=== PATIENT | male | born 1945 | race Caucasian/White ===

== ENCOUNTER → 2021-01-28 | Outpatient (CLI) | payer MEDICARE, OTHER ==
[~2021-01-28] MED LIST: ASCO500; BRAIN MIGHT-DH1 EACH; CHOL10002 PO; CO Q; FISH1000; IBUP600 PO; NAPR500 PO; Norco 5-325 Ta1 EACH PO; PRED20 PO
== END | disposition home or self-care (01) ==
LOC: LAB SHORT 14:28
DX: L82.1 Other seborrheic keratosis (principal)
CPT/HCPCS: 88305

== ENCOUNTER 2022-08-06 00:16 | Day surgery (SDC) | payer MEDICARE, OTHER ==
[~2022-08-06 00:16] MED LIST changes: +ALEN70 PO
[2022-08-06 07:41] VITALS: BP 154/74
[2022-08-06 08:06] VITALS: BP 112/63
[2022-08-06 09:20] VITALS: BP 134/62
== END 2022-08-06 09:30 | disposition home or self-care (01) ==
LOC: ATC 00:16
DX: D46.9 Myelodysplastic syndrome, unspecified (principal); D69.6 Thrombocytopenia, unspecified; D63.0 Anemia in neoplastic disease; E80.4 Gilbert syndrome; D70.9 Neutropenia, unspecified
CPT/HCPCS: 86850; 86900; 86901; 86923; J1642; J7050; P9016

== ENCOUNTER 2022-08-13 03:26 | Day surgery (SDC) | payer MEDICARE, OTHER ==
[2022-08-12 08:19] VITALS: BP 125/74
[2022-08-12 09:08] LABS: Hematocrit 24.5 % (37.0-53.0); Mean Corpuscular HGB 33.1 pg (26.0-34.0); Mean Corpuscular HGB Conc 32.7 g/dL (31.5-36.5); Mean Corpuscular Volume 101 fL (80-100); Mean Platelet Volume 9.8 fL (9.1-12.4); RDW Coefficient Variation 18.5 % (11.7-14.2); Red Blood Cell Count 2.42 M/mm3 (4.30-5.90)
[2022-08-12 09:19] LABS: BASOPHILS PERCENT AUTO 0 % (0-2); EOSINOPHILS ABSOLUTE AUTO 0.01 K/mm3 (0.00-0.68); EOSINOPHILS PERCENT AUTO 2 % (0-6); IMMATURE GRAN ABSOLUTE AUTO 0.02 K/mm3 (0.00-0.10); IMMATURE GRAN PERCENT AUTO 5 % (0-1); LYMPHOCYTES ABSOLUTE AUTO 0.27 K/mm3 (0.84-5.20); LYMPHOCYTES PERCENT AUTO 63 % (21-46); MONOCYTES ABSOLUTE AUTO 0.04 K/mm3 (0.16-1.47); MONOCYTES PERCENT AUTO 9 % (4-13); NEUTROPHILS ABSOLUTE AUTO 0.09 K/mm3 (1.96-9.15); NEUTROPHILS PERCENT AUTO 21 % (41-73); Platelet Count 36 K/mm3 (150-400)
[2022-08-12 09:21] LABS: White Blood Cell Count 0.43 K/mm3 (4.00-11.30)
[2022-08-12 09:30] LABS: Albumin, Blood 3.1 g/dL (3.4-5.0); Albumin/Globulin Ratio 0.9 (0.8-1.8); Bilirubin, Total 1.9 mg/dL (0.1-1.0); Bun/Creatinine Ratio 21.3 (12.0-20.0); Calcium, Blood 7.7 mg/dL (8.5-10.1); Creatinine, Blood 0.7 mg/dL (0.60-1.20); Globulin, Blood 3.3 g/dL (2.2-4.0); Potassium, Blood 4.2 mmol/L (3.5-5.5); Total Protein, Blood 6.4 g/dL (6.4-8.2)
[2022-08-12 09:36] LABS: BASOPHILS PERCENT MAN 0 % (0-2); EOSINOPHILS PERCENT MAN 0 % (0-6); LYMPHOCYTES ABSOLUTE MAN 0.27 K/mm3 (0.84-5.20); LYMPHOCYTES PERCENT MAN 64 % (21-46); MONOCYTES ABSOLUTE MAN 0.03 K/mm3 (0.16-1.47); MONOCYTES PERCENT MAN 8 % (4-13); NEUTROPHILS ABSOLUTE MAN 0.12 K/mm3 (1.96-9.15); SEG NEUTROPHILS PERCENT MAN 28 % (41-73); TOTAL CELLS COUNTED 25
[2022-08-13 13:50] VITALS: BP 145/78
[2022-08-13 14:12] VITALS: BP 120/68
[2022-08-13 15:26] VITALS: BP 127/70
== END 2022-08-13 15:32 | disposition home or self-care (01) ==
LOC: ATC 03:26
PROVIDERS: Internal Medicine Hematology & Oncology
DX: D46.9 Myelodysplastic syndrome, unspecified (principal); D70.9 Neutropenia, unspecified; D63.0 Anemia in neoplastic disease; E80.4 Gilbert syndrome; D69.6 Thrombocytopenia, unspecified; Z87.891 Personal history of nicotine dependence
CPT/HCPCS: 36591; 80053; 85025; 86850; 86900; 86901; 86923; J1642; J7050; P9016

== ENCOUNTER 2022-08-21 03:35 | Day surgery (SDC) | payer MEDICARE, OTHER ==
[2022-08-19 09:22] VITALS: BP 132/70
[2022-08-19 09:49] LABS: Hematocrit 24.8 % (37.0-53.0); Hemoglobin 8.1 g/dL (13.5-17.5); Mean Corpuscular HGB 31.6 pg (26.0-34.0); Mean Corpuscular HGB Conc 32.7 g/dL (31.5-36.5); Mean Corpuscular Volume 97 fL (80-100); Mean Platelet Volume 10.6 fL (9.1-12.4); RDW Coefficient Variation 19.9 % (11.7-14.2); RDW Standard Deviation 70.4 fL (35.1-46.3); Red Blood Cell Count 2.56 M/mm3 (4.30-5.90)
[2022-08-19 10:04] LABS: Platelet Count 35 K/mm3 (150-400); White Blood Cell Count 0.47 K/mm3 (4.00-11.30)
[2022-08-19 10:16] LABS: Albumin, Blood 3.1 g/dL (3.4-5.0); Bilirubin, Total 1.9 mg/dL (0.1-1.0); Bun/Creatinine Ratio 19.3 (12.0-20.0); Calcium, Blood 7.9 mg/dL (8.5-10.1); Creatinine, Blood 0.73 mg/dL (0.60-1.20); Potassium, Blood 4.1 mmol/L (3.5-5.5); Total Protein, Blood 6.1 g/dL (6.4-8.2)
[2022-08-19 11:02] LABS: BASOPHILS PERCENT MAN 0 % (0-2); EOSINOPHILS ABSOLUTE MAN 0.01 K/mm3 (0.00-0.68); EOSINOPHILS PERCENT MAN 4 % (0-6); LYMPHOCYTES ABSOLUTE MAN 0.31 K/mm3 (0.84-5.20); LYMPHOCYTES PERCENT MAN 68 % (21-46); MONOCYTES ABSOLUTE MAN 0.03 K/mm3 (0.16-1.47); MONOCYTES PERCENT MAN 8 % (4-13); NEUTROPHILS ABSOLUTE MAN 0.09 K/mm3 (1.96-9.15); SEG NEUTROPHILS PERCENT MAN 20 % (41-73); TOTAL CELLS COUNTED 25
[2022-08-21 14:58] VITALS: BP 146/77
[2022-08-21 15:15] VITALS: BP 119/70
[2022-08-21 16:16] VITALS: BP 129/72
[2022-08-21 16:50] VITALS: BP 135/64
== END 2022-08-21 16:50 | disposition home or self-care (01) ==
LOC: LAB 03:35 → ATC 03:35
PROVIDERS: Internal Medicine Hematology & Oncology
DX: D46.9 Myelodysplastic syndrome, unspecified (principal)
CPT/HCPCS: 36430; 36591; 80053; 85025; 86850; 86900; 86901; 86923; J1642; J7050; P9016

== ENCOUNTER 2022-09-22 01:03 | Day surgery (SDC) | payer MEDICARE, OTHER ==
[~2022-09-22 01:03] MED LIST changes: +AMOX-CLAV 875-1 EAC5 PO; +AMPI500 PO; +CELEBREX PO; +VENCLEXTA100 MG PO
[2022-09-22 08:11] VITALS: BP 130/73
[2022-09-22 09:23] LABS: Mean Corpuscular HGB 31.4 pg (26.0-34.0); Mean Corpuscular HGB Conc 33.3 g/dL (31.5-36.5); Mean Corpuscular Volume 94 fL (80-100); NRBC ABSOLUTE 0.02 K/mm3 (0.00-0.02); NRBC Auto 4.1 /100 WBC (0.0-0.2); RDW Coefficient Variation 19.3 % (11.7-14.2); RDW Standard Deviation 66.1 fL (35.1-46.3); Red Blood Cell Count 2.87 M/mm3 (4.30-5.90)
[2022-09-22 09:25] LABS: Platelet Count 21 K/mm3 (150-400); White Blood Cell Count 0.49 K/mm3 (4.00-11.30)
[2022-09-22 10:07] LABS: BAND PERCENT MAN 4 % (0-8); BASOPHILS ABSOLUTE MAN 0.01 K/mm3 (0.00-0.23); BASOPHILS PERCENT MAN 4 % (0-2); EOSINOPHILS ABSOLUTE MAN 0.03 K/mm3 (0.00-0.68); EOSINOPHILS PERCENT MAN 8 % (0-6); LYMPHOCYTES ABSOLUTE MAN 0.25 K/mm3 (0.84-5.20); LYMPHOCYTES PERCENT MAN 52 % (21-46); MONOCYTES ABSOLUTE MAN 0.01 K/mm3 (0.16-1.47); MONOCYTES PERCENT MAN 4 % (4-13); NEUTROPHILS ABSOLUTE MAN 0.15 K/mm3 (1.96-9.15); SEG NEUTROPHILS PERCENT MAN 28 % (41-73); TOTAL CELLS COUNTED 25
[2022-09-22 11:01] LABS: Albumin, Blood 3.4 g/dL (3.4-5.0); Albumin/Globulin Ratio 1.1 (0.8-1.8); Bilirubin, Total 2.4 mg/dL (0.1-1.0); Bun/Creatinine Ratio 27.1 (12.0-20.0); Calcium, Blood 7.9 mg/dL (8.5-10.1); Creatinine, Blood 0.7 mg/dL (0.60-1.20); Potassium, Blood 3.9 mmol/L (3.5-5.5); Total Protein, Blood 6.4 g/dL (6.4-8.2)
== END 2022-09-22 08:11 | disposition home or self-care (01) ==
LOC: ATC 01:03
PROVIDERS: Internal Medicine Hematology & Oncology
DX: D46.9 Myelodysplastic syndrome, unspecified (principal); D69.6 Thrombocytopenia, unspecified
CPT/HCPCS: 36591; 80053; 85025; J1642

== ENCOUNTER → 2022-09-25 | Outpatient (CLI) | payer MEDICARE, OTHER ==
[2022-09-25 09:58] LABS: Hematocrit 26.2 % (37.0-53.0); Hemoglobin 8.5 g/dL (13.5-17.5); Mean Corpuscular HGB Conc 32.4 g/dL (31.5-36.5); Mean Corpuscular Volume 96 fL (80-100); RDW Coefficient Variation 18.9 % (11.7-14.2); RDW Standard Deviation 66.6 fL (35.1-46.3); Red Blood Cell Count 2.74 M/mm3 (4.30-5.90)
[2022-09-25 10:22] LABS: BASOPHILS PERCENT AUTO 0 % (0-2); EOSINOPHILS PERCENT AUTO 0 % (0-6); IMMATURE GRAN PERCENT AUTO 0 % (0-1); LYMPHOCYTES PERCENT AUTO 71 % (21-46); MONOCYTES ABSOLUTE AUTO 0.03 K/mm3 (0.16-1.47); MONOCYTES PERCENT AUTO 7 % (4-13); NEUTROPHILS ABSOLUTE AUTO 0.09 K/mm3 (1.96-9.15); NEUTROPHILS PERCENT AUTO 22 % (41-73)
[2022-09-25 10:23] LABS: Platelet Count 18 K/mm3 (150-400); White Blood Cell Count 0.42 K/mm3 (4.00-11.30)
== END ==
LOC: LAB 08:45 → LAB SHORT 08:45
PROVIDERS: Internal Medicine Hematology & Oncology
DX: D46.9 Myelodysplastic syndrome, unspecified (principal)
CPT/HCPCS: 85025

== ENCOUNTER 2022-10-02 03:04 | Day surgery (SDC) | payer MEDICARE, OTHER ==
[2022-10-02 08:18] VITALS: BP 132/75
[2022-10-02 08:39] LABS: Hematocrit 23.6 % (37.0-53.0); Hemoglobin 7.8 g/dL (13.5-17.5); Mean Corpuscular HGB 30.6 pg (26.0-34.0); Mean Corpuscular HGB Conc 33.1 g/dL (31.5-36.5); Mean Corpuscular Volume 93 fL (80-100); Mean Platelet Volume 9.5 fL (9.1-12.4); RDW Coefficient Variation 18.6 % (11.7-14.2); RDW Standard Deviation 62.6 fL (35.1-46.3); Red Blood Cell Count 2.55 M/mm3 (4.30-5.90)
[2022-10-02 08:46] LABS: Platelet Count 18 K/mm3 (150-400); White Blood Cell Count 0.33 K/mm3 (4.00-11.30)
[2022-10-02 09:07] LABS: BASOPHILS PERCENT MAN 0 % (0-2); EOSINOPHILS ABSOLUTE MAN 0.01 K/mm3 (0.00-0.68); EOSINOPHILS PERCENT MAN 4 % (0-6); LYMPHOCYTES ABSOLUTE MAN 0.26 K/mm3 (0.84-5.20); LYMPHOCYTES PERCENT MAN 80 % (21-46); MONOCYTES ABSOLUTE MAN 0.01 K/mm3 (0.16-1.47); MONOCYTES PERCENT MAN 4 % (4-13); NEUTROPHILS ABSOLUTE MAN 0.03 K/mm3 (1.96-9.15); SEG NEUTROPHILS PERCENT MAN 12 % (41-73); TOTAL CELLS COUNTED 25
== END 2022-10-02 09:11 | disposition home or self-care (01) ==
LOC: ATC 03:04
PROVIDERS: Internal Medicine Hematology & Oncology
DX: D46.9 Myelodysplastic syndrome, unspecified (principal); D69.59 Other secondary thrombocytopenia
CPT/HCPCS: 36591; 85025; J1642

== ENCOUNTER 2022-10-07 02:46 | Day surgery (SDC) | payer MEDICARE, OTHER ==
[2022-10-06 09:08] VITALS: BP 144/74
[2022-10-06 09:27] LABS: Hematocrit 21.5 % (37.0-53.0); Hemoglobin 7.2 g/dL (13.5-17.5); Mean Corpuscular HGB 30.9 pg (26.0-34.0); Mean Corpuscular HGB Conc 33.5 g/dL (31.5-36.5); Mean Corpuscular Volume 92 fL (80-100); Mean Platelet Volume 9.5 fL (9.1-12.4); RDW Coefficient Variation 17.2 % (11.7-14.2); RDW Standard Deviation 57.1 fL (35.1-46.3); Red Blood Cell Count 2.33 M/mm3 (4.30-5.90)
[2022-10-06 09:34] LABS: BASOPHILS PERCENT AUTO 0 % (0-2); EOSINOPHILS PERCENT AUTO 0 % (0-6); IMMATURE GRAN PERCENT AUTO 0 % (0-1); LYMPHOCYTES ABSOLUTE AUTO 0.18 K/mm3 (0.84-5.20); LYMPHOCYTES PERCENT AUTO 75 % (21-46); MONOCYTES ABSOLUTE AUTO 0.04 K/mm3 (0.16-1.47); MONOCYTES PERCENT AUTO 17 % (4-13); NEUTROPHILS ABSOLUTE AUTO 0.02 K/mm3 (1.96-9.15); NEUTROPHILS PERCENT AUTO 8 % (41-73); Platelet Count 6 K/mm3 (150-400); White Blood Cell Count 0.24 K/mm3 (4.00-11.30)
[2022-10-06 10:20] LABS: LYMPHOCYTES ABSOLUTE MAN 0.23 K/mm3 (0.84-5.20); LYMPHOCYTES PERCENT MAN 96 % (21-46); SEG NEUTROPHILS PERCENT MAN 4 % (41-73); TOTAL CELLS COUNTED 25
[2022-10-06 10:21] LABS: BASOPHILS PERCENT MAN 0 % (0-2); EOSINOPHILS PERCENT MAN 0 % (0-6); MONOCYTES PERCENT MAN 0 % (4-13)
[2022-10-07] VITALS (7 sets, daily range): BP systolic 134–164; BP diastolic 61–78
== END 2022-10-07 17:37 | disposition home or self-care (01) ==
LOC: ATC 02:46
PROVIDERS: Internal Medicine Hematology & Oncology
DX: D46.9 Myelodysplastic syndrome, unspecified (principal); D69.59 Other secondary thrombocytopenia; Z79.899 Other long term (current) drug therapy
CPT/HCPCS: 36430; 36591; 85025; 86850; 86900; 86901; 86923; J1642; J7050; P9040; P9053

== ENCOUNTER 2022-10-08 15:49 | Emergency (ER) | payer MEDICARE, OTHER ==
[~2022-10-08] VITALS: Ht 180.3 cm; Wt 78.0 kg
[2022-10-08 16:22] LABS: Hematocrit 26.8 % (37.0-53.0); Hemoglobin 9.2 g/dL (13.5-17.5); Mean Corpuscular HGB 30.9 pg (26.0-34.0); Mean Corpuscular HGB Conc 34.3 g/dL (31.5-36.5); Mean Corpuscular Volume 90 fL (80-100); Mean Platelet Volume 9.3 fL (9.1-12.4); RDW Coefficient Variation 17.4 % (11.7-14.2); RDW Standard Deviation 56.3 fL (35.1-46.3); Red Blood Cell Count 2.98 M/mm3 (4.30-5.90)
[2022-10-08 16:27] LABS: Platelet Count 18 K/mm3 (150-400); White Blood Cell Count 0.27 K/mm3 (4.00-11.30)
[2022-10-08 16:45] LABS: Albumin, Blood 3.2 g/dL (3.4-5.0); Bilirubin, Total 4.5 mg/dL (0.1-1.0); Bun/Creatinine Ratio 22.2 (12.0-20.0); Calcium, Blood 7.9 mg/dL (8.5-10.1); Creatinine, Blood 0.72 mg/dL (0.60-1.20); Globulin, Blood 3.1 g/dL (2.2-4.0); Total Protein, Blood 6.3 g/dL (6.4-8.2)
[2022-10-08 16:55] LABS: BASOPHILS PERCENT MAN 0 % (0-2); EOSINOPHILS PERCENT MAN 0 % (0-6); LYMPHOCYTES % ATYPICAL MANUAL 2 % (0-0); LYMPHOCYTES ABSOLUTE MAN 0.22 K/mm3 (0.84-5.20); LYMPHOCYTES PERCENT MAN 82 % (21-46); MONOCYTES ABSOLUTE MAN 0.02 K/mm3 (0.16-1.47); MONOCYTES PERCENT MAN 10 % (4-13); NEUTROPHILS ABSOLUTE MAN 0.01 K/mm3 (1.96-9.15); SEG NEUTROPHILS PERCENT MAN 6 % (41-73); TOTAL CELLS COUNTED 100
[2022-10-08 17:45] VITALS: BP 165/83
== END 2022-10-08 19:07 | disposition home or self-care (01) ==
LOC: ER 15:49
PROVIDERS: Physician Assistant
DX: T80.89XA Other complications following infusion, transfusion and therapeutic injection, initial encounter (principal); I10 Essential (primary) hypertension; D70.9 Neutropenia, unspecified
CPT/HCPCS: 71046; 80053; 83880; 84484; 85025; 93005; 93010; 99285-25

== ENCOUNTER 2022-10-17 01:06 | Day surgery (SDC) | payer MEDICARE, OTHER ==
[2022-10-16 08:30] VITALS: BP 169/68
[2022-10-16 08:45] LABS: Hematocrit 21.2 % (37.0-53.0); Hemoglobin 7.2 g/dL (13.5-17.5); Mean Corpuscular HGB 30.6 pg (26.0-34.0); Mean Corpuscular Volume 90 fL (80-100); Mean Platelet Volume 12.5 fL (9.1-12.4); Platelet Count 57 K/mm3 (150-400); RDW Standard Deviation 51.8 fL (35.1-46.3); Red Blood Cell Count 2.35 M/mm3 (4.30-5.90)
[2022-10-16 08:56] LABS: White Blood Cell Count 0.33 K/mm3 (4.00-11.30)
[2022-10-16 09:25] LABS: BASOPHILS ABSOLUTE MAN 0.01 K/mm3 (0.00-0.23); BASOPHILS PERCENT MAN 4 % (0-2); EOSINOPHILS PERCENT MAN 0 % (0-6); LYMPHOCYTES % ATYPICAL MANUAL 4 % (0-0); LYMPHOCYTES ABSOLUTE MAN 0.29 K/mm3 (0.84-5.20); LYMPHOCYTES PERCENT MAN 84 % (21-46); MONOCYTES ABSOLUTE MAN 0.01 K/mm3 (0.16-1.47); MONOCYTES PERCENT MAN 4 % (4-13); NEUTROPHILS ABSOLUTE MAN 0.01 K/mm3 (1.96-9.15); SEG NEUTROPHILS PERCENT MAN 4 % (41-73); TOTAL CELLS COUNTED 25
[2022-10-17 13:53] VITALS: BP 189/90
[2022-10-17 14:15] VITALS: BP 148/75
[2022-10-17 15:17] VITALS: BP 153/78
[2022-10-17 15:52] VITALS: BP 158/79
[2022-10-17 17:12] VITALS: BP 167/85
[2022-10-17 17:25] VITALS: BP 167/85
== END 2022-10-17 17:30 | disposition home or self-care (01) ==
LOC: ATC 01:06
PROVIDERS: Internal Medicine Hematology & Oncology
DX: D46.9 Myelodysplastic syndrome, unspecified (principal); Z87.891 Personal history of nicotine dependence; Z79.899 Other long term (current) drug therapy
CPT/HCPCS: 36430; 36591; 85025; 86850; 86900; 86901; 86923; A9270; J1642; J7050; P9040

== ENCOUNTER 2022-10-22 02:30 | Day surgery (SDC) | payer MEDICARE, OTHER | END 2022-10-22 15:22 | disposition home or self-care (01) | LOC: ATC 02:30 | DX: D46.9 Myelodysplastic syndrome, unspecified (principal); D69.59 Other secondary thrombocytopenia ==

== ENCOUNTER 2022-10-24 00:28 | Day surgery (SDC) | payer MEDICARE, OTHER ==
[2022-10-23 08:43] VITALS: BP 115/83
[2022-10-23 09:14] LABS: Hematocrit 24.8 % (37.0-53.0); Hemoglobin 8.5 g/dL (13.5-17.5); Mean Corpuscular HGB 30.1 pg (26.0-34.0); Mean Corpuscular HGB Conc 34.3 g/dL (31.5-36.5); Mean Corpuscular Volume 88 fL (80-100); Mean Platelet Volume 10.9 fL (9.1-12.4); Platelet Count 113 K/mm3 (150-400); RDW Coefficient Variation 15.8 % (11.7-14.2); RDW Standard Deviation 48.9 fL (35.1-46.3); Red Blood Cell Count 2.82 M/mm3 (4.30-5.90)
[2022-10-23 09:17] LABS: BASOPHILS PERCENT AUTO 0 % (0-2); EOSINOPHILS PERCENT AUTO 0 % (0-6); IMMATURE GRAN PERCENT AUTO 0 % (0-1); LYMPHOCYTES ABSOLUTE AUTO 0.25 K/mm3 (0.84-5.20); LYMPHOCYTES PERCENT AUTO 81 % (21-46); MONOCYTES ABSOLUTE AUTO 0.01 K/mm3 (0.16-1.47); MONOCYTES PERCENT AUTO 3 % (4-13); NEUTROPHILS ABSOLUTE AUTO 0.05 K/mm3 (1.96-9.15); NEUTROPHILS PERCENT AUTO 16 % (41-73); White Blood Cell Count 0.31 K/mm3 (4.00-11.30)
[2022-10-23 09:47] LABS: BASOPHILS PERCENT MAN 0 % (0-2); EOSINOPHILS PERCENT MAN 0 % (0-6); LYMPHOCYTES % ATYPICAL MANUAL 4 % (0-0); LYMPHOCYTES ABSOLUTE MAN 0.31 K/mm3 (0.84-5.20); LYMPHOCYTES PERCENT MAN 96 % (21-46); MONOCYTES PERCENT MAN 0 % (4-13); TOTAL CELLS COUNTED 25
[2022-10-24 08:53] VITALS: BP 100/45
[2022-10-24 10:16] VITALS: BP 110/55
== END 2022-10-24 10:25 | disposition home or self-care (01) ==
LOC: ATC 00:28
PROVIDERS: Internal Medicine Hematology & Oncology
DX: D46.9 Myelodysplastic syndrome, unspecified (principal); D69.59 Other secondary thrombocytopenia
CPT/HCPCS: 36430; 36591; 85025; 86850; 86900; 86901; 86923; J1642; J7050; P9040

== ENCOUNTER 2022-10-27 02:28 | Day surgery (SDC) | payer MEDICARE, OTHER ==
[2022-10-27 08:24] VITALS: BP 166/90
[2022-10-27 09:12] LABS: Hematocrit 27.1 % (37.0-53.0); Hemoglobin 9.2 g/dL (13.5-17.5); Mean Corpuscular HGB 30.4 pg (26.0-34.0); Mean Corpuscular HGB Conc 33.9 g/dL (31.5-36.5); Mean Corpuscular Volume 89 fL (80-100); Mean Platelet Volume 10.6 fL (9.1-12.4); NRBC ABSOLUTE 0.02 K/mm3 (0.00-0.02); NRBC Auto 3.1 /100 WBC (0.0-0.2); Platelet Count 132 K/mm3 (150-400); RDW Coefficient Variation 15.8 % (11.7-14.2); RDW Standard Deviation 48.8 fL (35.1-46.3); Red Blood Cell Count 3.03 M/mm3 (4.30-5.90)
[2022-10-27 09:18] LABS: White Blood Cell Count 0.65 K/mm3 (4.00-11.30)
[2022-10-27 09:32] LABS: BASOPHILS PERCENT MAN 0 % (0-2); EOSINOPHILS PERCENT MAN 0 % (0-6); LYMPHOCYTES ABSOLUTE MAN 0.39 K/mm3 (0.84-5.20); LYMPHOCYTES PERCENT MAN 60 % (21-46); MONOCYTES PERCENT MAN 0 % (4-13); NEUTROPHILS ABSOLUTE MAN 0.26 K/mm3 (1.96-9.15); SEG NEUTROPHILS PERCENT MAN 40 % (41-73); TOTAL CELLS COUNTED 25
== END 2022-10-27 08:33 | disposition home or self-care (01) ==
LOC: ATC 02:28
PROVIDERS: Internal Medicine Hematology & Oncology
DX: D46.9 Myelodysplastic syndrome, unspecified (principal); D69.59 Other secondary thrombocytopenia; D69.6 Thrombocytopenia, unspecified; D63.0 Anemia in neoplastic disease
CPT/HCPCS: 36591; 85025

== ENCOUNTER 2022-10-30 04:08 | Day surgery (SDC) | payer MEDICARE, OTHER ==
[2022-10-30 08:23] VITALS: BP 162/78
[2022-10-30 08:59] LABS: Hematocrit 26.4 % (37.0-53.0); Hemoglobin 8.9 g/dL (13.5-17.5); Mean Corpuscular HGB 30.9 pg (26.0-34.0); Mean Corpuscular HGB Conc 33.7 g/dL (31.5-36.5); Mean Corpuscular Volume 92 fL (80-100); Mean Platelet Volume 10.8 fL (9.1-12.4); NRBC ABSOLUTE 0.02 K/mm3 (0.00-0.02); NRBC Auto 1.7 /100 WBC (0.0-0.2); Platelet Count 153 K/mm3 (150-400); RDW Standard Deviation 50.1 fL (35.1-46.3); Red Blood Cell Count 2.88 M/mm3 (4.30-5.90); White Blood Cell Count 1.15 K/mm3 (4.00-11.30)
[2022-10-30 09:19] LABS: BAND PERCENT MAN 2 % (0-8); BASOPHILS PERCENT MAN 0 % (0-2); EOSINOPHILS PERCENT MAN 0 % (0-6); LYMPHOCYTES ABSOLUTE MAN 0.29 K/mm3 (0.84-5.20); LYMPHOCYTES PERCENT MAN 26 % (21-46); METAMYELOCYTE ABSOLUTE MAN 0.04 K/mm3 (0.00-0.00); METAMYELOCYTE PERCENT MAN 4 % (0-0); MONOCYTES ABSOLUTE MAN 0.02 K/mm3 (0.16-1.47); MONOCYTES PERCENT MAN 2 % (4-13); NEUTROPHILS ABSOLUTE MAN 0.78 K/mm3 (1.96-9.15); SEG NEUTROPHILS PERCENT MAN 66 % (41-73); TOTAL CELLS COUNTED 50
== END 2022-10-30 08:30 | disposition home or self-care (01) ==
LOC: ATC 04:08
PROVIDERS: Internal Medicine Hematology & Oncology
DX: D46.9 Myelodysplastic syndrome, unspecified (principal); D69.59 Other secondary thrombocytopenia; Z79.899 Other long term (current) drug therapy
CPT/HCPCS: 36591; 85025

== ENCOUNTER 2022-11-03 00:35 | Day surgery (SDC) | payer MEDICARE, OTHER ==
[2022-11-03 08:35] VITALS: BP 136/79
[2022-11-03 09:05] LABS: Hematocrit 25.3 % (37.0-53.0); Hemoglobin 8.5 g/dL (13.5-17.5); Mean Corpuscular HGB 30.8 pg (26.0-34.0); Mean Corpuscular HGB Conc 33.6 g/dL (31.5-36.5); Mean Corpuscular Volume 92 fL (80-100); Mean Platelet Volume 10.1 fL (9.1-12.4); Platelet Count 157 K/mm3 (150-400); RDW Coefficient Variation 16.7 % (11.7-14.2); RDW Standard Deviation 50.6 fL (35.1-46.3); Red Blood Cell Count 2.76 M/mm3 (4.30-5.90); White Blood Cell Count 1.18 K/mm3 (4.00-11.30)
[2022-11-03 09:49] LABS: BASOPHILS PERCENT MAN 0 % (0-2); EOSINOPHILS ABSOLUTE MAN 0.02 K/mm3 (0.00-0.68); EOSINOPHILS PERCENT MAN 2 % (0-6); LYMPHOCYTES % ATYPICAL MANUAL 2 % (0-0); LYMPHOCYTES ABSOLUTE MAN 0.23 K/mm3 (0.84-5.20); LYMPHOCYTES PERCENT MAN 18 % (21-46); METAMYELOCYTE ABSOLUTE MAN 0.02 K/mm3 (0.00-0.00); METAMYELOCYTE PERCENT MAN 2 % (0-0); MONOCYTES PERCENT MAN 0 % (4-13); NEUTROPHILS ABSOLUTE MAN 0.89 K/mm3 (1.96-9.15); SEG NEUTROPHILS PERCENT MAN 76 % (41-73); TOTAL CELLS COUNTED 50
== END 2022-11-03 08:35 | disposition home or self-care (01) ==
LOC: ATC 00:35
PROVIDERS: Internal Medicine Hematology & Oncology
DX: D46.9 Myelodysplastic syndrome, unspecified (principal); D69.59 Other secondary thrombocytopenia; E80.4 Gilbert syndrome; G43.909 Migraine, unspecified, not intractable, without status migrainosus; Z87.891 Personal history of nicotine dependence
CPT/HCPCS: 36591; 85025; J1642

== ENCOUNTER 2022-11-06 00:47 | Day surgery (SDC) | payer MEDICARE, OTHER ==
[2022-11-06 09:07] LABS: BASOPHILS ABSOLUTE AUTO 0.01 K/mm3 (0.00-0.23); BASOPHILS PERCENT AUTO 1 % (0-2); EOSINOPHILS PERCENT AUTO 0 % (0-6); Hemoglobin 8.5 g/dL (13.5-17.5); IMMATURE GRAN ABSOLUTE AUTO 0.02 K/mm3 (0.00-0.10); IMMATURE GRAN PERCENT AUTO 2 % (0-1); LYMPHOCYTES ABSOLUTE AUTO 0.24 K/mm3 (0.84-5.20); LYMPHOCYTES PERCENT AUTO 19 % (21-46); MONOCYTES ABSOLUTE AUTO 0.06 K/mm3 (0.16-1.47); MONOCYTES PERCENT AUTO 5 % (4-13); Mean Corpuscular HGB 31.6 pg (26.0-34.0); Mean Corpuscular Volume 93 fL (80-100); Mean Platelet Volume 9.8 fL (9.1-12.4); NEUTROPHILS ABSOLUTE AUTO 0.93 K/mm3 (1.96-9.15); NEUTROPHILS PERCENT AUTO 74 % (41-73); Platelet Count 150 K/mm3 (150-400); RDW Coefficient Variation 17.9 % (11.7-14.2); RDW Standard Deviation 52.3 fL (35.1-46.3); Red Blood Cell Count 2.69 M/mm3 (4.30-5.90); White Blood Cell Count 1.26 K/mm3 (4.00-11.30)
[2022-11-06 09:39] LABS: BAND PERCENT MAN 2 % (0-8); BASOPHILS PERCENT MAN 0 % (0-2); EOSINOPHILS PERCENT MAN 0 % (0-6); LYMPHOCYTES PERCENT MAN 32 % (21-46); MONOCYTES PERCENT MAN 0 % (4-13); NEUTROPHILS ABSOLUTE MAN 0.85 K/mm3 (1.96-9.15); SEG NEUTROPHILS PERCENT MAN 66 % (41-73); TOTAL CELLS COUNTED 50
== END 2022-11-06 08:54 | disposition home or self-care (01) ==
LOC: ATC 00:47
PROVIDERS: Internal Medicine Hematology & Oncology
DX: D46.9 Myelodysplastic syndrome, unspecified (principal); D69.59 Other secondary thrombocytopenia; G43.909 Migraine, unspecified, not intractable, without status migrainosus; M19.90 Unspecified osteoarthritis, unspecified site
CPT/HCPCS: 36591; 85025; J1642

== ENCOUNTER 2022-11-10 01:22 | Day surgery (SDC) | payer MEDICARE, OTHER ==
[2022-11-10 08:23] VITALS: BP 151/75
[2022-11-10 08:44] LABS: Hematocrit 25.5 % (37.0-53.0); Hemoglobin 8.6 g/dL (13.5-17.5); Mean Corpuscular HGB 31.6 pg (26.0-34.0); Mean Corpuscular HGB Conc 33.7 g/dL (31.5-36.5); Mean Corpuscular Volume 94 fL (80-100); Mean Platelet Volume 9.7 fL (9.1-12.4); Platelet Count 130 K/mm3 (150-400); RDW Coefficient Variation 19.6 % (11.7-14.2); RDW Standard Deviation 59.6 fL (35.1-46.3); Red Blood Cell Count 2.72 M/mm3 (4.30-5.90); White Blood Cell Count 1.11 K/mm3 (4.00-11.30)
[2022-11-10 09:41] LABS: BAND PERCENT MAN 2 % (0-8); BASOPHILS PERCENT MAN 0 % (0-2); EOSINOPHILS PERCENT MAN 0 % (0-6); LYMPHOCYTES ABSOLUTE MAN 0.22 K/mm3 (0.84-5.20); LYMPHOCYTES PERCENT MAN 20 % (21-46); MONOCYTES ABSOLUTE MAN 0.04 K/mm3 (0.16-1.47); MONOCYTES PERCENT MAN 4 % (4-13); NEUTROPHILS ABSOLUTE MAN 0.84 K/mm3 (1.96-9.15); SEG NEUTROPHILS PERCENT MAN 74 % (41-73); TOTAL CELLS COUNTED 50
[2022-11-10] MEDS ORDERED: VENCLEXTA100 MG PO (12:00)
== END 2022-11-10 08:32 | disposition home or self-care (01) ==
LOC: ATC 01:22
PROVIDERS: Internal Medicine Hematology & Oncology
DX: D46.9 Myelodysplastic syndrome, unspecified (principal); D69.59 Other secondary thrombocytopenia; G43.909 Migraine, unspecified, not intractable, without status migrainosus; M19.90 Unspecified osteoarthritis, unspecified site; E80.4 Gilbert syndrome
CPT/HCPCS: 36591; 85025; J1642

== ENCOUNTER 2022-11-13 04:00 | Day surgery (SDC) | payer MEDICARE, OTHER ==
[2022-11-13 08:35] VITALS: BP 141/70
[2022-11-13 09:30] LABS: BASOPHILS ABSOLUTE AUTO 0.01 K/mm3 (0.00-0.23); BASOPHILS PERCENT AUTO 1 % (0-2); EOSINOPHILS PERCENT AUTO 0 % (0-6); Hematocrit 27.7 % (37.0-53.0); Hemoglobin 9.3 g/dL (13.5-17.5); IMMATURE GRAN PERCENT AUTO 0 % (0-1); LYMPHOCYTES ABSOLUTE AUTO 0.22 K/mm3 (0.84-5.20); LYMPHOCYTES PERCENT AUTO 17 % (21-46); MONOCYTES ABSOLUTE AUTO 0.03 K/mm3 (0.16-1.47); MONOCYTES PERCENT AUTO 2 % (4-13); Mean Corpuscular HGB 32.1 pg (26.0-34.0); Mean Corpuscular HGB Conc 33.6 g/dL (31.5-36.5); Mean Corpuscular Volume 96 fL (80-100); Mean Platelet Volume 9.8 fL (9.1-12.4); NEUTROPHILS ABSOLUTE AUTO 1.01 K/mm3 (1.96-9.15); NEUTROPHILS PERCENT AUTO 80 % (41-73); NRBC ABSOLUTE 0.02 K/mm3 (0.00-0.02); NRBC Auto 1.6 /100 WBC (0.0-0.2); Platelet Count 149 K/mm3 (150-400); RDW Coefficient Variation 20.5 % (11.7-14.2); RDW Standard Deviation 70.5 fL (35.1-46.3); White Blood Cell Count 1.27 K/mm3 (4.00-11.30)
== END 2022-11-13 08:41 | disposition home or self-care (01) ==
LOC: ATC 04:00
PROVIDERS: Internal Medicine Hematology & Oncology
DX: D46.9 Myelodysplastic syndrome, unspecified (principal); D69.59 Other secondary thrombocytopenia; Z79.899 Other long term (current) drug therapy
CPT/HCPCS: 36591; 85025; J1642

== ENCOUNTER 2022-11-18 07:58 | Day surgery (SDC) | payer MEDICARE, OTHER ==
[2022-11-18 08:30] VITALS: BP 124/73
[2022-11-18 08:48] LABS: Hematocrit 30.3 % (37.0-53.0); Hemoglobin 10.1 g/dL (13.5-17.5); Mean Corpuscular HGB 32.2 pg (26.0-34.0); Mean Corpuscular HGB Conc 33.3 g/dL (31.5-36.5); Mean Corpuscular Volume 97 fL (80-100); Platelet Count 302 K/mm3 (150-400); RDW Coefficient Variation 21.1 % (11.7-14.2); RDW Standard Deviation 72.1 fL (35.1-46.3); Red Blood Cell Count 3.14 M/mm3 (4.30-5.90)
[2022-11-18 08:52] LABS: White Blood Cell Count 0.32 K/mm3 (4.00-11.30)
[2022-11-18 09:20] LABS: BASOPHILS PERCENT MAN 0 % (0-2); EOSINOPHILS PERCENT MAN 0 % (0-6); LYMPHOCYTES ABSOLUTE MAN 0.14 K/mm3 (0.84-5.20); LYMPHOCYTES PERCENT MAN 44 % (21-46); MONOCYTES PERCENT MAN 0 % (4-13); NEUTROPHILS ABSOLUTE MAN 0.17 K/mm3 (1.96-9.15); SEG NEUTROPHILS PERCENT MAN 56 % (41-73); TOTAL CELLS COUNTED 25
== END 2022-11-18 08:35 | disposition home or self-care (01) ==
LOC: ATC 07:58
PROVIDERS: Internal Medicine Hematology & Oncology
DX: D46.9 Myelodysplastic syndrome, unspecified (principal); D69.59 Other secondary thrombocytopenia; D63.0 Anemia in neoplastic disease; E80.4 Gilbert syndrome
CPT/HCPCS: 36591; 85025; J1642

== ENCOUNTER 2022-11-24 00:58 | Day surgery (SDC) | payer MEDICARE, OTHER ==
[2022-11-24 08:26] VITALS: BP 140/74
[2022-11-24 09:10] LABS: Hemoglobin 10.6 g/dL (13.5-17.5); Mean Corpuscular HGB 32.9 pg (26.0-34.0); Mean Corpuscular HGB Conc 34.2 g/dL (31.5-36.5); Mean Corpuscular Volume 96 fL (80-100); Mean Platelet Volume 9.5 fL (9.1-12.4); Platelet Count 333 K/mm3 (150-400); RDW Coefficient Variation 19.4 % (11.7-14.2); RDW Standard Deviation 67.6 fL (35.1-46.3); Red Blood Cell Count 3.22 M/mm3 (4.30-5.90)
[2022-11-24 09:14] LABS: White Blood Cell Count 0.32 K/mm3 (4.00-11.30)
[2022-11-24 09:36] LABS: BASOPHILS PERCENT MAN 0 % (0-2); EOSINOPHILS PERCENT MAN 0 % (0-6); LYMPHOCYTES ABSOLUTE MAN 0.16 K/mm3 (0.84-5.20); LYMPHOCYTES PERCENT MAN 52 % (21-46); MONOCYTES ABSOLUTE MAN 0.11 K/mm3 (0.16-1.47); MONOCYTES PERCENT MAN 36 % (4-13); NEUTROPHILS ABSOLUTE MAN 0.03 K/mm3 (1.96-9.15); SEG NEUTROPHILS PERCENT MAN 12 % (41-73); TOTAL CELLS COUNTED 25
== END 2022-11-24 08:35 | disposition home or self-care (01) ==
LOC: ATC 00:58
PROVIDERS: Internal Medicine Hematology & Oncology
DX: D46.9 Myelodysplastic syndrome, unspecified (principal); D69.59 Other secondary thrombocytopenia
CPT/HCPCS: 36591; 85025

== ENCOUNTER 2022-12-22 00:50 | Day surgery (SDC) | payer MEDICARE, OTHER ==
[2022-12-22 08:25] VITALS: BP 149/78
[2022-12-22 08:59] LABS: Hematocrit 33.7 % (37.0-53.0); Hemoglobin 11.8 g/dL (13.5-17.5); Mean Corpuscular HGB 34.5 pg (26.0-34.0); Mean Corpuscular Volume 99 fL (80-100); Mean Platelet Volume 9.9 fL (9.1-12.4); Platelet Count 183 K/mm3 (150-400); RDW Standard Deviation 62.3 fL (35.1-46.3); Red Blood Cell Count 3.42 M/mm3 (4.30-5.90); White Blood Cell Count 1.58 K/mm3 (4.00-11.30)
[2022-12-22 09:16] LABS: Albumin, Blood 3.7 g/dL (3.4-5.0); Albumin/Globulin Ratio 1.4 (0.8-1.8); Bilirubin, Total 2.6 mg/dL (0.1-1.0); Calcium, Blood 8.2 mg/dL (8.5-10.1); Creatinine, Blood 0.74 mg/dL (0.60-1.20); Globulin, Blood 2.7 g/dL (2.2-4.0); Potassium, Blood 3.9 mmol/L (3.5-5.5); Total Protein, Blood 6.4 g/dL (6.4-8.2)
[2022-12-22 09:17] LABS: BASOPHILS PERCENT MAN 0 % (0-2); EOSINOPHILS PERCENT MAN 0 % (0-6); LYMPHOCYTES ABSOLUTE MAN 0.34 K/mm3 (0.84-5.20); LYMPHOCYTES PERCENT MAN 22 % (21-46); MONOCYTES PERCENT MAN 0 % (4-13); NEUTROPHILS ABSOLUTE MAN 1.23 K/mm3 (1.96-9.15); SEG NEUTROPHILS PERCENT MAN 78 % (41-73); TOTAL CELLS COUNTED 50
== END 2022-12-22 08:34 | disposition home or self-care (01) ==
LOC: ATC 00:50
PROVIDERS: Internal Medicine Hematology & Oncology
DX: D46.9 Myelodysplastic syndrome, unspecified (principal); D69.6 Thrombocytopenia, unspecified
CPT/HCPCS: 36591; 80053; 85025; J1642

== ENCOUNTER 2023-01-06 00:23 | Day surgery (SDC) | payer MEDICARE, OTHER ==
[2023-01-06 08:38] VITALS: BP 172/87
[2023-01-06 08:48] VITALS: BP 144/86
[2023-01-06 10:14] LABS: BASOPHILS PERCENT AUTO 0 % (0-2); EOSINOPHILS PERCENT AUTO 0 % (0-6); Hemoglobin 11.6 g/dL (13.5-17.5); IMMATURE GRAN ABSOLUTE AUTO 0.01 K/mm3 (0.00-0.10); IMMATURE GRAN PERCENT AUTO 1 % (0-1); LYMPHOCYTES ABSOLUTE AUTO 0.42 K/mm3 (0.84-5.20); LYMPHOCYTES PERCENT AUTO 24 % (21-46); MONOCYTES ABSOLUTE AUTO 0.13 K/mm3 (0.16-1.47); MONOCYTES PERCENT AUTO 8 % (4-13); Mean Corpuscular HGB 34.4 pg (26.0-34.0); Mean Corpuscular HGB Conc 35.2 g/dL (31.5-36.5); Mean Corpuscular Volume 98 fL (80-100); Mean Platelet Volume 9.9 fL (9.1-12.4); NEUTROPHILS ABSOLUTE AUTO 1.18 K/mm3 (1.96-9.15); NEUTROPHILS PERCENT AUTO 68 % (41-73); Platelet Count 95 K/mm3 (150-400); RDW Coefficient Variation 14.6 % (11.7-14.2); RDW Standard Deviation 51.1 fL (35.1-46.3); Red Blood Cell Count 3.37 M/mm3 (4.30-5.90); White Blood Cell Count 1.74 K/mm3 (4.00-11.30)
[2023-01-06 10:39] LABS: Albumin, Blood 3.6 g/dL (3.4-5.0); Albumin/Globulin Ratio 1.4 (0.8-1.8); Bilirubin, Total 2.3 mg/dL (0.1-1.0); Bun/Creatinine Ratio 19.6 (12.0-20.0); Creatinine, Blood 0.76 mg/dL (0.60-1.20); Globulin, Blood 2.6 g/dL (2.2-4.0); Potassium, Blood 3.8 mmol/L (3.5-5.5); Total Protein, Blood 6.2 g/dL (6.4-8.2)
== END 2023-01-06 08:50 | disposition home or self-care (01) ==
LOC: ATC 00:23
PROVIDERS: Internal Medicine Hematology & Oncology
DX: D46.9 Myelodysplastic syndrome, unspecified (principal)
CPT/HCPCS: 80053; 85025; J1642

== ENCOUNTER 2023-06-25 02:12 | Day surgery (SDC) | payer MEDICARE, OTHER ==
[~2023-06-25 02:12] MED LIST changes: +ACYC800 PO; +ALEN10 PO; +Acetaminophen325 M1 PO; +CELE200 PO; +DAPS100 PO; +ELIQUIS5 M2 PO; +FAMO20; +MAGAMI; +TACR1; +TRIA15CR3 TOP; +VITAMIN D33000 UNIT PO
[2023-06-25 09:35] VITALS: BP 133/78
[2023-06-25 10:10] LABS: BASOPHILS ABSOLUTE AUTO 0.02 K/mm3 (0.00-0.23); BASOPHILS PERCENT AUTO 1 % (0-2); EOSINOPHILS ABSOLUTE AUTO 0.04 K/mm3 (0.00-0.68); EOSINOPHILS PERCENT AUTO 2 % (0-6); Hematocrit 35.4 % (37.0-53.0); Hemoglobin 12.3 g/dL (13.5-17.5); IMMATURE GRAN ABSOLUTE AUTO 0.01 K/mm3 (0.00-0.10); IMMATURE GRAN PERCENT AUTO 0 % (0-1); LYMPHOCYTES PERCENT AUTO 16 % (21-46); MONOCYTES ABSOLUTE AUTO 0.49 K/mm3 (0.16-1.47); MONOCYTES PERCENT AUTO 19 % (4-13); Mean Corpuscular HGB 34.5 pg (26.0-34.0); Mean Corpuscular HGB Conc 34.7 g/dL (31.5-36.5); Mean Corpuscular Volume 99 fL (80-100); NEUTROPHILS ABSOLUTE AUTO 1.62 K/mm3 (1.96-9.15); NEUTROPHILS PERCENT AUTO 63 % (41-73); Platelet Count 143 K/mm3 (150-400); RDW Coefficient Variation 13.1 % (11.7-14.2); RDW Standard Deviation 47.8 fL (35.1-46.3); Red Blood Cell Count 3.57 M/mm3 (4.30-5.90); White Blood Cell Count 2.58 K/mm3 (4.00-11.30)
[2023-06-25 10:30] LABS: BASOPHILS ABSOLUTE MAN 0.02 K/mm3 (0.00-0.23); BASOPHILS PERCENT MAN 1 % (0-2); EOSINOPHILS PERCENT MAN 4 % (0-6); LYMPHOCYTES PERCENT MAN 8 % (21-46); MONOCYTES ABSOLUTE MAN 0.38 K/mm3 (0.16-1.47); MONOCYTES PERCENT MAN 15 % (4-13); NEUTROPHILS ABSOLUTE MAN 1.85 K/mm3 (1.96-9.15); SEG NEUTROPHILS PERCENT MAN 72 % (41-73); TOTAL CELLS COUNTED 100
[2023-06-25 11:57] LABS: Albumin, Blood 3.6 g/dL (3.4-5.0); Albumin/Globulin Ratio 1.2 (0.8-1.8); Bun/Creatinine Ratio 19.8 (12.0-20.0); Calcium, Blood 8.2 mg/dL (8.5-10.1); Creatinine, Blood 0.86 mg/dL (0.60-1.20); Magnesium, Blood 1.7 mg/dL (1.6-2.4); Potassium, Blood 4.4 mmol/L (3.5-5.5); Total Protein, Blood 6.6 g/dL (6.4-8.2)
== END 2023-06-25 09:50 | disposition home or self-care (01) ==
LOC: ATC 02:12
PROVIDERS: Internal Medicine Hematology & Oncology
DX: D46.9 Myelodysplastic syndrome, unspecified (principal)
CPT/HCPCS: 36591; 80053; 83735; 85025; J1642

== ENCOUNTER 2023-07-09 04:28 | Day surgery (SDC) | payer MEDICARE, OTHER ==
[2023-07-09 09:40] VITALS: BP 149/85
[2023-07-09 10:35] LABS: BASOPHILS ABSOLUTE AUTO 0.03 K/mm3 (0.00-0.23); BASOPHILS PERCENT AUTO 1 % (0-2); EOSINOPHILS ABSOLUTE AUTO 0.03 K/mm3 (0.00-0.68); EOSINOPHILS PERCENT AUTO 1 % (0-6); Hematocrit 34.7 % (37.0-53.0); Hemoglobin 11.9 g/dL (13.5-17.5); IMMATURE GRAN ABSOLUTE AUTO 0.01 K/mm3 (0.00-0.10); IMMATURE GRAN PERCENT AUTO 0 % (0-1); LYMPHOCYTES ABSOLUTE AUTO 0.47 K/mm3 (0.84-5.20); LYMPHOCYTES PERCENT AUTO 18 % (21-46); MONOCYTES ABSOLUTE AUTO 0.43 K/mm3 (0.16-1.47); MONOCYTES PERCENT AUTO 16 % (4-13); Mean Corpuscular HGB 35.1 pg (26.0-34.0); Mean Corpuscular HGB Conc 34.3 g/dL (31.5-36.5); Mean Corpuscular Volume 102 fL (80-100); Mean Platelet Volume 10.1 fL (9.1-12.4); NEUTROPHILS ABSOLUTE AUTO 1.67 K/mm3 (1.96-9.15); NEUTROPHILS PERCENT AUTO 63 % (41-73); Platelet Count 138 K/mm3 (150-400); RDW Coefficient Variation 13.2 % (11.7-14.2); RDW Standard Deviation 49.6 fL (35.1-46.3); Red Blood Cell Count 3.39 M/mm3 (4.30-5.90); White Blood Cell Count 2.64 K/mm3 (4.00-11.30)
[2023-07-09 11:13] LABS: Alanine Aminotransfer (ALT/SGP 56 U/L (12-78); Albumin, Blood 3.9 g/dL (3.4-5.0); Albumin/Globulin Ratio 1.4 (0.8-1.8); Alk Phos 65 U/L (50-136); Anion Gap 10 mmol/L (3-11); Aspartate Aminotrans (AST/SGOT 36 U/L (12-37); Bilirubin, Total 3.3 mg/dL (0.1-1.0); Blood Urea Nitrogen 17 mg/dL (8-24); Bun/Creatinine Ratio 22.5 (12.0-20.0); CHOL/HDL RATIO 3.4; CO2, Blood 25 mmol/L (21-32); Calcium, Blood 8.3 mg/dL (8.5-10.1); Chloride, Blood 102 mmol/L (98-108); Cholesterol 156 mg/dL (50-200); Creatinine, Blood 0.76 mg/dL (0.60-1.20); Globulin, Blood 2.7 g/dL (2.2-4.0); Glomerular Filtration Rate 92 (60-); Glucose, Blood 89 mg/dL (70-99); HDL Cholesterol 46 mg/dL (>39); Low Density Lipoprotein Chol 94 mg/dL (0-110); Potassium, Blood 4.5 mmol/L (3.5-5.5); Sodium, Blood 132 mmol/L (136-145); Total Protein, Blood 6.6 g/dL (6.4-8.2); Triglycerides 80 mg/dL (30-160); Very Low Density Lipoprot Chol 16 mg/dL (6-32)
== END 2023-07-09 22:56 | disposition home or self-care (01) ==
LOC: ATC 04:28
PROVIDERS: Internal Medicine Hematology & Oncology
DX: D46.9 Myelodysplastic syndrome, unspecified (principal); E80.6 Other disorders of bilirubin metabolism; C92.01 Acute myeloblastic leukemia, in remission; Z94.84 Stem cells transplant status
CPT/HCPCS: 36591; 80053; 80061; 82306; 83735; 85025; J1642

== ENCOUNTER 2023-07-16 02:43 | Day surgery (SDC) | payer MEDICARE, OTHER ==
[2023-07-16 09:32] VITALS: BP 150/86
[2023-07-16 10:29] LABS: BASOPHILS ABSOLUTE AUTO 0.03 K/mm3 (0.00-0.23); BASOPHILS PERCENT AUTO 1 % (0-2); EOSINOPHILS ABSOLUTE AUTO 0.04 K/mm3 (0.00-0.68); EOSINOPHILS PERCENT AUTO 2 % (0-6); Hematocrit 33.6 % (37.0-53.0); Hemoglobin 11.3 g/dL (13.5-17.5); IMMATURE GRAN ABSOLUTE AUTO 0.01 K/mm3 (0.00-0.10); IMMATURE GRAN PERCENT AUTO 1 % (0-1); LYMPHOCYTES ABSOLUTE AUTO 0.35 K/mm3 (0.84-5.20); LYMPHOCYTES PERCENT AUTO 16 % (21-46); MONOCYTES ABSOLUTE AUTO 0.34 K/mm3 (0.16-1.47); MONOCYTES PERCENT AUTO 16 % (4-13); Mean Corpuscular HGB 35.5 pg (26.0-34.0); Mean Corpuscular HGB Conc 33.6 g/dL (31.5-36.5); Mean Corpuscular Volume 106 fL (80-100); Mean Platelet Volume 9.2 fL (9.1-12.4); NEUTROPHILS ABSOLUTE AUTO 1.37 K/mm3 (1.96-9.15); NEUTROPHILS PERCENT AUTO 64 % (41-73); Platelet Count 138 K/mm3 (150-400); RDW Coefficient Variation 12.8 % (11.7-14.2); RDW Standard Deviation 50.6 fL (35.1-46.3); RETICULOCYTE ABSOLUTE 0.1113 M/mm3 (0.0200-0.1100); Red Blood Cell Count 3.18 M/mm3 (4.30-5.90); White Blood Cell Count 2.14 K/mm3 (4.00-11.30)
[2023-07-16 10:44] LABS: Albumin, Blood 3.7 g/dL (3.4-5.0); Albumin/Globulin Ratio 1.4 (0.8-1.8); Bilirubin, Direct 0.4 mg/dL (0.0-0.3); Bilirubin, Total 2.4 mg/dL (0.1-1.0); Bun/Creatinine Ratio 20.8 (12.0-20.0); Calcium, Blood 8.3 mg/dL (8.5-10.1); Creatinine, Blood 0.82 mg/dL (0.60-1.20); Globulin, Blood 2.6 g/dL (2.2-4.0); Magnesium, Blood 2.2 mg/dL (1.6-2.4); Potassium, Blood 4.2 mmol/L (3.5-5.5); Total Protein, Blood 6.3 g/dL (6.4-8.2)
[2023-07-18 09:58] LABS: HAPTOGLOBIN <10 mg/dL (30-200)
== END 2023-07-16 09:55 | disposition home or self-care (01) ==
LOC: ATC 02:43
PROVIDERS: Internal Medicine Hematology & Oncology
DX: C92.01 Acute myeloblastic leukemia, in remission (principal); D46.9 Myelodysplastic syndrome, unspecified; Z94.84 Stem cells transplant status; E80.6 Other disorders of bilirubin metabolism; Z79.899 Other long term (current) drug therapy
CPT/HCPCS: 36591; 80053; 82248; 83010; 83615; 83735; 84403; 85025; 85045; 86850; 86880; J1642

== ENCOUNTER 2023-07-23 03:34 | Day surgery (SDC) | payer MEDICARE, OTHER ==
[2023-07-23 09:22] VITALS: BP 133/80
== END 2023-07-23 09:29 | disposition home or self-care (01) ==
LOC: ATC 03:34
DX: D46.9 Myelodysplastic syndrome, unspecified (principal); C92.01 Acute myeloblastic leukemia, in remission; E80.6 Other disorders of bilirubin metabolism; Z94.84 Stem cells transplant status
CPT/HCPCS: 36591; 82248; J1642

== ENCOUNTER 2023-08-27 02:55 | Day surgery (SDC) | payer MEDICARE, OTHER ==
[2023-08-27 09:39] VITALS: BP 123/74
[2023-08-27 10:18] LABS: BASOPHILS PERCENT AUTO 0 % (0-2); EOSINOPHILS ABSOLUTE AUTO 0.01 K/mm3 (0.00-0.68); EOSINOPHILS PERCENT AUTO 1 % (0-6); Hematocrit 26.5 % (37.0-53.0); Hemoglobin 9.2 g/dL (13.5-17.5); IMMATURE GRAN ABSOLUTE AUTO 0.05 K/mm3 (0.00-0.10); IMMATURE GRAN PERCENT AUTO 3 % (0-1); LYMPHOCYTES ABSOLUTE AUTO 0.38 K/mm3 (0.84-5.20); LYMPHOCYTES PERCENT AUTO 21 % (21-46); MONOCYTES ABSOLUTE AUTO 0.44 K/mm3 (0.16-1.47); MONOCYTES PERCENT AUTO 24 % (4-13); Mean Corpuscular HGB 36.2 pg (26.0-34.0); Mean Corpuscular HGB Conc 34.7 g/dL (31.5-36.5); Mean Corpuscular Volume 104 fL (80-100); Mean Platelet Volume 12.5 fL (9.1-12.4); NEUTROPHILS ABSOLUTE AUTO 0.97 K/mm3 (1.96-9.15); NEUTROPHILS PERCENT AUTO 53 % (41-73); RDW Coefficient Variation 13.7 % (11.7-14.2); RDW Standard Deviation 50.6 fL (35.1-46.3); Red Blood Cell Count 2.54 M/mm3 (4.30-5.90); White Blood Cell Count 1.85 K/mm3 (4.00-11.30)
[2023-08-27 10:36] LABS: Platelet Count 21 K/mm3 (150-400)
[2023-08-27 10:37] LABS: Bun/Creatinine Ratio 23.5 (12.0-20.0); Calcium, Blood 8.1 mg/dL (8.5-10.1); Creatinine, Blood 0.81 mg/dL (0.60-1.20); Magnesium, Blood 1.5 mg/dL (1.6-2.4); Potassium, Blood 4.4 mmol/L (3.5-5.5); Total Protein, Blood 6.6 g/dL (6.4-8.2)
[2023-08-27 10:38] LABS: Albumin, Blood 3.6 g/dL (3.4-5.0); Albumin/Globulin Ratio 1.2 (0.8-1.8); Bilirubin, Direct 0.4 mg/dL (0.0-0.3); Bilirubin, Total 2.3 mg/dL (0.1-1.0)
[2023-08-27] MEDS ORDERED: FILGRASTIM-AYOW 480 MCG/0.8 ML 0.8MLSYR SC SCH (11:20)
== END 2023-08-27 11:33 | disposition home or self-care (01) ==
LOC: ATC 02:55
PROVIDERS: Internal Medicine Hematology & Oncology
DX: C92.00 Acute myeloblastic leukemia, not having achieved remission (principal); Z94.84 Stem cells transplant status; Z79.899 Other long term (current) drug therapy
CPT/HCPCS: 36591; 80053; 82248; 83735; 85025; 96372; J1642; Q5125

== ENCOUNTER 2023-09-04 02:01 | Day surgery (SDC) | payer MEDICARE, OTHER ==
[2023-09-03 09:20] VITALS: BP 142/72
[2023-09-03 10:25] LABS: BASOPHILS PERCENT AUTO 0 % (0-2); EOSINOPHILS ABSOLUTE AUTO 0.01 K/mm3 (0.00-0.68); EOSINOPHILS PERCENT AUTO 1 % (0-6); Hematocrit 23.8 % (37.0-53.0); Hemoglobin 8.2 g/dL (13.5-17.5); IMMATURE GRAN ABSOLUTE AUTO 0.02 K/mm3 (0.00-0.10); IMMATURE GRAN PERCENT AUTO 1 % (0-1); LYMPHOCYTES ABSOLUTE AUTO 0.26 K/mm3 (0.84-5.20); LYMPHOCYTES PERCENT AUTO 14 % (21-46); MONOCYTES ABSOLUTE AUTO 0.22 K/mm3 (0.16-1.47); MONOCYTES PERCENT AUTO 12 % (4-13); Mean Corpuscular HGB 36.4 pg (26.0-34.0); Mean Corpuscular HGB Conc 34.5 g/dL (31.5-36.5); Mean Corpuscular Volume 106 fL (80-100); Mean Platelet Volume 10.2 fL (9.1-12.4); NEUTROPHILS ABSOLUTE AUTO 1.35 K/mm3 (1.96-9.15); NEUTROPHILS PERCENT AUTO 73 % (41-73); RDW Coefficient Variation 14.7 % (11.7-14.2); RDW Standard Deviation 55.4 fL (35.1-46.3); Red Blood Cell Count 2.25 M/mm3 (4.30-5.90); White Blood Cell Count 1.86 K/mm3 (4.00-11.30)
[2023-09-03 10:35] LABS: Platelet Count 23 K/mm3 (150-400)
[2023-09-03 10:54] LABS: Albumin, Blood 3.6 g/dL (3.4-5.0); Albumin/Globulin Ratio 1.2 (0.8-1.8); Bilirubin, Direct 0.3 mg/dL (0.0-0.3); Bun/Creatinine Ratio 25.9 (12.0-20.0); Calcium, Blood 7.7 mg/dL (8.5-10.1); Creatinine, Blood 0.73 mg/dL (0.60-1.20); Globulin, Blood 2.9 g/dL (2.2-4.0); Total Protein, Blood 6.5 g/dL (6.4-8.2)
[2023-09-04] MEDS ORDERED: NS 250 ML IV SCH (07:05)
[2023-09-04 08:50] VITALS: BP 130/73
[2023-09-04 09:12] VITALS: BP 103/56
[2023-09-04 10:10] VITALS: BP 115/61
[2023-09-04 10:42] VITALS: BP 132/61
== END 2023-09-04 10:45 | disposition home or self-care (01) ==
LOC: ATC 02:01 → LAB 02:01 → ATC 09:30
PROVIDERS: Internal Medicine Hematology & Oncology
DX: D46.9 Myelodysplastic syndrome, unspecified (principal); Z94.84 Stem cells transplant status; Z79.899 Other long term (current) drug therapy
CPT/HCPCS: 36430; 36591; 80053; 82248; 82728; 83735; 85025; 86850; 86900; 86901; 86923; J1642; J7050; P9016

== ENCOUNTER 2023-09-11 12:19 | Day surgery (SDC) | payer MEDICARE, OTHER ==
[2023-09-10 09:30] VITALS: BP 127/67
[2023-09-10 09:45] LABS: BASOPHILS ABSOLUTE AUTO 0.01 K/mm3 (0.00-0.23); BASOPHILS PERCENT AUTO 1 % (0-2); EOSINOPHILS ABSOLUTE AUTO 0.01 K/mm3 (0.00-0.68); EOSINOPHILS PERCENT AUTO 1 % (0-6); Hematocrit 21.5 % (37.0-53.0); Hemoglobin 7.6 g/dL (13.5-17.5); IMMATURE GRAN ABSOLUTE AUTO 0.01 K/mm3 (0.00-0.10); IMMATURE GRAN PERCENT AUTO 1 % (0-1); LYMPHOCYTES ABSOLUTE AUTO 0.29 K/mm3 (0.84-5.20); LYMPHOCYTES PERCENT AUTO 20 % (21-46); MONOCYTES ABSOLUTE AUTO 0.11 K/mm3 (0.16-1.47); MONOCYTES PERCENT AUTO 7 % (4-13); Mean Corpuscular HGB 36.5 pg (26.0-34.0); Mean Corpuscular HGB Conc 35.3 g/dL (31.5-36.5); Mean Corpuscular Volume 103 fL (80-100); NEUTROPHILS ABSOLUTE AUTO 1.05 K/mm3 (1.96-9.15); NEUTROPHILS PERCENT AUTO 71 % (41-73); RDW Coefficient Variation 16.2 % (11.7-14.2); RDW Standard Deviation 59.7 fL (35.1-46.3); Red Blood Cell Count 2.08 M/mm3 (4.30-5.90); White Blood Cell Count 1.48 K/mm3 (4.00-11.30)
[2023-09-10 09:54] LABS: Platelet Count 11 K/mm3 (150-400)
[2023-09-10 10:17] LABS: Albumin, Blood 3.6 g/dL (3.4-5.0); Albumin/Globulin Ratio 1.3 (0.8-1.8); Bilirubin, Direct 0.3 mg/dL (0.0-0.3); Bilirubin, Total 2.9 mg/dL (0.1-1.0); Creatinine, Blood 0.83 mg/dL (0.60-1.20); Globulin, Blood 2.7 g/dL (2.2-4.0); Magnesium, Blood 1.8 mg/dL (1.6-2.4); Potassium, Blood 4.1 mmol/L (3.5-5.5); Total Protein, Blood 6.3 g/dL (6.4-8.2)
[2023-09-10 16:22] VITALS: BP 133/73
[2023-09-10 16:41] VITALS: BP 107/56
[2023-09-10 17:42] VITALS: BP 116/61
[~2023-09-11 12:19] MED LIST changes: +NS 250 ML IV SCH
[2023-09-11 13:44] VITALS: BP 111/64
[2023-09-11 14:02] VITALS: BP 102/60
[2023-09-11 14:46] VITALS: BP 113/62
[2023-09-11 15:10] VITALS: BP 107/63
[2023-09-11 16:11] VITALS: BP 144/74
[2023-09-11 16:55] VITALS: BP 132/75
== END 2023-09-11 16:58 | disposition home or self-care (01) ==
LOC: ATC 12:19
PROVIDERS: Internal Medicine Hematology & Oncology
DX: D46.9 Myelodysplastic syndrome, unspecified (principal); Z94.84 Stem cells transplant status; Z79.899 Other long term (current) drug therapy
CPT/HCPCS: 36430; 80053; 82248; 83735; 85025; 86850; 86900; 86901; 86923; J1642; J7050; P9016; P9037

== ENCOUNTER 2023-09-19 02:41 | Day surgery (SDC) | payer MEDICARE, OTHER ==
[2023-09-16 09:35] VITALS: BP 140/78
[2023-09-16 10:02] LABS: BASOPHILS PERCENT AUTO 0 % (0-2); EOSINOPHILS ABSOLUTE AUTO 0.02 K/mm3 (0.00-0.68); EOSINOPHILS PERCENT AUTO 2 % (0-6); Hematocrit 24.1 % (37.0-53.0); Hemoglobin 8.4 g/dL (13.5-17.5); IMMATURE GRAN ABSOLUTE AUTO 0.03 K/mm3 (0.00-0.10); IMMATURE GRAN PERCENT AUTO 2 % (0-1); LYMPHOCYTES ABSOLUTE AUTO 0.27 K/mm3 (0.84-5.20); LYMPHOCYTES PERCENT AUTO 22 % (21-46); MONOCYTES ABSOLUTE AUTO 0.16 K/mm3 (0.16-1.47); MONOCYTES PERCENT AUTO 13 % (4-13); Mean Corpuscular HGB 35.9 pg (26.0-34.0); Mean Corpuscular HGB Conc 34.9 g/dL (31.5-36.5); Mean Corpuscular Volume 103 fL (80-100); Mean Platelet Volume 12.6 fL (9.1-12.4); NEUTROPHILS ABSOLUTE AUTO 0.76 K/mm3 (1.96-9.15); NEUTROPHILS PERCENT AUTO 61 % (41-73); NRBC ABSOLUTE 0.02 K/mm3 (0.00-0.02); NRBC Auto 1.6 /100 WBC (0.0-0.2); RDW Coefficient Variation 17.4 % (11.7-14.2); RDW Standard Deviation 63.7 fL (35.1-46.3); Red Blood Cell Count 2.34 M/mm3 (4.30-5.90); White Blood Cell Count 1.24 K/mm3 (4.00-11.30)
[2023-09-16 10:05] LABS: Platelet Count 13 K/mm3 (150-400)
[2023-09-16 10:19] LABS: Albumin, Blood 3.7 g/dL (3.4-5.0); Albumin/Globulin Ratio 1.5 (0.8-1.8); Bilirubin, Direct 0.3 mg/dL (0.0-0.3); Bilirubin, Total 3.1 mg/dL (0.1-1.0); Calcium, Blood 7.7 mg/dL (8.5-10.1); Creatinine, Blood 0.9 mg/dL (0.60-1.20); Globulin, Blood 2.5 g/dL (2.2-4.0); Potassium, Blood 4.2 mmol/L (3.5-5.5); Total Protein, Blood 6.2 g/dL (6.4-8.2)
[2023-09-18 07:39] VITALS: BP 112/60
[2023-09-18 07:57] VITALS: BP 99/56
[2023-09-18 08:59] VITALS: BP 103/51
[2023-09-18 09:19] VITALS: BP 107/54
[2023-09-18 10:19] VITALS: BP 122/67
[2023-09-18 10:47] VITALS: BP 130/69
[2023-09-19] MEDS ORDERED: NS 250 ML IV SCH (06:50)
[2023-09-19 08:13] VITALS: BP 119/76
[2023-09-19 08:30] VITALS: BP 123/70
[2023-09-19 09:31] VITALS: BP 139/73
[2023-09-19 10:00] VITALS: BP 130/76
== END 2023-09-19 10:06 | disposition home or self-care (01) ==
LOC: ATC 02:41
PROVIDERS: Internal Medicine Hematology & Oncology
DX: D46.9 Myelodysplastic syndrome, unspecified (principal); Z94.84 Stem cells transplant status; Z79.899 Other long term (current) drug therapy
CPT/HCPCS: 36430; 36591; 80053; 82248; 83735; 85025; 86850; 86900; 86901; 86923; J1642; J7050; P9016; P9035

== ENCOUNTER 2023-09-24 02:50 | Day surgery (SDC) | payer MEDICARE, OTHER ==
[~2023-09-24 02:50] MED LIST changes: -NS 250 ML IV SCH
[2023-09-24 09:39] VITALS: BP 133/73
[2023-09-24 10:33] LABS: Hematocrit 29.6 % (37.0-53.0); Mean Corpuscular HGB 34.4 pg (26.0-34.0); Mean Corpuscular HGB Conc 33.8 g/dL (31.5-36.5); Mean Corpuscular Volume 102 fL (80-100); Mean Platelet Volume 10.5 fL (9.1-12.4); Platelet Count 69 K/mm3 (150-400); RDW Coefficient Variation 19.8 % (11.7-14.2); RDW Standard Deviation 73.6 fL (35.1-46.3); Red Blood Cell Count 2.91 M/mm3 (4.30-5.90)
[2023-09-24 10:35] LABS: BASOPHILS ABSOLUTE AUTO 0.01 K/mm3 (0.00-0.23); BASOPHILS PERCENT AUTO 1 % (0-2); EOSINOPHILS ABSOLUTE AUTO 0.03 K/mm3 (0.00-0.68); EOSINOPHILS PERCENT AUTO 4 % (0-6); IMMATURE GRAN ABSOLUTE AUTO 0.01 K/mm3 (0.00-0.10); IMMATURE GRAN PERCENT AUTO 1 % (0-1); LYMPHOCYTES ABSOLUTE AUTO 0.24 K/mm3 (0.84-5.20); LYMPHOCYTES PERCENT AUTO 29 % (21-46); MONOCYTES ABSOLUTE AUTO 0.06 K/mm3 (0.16-1.47); MONOCYTES PERCENT AUTO 7 % (4-13); NEUTROPHILS ABSOLUTE AUTO 0.48 K/mm3 (1.96-9.15); NEUTROPHILS PERCENT AUTO 58 % (41-73)
[2023-09-24 10:37] LABS: White Blood Cell Count 0.83 K/mm3 (4.00-11.30)
[2023-09-24 10:58] LABS: Albumin, Blood 3.7 g/dL (3.4-5.0); Albumin/Globulin Ratio 1.3 (0.8-1.8); Bilirubin, Direct 0.3 mg/dL (0.0-0.3); Bilirubin, Total 4.7 mg/dL (0.1-1.0); Calcium, Blood 7.6 mg/dL (8.5-10.1); Creatinine, Blood 0.84 mg/dL (0.60-1.20); Globulin, Blood 2.8 g/dL (2.2-4.0); Magnesium, Blood 2.1 mg/dL (1.6-2.4); Total Protein, Blood 6.5 g/dL (6.4-8.2)
== END 2023-09-24 09:49 | disposition home or self-care (01) ==
LOC: ATC 02:50
PROVIDERS: Internal Medicine Hematology & Oncology
DX: D46.9 Myelodysplastic syndrome, unspecified (principal); Z94.84 Stem cells transplant status; Z79.899 Other long term (current) drug therapy
CPT/HCPCS: 36591; 80053; 82248; 83735; 85025; J1642

== ENCOUNTER 2023-10-01 01:55 | Day surgery (SDC) | payer MEDICARE, OTHER ==
[2023-10-01 09:26] VITALS: BP 142/74
[2023-10-01 09:55] LABS: Hematocrit 26.6 % (37.0-53.0); Hemoglobin 9.1 g/dL (13.5-17.5); Mean Corpuscular HGB 34.9 pg (26.0-34.0); Mean Corpuscular HGB Conc 34.2 g/dL (31.5-36.5); Mean Corpuscular Volume 102 fL (80-100); Mean Platelet Volume 9.7 fL (9.1-12.4); Platelet Count 62 K/mm3 (150-400); RDW Coefficient Variation 20.1 % (11.7-14.2); RDW Standard Deviation 73.2 fL (35.1-46.3); Red Blood Cell Count 2.61 M/mm3 (4.30-5.90)
[2023-10-01 09:56] LABS: BASOPHILS PERCENT AUTO 0 % (0-2); EOSINOPHILS ABSOLUTE AUTO 0.01 K/mm3 (0.00-0.68); EOSINOPHILS PERCENT AUTO 2 % (0-6); IMMATURE GRAN ABSOLUTE AUTO 0.01 K/mm3 (0.00-0.10); IMMATURE GRAN PERCENT AUTO 2 % (0-1); LYMPHOCYTES ABSOLUTE AUTO 0.23 K/mm3 (0.84-5.20); LYMPHOCYTES PERCENT AUTO 38 % (21-46); MONOCYTES ABSOLUTE AUTO 0.14 K/mm3 (0.16-1.47); MONOCYTES PERCENT AUTO 23 % (4-13); NEUTROPHILS ABSOLUTE AUTO 0.21 K/mm3 (1.96-9.15); NEUTROPHILS PERCENT AUTO 35 % (41-73)
[2023-10-01 10:20] LABS: Albumin, Blood 3.7 g/dL (3.4-5.0); Albumin/Globulin Ratio 1.4 (0.8-1.8); Bilirubin, Direct 0.3 mg/dL (0.0-0.3); Bilirubin, Total 3.6 mg/dL (0.1-1.0); Calcium, Blood 7.7 mg/dL (8.5-10.1); Creatinine, Blood 0.84 mg/dL (0.60-1.20); Globulin, Blood 2.7 g/dL (2.2-4.0); Magnesium, Blood 1.6 mg/dL (1.6-2.4); Total Protein, Blood 6.4 g/dL (6.4-8.2)
== END 2023-10-01 09:35 | disposition home or self-care (01) ==
LOC: ATC 01:55
PROVIDERS: Internal Medicine Hematology & Oncology
DX: D46.9 Myelodysplastic syndrome, unspecified (principal); Z94.84 Stem cells transplant status
CPT/HCPCS: 36591; 80053; 82248; 83735; 85025; J1642

== ENCOUNTER 2023-10-09 13:32 | Day surgery (SDC) | payer MEDICARE, OTHER ==
[~2023-10-09 13:32] MED LIST changes: -ALEN10 PO; -CHOL10002 PO; -FAMO20; +FAMO20 PO; -MAGAMI; +MAGAMI PO; +VITAMIN D31000 UNI1 PO
[2023-10-09 14:46] VITALS: BP 129/88
[2023-10-09 15:01] LABS: BASOPHILS PERCENT AUTO 0 % (0-2); EOSINOPHILS ABSOLUTE AUTO 0.01 K/mm3 (0.00-0.68); EOSINOPHILS PERCENT AUTO 1 % (0-6); Hematocrit 26.9 % (37.0-53.0); Hemoglobin 9.2 g/dL (13.5-17.5); IMMATURE GRAN ABSOLUTE AUTO 0.03 K/mm3 (0.00-0.10); IMMATURE GRAN PERCENT AUTO 2 % (0-1); LYMPHOCYTES ABSOLUTE AUTO 0.34 K/mm3 (0.84-5.20); LYMPHOCYTES PERCENT AUTO 19 % (21-46); MONOCYTES ABSOLUTE AUTO 0.29 K/mm3 (0.16-1.47); MONOCYTES PERCENT AUTO 17 % (4-13); Mean Corpuscular HGB 34.7 pg (26.0-34.0); Mean Corpuscular HGB Conc 34.2 g/dL (31.5-36.5); Mean Corpuscular Volume 102 fL (80-100); Mean Platelet Volume 11.5 fL (9.1-12.4); NEUTROPHILS ABSOLUTE AUTO 1.09 K/mm3 (1.96-9.15); NEUTROPHILS PERCENT AUTO 62 % (41-73); RDW Coefficient Variation 20.3 % (11.7-14.2); RDW Standard Deviation 74.5 fL (35.1-46.3); Red Blood Cell Count 2.65 M/mm3 (4.30-5.90); White Blood Cell Count 1.76 K/mm3 (4.00-11.30)
[2023-10-09 15:11] LABS: Platelet Count 43 K/mm3 (150-400)
[2023-10-09 15:36] LABS: Albumin, Blood 2.6 g/dL (3.4-5.0); Albumin/Globulin Ratio 0.8 (0.8-1.8); Bilirubin, Direct 0.4 mg/dL (0.0-0.3); Bilirubin, Total 1.6 mg/dL (0.1-1.0); Bun/Creatinine Ratio 31.3 (12.0-20.0); Calcium, Blood 7.9 mg/dL (8.5-10.1); Creatinine, Blood 1.5 mg/dL (0.60-1.20); Globulin, Blood 3.3 g/dL (2.2-4.0); Magnesium, Blood 2.3 mg/dL (1.6-2.4); Potassium, Blood 4.2 mmol/L (3.5-5.5); Total Protein, Blood 5.9 g/dL (6.4-8.2)
[2023-10-14] MEDS ORDERED: ACET325 PO (09:26)
[2023-10-14] MEDS ORDERED: AMLO5 PO (09:37)
== END 2023-10-09 22:57 | disposition home or self-care (01) ==
LOC: ATC 13:32
PROVIDERS: Internal Medicine Hematology & Oncology
DX: D46.9 Myelodysplastic syndrome, unspecified (principal); Z94.84 Stem cells transplant status; Z79.899 Other long term (current) drug therapy
CPT/HCPCS: 36591; 80053; 82248; 83735; 85025; J1642

== ENCOUNTER 2023-10-13 01:45 | Day surgery (SDC) | payer MEDICARE, OTHER ==
[2023-10-13 09:44] VITALS: BP 162/80
[2023-10-13 11:39] LABS: Albumin, Blood 2.5 g/dL (3.4-5.0); Albumin/Globulin Ratio 0.8 (0.8-1.8); Bilirubin, Direct 0.2 mg/dL (0.0-0.3); Bilirubin, Total 0.7 mg/dL (0.1-1.0); Creatinine, Blood 5.19 mg/dL (0.60-1.20); Magnesium, Blood 2.9 mg/dL (1.6-2.4); Potassium, Blood 4.6 mmol/L (3.5-5.5); Total Protein, Blood 5.5 g/dL (6.4-8.2)
[2023-10-13 11:41] LABS: Mean Platelet Volume 11.4 fL (9.1-12.4); Platelet Count 65 K/mm3 (150-400)
[2023-10-13 11:46] LABS: Mean Corpuscular HGB 34.9 pg (26.0-34.0); Mean Corpuscular HGB Conc 34.5 g/dL (31.5-36.5); Mean Corpuscular Volume 101 fL (80-100); Red Blood Cell Count 0.86 M/mm3 (4.30-5.90)
[2023-10-13 11:48] LABS: Hematocrit 8.7 % (37.0-53.0)
--- NOTE | 2023-10-13 11:57 | NUR ---
PT BROUGHT IN 7 TUBES FROM [facility] THAT PT NEEDED TO HAVE DRAWN TODAY AND PT IS TO FED EX OVERNIGHT BACK TO [facility] FOR PT'S UPCOMING STEM CELL PROCEDURE. ORDER SLIP FROM [facility] SCANNED INTO PT'S MEDICAL RECORD. LABS DRAWN FROM [facility] PER PROTOCOL FOLLOWED BY DRAWING ROUTINE LABS ORDERED BY DR ALVARES.
[2023-10-13 12:50] LABS: BASOPHILS PERCENT MAN 0 % (0-2); EOSINOPHILS PERCENT MAN 0 % (0-6); LYMPHOCYTES ABSOLUTE MAN 0.44 K/mm3 (0.84-5.20); LYMPHOCYTES PERCENT MAN 17 % (21-46); MONOCYTES ABSOLUTE MAN 0.31 K/mm3 (0.16-1.47); MONOCYTES PERCENT MAN 12 % (4-13); NEUTROPHILS ABSOLUTE MAN 1.84 K/mm3 (1.96-9.15); SEG NEUTROPHILS PERCENT MAN 71 % (41-73); TOTAL CELLS COUNTED 100
[2023-10-13] MEDS ORDERED: URSODIOL500 MG PO (17:36)
[2023-10-13] MEDS ORDERED: IMITREX50 M2 PO (17:39)
[2023-10-14] MEDS ORDERED: ACET325 PO (09:26)
[2023-10-14] MEDS ORDERED: AMLO5 PO (09:37)
== END 2023-10-13 10:18 | disposition home or self-care (01) ==
LOC: ATC 01:45
PROVIDERS: Internal Medicine Hematology & Oncology
DX: D46.9 Myelodysplastic syndrome, unspecified (principal); Z94.84 Stem cells transplant status
CPT/HCPCS: 36591; 80053; 82248; 83735; 85025; J1642

== ENCOUNTER 2023-11-02 03:41 | Day surgery (SDC) | payer MEDICARE, OTHER ==
[~2023-11-02 03:41] MED LIST changes: +ACET325 PO; +AMLO5 PO; +BENZ100A PO; +CALCIUM ACETAT667 MG PO; +IMITREX50 M2 PO; +MAGNESIUM OXIDE PO; +MIRALAX17 GM PO; +PANT20 PO; +URSODIOL500 MG PO
[2023-11-02 08:31] VITALS: BP 180/93
[2023-11-02 08:52] LABS: BASOPHILS ABSOLUTE AUTO 0.03 K/mm3 (0.00-0.23); BASOPHILS PERCENT AUTO 1 % (0-2); EOSINOPHILS ABSOLUTE AUTO 0.04 K/mm3 (0.00-0.68); EOSINOPHILS PERCENT AUTO 1 % (0-6); Hematocrit 26.1 % (37.0-53.0); Hemoglobin 8.8 g/dL (13.5-17.5); IMMATURE GRAN ABSOLUTE AUTO 0.06 K/mm3 (0.00-0.10); IMMATURE GRAN PERCENT AUTO 2 % (0-1); LYMPHOCYTES ABSOLUTE AUTO 0.49 K/mm3 (0.84-5.20); LYMPHOCYTES PERCENT AUTO 13 % (21-46); MONOCYTES ABSOLUTE AUTO 0.67 K/mm3 (0.16-1.47); MONOCYTES PERCENT AUTO 18 % (4-13); Mean Corpuscular HGB 32.4 pg (26.0-34.0); Mean Corpuscular HGB Conc 33.7 g/dL (31.5-36.5); Mean Corpuscular Volume 96 fL (80-100); NEUTROPHILS ABSOLUTE AUTO 2.53 K/mm3 (1.96-9.15); NEUTROPHILS PERCENT AUTO 66 % (41-73); RDW Coefficient Variation 16.6 % (11.7-14.2); RDW Standard Deviation 56.4 fL (35.1-46.3); Red Blood Cell Count 2.72 M/mm3 (4.30-5.90); White Blood Cell Count 3.82 K/mm3 (4.00-11.30)
[2023-11-02 09:04] LABS: Platelet Count 48 K/mm3 (150-400)
[2023-11-02 09:07] LABS: Albumin, Blood 2.9 g/dL (3.4-5.0); Bilirubin, Direct 0.4 mg/dL (0.0-0.3); Bilirubin, Total 1.9 mg/dL (0.1-1.0); Bun/Creatinine Ratio 11.8 (12.0-20.0); Calcium, Blood 7.9 mg/dL (8.5-10.1); Creatinine, Blood 6.52 mg/dL (0.60-1.20); Globulin, Blood 2.9 g/dL (2.2-4.0); Magnesium, Blood 2.3 mg/dL (1.6-2.4); Potassium, Blood 4.4 mmol/L (3.5-5.5); Total Protein, Blood 5.8 g/dL (6.4-8.2)
[2023-11-02 09:19] LABS: BASOPHILS PERCENT MAN 0 % (0-2); EOSINOPHILS ABSOLUTE MAN 0.03 K/mm3 (0.00-0.68); EOSINOPHILS PERCENT MAN 1 % (0-6); LYMPHOCYTES ABSOLUTE MAN 0.53 K/mm3 (0.84-5.20); LYMPHOCYTES PERCENT MAN 14 % (21-46); MONOCYTES ABSOLUTE MAN 0.45 K/mm3 (0.16-1.47); MONOCYTES PERCENT MAN 12 % (4-13); NEUTROPHILS ABSOLUTE MAN 2.78 K/mm3 (1.96-9.15); SEG NEUTROPHILS PERCENT MAN 73 % (41-73); TOTAL CELLS COUNTED 100
== END 2023-11-02 08:35 | disposition home or self-care (01) ==
LOC: ATC 03:41
PROVIDERS: Internal Medicine Hematology & Oncology
DX: D46.9 Myelodysplastic syndrome, unspecified (principal); Z94.84 Stem cells transplant status
CPT/HCPCS: 36591; 80053; 82248; 83735; 85025; J1642

== ENCOUNTER 2023-11-05 02:48 | Day surgery (SDC) | payer MEDICARE, OTHER ==
[2023-11-05 10:37] VITALS: BP 118/73
[2023-11-05 11:05] LABS: BASOPHILS ABSOLUTE AUTO 0.01 K/mm3 (0.00-0.23); BASOPHILS PERCENT AUTO 0 % (0-2); EOSINOPHILS ABSOLUTE AUTO 0.03 K/mm3 (0.00-0.68); EOSINOPHILS PERCENT AUTO 1 % (0-6); Hematocrit 23.6 % (37.0-53.0); Hemoglobin 8.3 g/dL (13.5-17.5); IMMATURE GRAN ABSOLUTE AUTO 0.04 K/mm3 (0.00-0.10); IMMATURE GRAN PERCENT AUTO 1 % (0-1); LYMPHOCYTES ABSOLUTE AUTO 0.45 K/mm3 (0.84-5.20); LYMPHOCYTES PERCENT AUTO 14 % (21-46); MONOCYTES ABSOLUTE AUTO 0.48 K/mm3 (0.16-1.47); MONOCYTES PERCENT AUTO 15 % (4-13); Mean Corpuscular HGB 33.3 pg (26.0-34.0); Mean Corpuscular HGB Conc 35.2 g/dL (31.5-36.5); Mean Corpuscular Volume 95 fL (80-100); Mean Platelet Volume 10.3 fL (9.1-12.4); NEUTROPHILS ABSOLUTE AUTO 2.17 K/mm3 (1.96-9.15); NEUTROPHILS PERCENT AUTO 68 % (41-73); Platelet Count 59 K/mm3 (150-400); RDW Coefficient Variation 16.8 % (11.7-14.2); RDW Standard Deviation 55.6 fL (35.1-46.3); Red Blood Cell Count 2.49 M/mm3 (4.30-5.90); White Blood Cell Count 3.18 K/mm3 (4.00-11.30)
[2023-11-05 11:28] LABS: Albumin, Blood 2.6 g/dL (3.4-5.0); Albumin/Globulin Ratio 0.8 (0.8-1.8); Bilirubin, Total 2.1 mg/dL (0.1-1.0); Bun/Creatinine Ratio 14.1 (12.0-20.0); Calcium, Blood 7.8 mg/dL (8.5-10.1); Creatinine, Blood 3.12 mg/dL (0.60-1.20); Globulin, Blood 3.3 g/dL (2.2-4.0); Total Protein, Blood 5.9 g/dL (6.4-8.2)
== END 2023-11-05 10:39 | disposition home or self-care (01) ==
LOC: ATC 02:48
PROVIDERS: Internal Medicine Hematology & Oncology
DX: D46.9 Myelodysplastic syndrome, unspecified (principal); Z94.84 Stem cells transplant status; Z79.899 Other long term (current) drug therapy; J90 Pleural effusion, not elsewhere classified; J18.9 Pneumonia, unspecified organism; R91.8 Other nonspecific abnormal finding of lung field
CPT/HCPCS: 36591; 71046; 80053; 85025; J1642

== ENCOUNTER 2023-11-11 07:05 | Day surgery (SDC) | payer MEDICARE, OTHER ==
[2023-11-09 09:54] VITALS: BP 175/91
[2023-11-09 10:16] LABS: BASOPHILS ABSOLUTE AUTO 0.02 K/mm3 (0.00-0.23); BASOPHILS PERCENT AUTO 1 % (0-2); EOSINOPHILS ABSOLUTE AUTO 0.06 K/mm3 (0.00-0.68); EOSINOPHILS PERCENT AUTO 2 % (0-6); Hematocrit 22.2 % (37.0-53.0); Hemoglobin 7.5 g/dL (13.5-17.5); IMMATURE GRAN ABSOLUTE AUTO 0.08 K/mm3 (0.00-0.10); IMMATURE GRAN PERCENT AUTO 3 % (0-1); LYMPHOCYTES ABSOLUTE AUTO 0.45 K/mm3 (0.84-5.20); LYMPHOCYTES PERCENT AUTO 14 % (21-46); MONOCYTES ABSOLUTE AUTO 0.54 K/mm3 (0.16-1.47); MONOCYTES PERCENT AUTO 17 % (4-13); Mean Corpuscular HGB 32.6 pg (26.0-34.0); Mean Corpuscular HGB Conc 33.8 g/dL (31.5-36.5); Mean Corpuscular Volume 97 fL (80-100); Mean Platelet Volume 9.7 fL (9.1-12.4); NEUTROPHILS ABSOLUTE AUTO 1.97 K/mm3 (1.96-9.15); NEUTROPHILS PERCENT AUTO 63 % (41-73); Platelet Count 76 K/mm3 (150-400); RDW Coefficient Variation 16.3 % (11.7-14.2); RDW Standard Deviation 56.7 fL (35.1-46.3); White Blood Cell Count 3.12 K/mm3 (4.00-11.30)
[2023-11-09 10:38] LABS: Albumin, Blood 2.4 g/dL (3.4-5.0); Albumin/Globulin Ratio 0.7 (0.8-1.8); Bilirubin, Total 1.7 mg/dL (0.1-1.0); Bun/Creatinine Ratio 14.1 (12.0-20.0); Creatinine, Blood 6.6 mg/dL (0.60-1.20); Globulin, Blood 3.3 g/dL (2.2-4.0); Potassium, Blood 4.7 mmol/L (3.5-5.5); Total Protein, Blood 5.7 g/dL (6.4-8.2)
[2023-11-10 14:27] VITALS: BP 131/77
[2023-11-10 14:47] VITALS: BP 129/65
[2023-11-10 15:48] VITALS: BP 143/84
[2023-11-10 16:20] VITALS: BP 141/81
[~2023-11-11 07:05] MED LIST changes: +NS 250 ML IV SCH
[2023-11-11 07:34] VITALS: BP 146/84
[2023-11-11 07:54] VITALS: BP 133/74
[2023-11-11 08:57] VITALS: BP 154/85
[2023-11-11 09:22] VITALS: BP 164/85
[2023-11-11 09:55] VITALS: BP 175/84
== END 2023-11-11 09:59 | disposition home or self-care (01) ==
LOC: ATC 07:05
PROVIDERS: Internal Medicine Hematology & Oncology
DX: D46.1 Refractory anemia with ring sideroblasts (principal); Z94.84 Stem cells transplant status; Z79.899 Other long term (current) drug therapy
CPT/HCPCS: 36430; 36591; 80053; 85025; 86850; 86900; 86901; 86923; J1642; J7050; P9016

== ENCOUNTER 2023-11-12 02:25 | Day surgery (SDC) | payer MEDICARE, OTHER ==
[~2023-11-12 02:25] MED LIST changes: -NS 250 ML IV SCH
[2023-11-12 10:34] VITALS: BP 137/88
[2023-11-12 11:08] LABS: BASOPHILS ABSOLUTE AUTO 0.04 K/mm3 (0.00-0.23); BASOPHILS PERCENT AUTO 1 % (0-2); EOSINOPHILS ABSOLUTE AUTO 0.05 K/mm3 (0.00-0.68); EOSINOPHILS PERCENT AUTO 2 % (0-6); Hematocrit 25.7 % (37.0-53.0); Hemoglobin 8.9 g/dL (13.5-17.5); IMMATURE GRAN PERCENT AUTO 3 % (0-1); LYMPHOCYTES ABSOLUTE AUTO 0.52 K/mm3 (0.84-5.20); LYMPHOCYTES PERCENT AUTO 17 % (21-46); MONOCYTES ABSOLUTE AUTO 0.57 K/mm3 (0.16-1.47); MONOCYTES PERCENT AUTO 18 % (4-13); Mean Corpuscular HGB 32.1 pg (26.0-34.0); Mean Corpuscular HGB Conc 34.6 g/dL (31.5-36.5); Mean Corpuscular Volume 93 fL (80-100); NEUTROPHILS ABSOLUTE AUTO 1.86 K/mm3 (1.96-9.15); NEUTROPHILS PERCENT AUTO 59 % (41-73); Platelet Count 85 K/mm3 (150-400); RDW Coefficient Variation 17.1 % (11.7-14.2); RDW Standard Deviation 55.7 fL (35.1-46.3); Red Blood Cell Count 2.77 M/mm3 (4.30-5.90); White Blood Cell Count 3.14 K/mm3 (4.00-11.30)
[2023-11-12 11:27] LABS: Albumin, Blood 2.3 g/dL (3.4-5.0); Albumin/Globulin Ratio 0.7 (0.8-1.8); Bilirubin, Total 1.8 mg/dL (0.1-1.0); Bun/Creatinine Ratio 11.5 (12.0-20.0); Calcium, Blood 7.8 mg/dL (8.5-10.1); Creatinine, Blood 3.13 mg/dL (0.60-1.20); Globulin, Blood 3.3 g/dL (2.2-4.0); Potassium, Blood 4.2 mmol/L (3.5-5.5); Total Protein, Blood 5.6 g/dL (6.4-8.2)
== END 2023-11-12 10:42 | disposition home or self-care (01) ==
LOC: ATC 02:25
PROVIDERS: Internal Medicine Hematology & Oncology
DX: D46.9 Myelodysplastic syndrome, unspecified (principal); G43.909 Migraine, unspecified, not intractable, without status migrainosus; Z79.899 Other long term (current) drug therapy; Z94.84 Stem cells transplant status
CPT/HCPCS: 36591; 80053; 85025; J1642

== ENCOUNTER 2023-11-16 00:31 | Day surgery (SDC) | payer MEDICARE, OTHER ==
[2023-11-16] VITALS (8 sets, daily range): BP systolic 132–185; BP diastolic 75–94
[2023-11-16 11:05] LABS: BASOPHILS ABSOLUTE AUTO 0.02 K/mm3 (0.00-0.23); BASOPHILS PERCENT AUTO 1 % (0-2); EOSINOPHILS ABSOLUTE AUTO 0.09 K/mm3 (0.00-0.68); EOSINOPHILS PERCENT AUTO 2 % (0-6); Hematocrit 19.2 % (37.0-53.0); Hemoglobin 6.5 g/dL (13.5-17.5); IMMATURE GRAN ABSOLUTE AUTO 0.13 K/mm3 (0.00-0.10); IMMATURE GRAN PERCENT AUTO 3 % (0-1); LYMPHOCYTES ABSOLUTE AUTO 0.55 K/mm3 (0.84-5.20); LYMPHOCYTES PERCENT AUTO 14 % (21-46); MONOCYTES ABSOLUTE AUTO 0.75 K/mm3 (0.16-1.47); MONOCYTES PERCENT AUTO 19 % (4-13); Mean Corpuscular HGB 32.2 pg (26.0-34.0); Mean Corpuscular HGB Conc 33.9 g/dL (31.5-36.5); Mean Corpuscular Volume 95 fL (80-100); Mean Platelet Volume 9.5 fL (9.1-12.4); NEUTROPHILS ABSOLUTE AUTO 2.46 K/mm3 (1.96-9.15); NEUTROPHILS PERCENT AUTO 61 % (41-73); Platelet Count 87 K/mm3 (150-400); RDW Coefficient Variation 16.2 % (11.7-14.2); RDW Standard Deviation 54.8 fL (35.1-46.3); Red Blood Cell Count 2.02 M/mm3 (4.30-5.90)
[2023-11-16 11:40] LABS: Albumin, Blood 2.4 g/dL (3.4-5.0); Albumin/Globulin Ratio 0.8 (0.8-1.8); Bilirubin, Direct 0.3 mg/dL (0.0-0.3); Bilirubin, Total 1.3 mg/dL (0.1-1.0); Bun/Creatinine Ratio 13.1 (12.0-20.0); Calcium, Blood 8.2 mg/dL (8.5-10.1); Creatinine, Blood 6.55 mg/dL (0.60-1.20); Globulin, Blood 3.1 g/dL (2.2-4.0); Magnesium, Blood 2.6 mg/dL (1.6-2.4); Potassium, Blood 4.8 mmol/L (3.5-5.5); Total Protein, Blood 5.5 g/dL (6.4-8.2)
[2023-11-16] MEDS ORDERED: NS 250 ML IV SCH (12:55)
== END 2023-11-16 17:38 | disposition home or self-care (01) ==
LOC: ATC 00:31
PROVIDERS: Internal Medicine Hematology & Oncology
DX: D46.9 Myelodysplastic syndrome, unspecified (principal); Z94.84 Stem cells transplant status; Z79.899 Other long term (current) drug therapy
CPT/HCPCS: 36430; 36591; 80053; 82248; 82728; 83735; 85025; 86850; 86900; 86901; 86923; J1642; J7050; P9016

== ENCOUNTER 2023-11-19 01:02 | Day surgery (SDC) | payer MEDICARE, OTHER ==
[2023-11-19 10:29] VITALS: BP 146/87
[2023-11-19 11:01] LABS: BASOPHILS ABSOLUTE AUTO 0.04 K/mm3 (0.00-0.23); BASOPHILS PERCENT AUTO 1 % (0-2); EOSINOPHILS ABSOLUTE AUTO 0.03 K/mm3 (0.00-0.68); EOSINOPHILS PERCENT AUTO 1 % (0-6); Hematocrit 26.9 % (37.0-53.0); Hemoglobin 9.4 g/dL (13.5-17.5); IMMATURE GRAN PERCENT AUTO 3 % (0-1); LYMPHOCYTES PERCENT AUTO 12 % (21-46); MONOCYTES ABSOLUTE AUTO 0.77 K/mm3 (0.16-1.47); MONOCYTES PERCENT AUTO 19 % (4-13); Mean Corpuscular HGB 32.3 pg (26.0-34.0); Mean Corpuscular HGB Conc 34.9 g/dL (31.5-36.5); Mean Corpuscular Volume 92 fL (80-100); Mean Platelet Volume 10.2 fL (9.1-12.4); NEUTROPHILS ABSOLUTE AUTO 2.64 K/mm3 (1.96-9.15); NEUTROPHILS PERCENT AUTO 65 % (41-73); Platelet Count 68 K/mm3 (150-400); RDW Coefficient Variation 15.9 % (11.7-14.2); RDW Standard Deviation 53.1 fL (35.1-46.3); Red Blood Cell Count 2.91 M/mm3 (4.30-5.90); White Blood Cell Count 4.08 K/mm3 (4.00-11.30)
[2023-11-19 11:14] LABS: Albumin, Blood 2.3 g/dL (3.4-5.0); Albumin/Globulin Ratio 0.7 (0.8-1.8); Bilirubin, Total 1.8 mg/dL (0.1-1.0); Bun/Creatinine Ratio 10.7 (12.0-20.0); Calcium, Blood 7.8 mg/dL (8.5-10.1); Creatinine, Blood 3.17 mg/dL (0.60-1.20); Globulin, Blood 3.2 g/dL (2.2-4.0); Potassium, Blood 4.2 mmol/L (3.5-5.5); Total Protein, Blood 5.5 g/dL (6.4-8.2)
[2023-11-19 12:05] LABS: BASOPHILS PERCENT MAN 0 % (0-2); EOSINOPHILS ABSOLUTE MAN 0.04 K/mm3 (0.00-0.68); EOSINOPHILS PERCENT MAN 1 % (0-6); LYMPHOCYTES ABSOLUTE MAN 0.57 K/mm3 (0.84-5.20); LYMPHOCYTES PERCENT MAN 14 % (21-46); MONOCYTES ABSOLUTE MAN 0.44 K/mm3 (0.16-1.47); MONOCYTES PERCENT MAN 11 % (4-13); NEUTROPHILS ABSOLUTE MAN 3.01 K/mm3 (1.96-9.15); SEG NEUTROPHILS PERCENT MAN 74 % (41-73); TOTAL CELLS COUNTED 100
== END 2023-11-19 10:35 | disposition home or self-care (01) ==
LOC: ATC 01:02
PROVIDERS: Internal Medicine Hematology & Oncology
DX: D46.9 Myelodysplastic syndrome, unspecified (principal); Z94.84 Stem cells transplant status; Z79.899 Other long term (current) drug therapy
CPT/HCPCS: 36591; 80053; 85025; J1642

== ENCOUNTER 2023-11-27 07:01 | Day surgery (SDC) | payer MEDICARE, OTHER ==
[2023-11-26] VITALS (8 sets, daily range): BP systolic 131–184; BP diastolic 68–107
[2023-11-26 11:00] LABS: BASOPHILS ABSOLUTE AUTO 0.01 K/mm3 (0.00-0.23); BASOPHILS PERCENT AUTO 0 % (0-2); EOSINOPHILS ABSOLUTE AUTO 0.07 K/mm3 (0.00-0.68); EOSINOPHILS PERCENT AUTO 1 % (0-6); IMMATURE GRAN ABSOLUTE AUTO 0.16 K/mm3 (0.00-0.10); IMMATURE GRAN PERCENT AUTO 2 % (0-1); LYMPHOCYTES ABSOLUTE AUTO 0.98 K/mm3 (0.84-5.20); LYMPHOCYTES PERCENT AUTO 12 % (21-46); MONOCYTES ABSOLUTE AUTO 1.04 K/mm3 (0.16-1.47); MONOCYTES PERCENT AUTO 13 % (4-13); Mean Corpuscular HGB 32.9 pg (26.0-34.0); Mean Corpuscular HGB Conc 34.1 g/dL (31.5-36.5); Mean Corpuscular Volume 96 fL (80-100); Mean Platelet Volume 9.8 fL (9.1-12.4); NEUTROPHILS ABSOLUTE AUTO 5.67 K/mm3 (1.96-9.15); NEUTROPHILS PERCENT AUTO 72 % (41-73); Platelet Count 96 K/mm3 (150-400); RDW Coefficient Variation 16.1 % (11.7-14.2); RDW Standard Deviation 55.4 fL (35.1-46.3); White Blood Cell Count 7.93 K/mm3 (4.00-11.30)
[2023-11-26 11:12] LABS: Albumin/Globulin Ratio 0.6 (0.8-1.8); Bilirubin, Total 1.2 mg/dL (0.1-1.0); Calcium, Blood 7.9 mg/dL (8.5-10.1); Creatinine, Blood 2.72 mg/dL (0.60-1.20); Globulin, Blood 3.1 g/dL (2.2-4.0); Potassium, Blood 3.7 mmol/L (3.5-5.5); Total Protein, Blood 5.1 g/dL (6.4-8.2)
[2023-11-26 11:19] LABS: Hemoglobin 4.6 g/dL (13.5-17.5)
[2023-11-26 11:20] LABS: Hematocrit 13.5 % (37.0-53.0)
[~2023-11-27 07:01] MED LIST changes: +NS 250 ML IV SCH
[2023-11-27] MEDS ORDERED: NS 250 ML IV SCH (07:05)
[2023-11-27 07:42] VITALS: BP 154/93
[2023-11-27 08:06] VITALS: BP 162/92
[2023-11-27 09:03] VITALS: BP 164/91
[2023-11-27 09:35] VITALS: BP 180/100
== END 2023-11-27 09:36 | disposition home or self-care (01) ==
LOC: ATC 07:01
PROVIDERS: Internal Medicine Hematology & Oncology
DX: D46.9 Myelodysplastic syndrome, unspecified (principal); Z79.899 Other long term (current) drug therapy
CPT/HCPCS: 36430; 36591; 80053; 85025; 86850; 86900; 86901; 86923; J1642; J7050; P9040

== ENCOUNTER 2023-11-30 03:11 | Day surgery (SDC) | payer MEDICARE, OTHER ==
[~2023-11-30 03:11] MED LIST changes: -NS 250 ML IV SCH
[2023-11-30 09:35] VITALS: BP 143/93
[2023-11-30 09:55] LABS: BASOPHILS ABSOLUTE AUTO 0.06 K/mm3 (0.00-0.23); BASOPHILS PERCENT AUTO 1 % (0-2); EOSINOPHILS ABSOLUTE AUTO 0.13 K/mm3 (0.00-0.68); EOSINOPHILS PERCENT AUTO 3 % (0-6); Hematocrit 29.7 % (37.0-53.0); Hemoglobin 10.4 g/dL (13.5-17.5); IMMATURE GRAN ABSOLUTE AUTO 0.16 K/mm3 (0.00-0.10); IMMATURE GRAN PERCENT AUTO 3 % (0-1); LYMPHOCYTES ABSOLUTE AUTO 0.62 K/mm3 (0.84-5.20); LYMPHOCYTES PERCENT AUTO 12 % (21-46); MONOCYTES ABSOLUTE AUTO 0.97 K/mm3 (0.16-1.47); MONOCYTES PERCENT AUTO 19 % (4-13); Mean Corpuscular HGB 31.4 pg (26.0-34.0); Mean Corpuscular Volume 90 fL (80-100); Mean Platelet Volume 9.3 fL (9.1-12.4); NEUTROPHILS ABSOLUTE AUTO 3.31 K/mm3 (1.96-9.15); NEUTROPHILS PERCENT AUTO 63 % (41-73); Platelet Count 77 K/mm3 (150-400); RDW Coefficient Variation 15.9 % (11.7-14.2); RDW Standard Deviation 50.9 fL (35.1-46.3); Red Blood Cell Count 3.31 M/mm3 (4.30-5.90); White Blood Cell Count 5.25 K/mm3 (4.00-11.30)
[2023-11-30 10:25] LABS: Albumin/Globulin Ratio 0.6 (0.8-1.8); Bilirubin, Total 1.1 mg/dL (0.1-1.0); Bun/Creatinine Ratio 14.5 (12.0-20.0); Calcium, Blood 8.1 mg/dL (8.5-10.1); Creatinine, Blood 5.03 mg/dL (0.60-1.20); Globulin, Blood 3.4 g/dL (2.2-4.0); Potassium, Blood 4.1 mmol/L (3.5-5.5); Total Protein, Blood 5.4 g/dL (6.4-8.2)
== END 2023-11-30 09:43 | disposition home or self-care (01) ==
LOC: ATC 03:11
PROVIDERS: Internal Medicine Hematology & Oncology
DX: D46.9 Myelodysplastic syndrome, unspecified (principal); Z94.84 Stem cells transplant status; Z79.899 Other long term (current) drug therapy
CPT/HCPCS: 36591; 80053; 85025; J1642

== ENCOUNTER 2023-12-03 01:52 | Day surgery (SDC) | payer MEDICARE, OTHER ==
[2023-12-03 10:38] VITALS: BP 125/81
[2023-12-03 11:10] LABS: BASOPHILS ABSOLUTE AUTO 0.07 K/mm3 (0.00-0.23); BASOPHILS PERCENT AUTO 1 % (0-2); EOSINOPHILS ABSOLUTE AUTO 0.09 K/mm3 (0.00-0.68); EOSINOPHILS PERCENT AUTO 2 % (0-6); Hematocrit 27.4 % (37.0-53.0); Hemoglobin 9.4 g/dL (13.5-17.5); IMMATURE GRAN ABSOLUTE AUTO 0.16 K/mm3 (0.00-0.10); IMMATURE GRAN PERCENT AUTO 3 % (0-1); LYMPHOCYTES ABSOLUTE AUTO 0.74 K/mm3 (0.84-5.20); LYMPHOCYTES PERCENT AUTO 15 % (21-46); MONOCYTES ABSOLUTE AUTO 0.86 K/mm3 (0.16-1.47); MONOCYTES PERCENT AUTO 17 % (4-13); Mean Corpuscular HGB 31.3 pg (26.0-34.0); Mean Corpuscular HGB Conc 34.3 g/dL (31.5-36.5); Mean Corpuscular Volume 91 fL (80-100); Mean Platelet Volume 10.2 fL (9.1-12.4); NEUTROPHILS ABSOLUTE AUTO 3.12 K/mm3 (1.96-9.15); NEUTROPHILS PERCENT AUTO 62 % (41-73); Platelet Count 82 K/mm3 (150-400); RDW Standard Deviation 52.7 fL (35.1-46.3); White Blood Cell Count 5.04 K/mm3 (4.00-11.30)
[2023-12-03 11:29] LABS: Albumin, Blood 1.8 g/dL (3.4-5.0); Albumin/Globulin Ratio 0.5 (0.8-1.8); Bun/Creatinine Ratio 12.8 (12.0-20.0); Calcium, Blood 7.6 mg/dL (8.5-10.1); Creatinine, Blood 2.96 mg/dL (0.60-1.20); Globulin, Blood 3.3 g/dL (2.2-4.0); Potassium, Blood 3.7 mmol/L (3.5-5.5); Total Protein, Blood 5.1 g/dL (6.4-8.2)
[2023-12-03] MEDS ORDERED: CORTISONE (12:22)
== END 2023-12-03 10:38 | disposition home or self-care (01) ==
LOC: ATC 01:52
PROVIDERS: Internal Medicine Hematology & Oncology
DX: D46.9 Myelodysplastic syndrome, unspecified (principal); D63.0 Anemia in neoplastic disease; Z94.84 Stem cells transplant status; Z79.899 Other long term (current) drug therapy
CPT/HCPCS: 36591; 80053; 85025; J1642

== ENCOUNTER 2023-12-07 04:13 | Day surgery (SDC) | payer MEDICARE, OTHER ==
[~2023-12-07 04:13] MED LIST changes: +CORTISONE
[2023-12-07 09:30] VITALS: BP 172/100
[2023-12-07 10:40] LABS: BASOPHILS ABSOLUTE AUTO 0.07 K/mm3 (0.00-0.23); BASOPHILS PERCENT AUTO 1 % (0-2); EOSINOPHILS ABSOLUTE AUTO 0.09 K/mm3 (0.00-0.68); EOSINOPHILS PERCENT AUTO 1 % (0-6); Hematocrit 27.5 % (37.0-53.0); Hemoglobin 9.4 g/dL (13.5-17.5); IMMATURE GRAN ABSOLUTE AUTO 0.27 K/mm3 (0.00-0.10); IMMATURE GRAN PERCENT AUTO 4 % (0-1); LYMPHOCYTES ABSOLUTE AUTO 1.17 K/mm3 (0.84-5.20); LYMPHOCYTES PERCENT AUTO 18 % (21-46); MONOCYTES ABSOLUTE AUTO 1.07 K/mm3 (0.16-1.47); MONOCYTES PERCENT AUTO 16 % (4-13); Mean Corpuscular HGB 31.9 pg (26.0-34.0); Mean Corpuscular HGB Conc 34.2 g/dL (31.5-36.5); Mean Corpuscular Volume 93 fL (80-100); Mean Platelet Volume 10.2 fL (9.1-12.4); NEUTROPHILS ABSOLUTE AUTO 3.88 K/mm3 (1.96-9.15); NEUTROPHILS PERCENT AUTO 59 % (41-73); NRBC ABSOLUTE 0.02 K/mm3 (0.00-0.02); NRBC Auto 0.3 /100 WBC (0.0-0.2); Platelet Count 107 K/mm3 (150-400); RDW Coefficient Variation 16.7 % (11.7-14.2); RDW Standard Deviation 55.2 fL (35.1-46.3); Red Blood Cell Count 2.95 M/mm3 (4.30-5.90); White Blood Cell Count 6.55 K/mm3 (4.00-11.30)
[2023-12-07 11:39] LABS: Albumin, Blood 1.9 g/dL (3.4-5.0); Albumin/Globulin Ratio 0.6 (0.8-1.8); Bilirubin, Total 0.9 mg/dL (0.1-1.0); Bun/Creatinine Ratio 11.5 (12.0-20.0); Calcium, Blood 8.3 mg/dL (8.5-10.1); Creatinine, Blood 6.17 mg/dL (0.60-1.20); Globulin, Blood 3.4 g/dL (2.2-4.0); Total Protein, Blood 5.3 g/dL (6.4-8.2)
== END 2023-12-07 09:38 | disposition home or self-care (01) ==
LOC: ATC 04:13
PROVIDERS: Internal Medicine Hematology & Oncology
DX: D46.1 Refractory anemia with ring sideroblasts (principal); G43.909 Migraine, unspecified, not intractable, without status migrainosus; M19.90 Unspecified osteoarthritis, unspecified site; Z79.83 Long term (current) use of bisphosphonates; Z79.1 Long term (current) use of non-steroidal anti-inflammatories (NSAID); Z79.899 Other long term (current) drug therapy
CPT/HCPCS: 36591; 80053; 85025; J1642

== ENCOUNTER 2023-12-10 02:44 | Day surgery (SDC) | payer MEDICARE, OTHER ==
[2023-12-10 10:31] VITALS: BP 125/82
[2023-12-10 11:02] LABS: BASOPHILS ABSOLUTE AUTO 0.02 K/mm3 (0.00-0.23); BASOPHILS PERCENT AUTO 0 % (0-2); EOSINOPHILS PERCENT AUTO 0 % (0-6); Hematocrit 27.1 % (37.0-53.0); Hemoglobin 9.2 g/dL (13.5-17.5); IMMATURE GRAN ABSOLUTE AUTO 0.46 K/mm3 (0.00-0.10); IMMATURE GRAN PERCENT AUTO 5 % (0-1); LYMPHOCYTES ABSOLUTE AUTO 1.24 K/mm3 (0.84-5.20); LYMPHOCYTES PERCENT AUTO 13 % (21-46); MONOCYTES ABSOLUTE AUTO 1.66 K/mm3 (0.16-1.47); MONOCYTES PERCENT AUTO 18 % (4-13); Mean Corpuscular HGB 32.1 pg (26.0-34.0); Mean Corpuscular HGB Conc 33.9 g/dL (31.5-36.5); Mean Corpuscular Volume 94 fL (80-100); Mean Platelet Volume 10.3 fL (9.1-12.4); NEUTROPHILS ABSOLUTE AUTO 5.95 K/mm3 (1.96-9.15); NEUTROPHILS PERCENT AUTO 64 % (41-73); NRBC ABSOLUTE 0.24 K/mm3 (0.00-0.02); NRBC Auto 2.6 /100 WBC (0.0-0.2); Platelet Count 140 K/mm3 (150-400); RDW Coefficient Variation 18.7 % (11.7-14.2); RDW Standard Deviation 58.6 fL (35.1-46.3); Red Blood Cell Count 2.87 M/mm3 (4.30-5.90); White Blood Cell Count 9.33 K/mm3 (4.00-11.30)
[2023-12-10 11:19] LABS: Albumin/Globulin Ratio 0.6 (0.8-1.8); Bilirubin, Total 1.3 mg/dL (0.1-1.0); Bun/Creatinine Ratio 11.3 (12.0-20.0); Calcium, Blood 7.9 mg/dL (8.5-10.1); Creatinine, Blood 3.1 mg/dL (0.60-1.20); Globulin, Blood 3.4 g/dL (2.2-4.0); Potassium, Blood 3.5 mmol/L (3.5-5.5); Total Protein, Blood 5.4 g/dL (6.4-8.2)
== END 2023-12-10 10:39 | disposition home or self-care (01) ==
LOC: ATC 02:44
PROVIDERS: Internal Medicine Hematology & Oncology
DX: D46.9 Myelodysplastic syndrome, unspecified (principal); Z94.84 Stem cells transplant status; I10 Essential (primary) hypertension; Z79.01 Long term (current) use of anticoagulants; Z79.899 Other long term (current) drug therapy
CPT/HCPCS: 36591; 80053; 82533; 85025; J1642

== ENCOUNTER 2023-12-14 04:06 | Day surgery (SDC) | payer MEDICARE, OTHER ==
[2023-12-14 09:35] VITALS: BP 155/103
--- NOTE | 2023-12-14 09:47 | NUR ---
ADDITIONAL LABS DRAWN FOR [facility], AND GIVEN BACK TO PATIENT TO SEND OFF. DRAWN JENNA FOREMAN SIGNED FORM
[2023-12-14 10:30] LABS: Hematocrit 29.2 % (37.0-53.0); Hemoglobin 9.8 g/dL (13.5-17.5); Mean Corpuscular HGB 33.3 pg (26.0-34.0); Mean Corpuscular HGB Conc 33.6 g/dL (31.5-36.5); Mean Corpuscular Volume 99 fL (80-100); Mean Platelet Volume 10.1 fL (9.1-12.4); NRBC ABSOLUTE 0.19 K/mm3 (0.00-0.02); NRBC Auto 1.5 /100 WBC (0.0-0.2); Platelet Count 168 K/mm3 (150-400); RDW Coefficient Variation 21.2 % (11.7-14.2); RDW Standard Deviation 70.4 fL (35.1-46.3); Red Blood Cell Count 2.94 M/mm3 (4.30-5.90); White Blood Cell Count 12.97 K/mm3 (4.00-11.30)
[2023-12-14 10:50] LABS: BAND PERCENT MAN 1 % (0-8); BASOPHILS PERCENT MAN 0 % (0-2); EOSINOPHILS PERCENT MAN 0 % (0-6); LYMPHOCYTES ABSOLUTE MAN 1.16 K/mm3 (0.84-5.20); LYMPHOCYTES PERCENT MAN 9 % (21-46); METAMYELOCYTE ABSOLUTE MAN 0.12 K/mm3 (0.00-0.00); METAMYELOCYTE PERCENT MAN 1 % (0-0); MONOCYTES ABSOLUTE MAN 1.29 K/mm3 (0.16-1.47); MONOCYTES PERCENT MAN 10 % (4-13); MYELOCYTE ABSOLUTE MAN 0.38 K/mm3 (0.00-0.00); MYELOCYTE PERCENT MAN 3 % (0-0); NEUTROPHILS ABSOLUTE MAN 9.98 K/mm3 (1.96-9.15); SEG NEUTROPHILS PERCENT MAN 76 % (41-73); TOTAL CELLS COUNTED 100
[2023-12-14 10:52] LABS: Albumin, Blood 2.2 g/dL (3.4-5.0); Albumin/Globulin Ratio 0.7 (0.8-1.8); Bilirubin, Total 1.4 mg/dL (0.1-1.0); Bun/Creatinine Ratio 13.6 (12.0-20.0); Calcium, Blood 8.3 mg/dL (8.5-10.1); Creatinine, Blood 5.73 mg/dL (0.60-1.20); Globulin, Blood 3.1 g/dL (2.2-4.0); Potassium, Blood 4.1 mmol/L (3.5-5.5); Total Protein, Blood 5.3 g/dL (6.4-8.2)
== END 2023-12-14 09:49 | disposition home or self-care (01) ==
LOC: ATC 04:06
PROVIDERS: Internal Medicine Hematology & Oncology
DX: D46.9 Myelodysplastic syndrome, unspecified (principal); I10 Essential (primary) hypertension; Z79.899 Other long term (current) drug therapy; Z94.84 Stem cells transplant status
CPT/HCPCS: 36591; 80053; 85025; J1642

== ENCOUNTER 2023-12-17 02:28 | Day surgery (SDC) | payer MEDICARE, OTHER ==
[2023-12-17 10:33] VITALS: BP 154/91
[2023-12-17 11:09] LABS: Hematocrit 27.9 % (37.0-53.0); Hemoglobin 9.3 g/dL (13.5-17.5); Mean Corpuscular HGB 33.7 pg (26.0-34.0); Mean Corpuscular HGB Conc 33.3 g/dL (31.5-36.5); Mean Corpuscular Volume 101 fL (80-100); Mean Platelet Volume 9.6 fL (9.1-12.4); NRBC ABSOLUTE 0.31 K/mm3 (0.00-0.02); NRBC Auto 2.7 /100 WBC (0.0-0.2); Platelet Count 130 K/mm3 (150-400); Red Blood Cell Count 2.76 M/mm3 (4.30-5.90); White Blood Cell Count 11.62 K/mm3 (4.00-11.30)
[2023-12-17 11:56] LABS: Albumin, Blood 2.2 g/dL (3.4-5.0); Albumin/Globulin Ratio 0.7 (0.8-1.8); Bilirubin, Total 1.8 mg/dL (0.1-1.0); Bun/Creatinine Ratio 13.2 (12.0-20.0); Calcium, Blood 8.1 mg/dL (8.5-10.1); Creatinine, Blood 2.95 mg/dL (0.60-1.20); Potassium, Blood 3.7 mmol/L (3.5-5.5); Total Protein, Blood 5.2 g/dL (6.4-8.2)
[2023-12-17 12:16] LABS: BAND PERCENT MAN 1 % (0-8); BASOPHILS PERCENT MAN 0 % (0-2); EOSINOPHILS PERCENT MAN 0 % (0-6); LYMPHOCYTES ABSOLUTE MAN 0.92 K/mm3 (0.84-5.20); LYMPHOCYTES PERCENT MAN 8 % (21-46); METAMYELOCYTE ABSOLUTE MAN 0.23 K/mm3 (0.00-0.00); METAMYELOCYTE PERCENT MAN 2 % (0-0); MONOCYTES ABSOLUTE MAN 2.09 K/mm3 (0.16-1.47); MONOCYTES PERCENT MAN 18 % (4-13); MYELOCYTE ABSOLUTE MAN 0.46 K/mm3 (0.00-0.00); MYELOCYTE PERCENT MAN 4 % (0-0); SEG NEUTROPHILS PERCENT MAN 67 % (41-73); TOTAL CELLS COUNTED 100
== END 2023-12-17 10:46 | disposition home or self-care (01) ==
LOC: ATC 02:28
PROVIDERS: Internal Medicine Hematology & Oncology
DX: D46.9 Myelodysplastic syndrome, unspecified (principal); I10 Essential (primary) hypertension; M06.811 Other specified rheumatoid arthritis, right shoulder; M81.0 Age-related osteoporosis without current pathological fracture; R42 Dizziness and giddiness; G43.109 Migraine with aura, not intractable, without status migrainosus; Z94.81 Bone marrow transplant status; Z79.01 Long term (current) use of anticoagulants; Z79.83 Long term (current) use of bisphosphonates; Z79.1 Long term (current) use of non-steroidal anti-inflammatories (NSAID); Z79.899 Other long term (current) drug therapy; Z86.718 Personal history of other venous thrombosis and embolism
CPT/HCPCS: 36591; 80053; 85025; J1642

== ENCOUNTER 2023-12-23 04:38 | Day surgery (SDC) | payer MEDICARE, OTHER ==
[2023-12-21 10:00] VITALS: BP 149/80
[2023-12-21 11:02] LABS: BASOPHILS ABSOLUTE AUTO 0.01 K/mm3 (0.00-0.23); BASOPHILS PERCENT AUTO 0 % (0-2); EOSINOPHILS ABSOLUTE AUTO 0.04 K/mm3 (0.00-0.68); EOSINOPHILS PERCENT AUTO 0 % (0-6); Hematocrit 22.8 % (37.0-53.0); Hemoglobin 7.5 g/dL (13.5-17.5); IMMATURE GRAN ABSOLUTE AUTO 0.98 K/mm3 (0.00-0.10); IMMATURE GRAN PERCENT AUTO 10 % (0-1); LYMPHOCYTES ABSOLUTE AUTO 1.34 K/mm3 (0.84-5.20); LYMPHOCYTES PERCENT AUTO 13 % (21-46); MONOCYTES ABSOLUTE AUTO 2.15 K/mm3 (0.16-1.47); MONOCYTES PERCENT AUTO 21 % (4-13); Mean Corpuscular HGB 35.4 pg (26.0-34.0); Mean Corpuscular HGB Conc 32.9 g/dL (31.5-36.5); Mean Corpuscular Volume 108 fL (80-100); Mean Platelet Volume 10.3 fL (9.1-12.4); NEUTROPHILS ABSOLUTE AUTO 5.75 K/mm3 (1.96-9.15); NEUTROPHILS PERCENT AUTO 56 % (41-73); NRBC ABSOLUTE 0.18 K/mm3 (0.00-0.02); NRBC Auto 1.8 /100 WBC (0.0-0.2); Platelet Count 111 K/mm3 (150-400); RDW Standard Deviation 89.6 fL (35.1-46.3); Red Blood Cell Count 2.12 M/mm3 (4.30-5.90); White Blood Cell Count 10.27 K/mm3 (4.00-11.30)
[2023-12-21 11:33] LABS: Albumin/Globulin Ratio 0.8 (0.8-1.8); Bilirubin, Total 1.2 mg/dL (0.1-1.0); Bun/Creatinine Ratio 13.1 (12.0-20.0); Calcium, Blood 7.7 mg/dL (8.5-10.1); Creatinine, Blood 6.47 mg/dL (0.60-1.20); Globulin, Blood 2.6 g/dL (2.2-4.0); Potassium, Blood 3.9 mmol/L (3.5-5.5); Total Protein, Blood 4.6 g/dL (6.4-8.2)
[2023-12-21 12:11] LABS: BASOPHILS PERCENT MAN 0 % (0-2); EOSINOPHILS PERCENT MAN 0 % (0-6); LYMPHOCYTES ABSOLUTE MAN 1.23 K/mm3 (0.84-5.20); LYMPHOCYTES PERCENT MAN 12 % (21-46); METAMYELOCYTE PERCENT MAN 3 % (0-0); MONOCYTES ABSOLUTE MAN 1.84 K/mm3 (0.16-1.47); MONOCYTES PERCENT MAN 18 % (4-13); MYELOCYTE ABSOLUTE MAN 0.41 K/mm3 (0.00-0.00); MYELOCYTE PERCENT MAN 4 % (0-0); NEUTROPHILS ABSOLUTE MAN 6.47 K/mm3 (1.96-9.15); SEG NEUTROPHILS PERCENT MAN 63 % (41-73); TOTAL CELLS COUNTED 100
[2023-12-23] VITALS (7 sets, daily range): BP systolic 127–154; BP diastolic 73–95
[2023-12-23] MEDS ORDERED: NS 250 ML IV SCH (07:20)
== END 2023-12-23 11:35 | disposition home or self-care (01) ==
LOC: ATC 04:38
PROVIDERS: Internal Medicine Hematology & Oncology
DX: D46.9 Myelodysplastic syndrome, unspecified (principal); Z94.84 Stem cells transplant status
CPT/HCPCS: 36430; 36591; 80053; 85025; 86850; 86900; 86901; 86923; J1642; J7050; P9016

== ENCOUNTER 2023-12-24 02:48 | Day surgery (SDC) | payer MEDICARE, OTHER ==
[2023-12-24 10:34] VITALS: BP 136/92
[2023-12-24 11:02] LABS: Hemoglobin 10.8 g/dL (13.5-17.5); Mean Corpuscular HGB 33.3 pg (26.0-34.0); Mean Corpuscular HGB Conc 33.8 g/dL (31.5-36.5); Mean Corpuscular Volume 99 fL (80-100); Mean Platelet Volume 10.4 fL (9.1-12.4); NRBC ABSOLUTE 0.16 K/mm3 (0.00-0.02); NRBC Auto 1.5 /100 WBC (0.0-0.2); Platelet Count 90 K/mm3 (150-400); RDW Coefficient Variation 23.7 % (11.7-14.2); RDW Standard Deviation 78.7 fL (35.1-46.3); Red Blood Cell Count 3.24 M/mm3 (4.30-5.90); White Blood Cell Count 10.46 K/mm3 (4.00-11.30)
[2023-12-24 11:41] LABS: Albumin, Blood 2.2 g/dL (3.4-5.0); Albumin/Globulin Ratio 0.8 (0.8-1.8); Bilirubin, Total 1.5 mg/dL (0.1-1.0); Bun/Creatinine Ratio 10.7 (12.0-20.0); Calcium, Blood 7.7 mg/dL (8.5-10.1); Creatinine, Blood 3.36 mg/dL (0.60-1.20); Globulin, Blood 2.9 g/dL (2.2-4.0); Potassium, Blood 3.7 mmol/L (3.5-5.5); Total Protein, Blood 5.1 g/dL (6.4-8.2)
[2023-12-24 12:20] LABS: BAND PERCENT MAN 2 % (0-8); BASOPHILS PERCENT MAN 0 % (0-2); EOSINOPHILS PERCENT MAN 2 % (0-6); LYMPHOCYTES ABSOLUTE MAN 1.04 K/mm3 (0.84-5.20); LYMPHOCYTES PERCENT MAN 10 % (21-46); METAMYELOCYTE PERCENT MAN 2 % (0-0); MONOCYTES ABSOLUTE MAN 1.46 K/mm3 (0.16-1.47); MONOCYTES PERCENT MAN 14 % (4-13); MYELOCYTE ABSOLUTE MAN 0.41 K/mm3 (0.00-0.00); MYELOCYTE PERCENT MAN 4 % (0-0); NEUTROPHILS ABSOLUTE MAN 7.11 K/mm3 (1.96-9.15); SEG NEUTROPHILS PERCENT MAN 66 % (41-73); TOTAL CELLS COUNTED 100
== END 2023-12-24 10:41 | disposition home or self-care (01) ==
LOC: ATC 02:48
PROVIDERS: Internal Medicine Hematology & Oncology
DX: D46.9 Myelodysplastic syndrome, unspecified (principal); I10 Essential (primary) hypertension; Z79.899 Other long term (current) drug therapy
CPT/HCPCS: 36591; 80053; 85025; J1642

== ENCOUNTER 2023-12-28 02:08 | Day surgery (SDC) | payer MEDICARE, OTHER ==
[2023-12-28 09:46] VITALS: BP 145/90
[2023-12-28 09:50] LABS: Hematocrit 29.8 % (37.0-53.0); Hemoglobin 10.1 g/dL (13.5-17.5); Mean Corpuscular HGB 35.3 pg (26.0-34.0); Mean Corpuscular HGB Conc 33.9 g/dL (31.5-36.5); Mean Corpuscular Volume 104 fL (80-100); Mean Platelet Volume 10.4 fL (9.1-12.4); NRBC ABSOLUTE 0.05 K/mm3 (0.00-0.02); NRBC Auto 0.5 /100 WBC (0.0-0.2); Platelet Count 90 K/mm3 (150-400); RDW Coefficient Variation 22.6 % (11.7-14.2); RDW Standard Deviation 82.6 fL (35.1-46.3); Red Blood Cell Count 2.86 M/mm3 (4.30-5.90); White Blood Cell Count 10.28 K/mm3 (4.00-11.30)
[2023-12-28 10:25] LABS: Albumin, Blood 2.1 g/dL (3.4-5.0); Albumin/Globulin Ratio 0.8 (0.8-1.8); Bun/Creatinine Ratio 14.4 (12.0-20.0); Calcium, Blood 7.7 mg/dL (8.5-10.1); Creatinine, Blood 5.91 mg/dL (0.60-1.20); Globulin, Blood 2.8 g/dL (2.2-4.0); Potassium, Blood 4.4 mmol/L (3.5-5.5); Total Protein, Blood 4.9 g/dL (6.4-8.2)
[2023-12-28 10:40] LABS: BAND PERCENT MAN 1 % (0-8); BASOPHILS PERCENT MAN 0 % (0-2); EOSINOPHILS PERCENT MAN 0 % (0-6); LYMPHOCYTES ABSOLUTE MAN 0.82 K/mm3 (0.84-5.20); LYMPHOCYTES PERCENT MAN 8 % (21-46); MONOCYTES ABSOLUTE MAN 1.23 K/mm3 (0.16-1.47); MONOCYTES PERCENT MAN 12 % (4-13); MYELOCYTE ABSOLUTE MAN 0.41 K/mm3 (0.00-0.00); MYELOCYTE PERCENT MAN 4 % (0-0); NEUTROPHILS ABSOLUTE MAN 7.81 K/mm3 (1.96-9.15); SEG NEUTROPHILS PERCENT MAN 75 % (41-73); TOTAL CELLS COUNTED 100
== END 2023-12-28 09:38 | disposition home or self-care (01) ==
LOC: ATC 02:08
PROVIDERS: Internal Medicine Hematology & Oncology
DX: D46.9 Myelodysplastic syndrome, unspecified (principal); Z94.84 Stem cells transplant status; Z79.899 Other long term (current) drug therapy
CPT/HCPCS: 36591; 80053; 85025; J1642

== ENCOUNTER 2023-12-31 02:30 | Day surgery (SDC) | payer MEDICARE, OTHER ==
[2023-12-31 10:42] VITALS: BP 116/69
[2023-12-31 10:56] LABS: BASOPHILS ABSOLUTE AUTO 0.03 K/mm3 (0.00-0.23); BASOPHILS PERCENT AUTO 0 % (0-2); EOSINOPHILS ABSOLUTE AUTO 0.03 K/mm3 (0.00-0.68); EOSINOPHILS PERCENT AUTO 0 % (0-6); Hematocrit 26.4 % (37.0-53.0); IMMATURE GRAN ABSOLUTE AUTO 0.57 K/mm3 (0.00-0.10); IMMATURE GRAN PERCENT AUTO 5 % (0-1); LYMPHOCYTES ABSOLUTE AUTO 1.01 K/mm3 (0.84-5.20); LYMPHOCYTES PERCENT AUTO 8 % (21-46); MONOCYTES ABSOLUTE AUTO 1.81 K/mm3 (0.16-1.47); MONOCYTES PERCENT AUTO 14 % (4-13); Mean Corpuscular HGB 35.6 pg (26.0-34.0); Mean Corpuscular HGB Conc 34.1 g/dL (31.5-36.5); Mean Corpuscular Volume 104 fL (80-100); Mean Platelet Volume 10.9 fL (9.1-12.4); NEUTROPHILS ABSOLUTE AUTO 9.21 K/mm3 (1.96-9.15); NEUTROPHILS PERCENT AUTO 73 % (41-73); NRBC ABSOLUTE 0.05 K/mm3 (0.00-0.02); NRBC Auto 0.4 /100 WBC (0.0-0.2); Platelet Count 73 K/mm3 (150-400); Red Blood Cell Count 2.53 M/mm3 (4.30-5.90); White Blood Cell Count 12.66 K/mm3 (4.00-11.30)
[2023-12-31 11:26] LABS: Albumin/Globulin Ratio 0.8 (0.8-1.8); Bilirubin, Total 1.4 mg/dL (0.1-1.0); Bun/Creatinine Ratio 12.4 (12.0-20.0); Calcium, Blood 7.6 mg/dL (8.5-10.1); Creatinine, Blood 2.75 mg/dL (0.60-1.20); Globulin, Blood 2.4 g/dL (2.2-4.0); Potassium, Blood 3.8 mmol/L (3.5-5.5); Total Protein, Blood 4.4 g/dL (6.4-8.2)
== END 2023-12-31 10:46 | disposition home or self-care (01) ==
LOC: ATC 02:30
PROVIDERS: Internal Medicine Hematology & Oncology
DX: D46.9 Myelodysplastic syndrome, unspecified (principal); I10 Essential (primary) hypertension; M06.811 Other specified rheumatoid arthritis, right shoulder; Z94.84 Stem cells transplant status
CPT/HCPCS: 36591; 80053; 85025; J1642

== ENCOUNTER 2024-01-04 02:20 | Day surgery (SDC) | payer MEDICARE, OTHER ==
[2024-01-04 09:39] VITALS: BP 118/50
[2024-01-04 10:08] LABS: BASOPHILS ABSOLUTE AUTO 0.02 K/mm3 (0.00-0.23); BASOPHILS PERCENT AUTO 0 % (0-2); EOSINOPHILS ABSOLUTE AUTO 0.03 K/mm3 (0.00-0.68); EOSINOPHILS PERCENT AUTO 0 % (0-6); Hematocrit 26.1 % (37.0-53.0); Hemoglobin 8.8 g/dL (13.5-17.5); IMMATURE GRAN ABSOLUTE AUTO 0.72 K/mm3 (0.00-0.10); IMMATURE GRAN PERCENT AUTO 8 % (0-1); LYMPHOCYTES ABSOLUTE AUTO 1.31 K/mm3 (0.84-5.20); LYMPHOCYTES PERCENT AUTO 14 % (21-46); MONOCYTES ABSOLUTE AUTO 1.22 K/mm3 (0.16-1.47); MONOCYTES PERCENT AUTO 13 % (4-13); Mean Corpuscular HGB 36.1 pg (26.0-34.0); Mean Corpuscular HGB Conc 33.7 g/dL (31.5-36.5); Mean Corpuscular Volume 107 fL (80-100); Mean Platelet Volume 11.1 fL (9.1-12.4); NEUTROPHILS ABSOLUTE AUTO 5.82 K/mm3 (1.96-9.15); NEUTROPHILS PERCENT AUTO 64 % (41-73); NRBC ABSOLUTE 0.11 K/mm3 (0.00-0.02); NRBC Auto 1.2 /100 WBC (0.0-0.2); Platelet Count 104 K/mm3 (150-400); RDW Coefficient Variation 22.6 % (11.7-14.2); RDW Standard Deviation 84.6 fL (35.1-46.3); Red Blood Cell Count 2.44 M/mm3 (4.30-5.90); White Blood Cell Count 9.12 K/mm3 (4.00-11.30)
[2024-01-04 10:39] LABS: Albumin, Blood 2.2 g/dL (3.4-5.0); Albumin/Globulin Ratio 0.8 (0.8-1.8); Bun/Creatinine Ratio 14.5 (12.0-20.0); Calcium, Blood 8.4 mg/dL (8.5-10.1); Creatinine, Blood 6.41 mg/dL (0.60-1.20); Globulin, Blood 2.7 g/dL (2.2-4.0); Potassium, Blood 4.7 mmol/L (3.5-5.5); Total Protein, Blood 4.9 g/dL (6.4-8.2)
== END 2024-01-04 09:48 | disposition home or self-care (01) ==
LOC: ATC 02:20
PROVIDERS: Internal Medicine Hematology & Oncology
DX: D46.9 Myelodysplastic syndrome, unspecified (principal); Z94.84 Stem cells transplant status; Z79.899 Other long term (current) drug therapy
CPT/HCPCS: 36591; 80053; 85025; J1642

== ENCOUNTER 2024-01-09 00:13 | Day surgery (SDC) | payer MEDICARE, OTHER ==
[2024-01-07 10:25] VITALS: BP 143/83
[2024-01-07 11:03] LABS: Hematocrit 20.9 % (37.0-53.0); Mean Corpuscular HGB 36.3 pg (26.0-34.0); Mean Corpuscular HGB Conc 33.5 g/dL (31.5-36.5); Mean Corpuscular Volume 108 fL (80-100); Mean Platelet Volume 10.8 fL (9.1-12.4); NRBC ABSOLUTE 0.05 K/mm3 (0.00-0.02); NRBC Auto 0.6 /100 WBC (0.0-0.2); Platelet Count 99 K/mm3 (150-400); RDW Coefficient Variation 23.5 % (11.7-14.2); Red Blood Cell Count 1.93 M/mm3 (4.30-5.90); White Blood Cell Count 8.06 K/mm3 (4.00-11.30)
[2024-01-07 11:17] LABS: Albumin, Blood 1.7 g/dL (3.4-5.0); Albumin/Globulin Ratio 0.6 (0.8-1.8); Bun/Creatinine Ratio 12.7 (12.0-20.0); Calcium, Blood 7.7 mg/dL (8.5-10.1); Creatinine, Blood 3.06 mg/dL (0.60-1.20); Globulin, Blood 2.8 g/dL (2.2-4.0); Total Protein, Blood 4.5 g/dL (6.4-8.2)
[2024-01-07 11:56] LABS: BASOPHILS PERCENT MAN 0 % (0-2); EOSINOPHILS ABSOLUTE MAN 0.08 K/mm3 (0.00-0.68); EOSINOPHILS PERCENT MAN 1 % (0-6); LYMPHOCYTES ABSOLUTE MAN 1.04 K/mm3 (0.84-5.20); LYMPHOCYTES PERCENT MAN 13 % (21-46); MONOCYTES PERCENT MAN 10 % (4-13); MYELOCYTE ABSOLUTE MAN 0.08 K/mm3 (0.00-0.00); MYELOCYTE PERCENT MAN 1 % (0-0); NEUTROPHILS ABSOLUTE MAN 5.96 K/mm3 (1.96-9.15); PROMYELOCYTE ABSOLUTE MAN 0.08 K/mm3 (0.00-0.00); PROMYELOCYTE PERCENT MAN 1 % (0-0); SEG NEUTROPHILS PERCENT MAN 74 % (41-73); TOTAL CELLS COUNTED 100
[2024-01-09] MEDS ORDERED: NS 250 ML IV SCH (07:00)
[2024-01-09 15:07] VITALS: BP 110/71
[2024-01-09 15:26] VITALS: BP 98/56
[2024-01-09 16:32] VITALS: BP 125/78
[2024-01-09 17:00] VITALS: BP 139/76
[2024-01-10] MEDS ORDERED: NS 250 ML IV SCH (06:55)
[2024-01-10 12:47] VITALS: BP 122/76
[2024-01-10 13:05] VITALS: BP 126/68
[2024-01-10 14:06] VITALS: BP 122/71
[2024-01-10 14:33] VITALS: BP 131/83
== END 2024-01-10 14:57 | disposition home or self-care (01) ==
LOC: ATC 00:13
PROVIDERS: Internal Medicine Hematology & Oncology
DX: D46.9 Myelodysplastic syndrome, unspecified (principal); I10 Essential (primary) hypertension; M06.9 Rheumatoid arthritis, unspecified; G43.109 Migraine with aura, not intractable, without status migrainosus; M81.0 Age-related osteoporosis without current pathological fracture; Z79.01 Long term (current) use of anticoagulants; Z79.83 Long term (current) use of bisphosphonates; Z79.899 Other long term (current) drug therapy; Z94.84 Stem cells transplant status
CPT/HCPCS: 36430; 36591; 80053; 85025; 86850; 86900; 86901; 86923; J1642; J7050; P9016

== ENCOUNTER 2024-01-11 01:45 | Day surgery (SDC) | payer MEDICARE, OTHER ==
[2024-01-11 09:38] VITALS: BP 145/97
[2024-01-11 10:20] LABS: BASOPHILS ABSOLUTE AUTO 0.02 K/mm3 (0.00-0.23); BASOPHILS PERCENT AUTO 0 % (0-2); EOSINOPHILS ABSOLUTE AUTO 0.05 K/mm3 (0.00-0.68); EOSINOPHILS PERCENT AUTO 1 % (0-6); Hematocrit 27.6 % (37.0-53.0); Hemoglobin 9.3 g/dL (13.5-17.5); IMMATURE GRAN PERCENT AUTO 10 % (0-1); LYMPHOCYTES ABSOLUTE AUTO 0.98 K/mm3 (0.84-5.20); LYMPHOCYTES PERCENT AUTO 16 % (21-46); MONOCYTES ABSOLUTE AUTO 0.74 K/mm3 (0.16-1.47); MONOCYTES PERCENT AUTO 12 % (4-13); Mean Corpuscular HGB 34.4 pg (26.0-34.0); Mean Corpuscular HGB Conc 33.7 g/dL (31.5-36.5); Mean Corpuscular Volume 102 fL (80-100); NEUTROPHILS ABSOLUTE AUTO 3.72 K/mm3 (1.96-9.15); NEUTROPHILS PERCENT AUTO 61 % (41-73); NRBC ABSOLUTE 0.03 K/mm3 (0.00-0.02); NRBC Auto 0.5 /100 WBC (0.0-0.2); Platelet Count 108 K/mm3 (150-400); White Blood Cell Count 6.11 K/mm3 (4.00-11.30)
[2024-01-11 10:41] LABS: Albumin, Blood 1.9 g/dL (3.4-5.0); Albumin/Globulin Ratio 0.7 (0.8-1.8); Bilirubin, Total 0.8 mg/dL (0.1-1.0); Bun/Creatinine Ratio 14.9 (12.0-20.0); Calcium, Blood 7.9 mg/dL (8.5-10.1); Creatinine, Blood 5.58 mg/dL (0.60-1.20); Globulin, Blood 2.8 g/dL (2.2-4.0); Potassium, Blood 4.7 mmol/L (3.5-5.5); Total Protein, Blood 4.7 g/dL (6.4-8.2)
== END 2024-01-11 09:45 | disposition home or self-care (01) ==
LOC: ATC 01:45
PROVIDERS: Internal Medicine Hematology & Oncology
DX: D46.9 Myelodysplastic syndrome, unspecified (principal); I10 Essential (primary) hypertension; M06.9 Rheumatoid arthritis, unspecified; R42 Dizziness and giddiness; M81.0 Age-related osteoporosis without current pathological fracture; Z79.83 Long term (current) use of bisphosphonates; Z79.01 Long term (current) use of anticoagulants; Z79.899 Other long term (current) drug therapy; Z94.84 Stem cells transplant status; Z86.718 Personal history of other venous thrombosis and embolism
CPT/HCPCS: 36591; 80053; 85025; J1642

== ENCOUNTER 2024-01-14 01:49 | Day surgery (SDC) | payer MEDICARE, OTHER ==
[2024-01-14 10:35] VITALS: BP 147/111
[2024-01-14 11:23] LABS: BASOPHILS ABSOLUTE AUTO 0.03 K/mm3 (0.00-0.23); BASOPHILS PERCENT AUTO 0 % (0-2); EOSINOPHILS ABSOLUTE AUTO 0.04 K/mm3 (0.00-0.68); EOSINOPHILS PERCENT AUTO 1 % (0-6); Hematocrit 28.4 % (37.0-53.0); Hemoglobin 9.6 g/dL (13.5-17.5); IMMATURE GRAN ABSOLUTE AUTO 0.46 K/mm3 (0.00-0.10); IMMATURE GRAN PERCENT AUTO 7 % (0-1); LYMPHOCYTES PERCENT AUTO 13 % (21-46); MONOCYTES ABSOLUTE AUTO 0.91 K/mm3 (0.16-1.47); MONOCYTES PERCENT AUTO 14 % (4-13); Mean Corpuscular HGB 35.2 pg (26.0-34.0); Mean Corpuscular HGB Conc 33.8 g/dL (31.5-36.5); Mean Corpuscular Volume 104 fL (80-100); Mean Platelet Volume 9.4 fL (9.1-12.4); NEUTROPHILS PERCENT AUTO 65 % (41-73); NRBC ABSOLUTE 0.04 K/mm3 (0.00-0.02); NRBC Auto 0.6 /100 WBC (0.0-0.2); Platelet Count 105 K/mm3 (150-400); RDW Coefficient Variation 23.1 % (11.7-14.2); RDW Standard Deviation 84.3 fL (35.1-46.3); Red Blood Cell Count 2.73 M/mm3 (4.30-5.90); White Blood Cell Count 6.74 K/mm3 (4.00-11.30)
[2024-01-14 11:39] LABS: Albumin, Blood 2.1 g/dL (3.4-5.0); Albumin/Globulin Ratio 0.8 (0.8-1.8); Bilirubin, Total 1.3 mg/dL (0.1-1.0); Bun/Creatinine Ratio 12.7 (12.0-20.0); Calcium, Blood 7.8 mg/dL (8.5-10.1); Creatinine, Blood 2.91 mg/dL (0.60-1.20); Globulin, Blood 2.7 g/dL (2.2-4.0); Potassium, Blood 3.9 mmol/L (3.5-5.5); Total Protein, Blood 4.8 g/dL (6.4-8.2)
[2024-01-14 12:43] LABS: BASOPHILS PERCENT MAN 0 % (0-2); EOSINOPHILS ABSOLUTE MAN 0.06 K/mm3 (0.00-0.68); EOSINOPHILS PERCENT MAN 1 % (0-6); LYMPHOCYTES PERCENT MAN 12 % (21-46); METAMYELOCYTE ABSOLUTE MAN 0.06 K/mm3 (0.00-0.00); METAMYELOCYTE PERCENT MAN 1 % (0-0); MONOCYTES ABSOLUTE MAN 0.53 K/mm3 (0.16-1.47); MONOCYTES PERCENT MAN 8 % (4-13); NEUTROPHILS ABSOLUTE MAN 5.25 K/mm3 (1.96-9.15); SEG NEUTROPHILS PERCENT MAN 78 % (41-73); TOTAL CELLS COUNTED 100
== END 2024-01-14 10:44 | disposition home or self-care (01) ==
LOC: ATC 01:49
PROVIDERS: Internal Medicine Hematology & Oncology
DX: D46.9 Myelodysplastic syndrome, unspecified (principal); Z94.84 Stem cells transplant status
CPT/HCPCS: 36591; 80053; 85025; 96523; J1642

== ENCOUNTER 2024-01-18 00:44 | Day surgery (SDC) | payer MEDICARE, OTHER ==
[2024-01-18 09:49] VITALS: BP 125/89
[2024-01-18 10:17] LABS: Hematocrit 26.9 % (37.0-53.0); Mean Corpuscular HGB 35.9 pg (26.0-34.0); Mean Corpuscular HGB Conc 33.5 g/dL (31.5-36.5); Mean Corpuscular Volume 107 fL (80-100); Mean Platelet Volume 10.3 fL (9.1-12.4); NRBC ABSOLUTE 0.05 K/mm3 (0.00-0.02); NRBC Auto 0.7 /100 WBC (0.0-0.2); Platelet Count 102 K/mm3 (150-400); RDW Coefficient Variation 22.6 % (11.7-14.2); RDW Standard Deviation 85.7 fL (35.1-46.3); Red Blood Cell Count 2.51 M/mm3 (4.30-5.90); White Blood Cell Count 7.49 K/mm3 (4.00-11.30)
[2024-01-18 10:31] LABS: Albumin, Blood 2.2 g/dL (3.4-5.0); Albumin/Globulin Ratio 0.8 (0.8-1.8); Bilirubin, Total 0.7 mg/dL (0.1-1.0); Bun/Creatinine Ratio 12.2 (12.0-20.0); Calcium, Blood 7.9 mg/dL (8.5-10.1); Creatinine, Blood 5.97 mg/dL (0.60-1.20); Globulin, Blood 2.6 g/dL (2.2-4.0); Potassium, Blood 4.7 mmol/L (3.5-5.5); Total Protein, Blood 4.8 g/dL (6.4-8.2)
[2024-01-18 10:43] LABS: BASOPHILS PERCENT MAN 0 % (0-2); EOSINOPHILS PERCENT MAN 0 % (0-6); LYMPHOCYTES ABSOLUTE MAN 0.89 K/mm3 (0.84-5.20); LYMPHOCYTES PERCENT MAN 12 % (21-46); METAMYELOCYTE ABSOLUTE MAN 0.07 K/mm3 (0.00-0.00); METAMYELOCYTE PERCENT MAN 1 % (0-0); MONOCYTES ABSOLUTE MAN 0.67 K/mm3 (0.16-1.47); MONOCYTES PERCENT MAN 9 % (4-13); MYELOCYTE ABSOLUTE MAN 0.22 K/mm3 (0.00-0.00); MYELOCYTE PERCENT MAN 3 % (0-0); NEUTROPHILS ABSOLUTE MAN 5.61 K/mm3 (1.96-9.15); SEG NEUTROPHILS PERCENT MAN 75 % (41-73); TOTAL CELLS COUNTED 100
== END 2024-01-18 09:59 | disposition home or self-care (01) ==
LOC: ATC 00:44
PROVIDERS: Internal Medicine Hematology & Oncology
DX: D46.9 Myelodysplastic syndrome, unspecified (principal); Z94.84 Stem cells transplant status; I10 Essential (primary) hypertension; M06.9 Rheumatoid arthritis, unspecified; Z79.899 Other long term (current) drug therapy
CPT/HCPCS: 36591; 80053; 85025; J1642

== ENCOUNTER 2024-01-21 05:20 | Day surgery (SDC) | payer MEDICARE, OTHER ==
[2024-01-21 11:32] LABS: BASOPHILS ABSOLUTE AUTO 0.02 K/mm3 (0.00-0.23); BASOPHILS PERCENT AUTO 0 % (0-2); EOSINOPHILS ABSOLUTE AUTO 0.02 K/mm3 (0.00-0.68); EOSINOPHILS PERCENT AUTO 0 % (0-6); Hematocrit 26.5 % (37.0-53.0); Hemoglobin 8.9 g/dL (13.5-17.5); IMMATURE GRAN ABSOLUTE AUTO 0.66 K/mm3 (0.00-0.10); IMMATURE GRAN PERCENT AUTO 8 % (0-1); LYMPHOCYTES ABSOLUTE AUTO 0.85 K/mm3 (0.84-5.20); LYMPHOCYTES PERCENT AUTO 11 % (21-46); MONOCYTES ABSOLUTE AUTO 1.04 K/mm3 (0.16-1.47); MONOCYTES PERCENT AUTO 13 % (4-13); Mean Corpuscular HGB 36.9 pg (26.0-34.0); Mean Corpuscular HGB Conc 33.6 g/dL (31.5-36.5); Mean Corpuscular Volume 110 fL (80-100); Mean Platelet Volume 10.9 fL (9.1-12.4); NEUTROPHILS ABSOLUTE AUTO 5.27 K/mm3 (1.96-9.15); NEUTROPHILS PERCENT AUTO 67 % (41-73); NRBC Auto 2.5 /100 WBC (0.0-0.2); Platelet Count 97 K/mm3 (150-400); RDW Coefficient Variation 23.7 % (11.7-14.2); RDW Standard Deviation 92.3 fL (35.1-46.3); Red Blood Cell Count 2.41 M/mm3 (4.30-5.90); White Blood Cell Count 7.86 K/mm3 (4.00-11.30)
[2024-01-21 12:11] LABS: Albumin, Blood 2.2 g/dL (3.4-5.0); Albumin/Globulin Ratio 0.8 (0.8-1.8); Bilirubin, Total 1.1 mg/dL (0.1-1.0); Bun/Creatinine Ratio 11.1 (12.0-20.0); Calcium, Blood 7.7 mg/dL (8.5-10.1); Creatinine, Blood 2.98 mg/dL (0.60-1.20); Globulin, Blood 2.9 g/dL (2.2-4.0); Potassium, Blood 3.9 mmol/L (3.5-5.5); Total Protein, Blood 5.1 g/dL (6.4-8.2)
[2024-01-21 12:41] VITALS: BP 99/69
== END 2024-01-21 10:58 | disposition home or self-care (01) ==
LOC: ATC 05:20
PROVIDERS: Internal Medicine Hematology & Oncology
DX: D46.9 Myelodysplastic syndrome, unspecified (principal); I10 Essential (primary) hypertension; M06.9 Rheumatoid arthritis, unspecified; R42 Dizziness and giddiness; G43.909 Migraine, unspecified, not intractable, without status migrainosus; M81.0 Age-related osteoporosis without current pathological fracture; Z79.899 Other long term (current) drug therapy; Z79.83 Long term (current) use of bisphosphonates; Z94.84 Stem cells transplant status; Z86.718 Personal history of other venous thrombosis and embolism
CPT/HCPCS: 36591; 80053; 85025; J1642

== ENCOUNTER 2024-01-25 03:21 | Day surgery (SDC) | payer MEDICARE, OTHER ==
[2024-01-25 09:40] VITALS: BP 136/94
[2024-01-25 10:09] LABS: Hematocrit 26.2 % (37.0-53.0); Hemoglobin 8.8 g/dL (13.5-17.5); Mean Corpuscular HGB 37.3 pg (26.0-34.0); Mean Corpuscular HGB Conc 33.6 g/dL (31.5-36.5); Mean Corpuscular Volume 111 fL (80-100); Mean Platelet Volume 10.9 fL (9.1-12.4); NRBC Auto 1.7 /100 WBC (0.0-0.2); Platelet Count 88 K/mm3 (150-400); RDW Coefficient Variation 23.9 % (11.7-14.2); RDW Standard Deviation 94.3 fL (35.1-46.3); Red Blood Cell Count 2.36 M/mm3 (4.30-5.90); White Blood Cell Count 5.86 K/mm3 (4.00-11.30)
[2024-01-25 10:38] LABS: BASOPHILS PERCENT MAN 0 % (0-2); EOSINOPHILS ABSOLUTE MAN 0.05 K/mm3 (0.00-0.68); EOSINOPHILS PERCENT MAN 1 % (0-6); LYMPHOCYTES ABSOLUTE MAN 0.82 K/mm3 (0.84-5.20); LYMPHOCYTES PERCENT MAN 14 % (21-46); METAMYELOCYTE ABSOLUTE MAN 0.05 K/mm3 (0.00-0.00); METAMYELOCYTE PERCENT MAN 1 % (0-0); MONOCYTES ABSOLUTE MAN 0.35 K/mm3 (0.16-1.47); MONOCYTES PERCENT MAN 6 % (4-13); MYELOCYTE ABSOLUTE MAN 0.23 K/mm3 (0.00-0.00); MYELOCYTE PERCENT MAN 4 % (0-0); NEUTROPHILS ABSOLUTE MAN 4.33 K/mm3 (1.96-9.15); SEG NEUTROPHILS PERCENT MAN 74 % (41-73); TOTAL CELLS COUNTED 100
[2024-01-25 10:39] LABS: Albumin, Blood 2.2 g/dL (3.4-5.0); Albumin/Globulin Ratio 0.9 (0.8-1.8); Bilirubin, Total 0.8 mg/dL (0.1-1.0); Calcium, Blood 7.8 mg/dL (8.5-10.1); Creatinine, Blood 5.01 mg/dL (0.60-1.20); Globulin, Blood 2.4 g/dL (2.2-4.0); Potassium, Blood 4.5 mmol/L (3.5-5.5); Total Protein, Blood 4.6 g/dL (6.4-8.2)
== END 2024-01-25 09:54 | disposition home or self-care (01) ==
LOC: ATC 03:21
PROVIDERS: Internal Medicine Hematology & Oncology
DX: D46.9 Myelodysplastic syndrome, unspecified (principal); I10 Essential (primary) hypertension; M81.0 Age-related osteoporosis without current pathological fracture; Z94.84 Stem cells transplant status; Z79.899 Other long term (current) drug therapy
CPT/HCPCS: 80053; 85025; J1642

== ENCOUNTER 2024-01-29 01:21 | Day surgery (SDC) | payer MEDICARE, OTHER ==
[2024-01-28 10:31] VITALS: BP 122/73
[2024-01-28 11:00] LABS: Hematocrit 24.4 % (37.0-53.0); Hemoglobin 8.1 g/dL (13.5-17.5); Mean Corpuscular HGB 37.3 pg (26.0-34.0); Mean Corpuscular HGB Conc 33.2 g/dL (31.5-36.5); Mean Corpuscular Volume 112 fL (80-100); Mean Platelet Volume 11.5 fL (9.1-12.4); NRBC Auto 1.3 /100 WBC (0.0-0.2); Platelet Count 89 K/mm3 (150-400); RDW Coefficient Variation 23.9 % (11.7-14.2); RDW Standard Deviation 97.8 fL (35.1-46.3); Red Blood Cell Count 2.17 M/mm3 (4.30-5.90); White Blood Cell Count 7.76 K/mm3 (4.00-11.30)
[2024-01-28 11:18] LABS: Albumin, Blood 2.3 g/dL (3.4-5.0); Bilirubin, Total 1.1 mg/dL (0.1-1.0); Bun/Creatinine Ratio 12.5 (12.0-20.0); Calcium, Blood 7.4 mg/dL (8.5-10.1); Creatinine, Blood 2.64 mg/dL (0.60-1.20); Globulin, Blood 2.4 g/dL (2.2-4.0); Potassium, Blood 3.8 mmol/L (3.5-5.5); Total Protein, Blood 4.7 g/dL (6.4-8.2)
[2024-01-28 12:47] LABS: BASOPHILS PERCENT MAN 0 % (0-2); EOSINOPHILS ABSOLUTE MAN 0.07 K/mm3 (0.00-0.68); EOSINOPHILS PERCENT MAN 1 % (0-6); LYMPHOCYTES ABSOLUTE MAN 0.85 K/mm3 (0.84-5.20); LYMPHOCYTES PERCENT MAN 11 % (21-46); MONOCYTES ABSOLUTE MAN 0.62 K/mm3 (0.16-1.47); MONOCYTES PERCENT MAN 8 % (4-13); MYELOCYTE ABSOLUTE MAN 0.46 K/mm3 (0.00-0.00); MYELOCYTE PERCENT MAN 6 % (0-0); NEUTROPHILS ABSOLUTE MAN 5.74 K/mm3 (1.96-9.15); SEG NEUTROPHILS PERCENT MAN 74 % (41-73); TOTAL CELLS COUNTED 100
[2024-01-29] MEDS ORDERED: NS 250 ML IV SCH (06:40)
[2024-01-29 07:42] VITALS: BP 159/102
[2024-01-29 07:58] VITALS: BP 150/76
[2024-01-29 08:59] VITALS: BP 127/70
[2024-01-29 09:37] VITALS: BP 150/76
== END 2024-01-29 09:55 | disposition home or self-care (01) ==
LOC: ATC 01:21
PROVIDERS: Internal Medicine Hematology & Oncology
DX: D46.9 Myelodysplastic syndrome, unspecified (principal); D63.0 Anemia in neoplastic disease; Z79.01 Long term (current) use of anticoagulants; Z79.899 Other long term (current) drug therapy
CPT/HCPCS: 36591; 80053; 85025; 86850; 86900; 86901; 86923; J1642; J7050; P9016

== ENCOUNTER 2024-02-08 02:13 | Day surgery (SDC) | payer MEDICARE, OTHER ==
[2024-02-08 10:35] VITALS: BP 101/68
[2024-02-08 11:16] LABS: Hematocrit 27.3 % (37.0-53.0); Hemoglobin 9.2 g/dL (13.5-17.5); Mean Corpuscular HGB 38.2 pg (26.0-34.0); Mean Corpuscular HGB Conc 33.7 g/dL (31.5-36.5); Mean Corpuscular Volume 113 fL (80-100); Mean Platelet Volume 10.5 fL (9.1-12.4); NRBC ABSOLUTE 0.06 K/mm3 (0.00-0.02); Platelet Count 107 K/mm3 (150-400); RDW Coefficient Variation 22.8 % (11.7-14.2); RDW Standard Deviation 94.2 fL (35.1-46.3); Red Blood Cell Count 2.41 M/mm3 (4.30-5.90); White Blood Cell Count 6.22 K/mm3 (4.00-11.30)
[2024-02-08 12:10] LABS: Albumin, Blood 2.5 g/dL (3.4-5.0); Bilirubin, Total 1.1 mg/dL (0.1-1.0); Bun/Creatinine Ratio 11.3 (12.0-20.0); Calcium, Blood 8.1 mg/dL (8.5-10.1); Creatinine, Blood 3.02 mg/dL (0.60-1.20); Globulin, Blood 2.5 g/dL (2.2-4.0); Potassium, Blood 3.9 mmol/L (3.5-5.5)
[2024-02-08 12:11] LABS: BASOPHILS PERCENT MAN 0 % (0-2); EOSINOPHILS PERCENT MAN 0 % (0-6); LYMPHOCYTES ABSOLUTE MAN 0.62 K/mm3 (0.84-5.20); LYMPHOCYTES PERCENT MAN 10 % (21-46); METAMYELOCYTE ABSOLUTE MAN 0.12 K/mm3 (0.00-0.00); METAMYELOCYTE PERCENT MAN 2 % (0-0); MONOCYTES ABSOLUTE MAN 0.68 K/mm3 (0.16-1.47); MONOCYTES PERCENT MAN 11 % (4-13); MYELOCYTE ABSOLUTE MAN 0.18 K/mm3 (0.00-0.00); MYELOCYTE PERCENT MAN 3 % (0-0); SEG NEUTROPHILS PERCENT MAN 74 % (41-73); TOTAL CELLS COUNTED 100
== END 2024-02-08 10:54 | disposition home or self-care (01) ==
LOC: ATC 02:13
PROVIDERS: Internal Medicine Hematology & Oncology
DX: D46.9 Myelodysplastic syndrome, unspecified (principal); I10 Essential (primary) hypertension; M06.9 Rheumatoid arthritis, unspecified; M81.0 Age-related osteoporosis without current pathological fracture; Z79.01 Long term (current) use of anticoagulants; Z79.83 Long term (current) use of bisphosphonates; Z79.899 Other long term (current) drug therapy; Z94.84 Stem cells transplant status; Z86.718 Personal history of other venous thrombosis and embolism
CPT/HCPCS: 36591; 80053; 85025; J1642

== ENCOUNTER 2024-02-10 00:41 | Day surgery (SDC) | payer MEDICARE, OTHER ==
[2024-02-10 10:40] VITALS: BP 160/105
[2024-02-10 11:04] LABS: Hematocrit 25.7 % (37.0-53.0); Hemoglobin 8.5 g/dL (13.5-17.5); Mean Corpuscular HGB 37.9 pg (26.0-34.0); Mean Corpuscular HGB Conc 33.1 g/dL (31.5-36.5); Mean Corpuscular Volume 115 fL (80-100); Mean Platelet Volume 10.7 fL (9.1-12.4); NRBC ABSOLUTE 0.07 K/mm3 (0.00-0.02); NRBC Auto 1.1 /100 WBC (0.0-0.2); Platelet Count 104 K/mm3 (150-400); RDW Coefficient Variation 22.4 % (11.7-14.2); Red Blood Cell Count 2.24 M/mm3 (4.30-5.90); White Blood Cell Count 6.24 K/mm3 (4.00-11.30)
[2024-02-10 11:22] LABS: Albumin, Blood 2.5 g/dL (3.4-5.0); Bilirubin, Total 1.1 mg/dL (0.1-1.0); Bun/Creatinine Ratio 11.9 (12.0-20.0); Calcium, Blood 7.8 mg/dL (8.5-10.1); Creatinine, Blood 3.18 mg/dL (0.60-1.20); Globulin, Blood 2.4 g/dL (2.2-4.0); Total Protein, Blood 4.9 g/dL (6.4-8.2)
[2024-02-10 11:40] LABS: BASOPHILS PERCENT MAN 0 % (0-2); EOSINOPHILS PERCENT MAN 0 % (0-6); LYMPHOCYTES ABSOLUTE MAN 0.99 K/mm3 (0.84-5.20); LYMPHOCYTES PERCENT MAN 16 % (21-46); METAMYELOCYTE ABSOLUTE MAN 0.18 K/mm3 (0.00-0.00); METAMYELOCYTE PERCENT MAN 3 % (0-0); MONOCYTES ABSOLUTE MAN 0.93 K/mm3 (0.16-1.47); MONOCYTES PERCENT MAN 15 % (4-13); MYELOCYTE ABSOLUTE MAN 0.12 K/mm3 (0.00-0.00); MYELOCYTE PERCENT MAN 2 % (0-0); NEUTROPHILS ABSOLUTE MAN 3.99 K/mm3 (1.96-9.15); SEG NEUTROPHILS PERCENT MAN 64 % (41-73); TOTAL CELLS COUNTED 100
== END 2024-02-10 10:44 | disposition home or self-care (01) ==
LOC: ATC 00:41
PROVIDERS: Internal Medicine Hematology & Oncology
DX: D46.9 Myelodysplastic syndrome, unspecified (principal); Z94.84 Stem cells transplant status; I10 Essential (primary) hypertension; Z79.899 Other long term (current) drug therapy; Z79.01 Long term (current) use of anticoagulants
CPT/HCPCS: 36591; 80053; 85025

== ENCOUNTER 2024-02-16 05:56 | Day surgery (SDC) | payer MEDICARE, OTHER ==
[2024-02-15 09:48] VITALS: BP 171/100
[2024-02-15 10:55] LABS: BASOPHILS PERCENT AUTO 0 % (0-2); EOSINOPHILS ABSOLUTE AUTO 0.03 K/mm3 (0.00-0.68); EOSINOPHILS PERCENT AUTO 1 % (0-6); Hematocrit 23.1 % (37.0-53.0); Hemoglobin 7.7 g/dL (13.5-17.5); IMMATURE GRAN ABSOLUTE AUTO 0.28 K/mm3 (0.00-0.10); IMMATURE GRAN PERCENT AUTO 5 % (0-1); LYMPHOCYTES ABSOLUTE AUTO 0.52 K/mm3 (0.84-5.20); LYMPHOCYTES PERCENT AUTO 8 % (21-46); MONOCYTES ABSOLUTE AUTO 1.14 K/mm3 (0.16-1.47); MONOCYTES PERCENT AUTO 19 % (4-13); Mean Corpuscular HGB 38.7 pg (26.0-34.0); Mean Corpuscular HGB Conc 33.3 g/dL (31.5-36.5); Mean Corpuscular Volume 116 fL (80-100); Mean Platelet Volume 10.8 fL (9.1-12.4); NEUTROPHILS ABSOLUTE AUTO 4.19 K/mm3 (1.96-9.15); NEUTROPHILS PERCENT AUTO 68 % (41-73); Platelet Count 98 K/mm3 (150-400); RDW Coefficient Variation 21.3 % (11.7-14.2); RDW Standard Deviation 90.6 fL (35.1-46.3); Red Blood Cell Count 1.99 M/mm3 (4.30-5.90); White Blood Cell Count 6.16 K/mm3 (4.00-11.30)
[2024-02-15 11:14] LABS: Albumin, Blood 2.5 g/dL (3.4-5.0); Albumin/Globulin Ratio 1.2 (0.8-1.8); Bun/Creatinine Ratio 14.1 (12.0-20.0); Calcium, Blood 7.6 mg/dL (8.5-10.1); Creatinine, Blood 6.38 mg/dL (0.60-1.20); Globulin, Blood 2.1 g/dL (2.2-4.0); Total Protein, Blood 4.6 g/dL (6.4-8.2)
[2024-02-16] MEDS ORDERED: NS 250 ML IV SCH (06:50)
[2024-02-16 13:51] VITALS: BP 135/76
[2024-02-16 14:02] VITALS: BP 114/71
[2024-02-16 15:04] VITALS: BP 108/68
[2024-02-16 15:40] VITALS: BP 126/73
[2024-02-16 16:12] VITALS: BP 135/71
[2024-02-16 17:09] VITALS: BP 143/84
== END 2024-02-16 18:02 | disposition home or self-care (01) ==
LOC: ATC 05:56
PROVIDERS: Internal Medicine Hematology & Oncology
DX: D46.9 Myelodysplastic syndrome, unspecified (principal); Z94.84 Stem cells transplant status; I10 Essential (primary) hypertension; M06.9 Rheumatoid arthritis, unspecified; M81.0 Age-related osteoporosis without current pathological fracture; Z79.01 Long term (current) use of anticoagulants; Z79.899 Other long term (current) drug therapy; Z86.718 Personal history of other venous thrombosis and embolism
CPT/HCPCS: 36430; 36591; 80053; 85025; 86850; 86900; 86901; 86923; J1642; J7050; P9016; P9040

== ENCOUNTER 2024-02-18 02:34 | Day surgery (SDC) | payer MEDICARE, OTHER ==
[2024-02-18 10:30] VITALS: BP 136/100
[2024-02-18 11:07] LABS: Hematocrit 30.4 % (37.0-53.0); Hemoglobin 10.4 g/dL (13.5-17.5); Mean Corpuscular HGB 36.1 pg (26.0-34.0); Mean Corpuscular HGB Conc 34.2 g/dL (31.5-36.5); Mean Corpuscular Volume 106 fL (80-100); NRBC ABSOLUTE 0.02 K/mm3 (0.00-0.02); NRBC Auto 0.4 /100 WBC (0.0-0.2); Platelet Count 74 K/mm3 (150-400); RDW Coefficient Variation 23.2 % (11.7-14.2); RDW Standard Deviation 88.6 fL (35.1-46.3); Red Blood Cell Count 2.88 M/mm3 (4.30-5.90); White Blood Cell Count 4.77 K/mm3 (4.00-11.30)
[2024-02-18 11:30] LABS: Albumin, Blood 2.5 g/dL (3.4-5.0); Bilirubin, Total 1.3 mg/dL (0.1-1.0); Bun/Creatinine Ratio 11.8 (12.0-20.0); Calcium, Blood 7.8 mg/dL (8.5-10.1); Creatinine, Blood 3.3 mg/dL (0.60-1.20); Globulin, Blood 2.6 g/dL (2.2-4.0); Potassium, Blood 3.9 mmol/L (3.5-5.5); Total Protein, Blood 5.1 g/dL (6.4-8.2)
[2024-02-18 11:51] LABS: BAND PERCENT MAN 1 % (0-8); BASOPHILS PERCENT MAN 0 % (0-2); EOSINOPHILS PERCENT MAN 0 % (0-6); LYMPHOCYTES ABSOLUTE MAN 0.28 K/mm3 (0.84-5.20); LYMPHOCYTES PERCENT MAN 6 % (21-46); MONOCYTES ABSOLUTE MAN 1.14 K/mm3 (0.16-1.47); MONOCYTES PERCENT MAN 24 % (4-13); NEUTROPHILS ABSOLUTE MAN 3.33 K/mm3 (1.96-9.15); SEG NEUTROPHILS PERCENT MAN 69 % (41-73); TOTAL CELLS COUNTED 100
== END 2024-02-18 10:40 | disposition home or self-care (01) ==
LOC: ATC 02:34
PROVIDERS: Internal Medicine Hematology & Oncology
DX: D46.9 Myelodysplastic syndrome, unspecified (principal); I10 Essential (primary) hypertension; Z94.84 Stem cells transplant status; Z79.899 Other long term (current) drug therapy
CPT/HCPCS: 36591; 80053; 85025; J1642

== ENCOUNTER 2024-02-22 04:01 | Day surgery (SDC) | payer MEDICARE, OTHER ==
[2024-02-22 09:29] VITALS: BP 169/111
[2024-02-22 09:51] LABS: Hematocrit 30.5 % (37.0-53.0); Hemoglobin 10.2 g/dL (13.5-17.5); Mean Corpuscular HGB 36.2 pg (26.0-34.0); Mean Corpuscular HGB Conc 33.4 g/dL (31.5-36.5); Mean Corpuscular Volume 108 fL (80-100); Mean Platelet Volume 10.8 fL (9.1-12.4); NRBC ABSOLUTE 0.05 K/mm3 (0.00-0.02); NRBC Auto 0.9 /100 WBC (0.0-0.2); Platelet Count 78 K/mm3 (150-400); RDW Coefficient Variation 21.1 % (11.7-14.2); RDW Standard Deviation 82.9 fL (35.1-46.3); Red Blood Cell Count 2.82 M/mm3 (4.30-5.90); White Blood Cell Count 5.29 K/mm3 (4.00-11.30)
[2024-02-22 10:13] LABS: Albumin, Blood 2.5 g/dL (3.4-5.0); Bilirubin, Total 0.8 mg/dL (0.1-1.0); Calcium, Blood 8.2 mg/dL (8.5-10.1); Creatinine, Blood 6.38 mg/dL (0.60-1.20); Globulin, Blood 2.5 g/dL (2.2-4.0); Potassium, Blood 4.9 mmol/L (3.5-5.5)
[2024-02-22 11:35] LABS: BAND PERCENT MAN 3 % (0-8); BASOPHILS PERCENT MAN 0 % (0-2); EOSINOPHILS PERCENT MAN 0 % (0-6); LYMPHOCYTES ABSOLUTE MAN 0.21 K/mm3 (0.84-5.20); LYMPHOCYTES PERCENT MAN 4 % (21-46); MONOCYTES ABSOLUTE MAN 1.16 K/mm3 (0.16-1.47); MONOCYTES PERCENT MAN 22 % (4-13); NEUTROPHILS ABSOLUTE MAN 3.91 K/mm3 (1.96-9.15); SEG NEUTROPHILS PERCENT MAN 71 % (41-73); TOTAL CELLS COUNTED 100
== END 2024-02-22 09:36 | disposition home or self-care (01) ==
LOC: ATC 04:01
PROVIDERS: Internal Medicine Hematology & Oncology
DX: D46.9 Myelodysplastic syndrome, unspecified (principal); I10 Essential (primary) hypertension; M06.9 Rheumatoid arthritis, unspecified; M81.0 Age-related osteoporosis without current pathological fracture; Z79.83 Long term (current) use of bisphosphonates; Z79.01 Long term (current) use of anticoagulants; Z79.899 Other long term (current) drug therapy; Z94.84 Stem cells transplant status; Z86.718 Personal history of other venous thrombosis and embolism
CPT/HCPCS: 36591; 80053; 85025; J1642

== ENCOUNTER 2024-02-25 02:29 | Day surgery (SDC) | payer MEDICARE, OTHER ==
[2024-02-25 10:59] VITALS: BP 100/74
[2024-02-25 12:16] LABS: IMMATURE RETIC FRACTION 30.8 % (2.3-16.0); RETIC HGB EQUIVALENT 39.2 pg (28.20-36.60); RETICULOCYTE ABSOLUTE 0.1438 M/mm3 (0.0200-0.1100); RETICULOCYTE COUNT PERCENT 5.08 % (0.50-2.50)
[2024-02-25 12:27] LABS: Hematocrit 30.5 % (37.0-53.0); Hemoglobin 10.6 g/dL (13.5-17.5); Mean Corpuscular HGB 37.5 pg (26.0-34.0); Mean Corpuscular HGB Conc 34.8 g/dL (31.5-36.5); Mean Corpuscular Volume 108 fL (80-100); Mean Platelet Volume 11.3 fL (9.1-12.4); NRBC ABSOLUTE 0.12 K/mm3 (0.00-0.02); Platelet Count 71 K/mm3 (150-400); RDW Coefficient Variation 21.5 % (11.7-14.2); RDW Standard Deviation 83.7 fL (35.1-46.3); Red Blood Cell Count 2.83 M/mm3 (4.30-5.90); White Blood Cell Count 4.02 K/mm3 (4.00-11.30)
[2024-02-25 12:46] LABS: Albumin, Blood 2.5 g/dL (3.4-5.0); Bilirubin, Total 1.1 mg/dL (0.1-1.0); Bun/Creatinine Ratio 9.8 (12.0-20.0); Calcium, Blood 7.9 mg/dL (8.5-10.1); Creatinine, Blood 4.18 mg/dL (0.60-1.20); Globulin, Blood 2.6 g/dL (2.2-4.0); Potassium, Blood 3.8 mmol/L (3.5-5.5); Total Protein, Blood 5.1 g/dL (6.4-8.2)
[2024-02-25 12:50] LABS: BAND PERCENT MAN 2 % (0-8); BASOPHILS PERCENT MAN 0 % (0-2); EOSINOPHILS ABSOLUTE MAN 0.08 K/mm3 (0.00-0.68); EOSINOPHILS PERCENT MAN 2 % (0-6); LYMPHOCYTES ABSOLUTE MAN 0.36 K/mm3 (0.84-5.20); LYMPHOCYTES PERCENT MAN 9 % (21-46); MONOCYTES PERCENT MAN 30 % (4-13); NEUTROPHILS ABSOLUTE MAN 2.37 K/mm3 (1.96-9.15); SEG NEUTROPHILS PERCENT MAN 57 % (41-73); TOTAL CELLS COUNTED 100
[2024-02-27 00:31] LABS: HAPTOGLOBIN <10 mg/dL (30-200)
== END 2024-02-25 11:29 | disposition home or self-care (01) ==
LOC: ATC 02:29
PROVIDERS: Internal Medicine Hematology & Oncology
DX: D46.9 Myelodysplastic syndrome, unspecified (principal); N05.0 Unspecified nephritic syndrome with minor glomerular abnormality; D84.822 Immunodeficiency due to external causes; Z94.84 Stem cells transplant status
CPT/HCPCS: 36591; 80053; 83010; 83615; 85025; 85045; J1642

== ENCOUNTER 2024-02-29 04:07 | Day surgery (SDC) | payer MEDICARE, OTHER ==
[2024-02-29 09:42] VITALS: BP 177/94
[2024-02-29 09:55] LABS: Hematocrit 28.7 % (37.0-53.0); Hemoglobin 9.5 g/dL (13.5-17.5); Mean Corpuscular HGB 36.8 pg (26.0-34.0); Mean Corpuscular HGB Conc 33.1 g/dL (31.5-36.5); Mean Corpuscular Volume 111 fL (80-100); Mean Platelet Volume 10.8 fL (9.1-12.4); NRBC ABSOLUTE 0.04 K/mm3 (0.00-0.02); NRBC Auto 1.1 /100 WBC (0.0-0.2); Platelet Count 68 K/mm3 (150-400); RDW Coefficient Variation 22.1 % (11.7-14.2); RDW Standard Deviation 89.8 fL (35.1-46.3); Red Blood Cell Count 2.58 M/mm3 (4.30-5.90); White Blood Cell Count 3.75 K/mm3 (4.00-11.30)
[2024-02-29 10:13] LABS: Albumin, Blood 2.5 g/dL (3.4-5.0); Bilirubin, Total 0.9 mg/dL (0.1-1.0); Bun/Creatinine Ratio 12.2 (12.0-20.0); Calcium, Blood 7.9 mg/dL (8.5-10.1); Creatinine, Blood 7.29 mg/dL (0.60-1.20); Globulin, Blood 2.5 g/dL (2.2-4.0); Potassium, Blood 4.9 mmol/L (3.5-5.5)
[2024-02-29 10:27] LABS: BAND PERCENT MAN 1 % (0-8); BASOPHILS PERCENT MAN 0 % (0-2); EOSINOPHILS ABSOLUTE MAN 0.07 K/mm3 (0.00-0.68); EOSINOPHILS PERCENT MAN 2 % (0-6); LYMPHOCYTES ABSOLUTE MAN 0.41 K/mm3 (0.84-5.20); LYMPHOCYTES PERCENT MAN 11 % (21-46); METAMYELOCYTE ABSOLUTE MAN 0.03 K/mm3 (0.00-0.00); METAMYELOCYTE PERCENT MAN 1 % (0-0); MONOCYTES ABSOLUTE MAN 0.82 K/mm3 (0.16-1.47); MONOCYTES PERCENT MAN 22 % (4-13); SEG NEUTROPHILS PERCENT MAN 63 % (41-73); TOTAL CELLS COUNTED 100
== END 2024-02-29 09:43 | disposition home or self-care (01) ==
LOC: ATC 04:07
PROVIDERS: Internal Medicine Hematology & Oncology
DX: D46.9 Myelodysplastic syndrome, unspecified (principal); I10 Essential (primary) hypertension; M06.9 Rheumatoid arthritis, unspecified; M81.0 Age-related osteoporosis without current pathological fracture; Z79.01 Long term (current) use of anticoagulants; Z79.1 Long term (current) use of non-steroidal anti-inflammatories (NSAID); Z79.899 Other long term (current) drug therapy; Z86.718 Personal history of other venous thrombosis and embolism; Z94.84 Stem cells transplant status
CPT/HCPCS: 36591; 80053; 85025; C1751; J1642

== ENCOUNTER 2024-03-03 06:00 | Day surgery (SDC) | payer MEDICARE, OTHER ==
[2024-03-03 11:04] VITALS: BP 128/72
[2024-03-03 12:01] LABS: Hematocrit 28.8 % (37.0-53.0); Hemoglobin 9.6 g/dL (13.5-17.5); Mean Corpuscular HGB 37.4 pg (26.0-34.0); Mean Corpuscular HGB Conc 33.3 g/dL (31.5-36.5); Mean Corpuscular Volume 112 fL (80-100); Mean Platelet Volume 10.9 fL (9.1-12.4); NRBC ABSOLUTE 0.06 K/mm3 (0.00-0.02); NRBC Auto 1.5 /100 WBC (0.0-0.2); Platelet Count 63 K/mm3 (150-400); RDW Coefficient Variation 22.2 % (11.7-14.2); RDW Standard Deviation 92.5 fL (35.1-46.3); Red Blood Cell Count 2.57 M/mm3 (4.30-5.90); White Blood Cell Count 3.99 K/mm3 (4.00-11.30)
[2024-03-03 12:16] LABS: Albumin, Blood 2.4 g/dL (3.4-5.0); Albumin/Globulin Ratio 0.8 (0.8-1.8); Bilirubin, Total 1.4 mg/dL (0.1-1.0); Bun/Creatinine Ratio 9.7 (12.0-20.0); Calcium, Blood 7.9 mg/dL (8.5-10.1); Creatinine, Blood 3.61 mg/dL (0.60-1.20); Globulin, Blood 2.9 g/dL (2.2-4.0); Potassium, Blood 3.4 mmol/L (3.5-5.5); Total Protein, Blood 5.3 g/dL (6.4-8.2)
[2024-03-03 13:04] LABS: BASOPHILS PERCENT MAN 0 % (0-2); EOSINOPHILS ABSOLUTE MAN 0.11 K/mm3 (0.00-0.68); EOSINOPHILS PERCENT MAN 3 % (0-6); LYMPHOCYTES ABSOLUTE MAN 0.63 K/mm3 (0.84-5.20); LYMPHOCYTES PERCENT MAN 16 % (21-46); MONOCYTES ABSOLUTE MAN 0.63 K/mm3 (0.16-1.47); MONOCYTES PERCENT MAN 16 % (4-13); NEUTROPHILS ABSOLUTE MAN 2.59 K/mm3 (1.96-9.15); SEG NEUTROPHILS PERCENT MAN 65 % (41-73); TOTAL CELLS COUNTED 100
== END 2024-03-03 11:00 | disposition home or self-care (01) ==
LOC: ATC 06:00
PROVIDERS: Internal Medicine Hematology & Oncology
DX: D46.9 Myelodysplastic syndrome, unspecified (principal); I10 Essential (primary) hypertension; M06.9 Rheumatoid arthritis, unspecified; M81.0 Age-related osteoporosis without current pathological fracture; Z79.83 Long term (current) use of bisphosphonates; Z79.01 Long term (current) use of anticoagulants; Z79.1 Long term (current) use of non-steroidal anti-inflammatories (NSAID); Z79.899 Other long term (current) drug therapy; Z94.84 Stem cells transplant status; Z86.718 Personal history of other venous thrombosis and embolism
CPT/HCPCS: 36591; 80053; 85025; J1642

== ENCOUNTER 2024-03-07 03:00 | Day surgery (SDC) | payer MEDICARE, OTHER ==
[~2024-03-07 03:00] MED LIST changes: -ASCO500; +ASCO500 PO
[2024-03-07 11:10] VITALS: BP 126/77
[2024-03-07 11:29] LABS: Hematocrit 26.5 % (37.0-53.0); Hemoglobin 8.6 g/dL (13.5-17.5); Mean Corpuscular HGB 36.8 pg (26.0-34.0); Mean Corpuscular HGB Conc 32.5 g/dL (31.5-36.5); Mean Corpuscular Volume 113 fL (80-100); Mean Platelet Volume 11.4 fL (9.1-12.4); NRBC ABSOLUTE 0.03 K/mm3 (0.00-0.02); NRBC Auto 0.9 /100 WBC (0.0-0.2); Platelet Count 68 K/mm3 (150-400); RDW Coefficient Variation 21.5 % (11.7-14.2); RDW Standard Deviation 88.5 fL (35.1-46.3); Red Blood Cell Count 2.34 M/mm3 (4.30-5.90); White Blood Cell Count 3.21 K/mm3 (4.00-11.30)
[2024-03-07 11:53] LABS: Albumin, Blood 2.2 g/dL (3.4-5.0); Albumin/Globulin Ratio 0.8 (0.8-1.8); Bilirubin, Total 1.3 mg/dL (0.1-1.0); Bun/Creatinine Ratio 9.1 (12.0-20.0); Calcium, Blood 7.9 mg/dL (8.5-10.1); Creatinine, Blood 3.19 mg/dL (0.60-1.20); Globulin, Blood 2.8 g/dL (2.2-4.0); Potassium, Blood 3.6 mmol/L (3.5-5.5)
[2024-03-07 12:06] LABS: BAND PERCENT MAN 4 % (0-8); BASOPHILS ABSOLUTE MAN 0.03 K/mm3 (0.00-0.23); BASOPHILS PERCENT MAN 1 % (0-2); EOSINOPHILS ABSOLUTE MAN 0.03 K/mm3 (0.00-0.68); EOSINOPHILS PERCENT MAN 1 % (0-6); LYMPHOCYTES ABSOLUTE MAN 0.51 K/mm3 (0.84-5.20); LYMPHOCYTES PERCENT MAN 16 % (21-46); METAMYELOCYTE ABSOLUTE MAN 0.06 K/mm3 (0.00-0.00); METAMYELOCYTE PERCENT MAN 2 % (0-0); MONOCYTES ABSOLUTE MAN 0.28 K/mm3 (0.16-1.47); MONOCYTES PERCENT MAN 9 % (4-13); NEUTROPHILS ABSOLUTE MAN 2.27 K/mm3 (1.96-9.15); SEG NEUTROPHILS PERCENT MAN 67 % (41-73); TOTAL CELLS COUNTED 100
[2024-03-08] MEDS ORDERED: MIDODRINE HCL10 M6 PO (12:16)
[2024-03-08] MEDS ORDERED: BUME1 PO (12:16)
[2024-03-08] MEDS ORDERED: CRESEMBA186 MG PO (12:16)
[2024-03-08] MEDS ORDERED: ONDA8 PO (12:17)
[2024-03-08] MEDS ORDERED: Prednisone10 MG PO (16:25)
== END 2024-03-07 11:14 | disposition home or self-care (01) ==
LOC: ATC 03:00
PROVIDERS: Internal Medicine Hematology & Oncology
DX: D46.9 Myelodysplastic syndrome, unspecified (principal); Z94.84 Stem cells transplant status; Z79.899 Other long term (current) drug therapy
CPT/HCPCS: 36591; 80053; 85025; J1642

== ENCOUNTER 2024-03-08 08:57 | Inpatient (IN) | payer MEDICARE, OTHER ==
[~2024-03-08] VITALS: Ht 180.3 cm; Wt 73.7 kg
[2024-03-08 10:10] LABS: CORONAVIRUS COVID-19 AG Negative (NEGATIVE); INFLUENZA A AG Negative (NEGATIVE); INFLUENZA B AG Negative (NEGATIVE)
[2024-03-08] MEDS ORDERED: CefTRIAXone Sodium 1,000 MG in NS 50 ML IV ONE (10:35)
[2024-03-08] MEDS ORDERED: Acetaminophen 325 MG TABLET PO ONE (11:15)
[2024-03-08] MEDS ORDERED: Ondansetron HCl 2 MG / ML 2ML Vial IV ONE (11:15)
[2024-03-08 11:52] LABS: Hematocrit 28.5 % (37.0-53.0); Hemoglobin 9.1 g/dL (13.5-17.5); Mean Corpuscular HGB Conc 31.9 g/dL (31.5-36.5); Mean Corpuscular Volume 116 fL (80-100); NRBC ABSOLUTE 0.05 K/mm3 (0.00-0.02); NRBC Auto 1.8 /100 WBC (0.0-0.2); Platelet Count 69 K/mm3 (150-400); RDW Coefficient Variation 21.7 % (11.7-14.2); RDW Standard Deviation 91.8 fL (35.1-46.3); Red Blood Cell Count 2.46 M/mm3 (4.30-5.90); White Blood Cell Count 2.78 K/mm3 (4.00-11.30)
[2024-03-08 12:02] LABS: Albumin, Blood 2.3 g/dL (3.4-5.0); Albumin/Globulin Ratio 0.7 (0.8-1.8); Bun/Creatinine Ratio 11.5 (12.0-20.0); Calcium, Blood 7.9 mg/dL (8.5-10.1); Creatinine, Blood 5.83 mg/dL (0.60-1.20); Globulin, Blood 3.3 g/dL (2.2-4.0); Total Protein, Blood 5.6 g/dL (6.4-8.2)
[2024-03-08] MEDS ORDERED: BUME1 PO (12:16)
[2024-03-08] MEDS ORDERED: MIDODRINE HCL10 M6 PO (12:16)
[2024-03-08] MEDS ORDERED: CRESEMBA186 MG PO (12:16)
[2024-03-08] MEDS ORDERED: ONDA8 PO (12:17)
[2024-03-08 12:27] LABS: BASOPHILS PERCENT MAN 0 % (0-2); EOSINOPHILS PERCENT MAN 0 % (0-6); LYMPHOCYTES ABSOLUTE MAN 0.55 K/mm3 (0.84-5.20); LYMPHOCYTES PERCENT MAN 20 % (21-46); MONOCYTES ABSOLUTE MAN 0.61 K/mm3 (0.16-1.47); MONOCYTES PERCENT MAN 22 % (4-13); NEUTROPHILS ABSOLUTE MAN 1.61 K/mm3 (1.96-9.15); SEG NEUTROPHILS PERCENT MAN 58 % (41-73); TOTAL CELLS COUNTED 100
[2024-03-08] MEDS ORDERED: Acetaminophen 500 MG Tab PO PRN (14:25)
[2024-03-08] MEDS ORDERED: Ondansetron HCl 2 MG / ML 2ML Vial IV PRN (14:25)
[2024-03-08] MEDS ORDERED: Guaifenesin/Dextromethorphan Syrup 5 ML UDC PO PRN (14:25)
[2024-03-08] MEDS ORDERED: FLU VACC TS2024-25(6MOS UP)/PF 45 MCG/0.5 ML SYRINGE IM SCH (14:25)
[2024-03-08] MEDS ORDERED: Azithromycin 500 MG in NS 250 ML IV SCH (15:00)
[2024-03-08] MEDS ORDERED: Cefepime HCl 1,000 MG in NS 100 ML IV SCH ×2 (16:00→18:00)
[2024-03-08] MEDS ORDERED: Vancomycin HCL 1,750 MG in NS 500 ML IV SCH (16:00)
[2024-03-08 16:21] VITALS: BP 112/84
[2024-03-08] MEDS ORDERED: Prednisone10 MG PO (16:25)
[2024-03-08] MEDS ORDERED: NS 250 ML IV PRN (16:55)
--- NOTE | 2024-03-08 18:39 | NUR ---
RECEIVED REPORT FORM CHARLI WE[facility]. PT ALERT AND ORIENTED ABLE TO MAKE NEEDS KNOWN. CURRENTLY AT BEDSIDE. VITALS HRR SR WITH PAC'S PER TELE 80'S, SBP 110'S, SATS ABOVE 90% ON 5L OF O2, TEMP 99.2. PT DENIES ANY PAIN AT THIS TIME, COMFORTABLE IN BED REFUSED DINNER, NEPRO OFFERED AND AT THE BEDSIDE. PT C/O SPUTUM STUCK IN THE THROAT SUCTION SET UP A TTHE BEDSIDE, FLUTTER OFFERED AND INSTRUCTED OF USE PT ABLE TO DEMONSTRATE. VANCO IV CURRENTLY INFUSING. NO OTHER ISSUES AT THIS TIME, WILL REPORT TO ONCOMING SHIFT
[2024-03-08 19:26] LABS: Adenovirus Not Detected (NOT DETECT); Bordetella pertussis Not Detected (NOT DETECT); Chlamydophila pneumoniae Not Detected (NOT DETECT); Coronavirus 229E Not Detected (NOT DETECT); Coronavirus HKU1 Not Detected (NOT DETECT); Coronavirus NL63 Not Detected (NOT DETECT); Coronavirus OC43 Not Detected (NOT DETECT); Human Metapneumovirus Not Detected (NOT DETECT); Human Rhinovirus/Enterovirus Not Detected (NOT DETECT); Influenza A/2009-H1 Not Detected (NOT DETECT); Influenza A/H1 Not Detected (NOT DETECT); Influenza A/H3 Not Detected (NOT DETECT); Influenza B Not Detected (NOT DETECT); Mycoplasma pneumoniae Not Detected (NOT DETECT); Parainfluenza Virus 1 Not Detected (NOT DETECT); Parainfluenza Virus 2 Not Detected (NOT DETECT); Parainfluenza Virus 3 Not Detected (NOT DETECT); Parainfluenza Virus 4 Not Detected (NOT DETECT); Respiratory Syncytial Virus Not Detected (NOT DETECT); SARS-Cov-2 (COVID-19), BioFire Not Detected (NOT DETECT)
[2024-03-08 19:55] VITALS: BP 130/76
[2024-03-08] MEDS ORDERED: Acyclovir 200 MG Cap PO SCH (21:00)
[2024-03-08] MEDS ORDERED: GuaiFENesin 600 MG TabCR PO SCH (21:00)
[2024-03-08] MEDS ORDERED: Lactobacil 2-S.Thermo-Bifido 1 1 Cap PO SCH (21:00)
[2024-03-08] MEDS ORDERED: Acyclovir 400 MG Tab PO SCH (21:00)
[2024-03-08] MEDS ORDERED: Lidocaine 2% Viscous Soln 20 ML,Nystatin 100,000 Unit/ml Susp 20 ML,Mag Hydrox/Al Hydro... MT PRN (23:05)
[2024-03-08 23:45] VITALS: BP 149/84
[2024-03-09] MEDS ORDERED: Benzonatate 100 MG Cap PO PRN (00:45)
[2024-03-09 04:50] VITALS: BP 142/85
[2024-03-09 05:14] LABS: Hematocrit 24.8 % (37.0-53.0); Hemoglobin 7.9 g/dL (13.5-17.5); Mean Corpuscular HGB 36.6 pg (26.0-34.0); Mean Corpuscular HGB Conc 31.9 g/dL (31.5-36.5); Mean Corpuscular Volume 115 fL (80-100); Mean Platelet Volume 12.8 fL (9.1-12.4); NRBC ABSOLUTE 0.03 K/mm3 (0.00-0.02); NRBC Auto 1.2 /100 WBC (0.0-0.2); RDW Coefficient Variation 21.3 % (11.7-14.2); RDW Standard Deviation 88.6 fL (35.1-46.3); Red Blood Cell Count 2.16 M/mm3 (4.30-5.90)
[2024-03-09 05:25] LABS: Platelet Count 50 K/mm3 (150-400)
--- NOTE | 2024-03-09 05:53 | NUR ---
SHIFT SUMMARY PT A&OX4. VSS ON HIGH FLOW OXYGEN. ONCE PT WENT TO SLEEP THIS RN PLACED OXY MASK ON PT TO MAINTAIN O2 >90%. CURRENTLY PT IS ON 6L OXYGEN MASK >92%. PT EDUCATED TO DEEP BREATHE AND COUGH TO CLEAR UP ANY MUCUS. PT C/O MOUTH AND THROAT PAIN, MD NOTIFIED AND MAGIC MOUTH WASH GIVEN WITH MODERATE EFFECT. PT ON TELE, ST WITH OCCASIONAL RUNS OF SVT. MD AWARE. SEE NOTES FOR STRIPS. RATE 80s-110s. EXTREMELY UNSTEADY ON FEET. UNABLE TO AMBULATE PT WITHOUT 3MAX ASSIST. PT WAS NOT ABLE TO URINATE THROUGHOUT ENTIRE SHIFT. UA STILL NEEDED. PT AFEBRILE THROUGHOUT NIGHT. NO FURTHER QUESTIONS OR CONCERNS AT THIS TIME. CALL BIRCH WITHIN REACH.
[2024-03-09 06:04] LABS: BAND PERCENT MAN 16 % (0-8); BASOPHILS PERCENT MAN 0 % (0-2); EOSINOPHILS PERCENT MAN 0 % (0-6); LYMPHOCYTES PERCENT MAN 16 % (21-46); METAMYELOCYTE PERCENT MAN 4 % (0-0); MONOCYTES ABSOLUTE MAN 0.42 K/mm3 (0.16-1.47); MONOCYTES PERCENT MAN 17 % (4-13); MYELOCYTE ABSOLUTE MAN 0.05 K/mm3 (0.00-0.00); MYELOCYTE PERCENT MAN 2 % (0-0); NEUTROPHILS ABSOLUTE MAN 1.52 K/mm3 (1.96-9.15); SEG NEUTROPHILS PERCENT MAN 45 % (41-73); TOTAL CELLS COUNTED 100
[2024-03-09 07:48] LABS: Magnesium, Blood 2.4 mg/dL (1.6-2.4)
[2024-03-09 07:49] LABS: Alanine Aminotransfer (ALT/SGP 17 U/L (12-78); Albumin, Blood 1.8 g/dL (3.4-5.0); Albumin/Globulin Ratio 0.6 (0.8-1.8); Alk Phos 67 U/L (50-136); Anion Gap 13 mmol/L (3-11); Aspartate Aminotrans (AST/SGOT 23 U/L (12-37); Bilirubin, Total 0.9 mg/dL (0.1-1.0); Blood Urea Nitrogen 77 mg/dL (8-24); Bun/Creatinine Ratio 10.8 (12.0-20.0); CO2, Blood 31 mmol/L (21-32); Calcium, Blood 7.3 mg/dL (8.5-10.1); Chloride, Blood 96 mmol/L (98-108); Creatinine, Blood 7.16 mg/dL (0.60-1.20); Glomerular Filtration Rate 7 (60-); Glucose, Blood 108 mg/dL (70-99); Potassium, Blood 4.8 mmol/L (3.5-5.5); Sodium, Blood 135 mmol/L (136-145); Total Protein, Blood 4.8 g/dL (6.4-8.2); Vancomycin, Random 26.2 ug/mL
[2024-03-09 08:56] VITALS: BP 126/85
[2024-03-09] MEDS ORDERED: Heparin Sodium,Porcine 5,000 UNIT/0.5 ML SDV SC SCH (09:00)
[2024-03-09] MEDS ORDERED: Heparin Sodium 5000 Units/ML 1ML MDV SC SCH (09:00)
[2024-03-09] MEDS ORDERED: URSODIOL 500MG TABLET PO SCH (09:00)
[2024-03-09] MEDS ORDERED: ISAVUCONAZONIUM SULFATE 186 MG PO SCH (09:00)
[2024-03-09] MEDS ORDERED: Midodrine 5 MG Tab PO SCH (09:00)
[2024-03-09] MEDS ORDERED: PredniSONE 20 MG Tab PO SCH (09:00)
[2024-03-09] MEDS ORDERED: Cholecalciferol 1000 Unit Tablet (=25MCG) PO SCH (09:00)
[2024-03-09] MEDS ORDERED: Calcium Acetate 667 MG Gel Cap PO SCH (09:00)
[2024-03-09] MEDS ORDERED: DAPSONE 100 MG PO SCH ×2 (09:00→21:00)
[2024-03-09 12:45] VITALS: BP 115/75
[2024-03-09] MEDS ORDERED: Benzocaine Oral Spray 0.5ML UD MT PRN (12:55)
[2024-03-09] MEDS ORDERED: Loperamide HCl 2 MG Cap PO PRN (14:05)
[2024-03-09 16:00] VITALS: BP 114/76
--- NOTE | 2024-03-09 18:42 | NUR ---
Shift Summary Pt alert, oriented x4; calm and cooperative with care. Pt resting in bed, repositioned frequently. Pt denies pain, chest pain/pressure, dizziness and numb/tingling. Pt reporting sob, spo2 >90% on 6l o2 via nc, pt desaturated this am to 80's when o2 came off his face, recovered quickly. Tele this am sinus tach 100's trending down t/o shift 80's this evening, bp wnl; per patient and spouse, he only takes his midodrine during dialysis, held per request. Abd soft, nontender, +bt t/o, pt having multiple episodes of liquid bm, notified new order for gi panel. Plans for dialysis tomorrow. No other acute changes noted. Will continue to monitor.
[2024-03-09] MEDS ORDERED: Midodrine 5 MG Tab PO PRN (18:50)
[2024-03-09 20:24] VITALS: BP 134/89
[2024-03-09 23:15] LABS: Adenovirus F 40/41 Not Detected (NOT DETECT); Astrovirus Not Detected (NOT DETECT); Campylobacter Sp Not Detected (NOT DETECT); Cryptosporidium Not Detected (NOT DETECT); Cyclospora Cayetanensis Not Detected (NOT DETECT); E. Coli O157 Not Detected (NOT DETECT); Entamoeba Histolytica Not Detected (NOT DETECT); Enteroaggregative E. coli-EAEC Not Detected (NOT DETECT); Enteropathogenic E. coli-EPEC Not Detected (NOT DETECT); Enterotoxigenic E. coli-ETEC Not Detected (NOT DETECT); Giardia Lamblia Not Detected (NOT DETECT); Norovirus GI/GII Not Detected (NOT DETECT); Plesiomonas Shigelloides Not Detected (NOT DETECT); Rotavirus A Not Detected (NOT DETECT); Salmonella Sp Not Detected (NOT DETECT); Sapovirus Not Detected (NOT DETECT); Shiga Toxin-prod E. coli-STEC Not Detected (NOT DETECT); Shigella/Enteroin E. coli-EIEC Not Detected (NOT DETECT); Vibrio Cholerae Not Detected (NOT DETECT); Vibrio Sp Not Detected (NOT DETECT); Yersinia Enterocolitica Not Detected (NOT DETECT)
[2024-03-10] VITALS (40 sets, daily range): BP systolic 94–165; BP diastolic 31–95
--- NOTE | 2024-03-10 00:05 | NUR ---
0000 UPDATE PT REMAINS A&OX4. VSS ON 3L NC >97%. WILL CONTINUE TO ASSESS O2 NEEDS. PT VISIBLY SWEATING, AFEBRILE AT THIS TIME. PT CONTINUES TO HAVE LOOSE INCONTINENT STOOLS. SAMPLE TAKEN, SEE CHART FOR RESULTS. FREQUENT WEIGHT SHIFTING ENCOURAGED. NO FURTHER QUESTIONS OR CONCERNS AT THIS TIME. WILL CONTINUE TO MONITOR.
[2024-03-10 05:22] LABS: Hemoglobin 6.9 g/dL (13.5-17.5); Mean Corpuscular HGB 37.3 pg (26.0-34.0); Mean Corpuscular HGB Conc 32.9 g/dL (31.5-36.5); Mean Corpuscular Volume 114 fL (80-100); Mean Platelet Volume 11.2 fL (9.1-12.4); NRBC ABSOLUTE 0.03 K/mm3 (0.00-0.02); NRBC Auto 0.5 /100 WBC (0.0-0.2); RDW Coefficient Variation 20.6 % (11.7-14.2); RDW Standard Deviation 83.6 fL (35.1-46.3); Red Blood Cell Count 1.85 M/mm3 (4.30-5.90); White Blood Cell Count 5.64 K/mm3 (4.00-11.30)
[2024-03-10 05:29] LABS: Platelet Count 42 K/mm3 (150-400)
[2024-03-10 05:56] LABS: Bun/Creatinine Ratio 11.1 (12.0-20.0); Calcium, Blood 7.2 mg/dL (8.5-10.1); Creatinine, Blood 8.54 mg/dL (0.60-1.20)
[2024-03-10 05:59] LABS: Vancomycin, Random 18.3 ug/mL
--- NOTE | 2024-03-10 07:24 | NUR ---
SHIFT SUMMARY PT REMAINS A&OX4. VSS ON 3L NC >90%. PT GIVEN IMMODIUM FOR LOOSE STOOLS. STOOL SAMPLE RESULTED. SEE CHART FOR RESULTS. PTs LABS RESULTED THIS AM WITH HGB OF 6.[address] GALLARDO NOTIFIED. BLOOD ORDERED ACCORDINGLY. NO FURTHER QUESTIONS OR CONCERNS AT THIS TIME. REPORT GIVEN TO ONCOMING NURSE.
[2024-03-10] MEDS ORDERED: Anticoagulant Sod Citrate Soln 3 ML SYR INJ PRN (07:35)
[2024-03-10] MEDS ORDERED: Vancomycin HCL 750 MG in NS 250 ML IV ONE (08:00)
[2024-03-10 11:13] LABS: Acinetobacter baumannii DNA Not Detected copy/mL (NOT DETECT); Enterobacter cloacae DNA Not Detected copy/mL (NOT DETECT); Escherichia coli DNA Not Detected copy/mL (NOT DETECT); Haemophilus influenzae DNA Not Detected copy/mL (NOT DETECT); Klebsiella aerogenes DNA Not Detected copy/mL (NOT DETECT); Klebsiella oxytoca DNA Not Detected copy/mL (NOT DETECT); Klebsiella pneumoniae DNA Not Detected copy/mL (NOT DETECT); Moraxella catarrhalis DNA Not Detected copy/mL (NOT DETECT); Proteus sp DNA Not Detected copy/mL (NOT DETECT)
[2024-03-10 11:14] LABS: Adenovirus DNA Not Detected (NOT DETECT); Chlamydia pneumonia Not Detected (NOT DETECT); Legionella pneumophila Not Detected (NOT DETECT); Mycoplasma pneumoniae Not Detected (NOT DETECT); Pseudomonas aeruginosa DNA Not Detected copy/mL (NOT DETECT); Serratia marcescens DNA Not Detected copy/mL (NOT DETECT); Staphylococcus aureus DNA Detected Bin 10^5 copy/mL (NOT DETECT); Streptococcus agalactiae DNA Not Detected copy/mL (NOT DETECT); Streptococcus pneumoniae DNA Not Detected copy/mL (NOT DETECT); Streptococcus pyogenes DNA Not Detected copy/mL (NOT DETECT); mecA/C and MREJ Resist Gene Not Detected
[2024-03-10 11:15] LABS: Human Coronavirus RNA Not Detected (NOT DETECT); Human Metapneumovirus RNA Not Detected (NOT DETECT); Influenza virus A RNA Not Detected (NOT DETECT); Influenza virus B RNA Not Detected (NOT DETECT); Parainfluenza virus RNA Not Detected (NOT DETECT); Respiratory syncytial Vir RNA Not Detected (NOT DETECT); Rhinovirus+Enterovirus RNA Not Detected (NOT DETECT)
[2024-03-10] MEDS ORDERED: Metoprolol Tartrate 1 MG/ML 5 ML VIAL IV STA (12:45)
[2024-03-10] MEDS ORDERED: Metoprolol Tartrate 1 MG/ML 5 ML VIAL IV PRN (12:50)
[2024-03-10] MEDS ORDERED: Metoprolol Tartrate 25 MG Tab PO SCH (13:00)
--- NOTE | 2024-03-10 18:16 | NUR ---
SHIFT SUMMARY Pt alert, oriented x4; cooperative with care. Pt assists with repositioning in bed. Pt denies pain, chest pain/pressure, nausea, and dizziness. Pt to dialysis this am, received 2 units packed red blood cells, converted to afib. Tele this am sinus 80's, afib during dialysis 120-150, medicated x2 with lopressor iv and 1x po with minimal effect, bp soft, but trending up after dialysis. Spo2 >90% on 3l o2 via nc this am, titrated to ra this afternoon. Abd soft, nontender +bt t/o. Edema noted to bilateral elbows and ble. Pt reporting painful lesion in mouth, consulted dental hygenist. Other vss. No other acute chagnes noted. Will continue to monitor.
[2024-03-10] MEDS ORDERED: Metoprolol Tartrate 50 MG Tab PO SCH (21:00)
[2024-03-10] MEDS ORDERED: Metoprolol Tartrate 25 MG Tab PO ONE (22:25)
--- NOTE | 2024-03-10 22:26 | NUR ---
PT HEART RATE HAS BEEN SOMEWHAT TACHYCARDIC SINCE SHIFT CHANGE. ADMINISTERED PO METOPROLOL AT 2049. INSUFFICIENT IN RATE MANAGEMENT. SPOKE WITH DR. GALLARDO WHO ORDERED ONE TIME 25 MG METOPROLOL TARTRATE FOR RATE MANAGEMENENT. AWAITING VERIFICATION THEN WILL ADMINISTER
[2024-03-11 00:06] VITALS: BP 115/81
[2024-03-11 03:53] LABS: Hemoglobin 9.1 g/dL (13.5-17.5); NRBC ABSOLUTE 0.02 K/mm3 (0.00-0.02); NRBC Auto 0.3 /100 WBC (0.0-0.2); White Blood Cell Count 6.99 K/mm3 (4.00-11.30)
[2024-03-11 03:57] VITALS: BP 123/95
[2024-03-11 04:00] LABS: Hematocrit 27.4 % (37.0-53.0); Mean Corpuscular HGB 34.3 pg (26.0-34.0); Mean Corpuscular HGB Conc 33.2 g/dL (31.5-36.5); Mean Corpuscular Volume 103 fL (80-100); Red Blood Cell Count 2.65 M/mm3 (4.30-5.90)
[2024-03-11 04:02] LABS: Platelet Count 49 K/mm3 (150-400)
[2024-03-11 04:33] LABS: Anion Gap 13 mmol/L (3-11); Blood Urea Nitrogen 71 mg/dL (8-24); Bun/Creatinine Ratio 11.6 (12.0-20.0); CO2, Blood 27 mmol/L (21-32); Calcium, Blood 7.7 mg/dL (8.5-10.1); Chloride, Blood 100 mmol/L (98-108); Creatinine, Blood 6.14 mg/dL (0.60-1.20); Glomerular Filtration Rate 9 (60-); Glucose, Blood 125 mg/dL (70-99); Potassium, Blood 4.1 mmol/L (3.5-5.5); Sodium, Blood 136 mmol/L (136-145); Vancomycin, Random 24.5 ug/mL
--- NOTE | 2024-03-11 05:11 | NUR ---
shift summary. shift has been unremarkable. pt aox4, cooperative, able to make needs known. maintains adequate saturation on room air while awake, required 2 l o2 via nc while sleeping. has denied pain throughout shift. vitals have remained stable outside of heart rate. hr was elevated throughout much of early half of shift, administered po metoprolol and iv lopressor for management which has helped thus far. blood pressure has remained stable. no urine output this shift, pt dialysis patient. able to reposition self independently. bed locked in lowest position. call light left within reach. continuing to monitor.
[2024-03-11 08:02] VITALS: BP 143/92
[2024-03-11] MEDS ORDERED: Metoprolol Tartrate 50 MG Tab PO SCH (09:00)
[2024-03-11 12:18] VITALS: BP 137/94
--- NOTE | 2024-03-11 16:11 | NUR ---
TRANSFER TO [facility] FLOOR REPORT GIVEN TO MED FLOOR NURSE AT 1600, PT DEPARTED TO ROOM 302 ON 3L NC, SATTING ABOVE 90%, AFIB, HR 100'S. PT LEFT WITH HIS ACCOMPANYING HIM WITH ALL BELONGINGS.
--- NOTE | 2024-03-11 17:26 | NUR ---
SHIFT SUMMARY 1625 RECEIVED PT TO RM 302 VIA W/C FROM [facility]. PT IS A&O, WITH FLAT AFFECT. ABLE TO TX SELF TO BED. ADMITTED FOR CAP, IN NEURTOPENIC PRECAUTIONS. HX MYELODYSPLASTIC SYNDROME, PLATELETS AT 49. PT FOLLOWS ONCOLOGY. PT STARTED ON METOPROLOL TODAY; BID, SEE EMAR. PER REPORT, WITH GOOD RESULTS. DIALYSIS PT WITH CHAIR TIME THU, THR, SATURDAYS. DR Hernandez IN TO SEE PT AT THIS TIME. HOME MEDS ORDERED AND IN PT'S DRAWER. DENIES FURTHER NEEDS. IN RM AT BS. CALL LT IN REACH.
[2024-03-11] MEDS ORDERED: PredniSONE 20 MG Tab PO SCH (18:00)
[2024-03-11 19:27] VITALS: BP 126/85
[2024-03-12] VITALS (19 sets, daily range): BP systolic 106–148; BP diastolic 43–111
--- NOTE | 2024-03-12 05:12 | NUR ---
SHIFT SUMMARY PT IS ALERT AND ORIENTED TIMES 4 . PT IS ON 2L O2. PT ADMITTED FOR MYLEODISPASTIC SYNDROME AND END STAGE RENAL DISEASE. SEPTIC SHOCK SECONDARY TO PNEUMONIA. PT TOOK HS MEDICATION, ABLE TO MAKE NEEDS KNOWN TO STAFF. BED IN LOW POSITION, CALL LIGHT WITHIN REACH, RAILS TIMES 2.
--- NOTE | 2024-03-12 05:49 | NUR ---
SHIFT SUMMARY PT ALERT AND ORIENTED TIMES 4. TELE SINUS RHYTHM 88. HEART HEALTHY DIET, INDEPENDENT. ABLE TO AMBULATE TO TOILET. PT IS COOPERATIVE WITH CARE. BED IN LOW POSITION, CALL LIGHT WITHIN REACH, RAILS TIMES 2
[2024-03-12 06:49] LABS: Hematocrit 27.8 % (37.0-53.0); Hemoglobin 9.3 g/dL (13.5-17.5); Mean Corpuscular HGB 34.3 pg (26.0-34.0); Mean Corpuscular HGB Conc 33.5 g/dL (31.5-36.5); Mean Corpuscular Volume 103 fL (80-100); NRBC ABSOLUTE 0.02 K/mm3 (0.00-0.02); NRBC Auto 0.2 /100 WBC (0.0-0.2); Platelet Count 66 K/mm3 (150-400); RDW Coefficient Variation 24.5 % (11.7-14.2); RDW Standard Deviation 88.1 fL (35.1-46.3); Red Blood Cell Count 2.71 M/mm3 (4.30-5.90); White Blood Cell Count 8.41 K/mm3 (4.00-11.30)
[2024-03-12] MEDS ORDERED: Anticoagulant Sod Citrate Soln 3 ML SYR INJ PRN (07:10)
[2024-03-12] MEDS ORDERED: Albumin (Human) 25gm/100ml 100 ML IV ONE (07:10)
[2024-03-12 07:11] LABS: Albumin, Blood 1.8 g/dL (3.4-5.0); Anion Gap 19 mmol/L (3-11); Blood Urea Nitrogen 96 mg/dL (8-24); Bun/Creatinine Ratio 12.6 (12.0-20.0); CO2, Blood 22 mmol/L (21-32); Calcium, Blood 7.8 mg/dL (8.5-10.1); Chloride, Blood 97 mmol/L (98-108); Glomerular Filtration Rate 7 (60-); Glucose, Blood 135 mg/dL (70-99); Phosphorus, Blood 7.5 mg/dL (2.5-4.9); Potassium, Blood 4.6 mmol/L (3.5-5.5); Sodium, Blood 133 mmol/L (136-145); Vancomycin, Random 20.8 ug/mL
[2024-03-12] MEDS ORDERED: Metoprolol Tartrate 50 MG Tab PO SCH (09:00)
[2024-03-12] MEDS ORDERED: Apixaban 5 MG Tab PO SCH (09:00)
[2024-03-12] MEDS ORDERED: Magnesium Hydroxide Conc 10 ML UDC PO PRN (13:10)
[2024-03-12] MEDS ORDERED: Polyethylene Glycol 3350 17 gm PO PRN (13:15)
[2024-03-12] MEDS ORDERED: Vancomycin HCL 500 MG in NS 250 ML IV ONE (14:00)
--- NOTE | 2024-03-12 15:13 | NUR ---
SHIFT SUMMARY PT AWAKE AT START OF SHIFT, WATCHING TV. PT INFORMED OF DIALYSIS ORDERS. MEDS AND BREAKFAST GIVEN PRIOR TO GOING DOWN TO DIALYSIS. PT DRINKING ALOT OF FLUIDS BEFORE AND AFTER DIALYSIS. DR MENDEZ HERE TO SEE PT WHILE IN DIALYSIS; NEW ORDERS PLACED. DR MENDEZ LATER RETURNED TO SEE PT AND DISCUSS PLAN OF CARE. ELIQUIS STARTED. PT WEANED OFF O2. P/T HERE TO WORK WITH PT THIS AFTERNOON, BUT PT DECLINED. OK TO USE HEPARIN FLUSH PROTOCOL IN MEDIPORT NOW. PT WANTING TO TAKE A SHOWER WHEN IV ABX COMPLETE. ELECTRIC TRANSFER OPERATOR TO ASSIST WITH COVERING LINES. IN RM AT BS NOW. CALL LT IN REACH.
--- NOTE | 2024-03-12 17:30 | NUR ---
PT WEANED OFF O2 WITH BIOX REMAINING MID 90'S ON RA. PT UP TO SHOWER THIS EVENING, INDEPENDENT USING FWW. UP TO BTHRM FOR BM. REMAINED IN RM FOR ASSIST NEEDED. MEDIPORT AND DIALYSIS CATH WRAPPED BY SHAKER TENDER PRIOR TO SHOWER. LINENS CHANGED WHILE IN SHOWER. PT HAS BEEN VERY GRUMPY AND IRRITABLE TODAY. PER REPORT FROM [facility] YESTERDAY, PT WAS THE SAME DOWN THERE. FLAT AFFECT. CAN BE VERY RUDE.
[2024-03-13 03:22] VITALS: BP 113/69
--- NOTE | 2024-03-13 05:41 | NUR ---
SHIFT SUMMARY PT IS ALERT AND ORIENTED TIMES 4 . AT APPROXIMATELY 2200 PT WAS COMPLAINING HE WASN'T ABLE TO GET ENOUGH O2. BREAK NURSE PUT PT ON 3L O2 FOR THE NIGHT. PT TOLERATED WELL. PT TOOK HS MEDICATION AND TOLERATED WELL. PT IS HIGH FALL RISK. AND NEEDS 1-2 ASSIST. BED IN LOW POSITION, RAILS TIMES 2, CALL LIGHT WITHIN REACH.
[2024-03-13 05:46] LABS: Hematocrit 24.5 % (37.0-53.0); Mean Corpuscular HGB 34.3 pg (26.0-34.0); Mean Corpuscular HGB Conc 32.7 g/dL (31.5-36.5); Mean Corpuscular Volume 105 fL (80-100); NRBC ABSOLUTE 0.03 K/mm3 (0.00-0.02); NRBC Auto 0.5 /100 WBC (0.0-0.2); Platelet Count 63 K/mm3 (150-400); RDW Coefficient Variation 23.9 % (11.7-14.2); RDW Standard Deviation 88.1 fL (35.1-46.3); Red Blood Cell Count 2.33 M/mm3 (4.30-5.90); White Blood Cell Count 6.03 K/mm3 (4.00-11.30)
[2024-03-13 06:27] LABS: Albumin, Blood 2.1 g/dL (3.4-5.0); Anion Gap 14 mmol/L (3-11); Blood Urea Nitrogen 67 mg/dL (8-24); Bun/Creatinine Ratio 12.1 (12.0-20.0); CO2, Blood 25 mmol/L (21-32); Chloride, Blood 101 mmol/L (98-108); Creatinine, Blood 5.54 mg/dL (0.60-1.20); Glomerular Filtration Rate 10 (60-); Glucose, Blood 94 mg/dL (70-99); Phosphorus, Blood 5.5 mg/dL (2.5-4.9); Potassium, Blood 4.3 mmol/L (3.5-5.5); Sodium, Blood 136 mmol/L (136-145)
[2024-03-13 06:30] LABS: Mean Platelet Volume 13.6 fL (9.1-12.4)
[2024-03-13 07:13] VITALS: BP 114/91
[2024-03-13] MEDS ORDERED: ELIQUIS2.5 MG PO (12:15)
[2024-03-13] MEDS ORDERED: METO100 PO (12:17)
[2024-03-13] MEDS ORDERED: GUAI600T33 PO (12:17)
[2024-03-13] MEDS ORDERED: [UNRECOGNIZED DRUG - OTHER] PO (12:17)
[2024-03-13] MEDS ORDERED: MIRALAX17 GM PO (12:18)
[2024-03-13] MEDS ORDERED: VISBIOME 112.51 EACH PO (12:18)
[2024-03-13] MEDS ORDERED: AMOX CLAV PO (12:19)
--- NOTE | 2024-03-13 17:13 | NUR ---
SHIFT SUMMARY AND DISCHARGE PATIENT ALERT AND INTERACTIVE BUT EASILY IRRITABLE. PATIENT INDEPENDENT IN THE ROOM. PATIENT DISCHARGED TO HOME. DISCHARGE INSTRUCTIONS REVIEWED WITH AND PATIENT. MEDIPORT LEFT ACCESSED BUT FLUSHED WITH HEPARIN PRIOR TO DISCHARGE. PATIENT TO HAVE LABS DRAWN AT [facility] TOMORROW AND WILL BE DEACCESSED AT THAT TIME. [facility] CALLED AND CONFIRMED APPT AND PLAN.
== END 2024-03-13 16:23 | disposition home health service (06) | DRG 871 ==
LOC: ER 08:57 → PCU 08:58 → MEDS 03-11 16:10 → ENPENDDIS 03-13 15:54 → MEDS 03-13 16:23
PROVIDERS: Internal Medicine; Nurse Practitioner Acute Care; Physician Assistant; ADMIT Internal Medicine
PROC: 30233N1 Transfusion of Nonautologous Red Blood Cells into Peripheral Vein, Percutaneous Approach (ICD-10-PCS; principal; 2024-03-10)
PROC: 3E03329 Introduction of Other Anti-infective into Peripheral Vein, Percutaneous Approach (ICD-10-PCS; 2024-03-12)
PROC: 30233J1 Transfusion of Nonautologous Serum Albumin into Peripheral Vein, Percutaneous Approach (ICD-10-PCS; 2024-03-12)
DX: A41.9 Sepsis, unspecified organism (principal); J18.9 Pneumonia, unspecified organism; N18.6 End stage renal disease; J96.01 Acute respiratory failure with hypoxia; R65.21 Severe sepsis with septic shock; I12.0 Hypertensive chronic kidney disease with stage 5 chronic kidney disease or end stage renal disease; D46.9 Myelodysplastic syndrome, unspecified; I48.91 Unspecified atrial fibrillation; Z99.2 Dependence on renal dialysis; Z79.899 Other long term (current) drug therapy; Z79.01 Long term (current) use of anticoagulants; Z98.1 Arthrodesis status; Z86.718 Personal history of other venous thrombosis and embolism; E83.39 Other disorders of phosphorus metabolism
CPT/HCPCS: 0202U; 36415; 36416; 36430; 71045; 80048; 80053; 80069; 80202; 83605; 83735; 83880; 84132; 84145; 85025; 85027; 86850; 86900; 86901; 86923; 87040; 87070; 87077; 87186; 87205; 87428-QW; 87449; 87507; 87633; 93005; 93010; 94760; 94761; 94762; 96365; 96375; 97161; 97530; 99285-25; A9270; J0456; J0692; J0696; J1642; J2405; J3370; J7040; J7050; J7512; P9016; P9047

== ENCOUNTER 2024-03-14 03:57 | Day surgery (SDC) | payer MEDICARE, OTHER ==
[~2024-03-14 03:57] MED LIST changes: +AMOX CLAV PO; +BUME1 PO; +CRESEMBA186 MG PO; +ELIQUIS2.5 MG PO; +GUAI600T33 PO; +METO100 PO; +MIDODRINE HCL10 M6 PO; +ONDA8 PO; +Prednisone10 MG PO; +VISBIOME 112.51 EACH PO; +[UNRECOGNIZED DRUG - OTHER] PO
[2024-03-14 09:27] VITALS: BP 115/88
[2024-03-14] MEDS ORDERED: Alteplase Recombinant 2 MG / Vial IV PRN (09:55)
[2024-03-14 10:55] LABS: BASOPHILS PERCENT AUTO 0 % (0-2); Hematocrit 25.6 % (37.0-53.0); Hemoglobin 8.4 g/dL (13.5-17.5); LYMPHOCYTES ABSOLUTE AUTO 0.15 K/mm3 (0.84-5.20); LYMPHOCYTES PERCENT AUTO 3 % (21-46); MONOCYTES ABSOLUTE AUTO 0.43 K/mm3 (0.16-1.47); MONOCYTES PERCENT AUTO 10 % (4-13); Mean Corpuscular HGB 34.4 pg (26.0-34.0); Mean Corpuscular HGB Conc 32.8 g/dL (31.5-36.5); Mean Corpuscular Volume 105 fL (80-100); Mean Platelet Volume 11.1 fL (9.1-12.4); NRBC ABSOLUTE 0.03 K/mm3 (0.00-0.02); NRBC Auto 0.7 /100 WBC (0.0-0.2); Platelet Count 83 K/mm3 (150-400); RDW Coefficient Variation 22.6 % (11.7-14.2); RDW Standard Deviation 84.7 fL (35.1-46.3); Red Blood Cell Count 2.44 M/mm3 (4.30-5.90)
[2024-03-14 11:02] LABS: EOSINOPHILS ABSOLUTE AUTO 0.04 K/mm3 (0.00-0.68); EOSINOPHILS PERCENT AUTO 1 % (0-6); IMMATURE GRAN ABSOLUTE AUTO 0.42 K/mm3 (0.00-0.10); IMMATURE GRAN PERCENT AUTO 10 % (0-1); NEUTROPHILS ABSOLUTE AUTO 3.36 K/mm3 (1.96-9.15); NEUTROPHILS PERCENT AUTO 76 % (41-73)
[2024-03-14 11:27] LABS: Albumin, Blood 2.3 g/dL (3.4-5.0); Albumin/Globulin Ratio 0.8 (0.8-1.8); Bun/Creatinine Ratio 12.1 (12.0-20.0); Calcium, Blood 7.9 mg/dL (8.5-10.1); Creatinine, Blood 7.84 mg/dL (0.60-1.20); Globulin, Blood 2.8 g/dL (2.2-4.0); Potassium, Blood 4.7 mmol/L (3.5-5.5); Total Protein, Blood 5.1 g/dL (6.4-8.2)
== END 2024-03-14 10:45 | disposition home or self-care (01) ==
LOC: ATC 03:57
PROVIDERS: Internal Medicine Hematology & Oncology
DX: D46.9 Myelodysplastic syndrome, unspecified (principal); Z94.84 Stem cells transplant status; Z79.01 Long term (current) use of anticoagulants; Z79.899 Other long term (current) drug therapy
CPT/HCPCS: 36591; 36593; 80053; 85025; J1642; J2997

== ENCOUNTER 2024-03-18 09:52 | Day surgery (SDC) | payer MEDICARE, OTHER ==
[2024-03-17 11:35] VITALS: BP 118/74
[2024-03-17 12:11] LABS: Hematocrit 24.7 % (37.0-53.0); Mean Corpuscular HGB Conc 32.4 g/dL (31.5-36.5); Mean Corpuscular Volume 105 fL (80-100); Mean Platelet Volume 11.9 fL (9.1-12.4); NRBC ABSOLUTE 0.04 K/mm3 (0.00-0.02); NRBC Auto 2.1 /100 WBC (0.0-0.2); Platelet Count 78 K/mm3 (150-400); RDW Coefficient Variation 22.3 % (11.7-14.2); RDW Standard Deviation 82.3 fL (35.1-46.3); Red Blood Cell Count 2.35 M/mm3 (4.30-5.90)
[2024-03-17 12:25] LABS: Albumin, Blood 2.4 g/dL (3.4-5.0); Albumin/Globulin Ratio 0.8 (0.8-1.8); Bilirubin, Total 1.2 mg/dL (0.1-1.0); Calcium, Blood 8.2 mg/dL (8.5-10.1); Creatinine, Blood 3.54 mg/dL (0.60-1.20); Potassium, Blood 3.1 mmol/L (3.5-5.5); Total Protein, Blood 5.4 g/dL (6.4-8.2)
[2024-03-17 12:50] LABS: BAND PERCENT MAN 3 % (0-8); BASOPHILS ABSOLUTE MAN 0.01 K/mm3 (0.00-0.23); BASOPHILS PERCENT MAN 1 % (0-2); EOSINOPHILS ABSOLUTE MAN 0.07 K/mm3 (0.00-0.68); EOSINOPHILS PERCENT MAN 4 % (0-6); LYMPHOCYTES % ATYPICAL MANUAL 1 % (0-0); LYMPHOCYTES ABSOLUTE MAN 0.34 K/mm3 (0.84-5.20); LYMPHOCYTES PERCENT MAN 17 % (21-46); METAMYELOCYTE ABSOLUTE MAN 0.03 K/mm3 (0.00-0.00); METAMYELOCYTE PERCENT MAN 2 % (0-0); MONOCYTES ABSOLUTE MAN 0.05 K/mm3 (0.16-1.47); MONOCYTES PERCENT MAN 3 % (4-13); NEUTROPHILS ABSOLUTE MAN 1.36 K/mm3 (1.96-9.15); SEG NEUTROPHILS PERCENT MAN 69 % (41-73); TOTAL CELLS COUNTED 100
[2024-03-18] MEDS ORDERED: NS 250 ML IV SCH (10:05)
[2024-03-18 14:14] VITALS: BP 108/71
[2024-03-18 14:29] VITALS: BP 129/98
[2024-03-18 15:32] VITALS: BP 129/99
[2024-03-18 16:00] VITALS: BP 129/99
== END 2024-03-18 16:08 | disposition home or self-care (01) ==
LOC: ATC 09:52
PROVIDERS: Internal Medicine Hematology & Oncology
DX: D46.9 Myelodysplastic syndrome, unspecified (principal); I10 Essential (primary) hypertension; M81.0 Age-related osteoporosis without current pathological fracture; Z79.899 Other long term (current) drug therapy
CPT/HCPCS: 36430; 36591; 80053; 85025; 86850; 86900; 86901; 86923; J1642; J7050; P9016

== ENCOUNTER 2024-03-21 03:59 | Day surgery (SDC) | payer MEDICARE, OTHER ==
[2024-03-21 09:27] VITALS: BP 156/96
[2024-03-21 09:47] LABS: Hematocrit 28.4 % (37.0-53.0); Hemoglobin 9.2 g/dL (13.5-17.5); Mean Corpuscular HGB 33.7 pg (26.0-34.0); Mean Corpuscular HGB Conc 32.4 g/dL (31.5-36.5); Mean Corpuscular Volume 104 fL (80-100); Mean Platelet Volume 11.4 fL (9.1-12.4); NRBC ABSOLUTE 0.06 K/mm3 (0.00-0.02); NRBC Auto 1.9 /100 WBC (0.0-0.2); Platelet Count 89 K/mm3 (150-400); RDW Coefficient Variation 24.2 % (11.7-14.2); Red Blood Cell Count 2.73 M/mm3 (4.30-5.90); White Blood Cell Count 3.15 K/mm3 (4.00-11.30)
[2024-03-21 10:21] LABS: Albumin, Blood 2.6 g/dL (3.4-5.0); Bilirubin, Total 1.4 mg/dL (0.1-1.0); Bun/Creatinine Ratio 9.8 (12.0-20.0); Calcium, Blood 7.4 mg/dL (8.5-10.1); Creatinine, Blood 7.11 mg/dL (0.60-1.20); Globulin, Blood 2.6 g/dL (2.2-4.0); Total Protein, Blood 5.2 g/dL (6.4-8.2)
[2024-03-21 10:31] LABS: BAND PERCENT MAN 2 % (0-8); BASOPHILS ABSOLUTE MAN 0.03 K/mm3 (0.00-0.23); BASOPHILS PERCENT MAN 1 % (0-2); EOSINOPHILS PERCENT MAN 0 % (0-6); LYMPHOCYTES ABSOLUTE MAN 0.47 K/mm3 (0.84-5.20); LYMPHOCYTES PERCENT MAN 15 % (21-46); METAMYELOCYTE ABSOLUTE MAN 0.03 K/mm3 (0.00-0.00); METAMYELOCYTE PERCENT MAN 1 % (0-0); MONOCYTES ABSOLUTE MAN 0.44 K/mm3 (0.16-1.47); MONOCYTES PERCENT MAN 14 % (4-13); MYELOCYTE ABSOLUTE MAN 0.06 K/mm3 (0.00-0.00); MYELOCYTE PERCENT MAN 2 % (0-0); NEUTROPHILS ABSOLUTE MAN 2.11 K/mm3 (1.96-9.15); SEG NEUTROPHILS PERCENT MAN 65 % (41-73); TOTAL CELLS COUNTED 100
== END 2024-03-21 09:35 | disposition home or self-care (01) ==
LOC: ATC 03:59
PROVIDERS: Internal Medicine Hematology & Oncology
DX: D46.9 Myelodysplastic syndrome, unspecified (principal); I10 Essential (primary) hypertension; M06.9 Rheumatoid arthritis, unspecified; M81.0 Age-related osteoporosis without current pathological fracture; Z79.1 Long term (current) use of non-steroidal anti-inflammatories (NSAID); Z79.83 Long term (current) use of bisphosphonates; Z79.899 Other long term (current) drug therapy
CPT/HCPCS: 36591; 80053; 85025; J1642

== ENCOUNTER 2024-03-24 01:31 | Day surgery (SDC) | payer MEDICARE, OTHER ==
[2024-03-24 10:43] VITALS: BP 110/80
[2024-03-24 11:20] LABS: Hematocrit 29.1 % (37.0-53.0); Hemoglobin 9.6 g/dL (13.5-17.5); Mean Corpuscular HGB 34.2 pg (26.0-34.0); Mean Corpuscular Volume 104 fL (80-100); Mean Platelet Volume 11.2 fL (9.1-12.4); NRBC ABSOLUTE 0.07 K/mm3 (0.00-0.02); NRBC Auto 2.9 /100 WBC (0.0-0.2); Platelet Count 81 K/mm3 (150-400); RDW Coefficient Variation 23.6 % (11.7-14.2); RDW Standard Deviation 86.3 fL (35.1-46.3); Red Blood Cell Count 2.81 M/mm3 (4.30-5.90); White Blood Cell Count 2.42 K/mm3 (4.00-11.30)
[2024-03-24 11:38] LABS: Albumin, Blood 2.6 g/dL (3.4-5.0); Bilirubin, Total 1.4 mg/dL (0.1-1.0); Bun/Creatinine Ratio 8.7 (12.0-20.0); Calcium, Blood 7.8 mg/dL (8.5-10.1); Creatinine, Blood 3.12 mg/dL (0.60-1.20); Globulin, Blood 2.5 g/dL (2.2-4.0); Potassium, Blood 3.1 mmol/L (3.5-5.5); Total Protein, Blood 5.1 g/dL (6.4-8.2)
[2024-03-24 12:33] LABS: BAND PERCENT MAN 2 % (0-8); BASOPHILS PERCENT MAN 0 % (0-2); EOSINOPHILS ABSOLUTE MAN 0.04 K/mm3 (0.00-0.68); EOSINOPHILS PERCENT MAN 2 % (0-6); LYMPHOCYTES ABSOLUTE MAN 0.62 K/mm3 (0.84-5.20); LYMPHOCYTES PERCENT MAN 26 % (21-46); METAMYELOCYTE ABSOLUTE MAN 0.04 K/mm3 (0.00-0.00); METAMYELOCYTE PERCENT MAN 2 % (0-0); MONOCYTES ABSOLUTE MAN 0.53 K/mm3 (0.16-1.47); MONOCYTES PERCENT MAN 22 % (4-13); MYELOCYTE ABSOLUTE MAN 0.29 K/mm3 (0.00-0.00); MYELOCYTE PERCENT MAN 12 % (0-0); NEUTROPHILS ABSOLUTE MAN 0.87 K/mm3 (1.96-9.15); SEG NEUTROPHILS PERCENT MAN 34 % (41-73); TOTAL CELLS COUNTED 50
== END 2024-03-24 10:49 | disposition home or self-care (01) ==
LOC: ATC 01:31
PROVIDERS: Internal Medicine Hematology & Oncology
DX: D46.9 Myelodysplastic syndrome, unspecified (principal); Z79.899 Other long term (current) drug therapy
CPT/HCPCS: 36591; 80053; 85025; J1642

== ENCOUNTER 2024-03-28 03:53 | Day surgery (SDC) | payer MEDICARE, OTHER ==
[2024-03-28 09:30] VITALS: BP 145/92
[2024-03-28 09:57] LABS: Hematocrit 28.9 % (37.0-53.0); Hemoglobin 9.3 g/dL (13.5-17.5); Mean Corpuscular HGB 35.1 pg (26.0-34.0); Mean Corpuscular HGB Conc 32.2 g/dL (31.5-36.5); Mean Corpuscular Volume 109 fL (80-100); Mean Platelet Volume 12.3 fL (9.1-12.4); NRBC ABSOLUTE 0.08 K/mm3 (0.00-0.02); NRBC Auto 1.8 /100 WBC (0.0-0.2); Platelet Count 72 K/mm3 (150-400); RDW Coefficient Variation 24.5 % (11.7-14.2); RDW Standard Deviation 94.7 fL (35.1-46.3); Red Blood Cell Count 2.65 M/mm3 (4.30-5.90); White Blood Cell Count 4.43 K/mm3 (4.00-11.30)
[2024-03-28 10:10] LABS: Albumin, Blood 2.7 g/dL (3.4-5.0); Albumin/Globulin Ratio 1.1 (0.8-1.8); Bilirubin, Total 1.3 mg/dL (0.1-1.0); Bun/Creatinine Ratio 7.9 (12.0-20.0); Calcium, Blood 7.9 mg/dL (8.5-10.1); Creatinine, Blood 7.18 mg/dL (0.60-1.20); Globulin, Blood 2.5 g/dL (2.2-4.0); Total Protein, Blood 5.2 g/dL (6.4-8.2)
[2024-03-28 10:46] LABS: BAND PERCENT MAN 1 % (0-8); BASOPHILS ABSOLUTE MAN 0.08 K/mm3 (0.00-0.23); BASOPHILS PERCENT MAN 2 % (0-2); EOSINOPHILS ABSOLUTE MAN 0.04 K/mm3 (0.00-0.68); EOSINOPHILS PERCENT MAN 1 % (0-6); LYMPHOCYTES ABSOLUTE MAN 0.53 K/mm3 (0.84-5.20); LYMPHOCYTES PERCENT MAN 12 % (21-46); MONOCYTES ABSOLUTE MAN 1.01 K/mm3 (0.16-1.47); MONOCYTES PERCENT MAN 23 % (4-13); MYELOCYTE ABSOLUTE MAN 0.13 K/mm3 (0.00-0.00); MYELOCYTE PERCENT MAN 3 % (0-0); NEUTROPHILS ABSOLUTE MAN 2.61 K/mm3 (1.96-9.15); SEG NEUTROPHILS PERCENT MAN 58 % (41-73); TOTAL CELLS COUNTED 100
== END 2024-03-28 09:39 | disposition home or self-care (01) ==
LOC: ATC 03:53
PROVIDERS: Internal Medicine Hematology & Oncology
DX: D46.9 Myelodysplastic syndrome, unspecified (principal); I10 Essential (primary) hypertension; M06.811 Other specified rheumatoid arthritis, right shoulder
CPT/HCPCS: 36591; 80053; 85025; J1642

== ENCOUNTER 2024-03-31 02:20 | Day surgery (SDC) | payer MEDICARE, OTHER ==
[2024-03-31 10:40] VITALS: BP 109/73
[2024-03-31 11:01] LABS: Hemoglobin 9.2 g/dL (13.5-17.5); Mean Corpuscular HGB 35.4 pg (26.0-34.0); Mean Corpuscular HGB Conc 32.9 g/dL (31.5-36.5); Mean Corpuscular Volume 108 fL (80-100); Mean Platelet Volume 12.2 fL (9.1-12.4); NRBC ABSOLUTE 0.09 K/mm3 (0.00-0.02); Platelet Count 65 K/mm3 (150-400); RDW Coefficient Variation 24.7 % (11.7-14.2); RDW Standard Deviation 96.3 fL (35.1-46.3); White Blood Cell Count 4.49 K/mm3 (4.00-11.30)
[2024-03-31 11:32] LABS: Albumin, Blood 2.7 g/dL (3.4-5.0); Albumin/Globulin Ratio 1.1 (0.8-1.8); Bilirubin, Total 1.7 mg/dL (0.1-1.0); Bun/Creatinine Ratio 7.1 (12.0-20.0); Calcium, Blood 7.9 mg/dL (8.5-10.1); Creatinine, Blood 3.54 mg/dL (0.60-1.20); Globulin, Blood 2.5 g/dL (2.2-4.0); Potassium, Blood 3.3 mmol/L (3.5-5.5); Total Protein, Blood 5.2 g/dL (6.4-8.2)
[2024-03-31 12:33] LABS: BAND PERCENT MAN 1 % (0-8); BASOPHILS ABSOLUTE MAN 0.04 K/mm3 (0.00-0.23); BASOPHILS PERCENT MAN 1 % (0-2); EOSINOPHILS ABSOLUTE MAN 0.17 K/mm3 (0.00-0.68); EOSINOPHILS PERCENT MAN 4 % (0-6); LYMPHOCYTES ABSOLUTE MAN 0.49 K/mm3 (0.84-5.20); LYMPHOCYTES PERCENT MAN 11 % (21-46); METAMYELOCYTE ABSOLUTE MAN 0.08 K/mm3 (0.00-0.00); METAMYELOCYTE PERCENT MAN 2 % (0-0); MONOCYTES ABSOLUTE MAN 0.44 K/mm3 (0.16-1.47); MONOCYTES PERCENT MAN 10 % (4-13); MYELOCYTE ABSOLUTE MAN 0.08 K/mm3 (0.00-0.00); MYELOCYTE PERCENT MAN 2 % (0-0); NEUTROPHILS ABSOLUTE MAN 3.14 K/mm3 (1.96-9.15); SEG NEUTROPHILS PERCENT MAN 69 % (41-73); TOTAL CELLS COUNTED 100
== END 2024-03-31 10:50 | disposition home or self-care (01) ==
LOC: ATC 02:20
PROVIDERS: Internal Medicine Hematology & Oncology
DX: D46.9 Myelodysplastic syndrome, unspecified (principal); I10 Essential (primary) hypertension
CPT/HCPCS: 36591; 80053; 85025; J1642

== ENCOUNTER 2024-04-04 03:49 | Day surgery (SDC) | payer MEDICARE, OTHER ==
[2024-04-04 09:34] VITALS: BP 114/87
[2024-04-04 11:09] LABS: BASOPHILS ABSOLUTE AUTO 0.04 K/mm3 (0.00-0.23); BASOPHILS PERCENT AUTO 1 % (0-2); EOSINOPHILS ABSOLUTE AUTO 0.07 K/mm3 (0.00-0.68); EOSINOPHILS PERCENT AUTO 2 % (0-6); Hematocrit 28.7 % (37.0-53.0); Hemoglobin 9.3 g/dL (13.5-17.5); IMMATURE GRAN ABSOLUTE AUTO 0.22 K/mm3 (0.00-0.10); IMMATURE GRAN PERCENT AUTO 5 % (0-1); LYMPHOCYTES ABSOLUTE AUTO 0.42 K/mm3 (0.84-5.20); LYMPHOCYTES PERCENT AUTO 9 % (21-46); MONOCYTES ABSOLUTE AUTO 1.31 K/mm3 (0.16-1.47); MONOCYTES PERCENT AUTO 28 % (4-13); Mean Corpuscular HGB 36.5 pg (26.0-34.0); Mean Corpuscular HGB Conc 32.4 g/dL (31.5-36.5); Mean Corpuscular Volume 113 fL (80-100); Mean Platelet Volume 12.2 fL (9.1-12.4); NEUTROPHILS ABSOLUTE AUTO 2.58 K/mm3 (1.96-9.15); NEUTROPHILS PERCENT AUTO 56 % (41-73); NRBC ABSOLUTE 0.06 K/mm3 (0.00-0.02); NRBC Auto 1.3 /100 WBC (0.0-0.2); Platelet Count 75 K/mm3 (150-400); RDW Coefficient Variation 24.7 % (11.7-14.2); RDW Standard Deviation 101.7 fL (35.1-46.3); Red Blood Cell Count 2.55 M/mm3 (4.30-5.90); White Blood Cell Count 4.64 K/mm3 (4.00-11.30)
[2024-04-04 11:11] LABS: Albumin, Blood 2.9 g/dL (3.4-5.0); Albumin/Globulin Ratio 1.1 (0.8-1.8); Bilirubin, Total 1.3 mg/dL (0.1-1.0); Bun/Creatinine Ratio 8.1 (12.0-20.0); Calcium, Blood 7.8 mg/dL (8.5-10.1); Creatinine, Blood 7.44 mg/dL (0.60-1.20); Globulin, Blood 2.6 g/dL (2.2-4.0); Total Protein, Blood 5.5 g/dL (6.4-8.2)
== END 2024-04-04 09:45 | disposition home or self-care (01) ==
LOC: ATC 03:49
PROVIDERS: Internal Medicine Hematology & Oncology
DX: D46.9 Myelodysplastic syndrome, unspecified (principal); I10 Essential (primary) hypertension; Q23.81 Bicuspid aortic valve; I35.2 Nonrheumatic aortic (valve) stenosis with insufficiency; Z79.01 Long term (current) use of anticoagulants; Z79.899 Other long term (current) drug therapy
CPT/HCPCS: 36591; 80053; 85025; J1642

== ENCOUNTER 2024-04-07 04:59 | Day surgery (SDC) | payer MEDICARE, OTHER ==
[2024-04-07 11:05] VITALS: BP 124/87
[2024-04-07 12:07] LABS: BASOPHILS ABSOLUTE AUTO 0.04 K/mm3 (0.00-0.23); BASOPHILS PERCENT AUTO 1 % (0-2); EOSINOPHILS ABSOLUTE AUTO 0.07 K/mm3 (0.00-0.68); EOSINOPHILS PERCENT AUTO 2 % (0-6); Hematocrit 27.3 % (37.0-53.0); Hemoglobin 8.8 g/dL (13.5-17.5); IMMATURE GRAN ABSOLUTE AUTO 0.09 K/mm3 (0.00-0.10); IMMATURE GRAN PERCENT AUTO 3 % (0-1); LYMPHOCYTES ABSOLUTE AUTO 0.44 K/mm3 (0.84-5.20); LYMPHOCYTES PERCENT AUTO 14 % (21-46); MONOCYTES ABSOLUTE AUTO 0.95 K/mm3 (0.16-1.47); MONOCYTES PERCENT AUTO 29 % (4-13); Mean Corpuscular HGB 37.1 pg (26.0-34.0); Mean Corpuscular HGB Conc 32.2 g/dL (31.5-36.5); Mean Corpuscular Volume 115 fL (80-100); NEUTROPHILS ABSOLUTE AUTO 1.66 K/mm3 (1.96-9.15); NEUTROPHILS PERCENT AUTO 51 % (41-73); NRBC ABSOLUTE 0.03 K/mm3 (0.00-0.02); NRBC Auto 0.9 /100 WBC (0.0-0.2); Platelet Count 68 K/mm3 (150-400); RDW Coefficient Variation 24.1 % (11.7-14.2); RDW Standard Deviation 100.8 fL (35.1-46.3); Red Blood Cell Count 2.37 M/mm3 (4.30-5.90); White Blood Cell Count 3.25 K/mm3 (4.00-11.30)
[2024-04-07 12:22] LABS: Albumin, Blood 2.9 g/dL (3.4-5.0); Albumin/Globulin Ratio 1.2 (0.8-1.8); Bilirubin, Total 1.5 mg/dL (0.1-1.0); Bun/Creatinine Ratio 6.9 (12.0-20.0); Calcium, Blood 7.9 mg/dL (8.5-10.1); Creatinine, Blood 3.64 mg/dL (0.60-1.20); Globulin, Blood 2.5 g/dL (2.2-4.0); Potassium, Blood 3.3 mmol/L (3.5-5.5); Total Protein, Blood 5.4 g/dL (6.4-8.2)
[2024-04-08 18:06] LABS: HEPATITIS B SURFACE ANTIBODY <3.10 IU/L
[2024-04-08 19:00] LABS: HEPATITIS A ANTIBODY, IGM Negative (Negative); HEPATITIS B CORE ANTIBODY, IGM Negative (Negative); HEPATITIS B SURFACE ANTIGEN Negative (Negative); HEPATITIS C AB CIA INTERP Negative (Negative); HEPATITIS C ANTIBODY CIA INDEX 0.12 IV
[2024-04-10 15:29] LABS: QUANTIFERON MITOGEN MINUS NIL 9.99 IU/mL; QUANTIFERON NIL 0.01 IU/mL
== END 2024-04-07 11:18 | disposition home or self-care (01) ==
LOC: ATC 04:59
PROVIDERS: Internal Medicine Hematology & Oncology
DX: I12.0 Hypertensive chronic kidney disease with stage 5 chronic kidney disease or end stage renal disease (principal); N18.6 End stage renal disease; D46.9 Myelodysplastic syndrome, unspecified; M81.0 Age-related osteoporosis without current pathological fracture; Z99.2 Dependence on renal dialysis
CPT/HCPCS: 36591; 80053; 80074; 85025; 86480; J1642

== ENCOUNTER 2024-04-11 02:44 | Day surgery (SDC) | payer MEDICARE, OTHER ==
[2024-04-11 09:46] VITALS: BP 140/104
[2024-04-11 10:10] LABS: BASOPHILS ABSOLUTE AUTO 0.03 K/mm3 (0.00-0.23); BASOPHILS PERCENT AUTO 1 % (0-2); EOSINOPHILS ABSOLUTE AUTO 0.08 K/mm3 (0.00-0.68); EOSINOPHILS PERCENT AUTO 2 % (0-6); Hematocrit 28.4 % (37.0-53.0); Hemoglobin 9.1 g/dL (13.5-17.5); IMMATURE GRAN ABSOLUTE AUTO 0.15 K/mm3 (0.00-0.10); IMMATURE GRAN PERCENT AUTO 4 % (0-1); LYMPHOCYTES ABSOLUTE AUTO 0.72 K/mm3 (0.84-5.20); LYMPHOCYTES PERCENT AUTO 20 % (21-46); MONOCYTES ABSOLUTE AUTO 0.81 K/mm3 (0.16-1.47); MONOCYTES PERCENT AUTO 23 % (4-13); Mean Corpuscular HGB 37.8 pg (26.0-34.0); Mean Corpuscular Volume 118 fL (80-100); Mean Platelet Volume 11.5 fL (9.1-12.4); NEUTROPHILS ABSOLUTE AUTO 1.79 K/mm3 (1.96-9.15); NEUTROPHILS PERCENT AUTO 50 % (41-73); NRBC ABSOLUTE 0.06 K/mm3 (0.00-0.02); NRBC Auto 1.7 /100 WBC (0.0-0.2); Platelet Count 81 K/mm3 (150-400); RDW Coefficient Variation 23.3 % (11.7-14.2); RDW Standard Deviation 100.1 fL (35.1-46.3); Red Blood Cell Count 2.41 M/mm3 (4.30-5.90); White Blood Cell Count 3.58 K/mm3 (4.00-11.30)
[2024-04-11 10:30] LABS: Albumin/Globulin Ratio 1.2 (0.8-1.8); Bilirubin, Total 1.2 mg/dL (0.1-1.0); Calcium, Blood 8.2 mg/dL (8.5-10.1); Creatinine, Blood 7.09 mg/dL (0.60-1.20); Globulin, Blood 2.6 g/dL (2.2-4.0); Potassium, Blood 4.2 mmol/L (3.5-5.5); Total Protein, Blood 5.6 g/dL (6.4-8.2)
== END 2024-04-11 09:50 | disposition home or self-care (01) ==
LOC: ATC 02:44
PROVIDERS: Internal Medicine Hematology & Oncology
DX: D46.9 Myelodysplastic syndrome, unspecified (principal); I10 Essential (primary) hypertension
CPT/HCPCS: 36591; 80053; 85025; J1642

== ENCOUNTER 2024-04-14 01:59 | Day surgery (SDC) | payer MEDICARE, OTHER ==
[2024-04-14 10:55] VITALS: BP 118/77
[2024-04-14 11:16] LABS: BASOPHILS ABSOLUTE AUTO 0.04 K/mm3 (0.00-0.23); BASOPHILS PERCENT AUTO 1 % (0-2); EOSINOPHILS ABSOLUTE AUTO 0.05 K/mm3 (0.00-0.68); EOSINOPHILS PERCENT AUTO 2 % (0-6); Hematocrit 27.1 % (37.0-53.0); Hemoglobin 9.2 g/dL (13.5-17.5); IMMATURE GRAN ABSOLUTE AUTO 0.14 K/mm3 (0.00-0.10); IMMATURE GRAN PERCENT AUTO 5 % (0-1); LYMPHOCYTES ABSOLUTE AUTO 0.44 K/mm3 (0.84-5.20); LYMPHOCYTES PERCENT AUTO 15 % (21-46); MONOCYTES ABSOLUTE AUTO 0.97 K/mm3 (0.16-1.47); MONOCYTES PERCENT AUTO 32 % (4-13); Mean Corpuscular HGB 39.8 pg (26.0-34.0); Mean Corpuscular HGB Conc 33.9 g/dL (31.5-36.5); Mean Corpuscular Volume 117 fL (80-100); Mean Platelet Volume 11.4 fL (9.1-12.4); NEUTROPHILS ABSOLUTE AUTO 1.35 K/mm3 (1.96-9.15); NEUTROPHILS PERCENT AUTO 45 % (41-73); NRBC ABSOLUTE 0.08 K/mm3 (0.00-0.02); NRBC Auto 2.7 /100 WBC (0.0-0.2); Platelet Count 78 K/mm3 (150-400); RDW Coefficient Variation 22.6 % (11.7-14.2); RDW Standard Deviation 97.8 fL (35.1-46.3); Red Blood Cell Count 2.31 M/mm3 (4.30-5.90); White Blood Cell Count 2.99 K/mm3 (4.00-11.30)
[2024-04-14 11:37] LABS: Albumin, Blood 3.1 g/dL (3.4-5.0); Albumin/Globulin Ratio 1.2 (0.8-1.8); Bilirubin, Total 1.7 mg/dL (0.1-1.0); Bun/Creatinine Ratio 8.4 (12.0-20.0); Creatinine, Blood 3.23 mg/dL (0.60-1.20); Globulin, Blood 2.6 g/dL (2.2-4.0); Potassium, Blood 3.2 mmol/L (3.5-5.5); Total Protein, Blood 5.7 g/dL (6.4-8.2)
== END 2024-04-14 11:03 | disposition home or self-care (01) ==
LOC: ATC 01:59
PROVIDERS: Internal Medicine Hematology & Oncology
DX: D46.9 Myelodysplastic syndrome, unspecified (principal)
CPT/HCPCS: 36591; 80053; 85025; J1642

== ENCOUNTER 2024-04-18 07:48 | Day surgery (SDC) | payer MEDICARE, OTHER ==
[2024-04-18 10:05] VITALS: BP 141/94
[2024-04-18 11:04] LABS: BASOPHILS ABSOLUTE AUTO 0.06 K/mm3 (0.00-0.23); BASOPHILS PERCENT AUTO 2 % (0-2); EOSINOPHILS ABSOLUTE AUTO 0.08 K/mm3 (0.00-0.68); EOSINOPHILS PERCENT AUTO 3 % (0-6); Hematocrit 27.2 % (37.0-53.0); Hemoglobin 8.9 g/dL (13.5-17.5); IMMATURE GRAN ABSOLUTE AUTO 0.08 K/mm3 (0.00-0.10); IMMATURE GRAN PERCENT AUTO 3 % (0-1); LYMPHOCYTES ABSOLUTE AUTO 0.71 K/mm3 (0.84-5.20); LYMPHOCYTES PERCENT AUTO 25 % (21-46); MONOCYTES ABSOLUTE AUTO 0.72 K/mm3 (0.16-1.47); MONOCYTES PERCENT AUTO 25 % (4-13); Mean Corpuscular HGB 38.9 pg (26.0-34.0); Mean Corpuscular HGB Conc 32.7 g/dL (31.5-36.5); Mean Corpuscular Volume 119 fL (80-100); Mean Platelet Volume 12.2 fL (9.1-12.4); NEUTROPHILS ABSOLUTE AUTO 1.24 K/mm3 (1.96-9.15); NEUTROPHILS PERCENT AUTO 43 % (41-73); NRBC ABSOLUTE 0.02 K/mm3 (0.00-0.02); NRBC Auto 0.7 /100 WBC (0.0-0.2); Platelet Count 80 K/mm3 (150-400); RDW Coefficient Variation 21.3 % (11.7-14.2); RDW Standard Deviation 94.2 fL (35.1-46.3); Red Blood Cell Count 2.29 M/mm3 (4.30-5.90); White Blood Cell Count 2.89 K/mm3 (4.00-11.30)
[2024-04-18 11:35] LABS: Albumin/Globulin Ratio 1.3 (0.8-1.8); Bilirubin, Total 1.3 mg/dL (0.1-1.0); Bun/Creatinine Ratio 9.4 (12.0-20.0); Calcium, Blood 8.1 mg/dL (8.5-10.1); Creatinine, Blood 7.12 mg/dL (0.60-1.20); Globulin, Blood 2.3 g/dL (2.2-4.0); Potassium, Blood 4.7 mmol/L (3.5-5.5); Total Protein, Blood 5.3 g/dL (6.4-8.2)
== END 2024-04-18 10:09 | disposition home or self-care (01) ==
LOC: ATC 07:48
PROVIDERS: Internal Medicine Hematology & Oncology
DX: D46.9 Myelodysplastic syndrome, unspecified (principal); I10 Essential (primary) hypertension; M06.9 Rheumatoid arthritis, unspecified; M81.0 Age-related osteoporosis without current pathological fracture; Z79.01 Long term (current) use of anticoagulants; Z79.1 Long term (current) use of non-steroidal anti-inflammatories (NSAID); Z79.83 Long term (current) use of bisphosphonates; Z79.899 Other long term (current) drug therapy; Z86.718 Personal history of other venous thrombosis and embolism
CPT/HCPCS: 36591; 80053; 85025; 96523; J1642

== ENCOUNTER 2024-04-21 01:03 | Day surgery (SDC) | payer MEDICARE, OTHER ==
[2024-04-21 10:40] VITALS: BP 130/93
[2024-04-21 11:23] LABS: BASOPHILS ABSOLUTE AUTO 0.04 K/mm3 (0.00-0.23); BASOPHILS PERCENT AUTO 2 % (0-2); EOSINOPHILS ABSOLUTE AUTO 0.04 K/mm3 (0.00-0.68); EOSINOPHILS PERCENT AUTO 2 % (0-6); Hematocrit 27.3 % (37.0-53.0); Hemoglobin 9.1 g/dL (13.5-17.5); IMMATURE GRAN ABSOLUTE AUTO 0.05 K/mm3 (0.00-0.10); IMMATURE GRAN PERCENT AUTO 2 % (0-1); LYMPHOCYTES ABSOLUTE AUTO 0.67 K/mm3 (0.84-5.20); LYMPHOCYTES PERCENT AUTO 26 % (21-46); MONOCYTES ABSOLUTE AUTO 1.04 K/mm3 (0.16-1.47); MONOCYTES PERCENT AUTO 40 % (4-13); Mean Corpuscular HGB 39.2 pg (26.0-34.0); Mean Corpuscular HGB Conc 33.3 g/dL (31.5-36.5); Mean Corpuscular Volume 118 fL (80-100); Mean Platelet Volume 11.6 fL (9.1-12.4); NEUTROPHILS ABSOLUTE AUTO 0.79 K/mm3 (1.96-9.15); NEUTROPHILS PERCENT AUTO 30 % (41-73); NRBC ABSOLUTE 0.02 K/mm3 (0.00-0.02); NRBC Auto 0.8 /100 WBC (0.0-0.2); Platelet Count 69 K/mm3 (150-400); RDW Coefficient Variation 19.3 % (11.7-14.2); RDW Standard Deviation 84.1 fL (35.1-46.3); Red Blood Cell Count 2.32 M/mm3 (4.30-5.90); White Blood Cell Count 2.63 K/mm3 (4.00-11.30)
[2024-04-21 11:53] LABS: Albumin, Blood 3.1 g/dL (3.4-5.0); Albumin/Globulin Ratio 1.2 (0.8-1.8); Bilirubin, Total 1.5 mg/dL (0.1-1.0); Bun/Creatinine Ratio 8.7 (12.0-20.0); Calcium, Blood 8.1 mg/dL (8.5-10.1); Globulin, Blood 2.6 g/dL (2.2-4.0); Potassium, Blood 3.2 mmol/L (3.5-5.5); Total Protein, Blood 5.7 g/dL (6.4-8.2)
== END 2024-04-21 10:51 | disposition home or self-care (01) ==
LOC: ATC 01:03
PROVIDERS: Internal Medicine Hematology & Oncology
DX: D46.9 Myelodysplastic syndrome, unspecified (principal); I10 Essential (primary) hypertension; I35.2 Nonrheumatic aortic (valve) stenosis with insufficiency; Z79.899 Other long term (current) drug therapy
CPT/HCPCS: 36591; 80053; 85025; J1642

== ENCOUNTER 2024-04-25 01:08 | Day surgery (SDC) | payer MEDICARE, OTHER ==
[2024-04-25 09:38] VITALS: BP 150/92
[2024-04-25 10:51] LABS: BASOPHILS ABSOLUTE AUTO 0.06 K/mm3 (0.00-0.23); BASOPHILS PERCENT AUTO 2 % (0-2); EOSINOPHILS ABSOLUTE AUTO 0.07 K/mm3 (0.00-0.68); EOSINOPHILS PERCENT AUTO 3 % (0-6); Hematocrit 28.1 % (37.0-53.0); Hemoglobin 9.4 g/dL (13.5-17.5); IMMATURE GRAN ABSOLUTE AUTO 0.04 K/mm3 (0.00-0.10); IMMATURE GRAN PERCENT AUTO 2 % (0-1); LYMPHOCYTES ABSOLUTE AUTO 0.66 K/mm3 (0.84-5.20); LYMPHOCYTES PERCENT AUTO 26 % (21-46); MONOCYTES ABSOLUTE AUTO 1.01 K/mm3 (0.16-1.47); MONOCYTES PERCENT AUTO 40 % (4-13); Mean Corpuscular HGB Conc 33.5 g/dL (31.5-36.5); Mean Corpuscular Volume 120 fL (80-100); Mean Platelet Volume 11.8 fL (9.1-12.4); NEUTROPHILS PERCENT AUTO 27 % (41-73); NRBC ABSOLUTE 0.03 K/mm3 (0.00-0.02); NRBC Auto 1.2 /100 WBC (0.0-0.2); Platelet Count 92 K/mm3 (150-400); RDW Coefficient Variation 18.2 % (11.7-14.2); RDW Standard Deviation 79.1 fL (35.1-46.3); Red Blood Cell Count 2.35 M/mm3 (4.30-5.90); White Blood Cell Count 2.54 K/mm3 (4.00-11.30)
[2024-04-25 11:15] LABS: Albumin, Blood 3.1 g/dL (3.4-5.0); Albumin/Globulin Ratio 1.3 (0.8-1.8); Bilirubin, Total 1.4 mg/dL (0.1-1.0); Bun/Creatinine Ratio 9.6 (12.0-20.0); Calcium, Blood 7.9 mg/dL (8.5-10.1); Creatinine, Blood 7.11 mg/dL (0.60-1.20); Globulin, Blood 2.4 g/dL (2.2-4.0); Potassium, Blood 3.8 mmol/L (3.5-5.5); Total Protein, Blood 5.5 g/dL (6.4-8.2)
== END 2024-04-25 09:50 | disposition home or self-care (01) ==
LOC: ATC 01:08
PROVIDERS: Internal Medicine Hematology & Oncology
DX: D46.9 Myelodysplastic syndrome, unspecified (principal); I10 Essential (primary) hypertension; M81.0 Age-related osteoporosis without current pathological fracture; Z79.899 Other long term (current) drug therapy
CPT/HCPCS: 36591; 80053; 85025; J1642

== ENCOUNTER 2024-04-28 00:21 | Day surgery (SDC) | payer MEDICARE, OTHER ==
[2024-04-28 10:58] VITALS: BP 126/84
[2024-04-28 11:22] LABS: BASOPHILS ABSOLUTE AUTO 0.05 K/mm3 (0.00-0.23); BASOPHILS PERCENT AUTO 2 % (0-2); EOSINOPHILS ABSOLUTE AUTO 0.07 K/mm3 (0.00-0.68); EOSINOPHILS PERCENT AUTO 3 % (0-6); Hematocrit 30.3 % (37.0-53.0); Hemoglobin 10.1 g/dL (13.5-17.5); IMMATURE GRAN ABSOLUTE AUTO 0.04 K/mm3 (0.00-0.10); IMMATURE GRAN PERCENT AUTO 2 % (0-1); LYMPHOCYTES ABSOLUTE AUTO 0.76 K/mm3 (0.84-5.20); LYMPHOCYTES PERCENT AUTO 34 % (21-46); MONOCYTES ABSOLUTE AUTO 0.88 K/mm3 (0.16-1.47); MONOCYTES PERCENT AUTO 40 % (4-13); Mean Corpuscular HGB 39.5 pg (26.0-34.0); Mean Corpuscular HGB Conc 33.3 g/dL (31.5-36.5); Mean Corpuscular Volume 118 fL (80-100); Mean Platelet Volume 11.2 fL (9.1-12.4); NEUTROPHILS ABSOLUTE AUTO 0.43 K/mm3 (1.96-9.15); NEUTROPHILS PERCENT AUTO 19 % (41-73); NRBC ABSOLUTE 0.02 K/mm3 (0.00-0.02); NRBC Auto 0.9 /100 WBC (0.0-0.2); Platelet Count 90 K/mm3 (150-400); RDW Coefficient Variation 17.7 % (11.7-14.2); RDW Standard Deviation 77.1 fL (35.1-46.3); Red Blood Cell Count 2.56 M/mm3 (4.30-5.90); White Blood Cell Count 2.23 K/mm3 (4.00-11.30)
[2024-04-28 11:51] LABS: Albumin, Blood 3.2 g/dL (3.4-5.0); Albumin/Globulin Ratio 1.1 (0.8-1.8); Bilirubin, Total 1.7 mg/dL (0.1-1.0); Bun/Creatinine Ratio 8.5 (12.0-20.0); Calcium, Blood 8.3 mg/dL (8.5-10.1); Creatinine, Blood 4.13 mg/dL (0.60-1.20); Globulin, Blood 2.8 g/dL (2.2-4.0); Potassium, Blood 3.3 mmol/L (3.5-5.5)
== END 2024-04-28 11:05 | disposition home or self-care (01) ==
LOC: ATC 00:21
PROVIDERS: Internal Medicine Hematology & Oncology
DX: D46.9 Myelodysplastic syndrome, unspecified (principal); I10 Essential (primary) hypertension; Z79.899 Other long term (current) drug therapy
CPT/HCPCS: 36591; 80053; 85025; J1642

== ENCOUNTER 2024-05-02 01:22 | Day surgery (SDC) | payer MEDICARE, OTHER ==
[2024-05-02 09:29] VITALS: BP 130/101
[2024-05-02 10:13] LABS: BASOPHILS ABSOLUTE AUTO 0.08 K/mm3 (0.00-0.23); BASOPHILS PERCENT AUTO 4 % (0-2); EOSINOPHILS ABSOLUTE AUTO 0.09 K/mm3 (0.00-0.68); EOSINOPHILS PERCENT AUTO 4 % (0-6); Hematocrit 29.4 % (37.0-53.0); Hemoglobin 9.8 g/dL (13.5-17.5); IMMATURE GRAN ABSOLUTE AUTO 0.06 K/mm3 (0.00-0.10); IMMATURE GRAN PERCENT AUTO 3 % (0-1); LYMPHOCYTES ABSOLUTE AUTO 0.56 K/mm3 (0.84-5.20); LYMPHOCYTES PERCENT AUTO 26 % (21-46); MONOCYTES ABSOLUTE AUTO 0.99 K/mm3 (0.16-1.47); MONOCYTES PERCENT AUTO 45 % (4-13); Mean Corpuscular HGB 39.7 pg (26.0-34.0); Mean Corpuscular HGB Conc 33.3 g/dL (31.5-36.5); Mean Corpuscular Volume 119 fL (80-100); Mean Platelet Volume 11.8 fL (9.1-12.4); NEUTROPHILS PERCENT AUTO 18 % (41-73); NRBC ABSOLUTE 0.02 K/mm3 (0.00-0.02); NRBC Auto 0.9 /100 WBC (0.0-0.2); Platelet Count 93 K/mm3 (150-400); RDW Coefficient Variation 17.2 % (11.7-14.2); RDW Standard Deviation 74.3 fL (35.1-46.3); Red Blood Cell Count 2.47 M/mm3 (4.30-5.90); White Blood Cell Count 2.18 K/mm3 (4.00-11.30)
[2024-05-02 10:32] LABS: Albumin/Globulin Ratio 1.1 (0.8-1.8); Bilirubin, Total 1.4 mg/dL (0.1-1.0); Bun/Creatinine Ratio 8.5 (12.0-20.0); Calcium, Blood 8.2 mg/dL (8.5-10.1); Creatinine, Blood 7.67 mg/dL (0.60-1.20); Globulin, Blood 2.7 g/dL (2.2-4.0); Potassium, Blood 4.3 mmol/L (3.5-5.5); Total Protein, Blood 5.7 g/dL (6.4-8.2)
== END 2024-05-02 09:36 | disposition home or self-care (01) ==
LOC: ATC 01:22
PROVIDERS: Internal Medicine Hematology & Oncology
DX: D46.9 Myelodysplastic syndrome, unspecified (principal); I10 Essential (primary) hypertension; Z79.899 Other long term (current) drug therapy
CPT/HCPCS: 36591; 80053; 85025; J1642

== ENCOUNTER 2024-05-05 02:44 | Day surgery (SDC) | payer MEDICARE, OTHER ==
[2024-05-05 10:50] VITALS: BP 128/90
[2024-05-05 12:19] LABS: BASOPHILS ABSOLUTE AUTO 0.06 K/mm3 (0.00-0.23); BASOPHILS PERCENT AUTO 3 % (0-2); EOSINOPHILS ABSOLUTE AUTO 0.04 K/mm3 (0.00-0.68); EOSINOPHILS PERCENT AUTO 2 % (0-6); Hematocrit 28.8 % (37.0-53.0); Hemoglobin 9.5 g/dL (13.5-17.5); IMMATURE GRAN ABSOLUTE AUTO 0.05 K/mm3 (0.00-0.10); IMMATURE GRAN PERCENT AUTO 2 % (0-1); LYMPHOCYTES ABSOLUTE AUTO 0.56 K/mm3 (0.84-5.20); LYMPHOCYTES PERCENT AUTO 24 % (21-46); MONOCYTES ABSOLUTE AUTO 1.22 K/mm3 (0.16-1.47); MONOCYTES PERCENT AUTO 52 % (4-13); Mean Corpuscular HGB 38.6 pg (26.0-34.0); Mean Corpuscular Volume 117 fL (80-100); Mean Platelet Volume 11.6 fL (9.1-12.4); NEUTROPHILS ABSOLUTE AUTO 0.44 K/mm3 (1.96-9.15); NEUTROPHILS PERCENT AUTO 19 % (41-73); NRBC ABSOLUTE 0.03 K/mm3 (0.00-0.02); NRBC Auto 1.3 /100 WBC (0.0-0.2); Platelet Count 78 K/mm3 (150-400); RDW Coefficient Variation 16.7 % (11.7-14.2); RDW Standard Deviation 72.1 fL (35.1-46.3); Red Blood Cell Count 2.46 M/mm3 (4.30-5.90); White Blood Cell Count 2.37 K/mm3 (4.00-11.30)
[2024-05-05 12:32] LABS: Albumin, Blood 2.8 g/dL (3.4-5.0); Bilirubin, Total 1.5 mg/dL (0.1-1.0); Bun/Creatinine Ratio 7.1 (12.0-20.0); Calcium, Blood 8.1 mg/dL (8.5-10.1); Creatinine, Blood 3.95 mg/dL (0.60-1.20); Globulin, Blood 2.9 g/dL (2.2-4.0); Potassium, Blood 3.1 mmol/L (3.5-5.5); Total Protein, Blood 5.7 g/dL (6.4-8.2)
== END 2024-05-05 11:03 | disposition home or self-care (01) ==
LOC: ATC 02:44
PROVIDERS: Internal Medicine Hematology & Oncology
DX: D46.9 Myelodysplastic syndrome, unspecified (principal); I10 Essential (primary) hypertension; M81.0 Age-related osteoporosis without current pathological fracture
CPT/HCPCS: 36591; 80053; 85025; J1642

== ENCOUNTER 2024-05-09 02:16 | Day surgery (SDC) | payer MEDICARE, OTHER ==
[2024-05-09 09:49] VITALS: BP 151/118
[2024-05-09 09:58] LABS: BASOPHILS ABSOLUTE AUTO 0.08 K/mm3 (0.00-0.23); BASOPHILS PERCENT AUTO 3 % (0-2); EOSINOPHILS ABSOLUTE AUTO 0.09 K/mm3 (0.00-0.68); EOSINOPHILS PERCENT AUTO 3 % (0-6); Hematocrit 28.2 % (37.0-53.0); Hemoglobin 9.5 g/dL (13.5-17.5); IMMATURE GRAN ABSOLUTE AUTO 0.14 K/mm3 (0.00-0.10); IMMATURE GRAN PERCENT AUTO 5 % (0-1); LYMPHOCYTES ABSOLUTE AUTO 1.18 K/mm3 (0.84-5.20); LYMPHOCYTES PERCENT AUTO 38 % (21-46); MONOCYTES ABSOLUTE AUTO 1.21 K/mm3 (0.16-1.47); MONOCYTES PERCENT AUTO 39 % (4-13); Mean Corpuscular HGB 38.8 pg (26.0-34.0); Mean Corpuscular HGB Conc 33.7 g/dL (31.5-36.5); Mean Corpuscular Volume 115 fL (80-100); NEUTROPHILS ABSOLUTE AUTO 0.41 K/mm3 (1.96-9.15); NEUTROPHILS PERCENT AUTO 13 % (41-73); Platelet Count 92 K/mm3 (150-400); RDW Coefficient Variation 15.9 % (11.7-14.2); RDW Standard Deviation 66.5 fL (35.1-46.3); Red Blood Cell Count 2.45 M/mm3 (4.30-5.90); White Blood Cell Count 3.11 K/mm3 (4.00-11.30)
[2024-05-09 11:03] LABS: Albumin/Globulin Ratio 1.2 (0.8-1.8); Bilirubin, Total 1.4 mg/dL (0.1-1.0); Bun/Creatinine Ratio 7.4 (12.0-20.0); Calcium, Blood 8.2 mg/dL (8.5-10.1); Creatinine, Blood 8.42 mg/dL (0.60-1.20); Globulin, Blood 2.6 g/dL (2.2-4.0); Potassium, Blood 4.6 mmol/L (3.5-5.5); Total Protein, Blood 5.6 g/dL (6.4-8.2)
== END 2024-05-09 09:51 | disposition home or self-care (01) ==
LOC: ATC 02:16
PROVIDERS: Internal Medicine Hematology & Oncology
DX: D46.9 Myelodysplastic syndrome, unspecified (principal); I10 Essential (primary) hypertension; M06.811 Other specified rheumatoid arthritis, right shoulder; M81.0 Age-related osteoporosis without current pathological fracture; Z79.899 Other long term (current) drug therapy
CPT/HCPCS: 36591; 80053; 85025; J1642

== ENCOUNTER 2024-05-12 01:27 | Day surgery (SDC) | payer MEDICARE, OTHER ==
[2024-05-12 10:35] VITALS: BP 104/74
[2024-05-12 11:28] LABS: BASOPHILS ABSOLUTE AUTO 0.08 K/mm3 (0.00-0.23); BASOPHILS PERCENT AUTO 3 % (0-2); EOSINOPHILS ABSOLUTE AUTO 0.05 K/mm3 (0.00-0.68); EOSINOPHILS PERCENT AUTO 2 % (0-6); Hematocrit 28.3 % (37.0-53.0); Hemoglobin 9.7 g/dL (13.5-17.5); IMMATURE GRAN ABSOLUTE AUTO 0.02 K/mm3 (0.00-0.10); IMMATURE GRAN PERCENT AUTO 1 % (0-1); LYMPHOCYTES ABSOLUTE AUTO 1.09 K/mm3 (0.84-5.20); LYMPHOCYTES PERCENT AUTO 41 % (21-46); MONOCYTES ABSOLUTE AUTO 1.07 K/mm3 (0.16-1.47); MONOCYTES PERCENT AUTO 41 % (4-13); Mean Corpuscular HGB 38.6 pg (26.0-34.0); Mean Corpuscular HGB Conc 34.3 g/dL (31.5-36.5); Mean Corpuscular Volume 113 fL (80-100); Mean Platelet Volume 11.4 fL (9.1-12.4); NEUTROPHILS ABSOLUTE AUTO 0.32 K/mm3 (1.96-9.15); NEUTROPHILS PERCENT AUTO 12 % (41-73); Platelet Count 94 K/mm3 (150-400); RDW Standard Deviation 66.7 fL (35.1-46.3); Red Blood Cell Count 2.51 M/mm3 (4.30-5.90); White Blood Cell Count 2.63 K/mm3 (4.00-11.30)
[2024-05-12 11:44] LABS: Albumin, Blood 2.9 g/dL (3.4-5.0); Bilirubin, Total 1.6 mg/dL (0.1-1.0); Creatinine, Blood 3.83 mg/dL (0.60-1.20); Globulin, Blood 2.9 g/dL (2.2-4.0); Potassium, Blood 3.4 mmol/L (3.5-5.5); Total Protein, Blood 5.8 g/dL (6.4-8.2)
[2024-05-14 13:01] LABS: % CD4 16 % (35-68); ABSOLUTE CD4 180 cells/uL (490-1600)
== END 2024-05-12 10:58 | disposition home or self-care (01) ==
LOC: ATC 01:27
PROVIDERS: Internal Medicine Hematology & Oncology
DX: D46.9 Myelodysplastic syndrome, unspecified (principal); I10 Essential (primary) hypertension; M81.0 Age-related osteoporosis without current pathological fracture; Z79.899 Other long term (current) drug therapy
CPT/HCPCS: 36591; 80053; 85025; 86361; J1642

== ENCOUNTER 2024-05-16 01:43 | Day surgery (SDC) | payer MEDICARE, OTHER ==
[2024-05-16 09:33] VITALS: BP 120/83
[2024-05-16 10:36] LABS: BASOPHILS ABSOLUTE AUTO 0.07 K/mm3 (0.00-0.23); BASOPHILS PERCENT AUTO 3 % (0-2); EOSINOPHILS ABSOLUTE AUTO 0.06 K/mm3 (0.00-0.68); EOSINOPHILS PERCENT AUTO 2 % (0-6); Hematocrit 29.1 % (37.0-53.0); Hemoglobin 9.6 g/dL (13.5-17.5); IMMATURE GRAN ABSOLUTE AUTO 0.05 K/mm3 (0.00-0.10); IMMATURE GRAN PERCENT AUTO 2 % (0-1); LYMPHOCYTES PERCENT AUTO 45 % (21-46); MONOCYTES PERCENT AUTO 34 % (4-13); Mean Corpuscular HGB 37.6 pg (26.0-34.0); Mean Corpuscular Volume 114 fL (80-100); Mean Platelet Volume 11.4 fL (9.1-12.4); NEUTROPHILS ABSOLUTE AUTO 0.39 K/mm3 (1.96-9.15); NEUTROPHILS PERCENT AUTO 15 % (41-73); NRBC ABSOLUTE 0.02 K/mm3 (0.00-0.02); NRBC Auto 0.7 /100 WBC (0.0-0.2); Platelet Count 110 K/mm3 (150-400); RDW Coefficient Variation 16.5 % (11.7-14.2); RDW Standard Deviation 68.5 fL (35.1-46.3); Red Blood Cell Count 2.55 M/mm3 (4.30-5.90); White Blood Cell Count 2.67 K/mm3 (4.00-11.30)
[2024-05-16 11:09] LABS: Albumin, Blood 3.1 g/dL (3.4-5.0); Albumin/Globulin Ratio 1.2 (0.8-1.8); Bilirubin, Total 1.5 mg/dL (0.1-1.0); Calcium, Blood 8.2 mg/dL (8.5-10.1); Creatinine, Blood 7.59 mg/dL (0.60-1.20); Globulin, Blood 2.6 g/dL (2.2-4.0); Potassium, Blood 4.1 mmol/L (3.5-5.5); Total Protein, Blood 5.7 g/dL (6.4-8.2)
== END 2024-05-16 09:41 | disposition home or self-care (01) ==
LOC: ATC 01:43
PROVIDERS: Internal Medicine Hematology & Oncology
DX: D46.9 Myelodysplastic syndrome, unspecified (principal); I10 Essential (primary) hypertension; Z79.899 Other long term (current) drug therapy
CPT/HCPCS: 36591; 80053; 85025; J1642

== ENCOUNTER 2024-05-19 02:06 | Day surgery (SDC) | payer MEDICARE, OTHER ==
[2024-05-19 10:58] VITALS: BP 120/78
[2024-05-19 11:23] LABS: BASOPHILS ABSOLUTE AUTO 0.08 K/mm3 (0.00-0.23); BASOPHILS PERCENT AUTO 3 % (0-2); EOSINOPHILS ABSOLUTE AUTO 0.06 K/mm3 (0.00-0.68); EOSINOPHILS PERCENT AUTO 2 % (0-6); Hemoglobin 9.7 g/dL (13.5-17.5); IMMATURE GRAN ABSOLUTE AUTO 0.06 K/mm3 (0.00-0.10); IMMATURE GRAN PERCENT AUTO 2 % (0-1); LYMPHOCYTES ABSOLUTE AUTO 0.98 K/mm3 (0.84-5.20); LYMPHOCYTES PERCENT AUTO 36 % (21-46); MONOCYTES ABSOLUTE AUTO 1.03 K/mm3 (0.16-1.47); MONOCYTES PERCENT AUTO 38 % (4-13); Mean Corpuscular HGB 38.2 pg (26.0-34.0); Mean Corpuscular HGB Conc 33.4 g/dL (31.5-36.5); Mean Corpuscular Volume 114 fL (80-100); Mean Platelet Volume 11.3 fL (9.1-12.4); NEUTROPHILS ABSOLUTE AUTO 0.49 K/mm3 (1.96-9.15); NEUTROPHILS PERCENT AUTO 18 % (41-73); NRBC ABSOLUTE 0.03 K/mm3 (0.00-0.02); NRBC Auto 1.1 /100 WBC (0.0-0.2); Platelet Count 97 K/mm3 (150-400); RDW Coefficient Variation 16.8 % (11.7-14.2); RDW Standard Deviation 70.1 fL (35.1-46.3); Red Blood Cell Count 2.54 M/mm3 (4.30-5.90)
[2024-05-19 11:39] LABS: Albumin, Blood 2.9 g/dL (3.4-5.0); Albumin/Globulin Ratio 1.1 (0.8-1.8); Bilirubin, Total 1.8 mg/dL (0.1-1.0); Bun/Creatinine Ratio 6.4 (12.0-20.0); Calcium, Blood 8.1 mg/dL (8.5-10.1); Creatinine, Blood 3.62 mg/dL (0.60-1.20); Globulin, Blood 2.7 g/dL (2.2-4.0); Potassium, Blood 3.3 mmol/L (3.5-5.5); Total Protein, Blood 5.6 g/dL (6.4-8.2)
== END 2024-05-19 11:02 | disposition home or self-care (01) ==
LOC: ATC 02:06
PROVIDERS: Internal Medicine Hematology & Oncology
DX: D46.9 Myelodysplastic syndrome, unspecified (principal); I10 Essential (primary) hypertension; Z79.899 Other long term (current) drug therapy
CPT/HCPCS: 36591; 80053; 85025; J1642

== ENCOUNTER 2024-05-23 02:18 | Day surgery (SDC) | payer MEDICARE, OTHER ==
[2024-05-23 09:35] VITALS: BP 138/99
[2024-05-23 10:09] LABS: BASOPHILS ABSOLUTE AUTO 0.08 K/mm3 (0.00-0.23); BASOPHILS PERCENT AUTO 3 % (0-2); EOSINOPHILS ABSOLUTE AUTO 0.05 K/mm3 (0.00-0.68); EOSINOPHILS PERCENT AUTO 2 % (0-6); Hematocrit 29.2 % (37.0-53.0); Hemoglobin 9.7 g/dL (13.5-17.5); IMMATURE GRAN ABSOLUTE AUTO 0.02 K/mm3 (0.00-0.10); IMMATURE GRAN PERCENT AUTO 1 % (0-1); LYMPHOCYTES PERCENT AUTO 35 % (21-46); MONOCYTES ABSOLUTE AUTO 1.09 K/mm3 (0.16-1.47); MONOCYTES PERCENT AUTO 38 % (4-13); Mean Corpuscular HGB 37.7 pg (26.0-34.0); Mean Corpuscular HGB Conc 33.2 g/dL (31.5-36.5); Mean Corpuscular Volume 114 fL (80-100); Mean Platelet Volume 11.4 fL (9.1-12.4); NEUTROPHILS ABSOLUTE AUTO 0.64 K/mm3 (1.96-9.15); NEUTROPHILS PERCENT AUTO 22 % (41-73); NRBC ABSOLUTE 0.03 K/mm3 (0.00-0.02); Platelet Count 101 K/mm3 (150-400); RDW Coefficient Variation 17.4 % (11.7-14.2); RDW Standard Deviation 71.5 fL (35.1-46.3); Red Blood Cell Count 2.57 M/mm3 (4.30-5.90); White Blood Cell Count 2.88 K/mm3 (4.00-11.30)
[2024-05-23 10:21] LABS: Albumin, Blood 2.9 g/dL (3.4-5.0); Albumin/Globulin Ratio 1.1 (0.8-1.8); Bilirubin, Total 1.3 mg/dL (0.1-1.0); Bun/Creatinine Ratio 7.6 (12.0-20.0); Calcium, Blood 8.3 mg/dL (8.5-10.1); Creatinine, Blood 7.63 mg/dL (0.60-1.20); Globulin, Blood 2.6 g/dL (2.2-4.0); Total Protein, Blood 5.5 g/dL (6.4-8.2)
== END 2024-05-23 09:44 | disposition home or self-care (01) ==
LOC: ATC 02:18
PROVIDERS: Internal Medicine Hematology & Oncology
DX: D46.9 Myelodysplastic syndrome, unspecified (principal); D70.9 Neutropenia, unspecified; D63.0 Anemia in neoplastic disease; L27.0 Generalized skin eruption due to drugs and medicaments taken internally; E80.4 Gilbert syndrome; D69.6 Thrombocytopenia, unspecified; I10 Essential (primary) hypertension; Z79.899 Other long term (current) drug therapy
CPT/HCPCS: 36591; 80053; 85025; J1642

== ENCOUNTER 2024-05-26 03:47 | Day surgery (SDC) | payer MEDICARE, OTHER ==
[2024-05-26 11:02] VITALS: BP 114/92
[2024-05-26 13:08] LABS: BASOPHILS ABSOLUTE AUTO 0.06 K/mm3 (0.00-0.23); BASOPHILS PERCENT AUTO 2 % (0-2); EOSINOPHILS ABSOLUTE AUTO 0.05 K/mm3 (0.00-0.68); EOSINOPHILS PERCENT AUTO 1 % (0-6); Hematocrit 30.3 % (37.0-53.0); Hemoglobin 10.1 g/dL (13.5-17.5); IMMATURE GRAN ABSOLUTE AUTO 0.03 K/mm3 (0.00-0.10); IMMATURE GRAN PERCENT AUTO 1 % (0-1); LYMPHOCYTES ABSOLUTE AUTO 1.05 K/mm3 (0.84-5.20); LYMPHOCYTES PERCENT AUTO 30 % (21-46); MONOCYTES ABSOLUTE AUTO 1.63 K/mm3 (0.16-1.47); MONOCYTES PERCENT AUTO 46 % (4-13); Mean Corpuscular HGB 38.1 pg (26.0-34.0); Mean Corpuscular HGB Conc 33.3 g/dL (31.5-36.5); Mean Corpuscular Volume 114 fL (80-100); Mean Platelet Volume 11.8 fL (9.1-12.4); NEUTROPHILS ABSOLUTE AUTO 0.73 K/mm3 (1.96-9.15); NEUTROPHILS PERCENT AUTO 21 % (41-73); NRBC ABSOLUTE 0.05 K/mm3 (0.00-0.02); NRBC Auto 1.4 /100 WBC (0.0-0.2); Platelet Count 96 K/mm3 (150-400); RDW Coefficient Variation 18.4 % (11.7-14.2); RDW Standard Deviation 75.7 fL (35.1-46.3); Red Blood Cell Count 2.65 M/mm3 (4.30-5.90); White Blood Cell Count 3.55 K/mm3 (4.00-11.30)
[2024-05-26 13:40] LABS: Albumin, Blood 3.2 g/dL (3.4-5.0); Albumin/Globulin Ratio 1.2 (0.8-1.8); Bilirubin, Total 1.6 mg/dL (0.1-1.0); Bun/Creatinine Ratio 7.1 (12.0-20.0); Calcium, Blood 8.3 mg/dL (8.5-10.1); Creatinine, Blood 3.82 mg/dL (0.60-1.20); Globulin, Blood 2.6 g/dL (2.2-4.0); Potassium, Blood 2.9 mmol/L (3.5-5.5); Total Protein, Blood 5.8 g/dL (6.4-8.2)
== END 2024-05-26 11:20 | disposition home or self-care (01) ==
LOC: ATC 03:47
PROVIDERS: Internal Medicine Hematology & Oncology
DX: D46.9 Myelodysplastic syndrome, unspecified (principal); I10 Essential (primary) hypertension; M06.9 Rheumatoid arthritis, unspecified; M81.0 Age-related osteoporosis without current pathological fracture; G43.909 Migraine, unspecified, not intractable, without status migrainosus; Z79.899 Other long term (current) drug therapy
CPT/HCPCS: 36591; 80053; 85025; J1642

== ENCOUNTER 2024-05-30 02:08 | Day surgery (SDC) | payer MEDICARE, OTHER ==
[2024-05-30 09:58] VITALS: BP 118/85
[2024-05-30 10:25] LABS: BASOPHILS ABSOLUTE AUTO 0.08 K/mm3 (0.00-0.23); BASOPHILS PERCENT AUTO 3 % (0-2); EOSINOPHILS ABSOLUTE AUTO 0.06 K/mm3 (0.00-0.68); EOSINOPHILS PERCENT AUTO 2 % (0-6); Hemoglobin 10.1 g/dL (13.5-17.5); IMMATURE GRAN ABSOLUTE AUTO 0.01 K/mm3 (0.00-0.10); IMMATURE GRAN PERCENT AUTO 0 % (0-1); LYMPHOCYTES ABSOLUTE AUTO 0.92 K/mm3 (0.84-5.20); LYMPHOCYTES PERCENT AUTO 28 % (21-46); MONOCYTES ABSOLUTE AUTO 1.22 K/mm3 (0.16-1.47); MONOCYTES PERCENT AUTO 37 % (4-13); Mean Corpuscular HGB 38.4 pg (26.0-34.0); Mean Corpuscular HGB Conc 33.7 g/dL (31.5-36.5); Mean Corpuscular Volume 114 fL (80-100); Mean Platelet Volume 10.6 fL (9.1-12.4); NEUTROPHILS ABSOLUTE AUTO 0.97 K/mm3 (1.96-9.15); NEUTROPHILS PERCENT AUTO 30 % (41-73); NRBC ABSOLUTE 0.02 K/mm3 (0.00-0.02); NRBC Auto 0.6 /100 WBC (0.0-0.2); Platelet Count 106 K/mm3 (150-400); RDW Coefficient Variation 18.5 % (11.7-14.2); RDW Standard Deviation 77.6 fL (35.1-46.3); Red Blood Cell Count 2.63 M/mm3 (4.30-5.90); White Blood Cell Count 3.26 K/mm3 (4.00-11.30)
[2024-05-30 11:04] LABS: Albumin, Blood 3.1 g/dL (3.4-5.0); Albumin/Globulin Ratio 1.2 (0.8-1.8); Bilirubin, Total 1.3 mg/dL (0.1-1.0); Bun/Creatinine Ratio 9.1 (12.0-20.0); Calcium, Blood 8.2 mg/dL (8.5-10.1); Creatinine, Blood 7.13 mg/dL (0.60-1.20); Globulin, Blood 2.6 g/dL (2.2-4.0); Potassium, Blood 3.9 mmol/L (3.5-5.5); Total Protein, Blood 5.7 g/dL (6.4-8.2)
== END 2024-05-30 10:02 | disposition home or self-care (01) ==
LOC: ATC 02:08
PROVIDERS: Internal Medicine Hematology & Oncology
DX: D46.9 Myelodysplastic syndrome, unspecified (principal)
CPT/HCPCS: 36591; 80053; 85025; J1642

== ENCOUNTER 2024-06-02 01:07 | Day surgery (SDC) | payer MEDICARE, OTHER ==
[2024-06-02 10:45] VITALS: BP 119/73
[2024-06-02 11:48] LABS: BASOPHILS ABSOLUTE AUTO 0.07 K/mm3 (0.00-0.23); BASOPHILS PERCENT AUTO 2 % (0-2); EOSINOPHILS ABSOLUTE AUTO 0.02 K/mm3 (0.00-0.68); EOSINOPHILS PERCENT AUTO 1 % (0-6); Hematocrit 29.6 % (37.0-53.0); Hemoglobin 9.8 g/dL (13.5-17.5); IMMATURE GRAN ABSOLUTE AUTO 0.04 K/mm3 (0.00-0.10); IMMATURE GRAN PERCENT AUTO 1 % (0-1); LYMPHOCYTES ABSOLUTE AUTO 1.62 K/mm3 (0.84-5.20); LYMPHOCYTES PERCENT AUTO 39 % (21-46); MONOCYTES ABSOLUTE AUTO 1.59 K/mm3 (0.16-1.47); MONOCYTES PERCENT AUTO 38 % (4-13); Mean Corpuscular HGB 37.8 pg (26.0-34.0); Mean Corpuscular HGB Conc 33.1 g/dL (31.5-36.5); Mean Corpuscular Volume 114 fL (80-100); NEUTROPHILS ABSOLUTE AUTO 0.83 K/mm3 (1.96-9.15); NEUTROPHILS PERCENT AUTO 20 % (41-73); NRBC ABSOLUTE 0.02 K/mm3 (0.00-0.02); NRBC Auto 0.5 /100 WBC (0.0-0.2); Platelet Count 98 K/mm3 (150-400); RDW Coefficient Variation 18.9 % (11.7-14.2); RDW Standard Deviation 79.7 fL (35.1-46.3); Red Blood Cell Count 2.59 M/mm3 (4.30-5.90); White Blood Cell Count 4.17 K/mm3 (4.00-11.30)
[2024-06-02 12:18] LABS: Albumin, Blood 3.1 g/dL (3.4-5.0); Albumin/Globulin Ratio 1.1 (0.8-1.8); Bilirubin, Total 1.5 mg/dL (0.1-1.0); Bun/Creatinine Ratio 12.1 (12.0-20.0); Calcium, Blood 8.2 mg/dL (8.5-10.1); Creatinine, Blood 3.4 mg/dL (0.60-1.20); Globulin, Blood 2.7 g/dL (2.2-4.0); Potassium, Blood 2.9 mmol/L (3.5-5.5); Total Protein, Blood 5.8 g/dL (6.4-8.2)
== END 2024-06-02 11:00 | disposition home or self-care (01) ==
LOC: ATC 01:07
PROVIDERS: Internal Medicine Hematology & Oncology
DX: D46.9 Myelodysplastic syndrome, unspecified (principal); I12.0 Hypertensive chronic kidney disease with stage 5 chronic kidney disease or end stage renal disease; N18.6 End stage renal disease; Z99.2 Dependence on renal dialysis; Z79.899 Other long term (current) drug therapy
CPT/HCPCS: 36591; 74018; 80053; 85025; J1642

== ENCOUNTER 2024-06-06 02:49 | Day surgery (SDC) | payer MEDICARE, OTHER ==
[2024-06-06 09:36] VITALS: BP 113/80
[2024-06-06 09:51] LABS: BASOPHILS ABSOLUTE AUTO 0.08 K/mm3 (0.00-0.23); BASOPHILS PERCENT AUTO 2 % (0-2); EOSINOPHILS ABSOLUTE AUTO 0.05 K/mm3 (0.00-0.68); EOSINOPHILS PERCENT AUTO 1 % (0-6); Hematocrit 30.2 % (37.0-53.0); Hemoglobin 10.3 g/dL (13.5-17.5); IMMATURE GRAN ABSOLUTE AUTO 0.02 K/mm3 (0.00-0.10); IMMATURE GRAN PERCENT AUTO 1 % (0-1); LYMPHOCYTES ABSOLUTE AUTO 1.12 K/mm3 (0.84-5.20); LYMPHOCYTES PERCENT AUTO 31 % (21-46); MONOCYTES ABSOLUTE AUTO 1.39 K/mm3 (0.16-1.47); MONOCYTES PERCENT AUTO 38 % (4-13); Mean Corpuscular HGB 38.4 pg (26.0-34.0); Mean Corpuscular HGB Conc 34.1 g/dL (31.5-36.5); Mean Corpuscular Volume 113 fL (80-100); Mean Platelet Volume 11.3 fL (9.1-12.4); NEUTROPHILS ABSOLUTE AUTO 0.97 K/mm3 (1.96-9.15); NEUTROPHILS PERCENT AUTO 27 % (41-73); NRBC ABSOLUTE 0.02 K/mm3 (0.00-0.02); NRBC Auto 0.6 /100 WBC (0.0-0.2); Platelet Count 118 K/mm3 (150-400); RDW Coefficient Variation 18.5 % (11.7-14.2); RDW Standard Deviation 75.3 fL (35.1-46.3); Red Blood Cell Count 2.68 M/mm3 (4.30-5.90); White Blood Cell Count 3.63 K/mm3 (4.00-11.30)
[2024-06-06 10:14] LABS: Albumin, Blood 3.1 g/dL (3.4-5.0); Albumin/Globulin Ratio 1.2 (0.8-1.8); Bilirubin, Total 1.4 mg/dL (0.1-1.0); Bun/Creatinine Ratio 8.7 (12.0-20.0); Calcium, Blood 8.2 mg/dL (8.5-10.1); Creatinine, Blood 7.05 mg/dL (0.60-1.20); Globulin, Blood 2.6 g/dL (2.2-4.0); Potassium, Blood 4.2 mmol/L (3.5-5.5); Total Protein, Blood 5.7 g/dL (6.4-8.2)
== END 2024-06-06 09:38 | disposition home or self-care (01) ==
LOC: ATC 02:49
PROVIDERS: Internal Medicine Hematology & Oncology
DX: D46.9 Myelodysplastic syndrome, unspecified (principal); I10 Essential (primary) hypertension; J18.9 Pneumonia, unspecified organism; J90 Pleural effusion, not elsewhere classified; J98.11 Atelectasis; Z79.899 Other long term (current) drug therapy
CPT/HCPCS: 71046; 80053; 85025; 96523; J1642

== ENCOUNTER 2024-06-09 02:40 | Day surgery (SDC) | payer MEDICARE, OTHER ==
[2024-06-09 11:10] VITALS: BP 120/75
[2024-06-09 11:42] LABS: BASOPHILS PERCENT AUTO 2 % (0-2); EOSINOPHILS PERCENT AUTO 1 % (0-6); Hematocrit 30.7 % (37.0-53.0); Hemoglobin 10.3 g/dL (13.5-17.5); IMMATURE GRAN PERCENT AUTO 1 % (0-1); MONOCYTES PERCENT AUTO 38 % (4-13); Mean Corpuscular HGB 37.7 pg (26.0-34.0); Mean Corpuscular HGB Conc 33.6 g/dL (31.5-36.5); Mean Corpuscular Volume 113 fL (80-100); NEUTROPHILS PERCENT AUTO 28 % (41-73); RDW Coefficient Variation 18.7 % (11.7-14.2); RDW Standard Deviation 76.4 fL (35.1-46.3); Red Blood Cell Count 2.73 M/mm3 (4.30-5.90); White Blood Cell Count 3.96 K/mm3 (4.00-11.30)
[2024-06-09 11:44] LABS: BASOPHILS ABSOLUTE AUTO 0.08 K/mm3 (0.00-0.23); EOSINOPHILS ABSOLUTE AUTO 0.04 K/mm3 (0.00-0.68); IMMATURE GRAN ABSOLUTE AUTO 0.05 K/mm3 (0.00-0.10); LYMPHOCYTES ABSOLUTE AUTO 1.19 K/mm3 (0.84-5.20); LYMPHOCYTES PERCENT AUTO 30 % (21-46); MONOCYTES ABSOLUTE AUTO 1.48 K/mm3 (0.16-1.47); Mean Platelet Volume 11.4 fL (9.1-12.4); NEUTROPHILS ABSOLUTE AUTO 1.08 K/mm3 (1.96-9.15); NRBC ABSOLUTE 0.02 K/mm3 (0.00-0.02); NRBC Auto 0.5 /100 WBC (0.0-0.2); Platelet Count 106 K/mm3 (150-400)
[2024-06-09 12:36] LABS: Albumin, Blood 3.1 g/dL (3.4-5.0); Albumin/Globulin Ratio 1.2 (0.8-1.8); Bilirubin, Total 1.5 mg/dL (0.1-1.0); Bun/Creatinine Ratio 8.7 (12.0-20.0); Creatinine, Blood 3.68 mg/dL (0.60-1.20); Globulin, Blood 2.6 g/dL (2.2-4.0); Potassium, Blood 3.1 mmol/L (3.5-5.5); Total Protein, Blood 5.7 g/dL (6.4-8.2)
== END 2024-06-09 11:08 | disposition home or self-care (01) ==
LOC: ATC 02:40
PROVIDERS: Internal Medicine Hematology & Oncology
DX: D46.9 Myelodysplastic syndrome, unspecified (principal); D63.0 Anemia in neoplastic disease; I10 Essential (primary) hypertension; M06.9 Rheumatoid arthritis, unspecified; M81.0 Age-related osteoporosis without current pathological fracture; Z79.1 Long term (current) use of non-steroidal anti-inflammatories (NSAID); Z79.899 Other long term (current) drug therapy
CPT/HCPCS: 80053; 85025; 96523; J1642

== ENCOUNTER 2024-06-13 00:18 | Day surgery (SDC) | payer MEDICARE, OTHER ==
[2024-06-13 09:31] VITALS: BP 149/98
[2024-06-13 09:58] LABS: BASOPHILS PERCENT AUTO 2 % (0-2); EOSINOPHILS ABSOLUTE AUTO 0.08 K/mm3 (0.00-0.68); EOSINOPHILS PERCENT AUTO 2 % (0-6); Hematocrit 32.4 % (37.0-53.0); Hemoglobin 10.8 g/dL (13.5-17.5); IMMATURE GRAN ABSOLUTE AUTO 0.04 K/mm3 (0.00-0.10); IMMATURE GRAN PERCENT AUTO 1 % (0-1); LYMPHOCYTES ABSOLUTE AUTO 1.25 K/mm3 (0.84-5.20); LYMPHOCYTES PERCENT AUTO 26 % (21-46); MONOCYTES ABSOLUTE AUTO 1.51 K/mm3 (0.16-1.47); MONOCYTES PERCENT AUTO 32 % (4-13); Mean Corpuscular HGB 37.4 pg (26.0-34.0); Mean Corpuscular HGB Conc 33.3 g/dL (31.5-36.5); Mean Corpuscular Volume 112 fL (80-100); Mean Platelet Volume 11.3 fL (9.1-12.4); NEUTROPHILS ABSOLUTE AUTO 1.77 K/mm3 (1.96-9.15); NEUTROPHILS PERCENT AUTO 37 % (41-73); Platelet Count 104 K/mm3 (150-400); RDW Coefficient Variation 18.4 % (11.7-14.2); RDW Standard Deviation 75.3 fL (35.1-46.3); Red Blood Cell Count 2.89 M/mm3 (4.30-5.90); White Blood Cell Count 4.75 K/mm3 (4.00-11.30)
[2024-06-13 10:29] LABS: Albumin, Blood 3.1 g/dL (3.4-5.0); Albumin/Globulin Ratio 1.2 (0.8-1.8); Bilirubin, Total 1.5 mg/dL (0.1-1.0); Bun/Creatinine Ratio 8.8 (12.0-20.0); Calcium, Blood 8.6 mg/dL (8.5-10.1); Creatinine, Blood 7.35 mg/dL (0.60-1.20); Globulin, Blood 2.6 g/dL (2.2-4.0); Potassium, Blood 4.2 mmol/L (3.5-5.5); Total Protein, Blood 5.7 g/dL (6.4-8.2)
== END 2024-06-13 09:25 | disposition home or self-care (01) ==
LOC: ATC 00:18
PROVIDERS: Internal Medicine Hematology & Oncology
DX: D46.9 Myelodysplastic syndrome, unspecified (principal); I10 Essential (primary) hypertension; M06.9 Rheumatoid arthritis, unspecified; M81.0 Age-related osteoporosis without current pathological fracture; Z79.83 Long term (current) use of bisphosphonates; Z79.1 Long term (current) use of non-steroidal anti-inflammatories (NSAID); Z79.899 Other long term (current) drug therapy
CPT/HCPCS: 36591; 80053; 85025; J1642

== ENCOUNTER 2024-06-16 00:32 | Day surgery (SDC) | payer MEDICARE, OTHER ==
[2024-06-16 11:31] VITALS: BP 131/88
[2024-06-16 12:35] LABS: BASOPHILS ABSOLUTE AUTO 0.06 K/mm3 (0.00-0.23); BASOPHILS PERCENT AUTO 1 % (0-2); EOSINOPHILS ABSOLUTE AUTO 0.04 K/mm3 (0.00-0.68); EOSINOPHILS PERCENT AUTO 1 % (0-6); Hematocrit 32.5 % (37.0-53.0); Hemoglobin 10.8 g/dL (13.5-17.5); IMMATURE GRAN ABSOLUTE AUTO 0.05 K/mm3 (0.00-0.10); IMMATURE GRAN PERCENT AUTO 1 % (0-1); LYMPHOCYTES ABSOLUTE AUTO 1.06 K/mm3 (0.84-5.20); LYMPHOCYTES PERCENT AUTO 22 % (21-46); MONOCYTES ABSOLUTE AUTO 1.18 K/mm3 (0.16-1.47); MONOCYTES PERCENT AUTO 25 % (4-13); Mean Corpuscular HGB 37.5 pg (26.0-34.0); Mean Corpuscular HGB Conc 33.2 g/dL (31.5-36.5); Mean Corpuscular Volume 113 fL (80-100); Mean Platelet Volume 12.3 fL (9.1-12.4); NEUTROPHILS ABSOLUTE AUTO 2.34 K/mm3 (1.96-9.15); NEUTROPHILS PERCENT AUTO 50 % (41-73); Platelet Count 99 K/mm3 (150-400); RDW Coefficient Variation 18.3 % (11.7-14.2); Red Blood Cell Count 2.88 M/mm3 (4.30-5.90); White Blood Cell Count 4.73 K/mm3 (4.00-11.30)
[2024-06-16 12:40] LABS: International Normalized Ratio 1.06; Prothrombin Time Results 11.3 Sec (9.7-11.5)
[2024-06-16 12:55] LABS: Albumin, Blood 3.2 g/dL (3.4-5.0); Albumin/Globulin Ratio 1.2 (0.8-1.8); Bilirubin, Total 1.5 mg/dL (0.1-1.0); Bun/Creatinine Ratio 7.9 (12.0-20.0); Calcium, Blood 8.3 mg/dL (8.5-10.1); Creatinine, Blood 3.66 mg/dL (0.60-1.20); Globulin, Blood 2.6 g/dL (2.2-4.0); Potassium, Blood 3.5 mmol/L (3.5-5.5); Total Protein, Blood 5.8 g/dL (6.4-8.2)
== END 2024-06-16 10:51 | disposition home or self-care (01) ==
LOC: ATC 00:32
PROVIDERS: Hospitalist; Internal Medicine Hematology & Oncology
DX: D46.9 Myelodysplastic syndrome, unspecified (principal); I12.0 Hypertensive chronic kidney disease with stage 5 chronic kidney disease or end stage renal disease; N18.6 End stage renal disease; Z79.899 Other long term (current) drug therapy
CPT/HCPCS: 36591; 80053; 85025; 85610; 85730; J1642

== ENCOUNTER 2024-06-20 01:40 | Day surgery (SDC) | payer MEDICARE, OTHER ==
[2024-06-20 10:25] VITALS: BP 141/82
[2024-06-20 11:18] LABS: BASOPHILS ABSOLUTE AUTO 0.08 K/mm3 (0.00-0.23); BASOPHILS PERCENT AUTO 2 % (0-2); EOSINOPHILS ABSOLUTE AUTO 0.04 K/mm3 (0.00-0.68); EOSINOPHILS PERCENT AUTO 1 % (0-6); Hematocrit 30.3 % (37.0-53.0); IMMATURE GRAN ABSOLUTE AUTO 0.05 K/mm3 (0.00-0.10); IMMATURE GRAN PERCENT AUTO 1 % (0-1); LYMPHOCYTES ABSOLUTE AUTO 0.93 K/mm3 (0.84-5.20); LYMPHOCYTES PERCENT AUTO 18 % (21-46); MONOCYTES ABSOLUTE AUTO 1.49 K/mm3 (0.16-1.47); MONOCYTES PERCENT AUTO 29 % (4-13); Mean Corpuscular HGB 37.3 pg (26.0-34.0); Mean Corpuscular Volume 113 fL (80-100); Mean Platelet Volume 11.8 fL (9.1-12.4); NEUTROPHILS ABSOLUTE AUTO 2.62 K/mm3 (1.96-9.15); NEUTROPHILS PERCENT AUTO 50 % (41-73); NRBC ABSOLUTE 0.02 K/mm3 (0.00-0.02); NRBC Auto 0.4 /100 WBC (0.0-0.2); Platelet Count 101 K/mm3 (150-400); RDW Coefficient Variation 18.3 % (11.7-14.2); RDW Standard Deviation 75.9 fL (35.1-46.3); Red Blood Cell Count 2.68 M/mm3 (4.30-5.90); White Blood Cell Count 5.21 K/mm3 (4.00-11.30)
[2024-06-20 12:10] LABS: Albumin/Globulin Ratio 1.2 (0.8-1.8); Bilirubin, Total 1.5 mg/dL (0.1-1.0); Calcium, Blood 8.4 mg/dL (8.5-10.1); Creatinine, Blood 7.3 mg/dL (0.60-1.20); Globulin, Blood 2.5 g/dL (2.2-4.0); Potassium, Blood 4.4 mmol/L (3.5-5.5); Total Protein, Blood 5.5 g/dL (6.4-8.2)
[2024-06-21 13:12] LABS: International Normalized Ratio 0.97; Prothrombin Time Results 10.4 Sec (9.7-11.5)
== END 2024-06-20 10:32 | disposition home or self-care (01) ==
LOC: ATC 01:40
PROVIDERS: Hospitalist; Internal Medicine Hematology & Oncology
DX: D46.9 Myelodysplastic syndrome, unspecified (principal); I10 Essential (primary) hypertension; I35.2 Nonrheumatic aortic (valve) stenosis with insufficiency; J90 Pleural effusion, not elsewhere classified; Z79.01 Long term (current) use of anticoagulants; Z79.899 Other long term (current) drug therapy
CPT/HCPCS: 32555; 36591; 71045; 80053; 82042; 83615; 85025; 85610; 85730; 87070; 87075; 87205; 88108; 88305; 89051; J1642

== ENCOUNTER 2024-06-23 04:10 | Day surgery (SDC) | payer MEDICARE, OTHER ==
[2024-06-23 10:45] VITALS: BP 126/75
[2024-06-23 11:49] LABS: BASOPHILS ABSOLUTE AUTO 0.07 K/mm3 (0.00-0.23); BASOPHILS PERCENT AUTO 1 % (0-2); EOSINOPHILS ABSOLUTE AUTO 0.04 K/mm3 (0.00-0.68); EOSINOPHILS PERCENT AUTO 1 % (0-6); Hematocrit 29.2 % (37.0-53.0); Hemoglobin 9.7 g/dL (13.5-17.5); IMMATURE GRAN ABSOLUTE AUTO 0.07 K/mm3 (0.00-0.10); IMMATURE GRAN PERCENT AUTO 1 % (0-1); LYMPHOCYTES ABSOLUTE AUTO 1.03 K/mm3 (0.84-5.20); LYMPHOCYTES PERCENT AUTO 16 % (21-46); MONOCYTES ABSOLUTE AUTO 1.84 K/mm3 (0.16-1.47); MONOCYTES PERCENT AUTO 29 % (4-13); Mean Corpuscular HGB 37.7 pg (26.0-34.0); Mean Corpuscular HGB Conc 33.2 g/dL (31.5-36.5); Mean Corpuscular Volume 114 fL (80-100); Mean Platelet Volume 12.5 fL (9.1-12.4); NEUTROPHILS ABSOLUTE AUTO 3.39 K/mm3 (1.96-9.15); NEUTROPHILS PERCENT AUTO 53 % (41-73); NRBC ABSOLUTE 0.02 K/mm3 (0.00-0.02); NRBC Auto 0.3 /100 WBC (0.0-0.2); Platelet Count 102 K/mm3 (150-400); RDW Coefficient Variation 18.6 % (11.7-14.2); RDW Standard Deviation 77.5 fL (35.1-46.3); Red Blood Cell Count 2.57 M/mm3 (4.30-5.90); White Blood Cell Count 6.44 K/mm3 (4.00-11.30)
[2024-06-23 12:29] LABS: Albumin, Blood 2.9 g/dL (3.4-5.0); Albumin/Globulin Ratio 1.1 (0.8-1.8); Bilirubin, Total 1.4 mg/dL (0.1-1.0); Bun/Creatinine Ratio 10.3 (12.0-20.0); Calcium, Blood 8.1 mg/dL (8.5-10.1); Creatinine, Blood 3.99 mg/dL (0.60-1.20); Globulin, Blood 2.7 g/dL (2.2-4.0); Potassium, Blood 3.3 mmol/L (3.5-5.5); Total Protein, Blood 5.6 g/dL (6.4-8.2)
== END 2024-06-23 11:00 | disposition home or self-care (01) ==
LOC: ATC 04:10
PROVIDERS: Internal Medicine Hematology & Oncology
DX: D46.9 Myelodysplastic syndrome, unspecified (principal); I10 Essential (primary) hypertension; Z79.899 Other long term (current) drug therapy
CPT/HCPCS: 36591; 80053; 85025; J1642

== ENCOUNTER 2024-06-27 02:08 | Day surgery (SDC) | payer MEDICARE, OTHER ==
[2024-06-27 09:35] VITALS: BP 148/110
[2024-06-27 10:14] LABS: BASOPHILS ABSOLUTE AUTO 0.08 K/mm3 (0.00-0.23); BASOPHILS PERCENT AUTO 2 % (0-2); EOSINOPHILS ABSOLUTE AUTO 0.08 K/mm3 (0.00-0.68); EOSINOPHILS PERCENT AUTO 2 % (0-6); Hematocrit 31.3 % (37.0-53.0); Hemoglobin 10.2 g/dL (13.5-17.5); IMMATURE GRAN ABSOLUTE AUTO 0.04 K/mm3 (0.00-0.10); IMMATURE GRAN PERCENT AUTO 1 % (0-1); LYMPHOCYTES ABSOLUTE AUTO 0.95 K/mm3 (0.84-5.20); LYMPHOCYTES PERCENT AUTO 19 % (21-46); MONOCYTES PERCENT AUTO 26 % (4-13); Mean Corpuscular HGB 37.2 pg (26.0-34.0); Mean Corpuscular HGB Conc 32.6 g/dL (31.5-36.5); Mean Corpuscular Volume 114 fL (80-100); Mean Platelet Volume 11.8 fL (9.1-12.4); NEUTROPHILS ABSOLUTE AUTO 2.61 K/mm3 (1.96-9.15); NEUTROPHILS PERCENT AUTO 52 % (41-73); Platelet Count 117 K/mm3 (150-400); Red Blood Cell Count 2.74 M/mm3 (4.30-5.90); White Blood Cell Count 5.06 K/mm3 (4.00-11.30)
[2024-06-27 10:36] LABS: Albumin, Blood 3.1 g/dL (3.4-5.0); Albumin/Globulin Ratio 1.1 (0.8-1.8); Bilirubin, Total 1.3 mg/dL (0.1-1.0); Bun/Creatinine Ratio 8.1 (12.0-20.0); Calcium, Blood 8.5 mg/dL (8.5-10.1); Creatinine, Blood 7.38 mg/dL (0.60-1.20); Globulin, Blood 2.7 g/dL (2.2-4.0); Potassium, Blood 4.4 mmol/L (3.5-5.5); Total Protein, Blood 5.8 g/dL (6.4-8.2)
== END 2024-06-27 09:41 | disposition home or self-care (01) ==
LOC: ATC 02:08
PROVIDERS: Internal Medicine Hematology & Oncology
DX: D46.9 Myelodysplastic syndrome, unspecified (principal); I10 Essential (primary) hypertension; I35.2 Nonrheumatic aortic (valve) stenosis with insufficiency; Z79.01 Long term (current) use of anticoagulants; Z79.899 Other long term (current) drug therapy
CPT/HCPCS: 36591; 80053; 85025; J1642

== ENCOUNTER 2024-06-30 03:55 | Emergency (ER) | payer MEDICARE, OTHER ==
[~2024-06-30] VITALS: Ht 180.3 cm; Wt 74.8 kg
[2024-06-30 05:01] LABS: BASOPHILS ABSOLUTE AUTO 0.05 K/mm3 (0.00-0.23); BASOPHILS PERCENT AUTO 1 % (0-2); EOSINOPHILS ABSOLUTE AUTO 0.04 K/mm3 (0.00-0.68); EOSINOPHILS PERCENT AUTO 1 % (0-6); Hematocrit 29.3 % (37.0-53.0); Hemoglobin 9.6 g/dL (13.5-17.5); IMMATURE GRAN ABSOLUTE AUTO 0.04 K/mm3 (0.00-0.10); IMMATURE GRAN PERCENT AUTO 1 % (0-1); LYMPHOCYTES PERCENT AUTO 16 % (21-46); MONOCYTES ABSOLUTE AUTO 1.83 K/mm3 (0.16-1.47); MONOCYTES PERCENT AUTO 24 % (4-13); Mean Corpuscular HGB 37.4 pg (26.0-34.0); Mean Corpuscular HGB Conc 32.8 g/dL (31.5-36.5); Mean Corpuscular Volume 114 fL (80-100); Mean Platelet Volume 11.4 fL (9.1-12.4); NEUTROPHILS ABSOLUTE AUTO 4.59 K/mm3 (1.96-9.15); NEUTROPHILS PERCENT AUTO 59 % (41-73); NRBC ABSOLUTE 0.02 K/mm3 (0.00-0.02); NRBC Auto 0.3 /100 WBC (0.0-0.2); Platelet Count 107 K/mm3 (150-400); RDW Coefficient Variation 17.7 % (11.7-14.2); RDW Standard Deviation 73.9 fL (35.1-46.3); Red Blood Cell Count 2.57 M/mm3 (4.30-5.90); White Blood Cell Count 7.75 K/mm3 (4.00-11.30)
[2024-06-30 05:32] LABS: Albumin, Blood 2.9 g/dL (3.4-5.0); Albumin/Globulin Ratio 1.1 (0.8-1.8); Bilirubin, Total 1.4 mg/dL (0.1-1.0); Bun/Creatinine Ratio 8.3 (12.0-20.0); Calcium, Blood 8.3 mg/dL (8.5-10.1); Creatinine, Blood 7.48 mg/dL (0.60-1.20); Globulin, Blood 2.6 g/dL (2.2-4.0); Potassium, Blood 4.4 mmol/L (3.5-5.5); Total Protein, Blood 5.5 g/dL (6.4-8.2)
[2024-06-30 05:57] VITALS: BP 135/79
[2024-06-30] MEDS ORDERED: LOW DOSE ASPIRI81 M1 PO (10:22)
[2024-06-30] MEDS ORDERED: CLOP75 PO (10:23)
[2024-06-30] MEDS ORDERED: METO25ER PO (10:24)
[2024-06-30] MEDS ORDERED: HYDR10 PO (10:25)
[2024-06-30] MEDS ORDERED: ATOR20 PO (10:25)
[2024-06-30] MEDS ORDERED: Estrace Vagin42.5 GM VAG (10:26)
[2024-06-30] MEDS ORDERED: HYDCHL25 PO (10:27)
[2024-06-30] MEDS ORDERED: AZO D-MANNOSE500 M1 PO (10:27)
[2024-06-30] MEDS ORDERED: CLOBETASOL EMOL15 G1 VAG (10:27)
[2024-06-30] MEDS ORDERED: PENVK500 PO (10:28)
[2024-06-30] MEDS ORDERED: LACT PO (10:33)
[2024-06-30] MEDS ORDERED: Millipred5 MG PO (10:34)
[2024-06-30] MEDS ORDERED: Calcium Acetat667 MG PO (10:35)
[2024-06-30] MEDS ORDERED: ZOFRAN8 MG PO (10:35)
[2024-06-30] MEDS ORDERED: MIDODRINE HCL10 M1 PO (10:35)
[2024-06-30] MEDS ORDERED: URSO300 PO (10:35)
[2024-06-30] MEDS ORDERED: ACYC200 PO (10:36)
[2024-06-30] MEDS ORDERED: THERA-D2000 UNIT PO (10:37)
== END 2024-06-30 06:07 | disposition home or self-care (01) ==
LOC: ER 03:55
PROVIDERS: Emergency Medicine
DX: J90 Pleural effusion, not elsewhere classified (principal); I48.91 Unspecified atrial fibrillation; Z79.52 Long term (current) use of systemic steroids; Z79.899 Other long term (current) drug therapy
CPT/HCPCS: 71046; 80053; 84484; 85025; 93005; 93010; 99285-25

== ENCOUNTER 2024-07-04 09:27 | Day surgery (SDC) | payer MEDICARE, OTHER ==
[~2024-07-04 09:27] MED LIST changes: +ACYC200 PO; +ATOR20 PO; +AZO D-MANNOSE500 M1 PO; +CLOBETASOL EMOL15 G1 VAG; +CLOP75 PO; +Calcium Acetat667 MG PO; +Estrace Vagin42.5 GM VAG; +HYDCHL25 PO; +HYDR10 PO; +LACT PO; +LOW DOSE ASPIRI81 M1 PO; +METO25ER PO; +MIDODRINE HCL10 M1 PO; +Millipred5 MG PO; +PENVK500 PO; +THERA-D2000 UNIT PO; +URSO300 PO; +ZOFRAN8 MG PO
[2024-07-04 09:35] VITALS: BP 147/103
[2024-07-04 10:33] LABS: BASOPHILS ABSOLUTE AUTO 0.09 K/mm3 (0.00-0.23); BASOPHILS PERCENT AUTO 1 % (0-2); EOSINOPHILS ABSOLUTE AUTO 0.09 K/mm3 (0.00-0.68); EOSINOPHILS PERCENT AUTO 1 % (0-6); Hematocrit 31.3 % (37.0-53.0); Hemoglobin 10.4 g/dL (13.5-17.5); IMMATURE GRAN ABSOLUTE AUTO 0.06 K/mm3 (0.00-0.10); IMMATURE GRAN PERCENT AUTO 1 % (0-1); LYMPHOCYTES ABSOLUTE AUTO 0.92 K/mm3 (0.84-5.20); LYMPHOCYTES PERCENT AUTO 14 % (21-46); MONOCYTES ABSOLUTE AUTO 1.37 K/mm3 (0.16-1.47); MONOCYTES PERCENT AUTO 22 % (4-13); Mean Corpuscular HGB 36.9 pg (26.0-34.0); Mean Corpuscular HGB Conc 33.2 g/dL (31.5-36.5); Mean Corpuscular Volume 111 fL (80-100); Mean Platelet Volume 11.5 fL (9.1-12.4); NEUTROPHILS ABSOLUTE AUTO 3.84 K/mm3 (1.96-9.15); NEUTROPHILS PERCENT AUTO 60 % (41-73); Platelet Count 136 K/mm3 (150-400); RDW Coefficient Variation 16.5 % (11.7-14.2); RDW Standard Deviation 67.6 fL (35.1-46.3); Red Blood Cell Count 2.82 M/mm3 (4.30-5.90); White Blood Cell Count 6.37 K/mm3 (4.00-11.30)
[2024-07-04 10:50] LABS: Albumin, Blood 3.1 g/dL (3.4-5.0); Albumin/Globulin Ratio 1.1 (0.8-1.8); Bilirubin, Total 1.3 mg/dL (0.1-1.0); Bun/Creatinine Ratio 10.5 (12.0-20.0); Calcium, Blood 8.4 mg/dL (8.5-10.1); Creatinine, Blood 7.78 mg/dL (0.60-1.20); Globulin, Blood 2.8 g/dL (2.2-4.0); Total Protein, Blood 5.9 g/dL (6.4-8.2)
== END 2024-07-04 09:37 | disposition home or self-care (01) ==
LOC: ATC 09:27
PROVIDERS: Internal Medicine Hematology & Oncology
DX: D46.9 Myelodysplastic syndrome, unspecified (principal); D63.0 Anemia in neoplastic disease; D69.6 Thrombocytopenia, unspecified; E80.4 Gilbert syndrome; M81.0 Age-related osteoporosis without current pathological fracture; M06.9 Rheumatoid arthritis, unspecified; I35.2 Nonrheumatic aortic (valve) stenosis with insufficiency; I10 Essential (primary) hypertension; Z79.01 Long term (current) use of anticoagulants; Z79.2 Long term (current) use of antibiotics; Z79.83 Long term (current) use of bisphosphonates; Z79.899 Other long term (current) drug therapy
CPT/HCPCS: 36591; 80053; 85025; J1642

== ENCOUNTER 2024-07-07 02:59 | Day surgery (SDC) | payer MEDICARE, OTHER ==
[2024-07-07 11:00] VITALS: BP 129/88
[2024-07-07 11:33] LABS: BASOPHILS ABSOLUTE AUTO 0.06 K/mm3 (0.00-0.23); BASOPHILS PERCENT AUTO 1 % (0-2); EOSINOPHILS ABSOLUTE AUTO 0.06 K/mm3 (0.00-0.68); EOSINOPHILS PERCENT AUTO 1 % (0-6); Hematocrit 28.4 % (37.0-53.0); Hemoglobin 9.5 g/dL (13.5-17.5); IMMATURE GRAN ABSOLUTE AUTO 0.02 K/mm3 (0.00-0.10); IMMATURE GRAN PERCENT AUTO 0 % (0-1); LYMPHOCYTES ABSOLUTE AUTO 0.93 K/mm3 (0.84-5.20); LYMPHOCYTES PERCENT AUTO 15 % (21-46); MONOCYTES ABSOLUTE AUTO 1.84 K/mm3 (0.16-1.47); MONOCYTES PERCENT AUTO 30 % (4-13); Mean Corpuscular HGB 37.1 pg (26.0-34.0); Mean Corpuscular HGB Conc 33.5 g/dL (31.5-36.5); Mean Corpuscular Volume 111 fL (80-100); Mean Platelet Volume 11.8 fL (9.1-12.4); NEUTROPHILS ABSOLUTE AUTO 3.19 K/mm3 (1.96-9.15); NEUTROPHILS PERCENT AUTO 52 % (41-73); Platelet Count 110 K/mm3 (150-400); RDW Coefficient Variation 16.2 % (11.7-14.2); RDW Standard Deviation 66.6 fL (35.1-46.3); Red Blood Cell Count 2.56 M/mm3 (4.30-5.90)
[2024-07-07 12:19] LABS: Albumin/Globulin Ratio 1.2 (0.8-1.8); Bilirubin, Total 1.5 mg/dL (0.1-1.0); Bun/Creatinine Ratio 10.8 (12.0-20.0); Calcium, Blood 8.2 mg/dL (8.5-10.1); Creatinine, Blood 4.34 mg/dL (0.60-1.20); Globulin, Blood 2.6 g/dL (2.2-4.0); Potassium, Blood 3.6 mmol/L (3.5-5.5); Total Protein, Blood 5.6 g/dL (6.4-8.2)
== END 2024-07-07 11:07 | disposition home or self-care (01) ==
LOC: ATC 02:59
PROVIDERS: Internal Medicine Hematology & Oncology
DX: D64.9 Anemia, unspecified (principal); E11.40 Type 2 diabetes mellitus with diabetic neuropathy, unspecified; I10 Essential (primary) hypertension; E78.5 Hyperlipidemia, unspecified; I48.0 Paroxysmal atrial fibrillation; Z79.4 Long term (current) use of insulin; Z79.01 Long term (current) use of anticoagulants; Z79.899 Other long term (current) drug therapy; Z88.8 Allergy status to other drugs, medicaments and biological substances; Z91.040 Latex allergy status; Z87.891 Personal history of nicotine dependence
CPT/HCPCS: 36591; 80053; 85025; J1642

== ENCOUNTER 2024-07-11 01:38 | Inpatient (IN) | payer MEDICARE, OTHER ==
[2024-07-11] VITALS (16 sets, daily range): BP systolic 79–148; BP diastolic 58–96
[~2024-07-11] VITALS: Ht 180.3 cm; Wt 76.8 kg
[2024-07-11] MEDS ORDERED: Morphine Sulfate 4 MG/1 ML Injection IV ONE ×2 (03:10→05:35)
[2024-07-11] MEDS ORDERED: Ondansetron HCl 2 MG / ML 2ML Vial IV ONE (03:10)
[2024-07-11 03:43] LABS: BASOPHILS ABSOLUTE AUTO 0.03 K/mm3 (0.00-0.23); BASOPHILS PERCENT AUTO 0 % (0-2); EOSINOPHILS PERCENT AUTO 0 % (0-6); Hematocrit 25.8 % (37.0-53.0); Hemoglobin 8.5 g/dL (13.5-17.5); IMMATURE GRAN ABSOLUTE AUTO 0.06 K/mm3 (0.00-0.10); IMMATURE GRAN PERCENT AUTO 1 % (0-1); LYMPHOCYTES ABSOLUTE AUTO 0.48 K/mm3 (0.84-5.20); LYMPHOCYTES PERCENT AUTO 5 % (21-46); MONOCYTES ABSOLUTE AUTO 2.05 K/mm3 (0.16-1.47); MONOCYTES PERCENT AUTO 20 % (4-13); Mean Corpuscular HGB 36.6 pg (26.0-34.0); Mean Corpuscular HGB Conc 32.9 g/dL (31.5-36.5); Mean Corpuscular Volume 111 fL (80-100); Mean Platelet Volume 11.8 fL (9.1-12.4); NEUTROPHILS ABSOLUTE AUTO 7.68 K/mm3 (1.96-9.15); NEUTROPHILS PERCENT AUTO 75 % (41-73); Platelet Count 136 K/mm3 (150-400); RDW Coefficient Variation 16.2 % (11.7-14.2); RDW Standard Deviation 65.3 fL (35.1-46.3); Red Blood Cell Count 2.32 M/mm3 (4.30-5.90)
[2024-07-11 04:03] LABS: Albumin/Globulin Ratio 1.2 (0.8-1.8); Bilirubin, Total 0.9 mg/dL (0.1-1.0); Bun/Creatinine Ratio 10.2 (12.0-20.0); Calcium, Blood 8.3 mg/dL (8.5-10.1); Creatinine, Blood 7.88 mg/dL (0.60-1.20); Globulin, Blood 2.4 g/dL (2.2-4.0); Potassium, Blood 5.3 mmol/L (3.5-5.5); Total Protein, Blood 5.4 g/dL (6.4-8.2)
[2024-07-11] MEDS ORDERED: Acetaminophen 325 MG TABLET PO PRN (06:10)
[2024-07-11] MEDS ORDERED: Ondansetron HCl 2 MG / ML 2ML Vial IV PRN (06:10)
[2024-07-11] MEDS ORDERED: HYDROcodone 5-APAP 325 TAB PO PRN (06:10)
[2024-07-11] MEDS ORDERED: Polyethylene Glycol 3350 17 gm PO PRN (06:15)
[2024-07-11] MEDS ORDERED: Morphine Sulfate 4 MG/1 ML Injection IV PRN (06:45)
[2024-07-11] MEDS ORDERED: Naloxone HCl 0.4MG / ML 1ML Vial IV PRN (06:45)
[2024-07-11] MEDS ORDERED: Calcium Acetate 667 MG Gel Cap PO SCH (09:00)
[2024-07-11] MEDS ORDERED: Midodrine 5 MG Tab PO SCH (09:00)
[2024-07-11] MEDS ORDERED: Vitamin B Cmplx/Vit C/Folic Ac 1 Tab PO SCH (09:00)
[2024-07-11] MEDS ORDERED: Metoprolol Tartrate 50 MG Tab PO SCH ×2 (09:00→21:00)
[2024-07-11] MEDS ORDERED: ELIQUIS5 M2 PO (09:13)
[2024-07-11] MEDS ORDERED: PENVK500 PO (09:14)
[2024-07-11] MEDS ORDERED: Penicillin V Potassium 250 MG Tab PO SCH (10:00)
[2024-07-11] MEDS ORDERED: Acyclovir 200 MG Cap PO SCH (10:00)
[2024-07-11] MEDS ORDERED: Prochlorperazine Edisylate 10 mg Vial IV ONE (11:55)
[2024-07-11] MEDS ORDERED: Albumin (Human) 25gm/100ml 100 ML IV ONE (13:05)
--- NOTE | 2024-07-11 14:05 | NUR ---
SHIFT SUMMARY: PT A&OX4 ANXIOUS BUT COOPERATIVE. ST 100S. ELEVATED BP WITH SBP >160. MEDICATED PER EMAR. 4L NC MAINTAINING 90%-94% SPO2. 1 PERSON ASSIST TO BSC. PT REPORTED FEELING ANXIOUS AND MEDICATED PER EMAR. PT UP IN CHAIR FOR MOST OF SHIFT. REPORT GIVEN TO MEDICAL FLOOR NURSE AND PT TRANSFERRED TO ROOM 327.
[2024-07-11] MEDS ORDERED: PROBIOTIC1 EA14 PO (17:01)
[2024-07-11] MEDS ORDERED: MAGNESIUM OXID500 MG PO (17:01)
[2024-07-11] MEDS ORDERED: DOCU100 (17:02)
--- NOTE | 2024-07-11 18:45 | NUR ---
SHIFT SUMMARY: PT A&OX4 AND AGITATED. PAIN IN LEFT RIBS UPON ADMISSION TO UNIT. MEDICATED PER EMAR. AFIB 90S. PT REPORTS NO CHEST PAIN. SATTING 94% ON 3L NC. BLE EDEMA. RIGHT ARM FISTULA. PT REPORTS LAST DOSE OF ELIQUIS WAS TAKEN THE NIGHT OF 07/10. DIALYSIS TOMORROW. TYPE AND SCREEN ORDERED. 1 PERSON ASSIST. IS SUPPORTIVE AT BEDSIDE. PT REPORTS TO SPEAK TO REGARDING HIS CARE. BED IS LOW AND LOCKED AND CALL LIGHT WITHIN REACH.
[2024-07-11] MEDS ORDERED: DAPSONE 100 MG PO SCH (21:00)
[2024-07-12] VITALS (21 sets, daily range): BP systolic 83–136; BP diastolic 65–98
[2024-07-12 05:50] LABS: BASOPHILS ABSOLUTE AUTO 0.03 K/mm3 (0.00-0.23); BASOPHILS PERCENT AUTO 1 % (0-2); EOSINOPHILS ABSOLUTE AUTO 0.01 K/mm3 (0.00-0.68); EOSINOPHILS PERCENT AUTO 0 % (0-6); Hematocrit 20.9 % (37.0-53.0); Hemoglobin 6.9 g/dL (13.5-17.5); IMMATURE GRAN ABSOLUTE AUTO 0.02 K/mm3 (0.00-0.10); IMMATURE GRAN PERCENT AUTO 0 % (0-1); LYMPHOCYTES PERCENT AUTO 14 % (21-46); MONOCYTES ABSOLUTE AUTO 2.79 K/mm3 (0.16-1.47); MONOCYTES PERCENT AUTO 44 % (4-13); Mean Corpuscular HGB 37.7 pg (26.0-34.0); Mean Corpuscular Volume 114 fL (80-100); Mean Platelet Volume 11.3 fL (9.1-12.4); NEUTROPHILS ABSOLUTE AUTO 2.63 K/mm3 (1.96-9.15); NEUTROPHILS PERCENT AUTO 41 % (41-73); NRBC ABSOLUTE 0.02 K/mm3 (0.00-0.02); NRBC Auto 0.3 /100 WBC (0.0-0.2); Platelet Count 114 K/mm3 (150-400); RDW Coefficient Variation 16.6 % (11.7-14.2); RDW Standard Deviation 67.9 fL (35.1-46.3); Red Blood Cell Count 1.83 M/mm3 (4.30-5.90); White Blood Cell Count 6.38 K/mm3 (4.00-11.30)
[2024-07-12 06:07] LABS: Anion Gap 12 mmol/L (3-11); Blood Urea Nitrogen 51 mg/dL (8-24); Bun/Creatinine Ratio 8.5 (12.0-20.0); CO2, Blood 31 mmol/L (21-32); Calcium, Blood 8.5 mg/dL (8.5-10.1); Chloride, Blood 99 mmol/L (98-108); Creatinine, Blood 6.03 mg/dL (0.60-1.20); Glomerular Filtration Rate 9 (60-); Glucose, Blood 101 mg/dL (70-99); Phosphorus, Blood 5.7 mg/dL (2.5-4.9); Potassium, Blood 4.6 mmol/L (3.5-5.5); Sodium, Blood 137 mmol/L (136-145)
--- NOTE | 2024-07-12 06:26 | NUR ---
SHIFT SUMMARY PATIENT A&O X4. PATIENT TITRATED FROM 3L O2 TO 2 L O2 VIA NC. HE STATED FEELING PAIN, MEDICATED PER EMAR. MORNING LABS SHOWED A HEMOGLOBIN OF 6.9, PROVIDER NOTIFIED, ORDER OBTAINED TO TRANSFUSE ONE UNIT OF IRRADIATED PRBC'S, BLOOD CONSENT SIGNED AND ON CHART.
[2024-07-12] MEDS ORDERED: Misc. Tablet PO SCH (09:00)
[2024-07-12] MEDS ORDERED: Metoprolol Tartrate 50 MG Tab PO SCH (09:00)
[2024-07-12] MEDS ORDERED: Ursodiol 300 MG Cap PO SCH (09:00)
--- NOTE | 2024-07-12 12:18 | NUR ---
PT BACK TO ROOM FROM DIALYSIS. PT DENIES ANY COMPLAINTS AT THIS TIME. VSS. NO REPORTS OF CP, PRESSURE, TIGHTNESS OR SOB. PT LYING IN BED EATING LUNCH. DENIES ANY FURTHER NEEDS. CALL LIGHT IN REACH.
--- NOTE | 2024-07-12 17:29 | NUR ---
SHIFT SUMMARY; ASSUMED CARE AT 0700 WITH ORIENTEE RN BJ. A/A/OX4 DURING SHIFT, REPOSITIONS SELF ON BED AND TRANSFERS SELF TO CHAIR. DIALYSIS COMPLETED TODAY, 2L REMOVED. VSS, 3L 02 VIA [place]. LEFT FLANK BRUISING AND TENDERNESS FROM FALL WORSENING T/O DAY. TELEPHONE CALL TO DR. DACOSTA TO DISCUSS, CT ORDERED. BRUISING OUTLINED. COOPERATIVE WITH CARE, SPOUSE AT BEDSIDE IN EVENING, WILL CONTINUE TO MONITOR AND TX UNTIL REPORT GIVEN TO NOC SHIFT RN.
[2024-07-12] MEDS ORDERED: Magnesium Oxide 400 MG Tab PO SCH (21:00)
[2024-07-13] VITALS (9 sets, daily range): BP systolic 115–154; BP diastolic 77–95
[2024-07-13 05:30] LABS: BASOPHILS ABSOLUTE AUTO 0.05 K/mm3 (0.00-0.23); BASOPHILS PERCENT AUTO 1 % (0-2); EOSINOPHILS ABSOLUTE AUTO 0.06 K/mm3 (0.00-0.68); EOSINOPHILS PERCENT AUTO 1 % (0-6); Hematocrit 25.3 % (37.0-53.0); Hemoglobin 8.2 g/dL (13.5-17.5); IMMATURE GRAN ABSOLUTE AUTO 0.01 K/mm3 (0.00-0.10); IMMATURE GRAN PERCENT AUTO 0 % (0-1); LYMPHOCYTES ABSOLUTE AUTO 0.86 K/mm3 (0.84-5.20); LYMPHOCYTES PERCENT AUTO 13 % (21-46); MONOCYTES ABSOLUTE AUTO 2.77 K/mm3 (0.16-1.47); MONOCYTES PERCENT AUTO 43 % (4-13); Mean Corpuscular HGB Conc 32.4 g/dL (31.5-36.5); Mean Corpuscular Volume 111 fL (80-100); Mean Platelet Volume 11.2 fL (9.1-12.4); NEUTROPHILS ABSOLUTE AUTO 2.72 K/mm3 (1.96-9.15); NEUTROPHILS PERCENT AUTO 42 % (41-73); Platelet Count 110 K/mm3 (150-400); RDW Coefficient Variation 20.9 % (11.7-14.2); RDW Standard Deviation 84.3 fL (35.1-46.3); Red Blood Cell Count 2.28 M/mm3 (4.30-5.90); White Blood Cell Count 6.47 K/mm3 (4.00-11.30)
[2024-07-13 05:45] LABS: International Normalized Ratio 1.01; Prothrombin Time Results 10.8 Sec (9.7-11.5)
[2024-07-13 05:46] LABS: Bun/Creatinine Ratio 7.6 (12.0-20.0); Calcium, Blood 8.5 mg/dL (8.5-10.1); Creatinine, Blood 4.98 mg/dL (0.60-1.20); Potassium, Blood 4.6 mmol/L (3.5-5.5)
--- NOTE | 2024-07-13 06:32 | NUR ---
SHIFT SUMMARY PATIENT A&O X4. VITAL SIGNS STABLE. PATIENT ON 2L O2 VIA NC. MEDICATED FOR PAIN PER EMAR. NO OTHER ACUTE CONDITIONS NOTED OVERNIGHT.
[2024-07-13] MEDS ORDERED: Cholecalciferol 1000 Unit Tablet (=25MCG) PO SCH (09:00)
[2024-07-13 10:53] LABS: Automated BF RBC Count 0.975 M/mm3 (0-0); Automated BF WBC Count 1.442 K/mm3 (0-999)
[2024-07-13 10:54] LABS: Body Fluid WBC Count 1442 /mm3 (0-999); RBC Count, Body Fluid 975000 /mm3 (0-0)
[2024-07-13 11:01] LABS: Appearance, Body Fluid Bloody (Clear); Color, Body Fluid Red (None-Yellow)
[2024-07-13 11:46] LABS: Total Cell Count, Body Fluid 100
[2024-07-13] MEDS ORDERED: NS 250 ML IV PRN (13:40)
[2024-07-13] MEDS ORDERED: EPOETIN ALFA EPBX 40000 UNIT/ML SC ONE (17:35)
--- NOTE | 2024-07-13 17:44 | NUR ---
THIS RN OVERSAW STUDENT RN'S ASSESSMENTS AND REVIEWED CHARTING. THIS RN AGREES WITH STUDENT RN'S CHARTING AND ASSESSMENTS.
--- NOTE | 2024-07-13 18:00 | NUR ---
SHIFT SUMMARY PT A&O X4, ENGAGED WITH CARE, VERBALIZES NEEDS. WEARING OXYGEN AT 3L NC, SATTING IN 90s. PT TRIALED RM AIR BUT RETURNED TO NC AFTER 02 SAT DROPPED TO 86% RESTING. LUNG SOUNDS IMPROVED SINCE THORACENTESIS DONE EARLY THIS SHIFT REMOVED 1,000 ML OF BLOOD, ALL LOBES NOW CLEAR ON AUSCULTATION. PT STILL REPORTS PAIN ON LEFT FLANK THAT WORSENS WITH DEEP BREATHING BUT SAYS IT HAS GREATLY IMPROVED SINCE THORACENTESIS- TREATING PER EMAR. NO REPORTS OF CHEST PAIN/PRESSURE. ASIDE FROM SINGULAR REDUCTION IN O2 WITH RM AIR TRIAL, VITAL SIGNS REMAIN STABLE. PT RECIEVED 1 UNIT OF BLOOD FOR LOW HGB, WHICH HE TOLERATED WELL. NO DIALYSIS TODAY.
[2024-07-14] VITALS (22 sets, daily range): BP systolic 91–154; BP diastolic 59–97
[2024-07-14 04:47] LABS: BASOPHILS ABSOLUTE AUTO 0.06 K/mm3 (0.00-0.23); BASOPHILS PERCENT AUTO 1 % (0-2); EOSINOPHILS PERCENT AUTO 2 % (0-6); Hematocrit 30.3 % (37.0-53.0); Hemoglobin 9.8 g/dL (13.5-17.5); IMMATURE GRAN ABSOLUTE AUTO 0.01 K/mm3 (0.00-0.10); IMMATURE GRAN PERCENT AUTO 0 % (0-1); LYMPHOCYTES ABSOLUTE AUTO 0.75 K/mm3 (0.84-5.20); LYMPHOCYTES PERCENT AUTO 12 % (21-46); MONOCYTES PERCENT AUTO 36 % (4-13); Mean Corpuscular HGB 35.3 pg (26.0-34.0); Mean Corpuscular HGB Conc 32.3 g/dL (31.5-36.5); Mean Corpuscular Volume 109 fL (80-100); Mean Platelet Volume 11.8 fL (9.1-12.4); NEUTROPHILS ABSOLUTE AUTO 3.22 K/mm3 (1.96-9.15); NEUTROPHILS PERCENT AUTO 50 % (41-73); NRBC ABSOLUTE 0.02 K/mm3 (0.00-0.02); NRBC Auto 0.3 /100 WBC (0.0-0.2); Platelet Count 120 K/mm3 (150-400); RDW Coefficient Variation 21.3 % (11.7-14.2); RDW Standard Deviation 85.2 fL (35.1-46.3); Red Blood Cell Count 2.78 M/mm3 (4.30-5.90); White Blood Cell Count 6.44 K/mm3 (4.00-11.30)
[2024-07-14 05:18] LABS: Albumin, Blood 3.1 g/dL (3.4-5.0); Anion Gap 13 mmol/L (3-11); Blood Urea Nitrogen 58 mg/dL (8-24); Bun/Creatinine Ratio 8.5 (12.0-20.0); CO2, Blood 30 mmol/L (21-32); Calcium, Blood 8.6 mg/dL (8.5-10.1); Chloride, Blood 96 mmol/L (98-108); Creatinine, Blood 6.79 mg/dL (0.60-1.20); Glomerular Filtration Rate 8 (60-); Glucose, Blood 116 mg/dL (70-99); Phosphorus, Blood 5.2 mg/dL (2.5-4.9); Potassium, Blood 4.9 mmol/L (3.5-5.5); Sodium, Blood 134 mmol/L (136-145)
--- NOTE | 2024-07-14 06:18 | NUR ---
SHIFT SUMMARY PATIENT A&O X4. PATIENT ON 1L O2 VIA NC. VITAL SIGNS STABLE. MEDICATED FOR PAIN PER EMAR. NO ACUTE CONDITIONS NOTED OVERNIGHT.
--- NOTE | 2024-07-14 09:11 | NUR ---
PT DOWN TO DIALYSIS AT 0840 VIA HOSPITAL BED. DOCUMENT CONTROL ASSOCIATE NOTIFIED.
[2024-07-14] MEDS ORDERED: Albumin (Human) 25gm/100ml 100 ML IV ONE (09:30)
[2024-07-14] MEDS ORDERED: Magnesium Oxide 400 MG Tab PO ONE (12:05)
[2024-07-14] MEDS ORDERED: Vitamin B Cmplx/Vit C/Folic Ac 1 Tab PO ONE (12:05)
[2024-07-14] MEDS ORDERED: Acyclovir 200 MG Cap PO ONE (12:10)
[2024-07-14] MEDS ORDERED: Calcium Acetate 667 MG Gel Cap PO ONE (12:10)
[2024-07-14] MEDS ORDERED: Cholecalciferol 1000 Unit Tablet (=25MCG) PO ONE (12:10)
[2024-07-14] MEDS ORDERED: Penicillin V Potassium 250 MG Tab PO ONE (12:10)
--- NOTE | 2024-07-14 18:07 | NUR ---
SHIFT SUMMARY PT A&O X 4, COOPERATIVE WITH CARE AND EXPRESSING NEEDS APPROPRIATELY. VITAL SIGNS STABLE. ON AND OFF USE OF 1L 02 NC NEEDED. PT HAD 1.5L REMOVED AT DIALYSIS, WHICH HE TOLERATED WELL. INDEPENDENT IN BED AND WITH MINIMAL ASSISTANCE FROM TO CHAIR. REPORTS OF PRESSURE TO L MD CLARITA NOTIFIED. PT DESCRIBED CURRENT PRESSURE BEING SIMILAR TO PRESSURE EXPERIENCED PRIOR TO THORACENTESIS. CONTINUES REPORTS OF L FLANK PAIN DUE TO HIS BROKEN RIBS, WORSENING WITH COUGHING AND AMBULATION. HAS BEEN INVOLVED AT BEDSIDE T/O SHIFT AND BEING UPDATED ON CARE.
--- NOTE | 2024-07-14 18:25 | NUR ---
REVIEW OF STUDENT RN ASSESSMNTS/CHARTING THIS RN OVERSAW AND REVIEWED STUDENT RN'S ASSESSMENTS AND CHARTING. THIS RN AGREES WITH STUDENT RN 'S CHARTING.
--- NOTE | 2024-07-15 00:04 | NUR ---
PT ALERT AND ORIENTED X4, VSS, RRR AND UNLABORED, AFIB ON MONITOR DENIES C/P AND SOB, PRN PAIN MEDS GIVEN FOR L RIB PAIN. COMPLIANT WITH CARE, NO CONCERNS AT THIS TIME. TO BE MOVED TO MEDICAL FLOOR ROOM 363 GIVING NAYANA REPORT AT 0005 CURRENTLY.
[2024-07-15 00:59] VITALS: BP 141/108
--- NOTE | 2024-07-15 01:06 | NUR ---
PT ARRIVED TO THE MEDICAL FLOOR @0046. PT WAS TRANSFERRED FROM [facility]. PT BROUGHT ALL HIS BELONINGS WITH HIM. EDUCATED FIRE PRODUCTION OPERATOR LIGHT AND FALL PRECAUTIONS. PT IS A/O X4, WITHDRAWN WITH A FLAT AFFECT. PT REPORTS DISCOURAGED OF DECLINING HEALTH ISSUES. BED AT THE LOWEST POSITION, CALL LIGHT WITHIN REACH.
[2024-07-15 05:35] VITALS: BP 128/100
[2024-07-15 06:17] LABS: BASOPHILS ABSOLUTE AUTO 0.05 K/mm3 (0.00-0.23); BASOPHILS PERCENT AUTO 1 % (0-2); EOSINOPHILS PERCENT AUTO 2 % (0-6); Hematocrit 27.1 % (37.0-53.0); Hemoglobin 8.9 g/dL (13.5-17.5); IMMATURE GRAN ABSOLUTE AUTO 0.01 K/mm3 (0.00-0.10); IMMATURE GRAN PERCENT AUTO 0 % (0-1); LYMPHOCYTES ABSOLUTE AUTO 0.69 K/mm3 (0.84-5.20); LYMPHOCYTES PERCENT AUTO 15 % (21-46); MONOCYTES ABSOLUTE AUTO 2.23 K/mm3 (0.16-1.47); MONOCYTES PERCENT AUTO 49 % (4-13); Mean Corpuscular HGB 35.2 pg (26.0-34.0); Mean Corpuscular HGB Conc 32.8 g/dL (31.5-36.5); Mean Corpuscular Volume 107 fL (80-100); Mean Platelet Volume 11.6 fL (9.1-12.4); NEUTROPHILS PERCENT AUTO 33 % (41-73); Platelet Count 96 K/mm3 (150-400); RDW Standard Deviation 78.5 fL (35.1-46.3); Red Blood Cell Count 2.53 M/mm3 (4.30-5.90); White Blood Cell Count 4.58 K/mm3 (4.00-11.30)
[2024-07-15 06:38] LABS: Albumin, Blood 2.9 g/dL (3.4-5.0); Anion Gap 11 mmol/L (3-11); Blood Urea Nitrogen 44 mg/dL (8-24); Bun/Creatinine Ratio 8.7 (12.0-20.0); CO2, Blood 33 mmol/L (21-32); Calcium, Blood 8.2 mg/dL (8.5-10.1); Chloride, Blood 95 mmol/L (98-108); Creatinine, Blood 5.05 mg/dL (0.60-1.20); Glomerular Filtration Rate 11 (60-); Glucose, Blood 87 mg/dL (70-99); Phosphorus, Blood 4.2 mg/dL (2.5-4.9); Potassium, Blood 4.6 mmol/L (3.5-5.5); Sodium, Blood 134 mmol/L (136-145)
[2024-07-15 07:19] VITALS: BP 147/86
[2024-07-15 10:32] VITALS: BP 131/88
[2024-07-15 15:20] VITALS: BP 115/73
--- NOTE | 2024-07-15 18:42 | NUR ---
ASSUMED CARE OF PT. PT A/O X 4 SOFT SPOKEN BUT MAKES NEEDS KNOWN. PT IS ON 1 L NC AND SATING 98%. MINIMAL DISTRESS FROM FALL LEFT SIDE BRUISED ABSENT LUNG SOUNDS TO LEFT SIDE, PT MEDICARTED FOR PAIN. PERMACATH C/D/I, PD IS INTACH AND ALSO CLEAN C/D/I, FISTULA HAS POS B/T. PT HAS BEEN IND IN ROOM IS ABLE TO TRANSFER SELF TO CHAIR AND HAS CALL APPROPRIATLY. CXRAY DONE AND EXCESS FLUID NOTED, 1400 ULTRASOUND WITH THORACENTISIS ALSO ORDER 1530 PT BACK FROM THORACENTISIS DID VERY WELL 1500 OUT, LUNGS SOUNDS MORE ACTIVE, MAINTAIN O2 AT 1L 98. AT BEDSIDE .
[2024-07-15 21:08] VITALS: BP 122/92
[2024-07-16] VITALS (20 sets, daily range): BP systolic 94–160; BP diastolic 62–99
--- NOTE | 2024-07-16 04:00 | NUR ---
SHIFT SUMM: PT IS A 78 YO FULL CODE WHO WAS ADMITTED FOR ARF. PT WAS ABLE TO GET A STRETCH OF RESTFUL SLEEP THIS SHIFT AND WAS MEDICATED FOR RIB PAIN PER EMAR. PT'S IV REMAINS PATENT AND TELE HAS BEEN AFIB 70'S-90'S W/PVC'S. PT IS ON 1L OF O2 FOR COMFORT NC AND CONT PULSE OX MAINTAING SATS ABOVE 95%. PT HAS FISTULA TO THE R ARM AND NO BP'S ON THAT ARM AND A BINA WALL PERMACATH IN PLACE. PT IS IND IN ROOM AND CALLS TO MAKE NEEDS KNOWN. BED LOW AND LOCKED FOR SAFETY.
[2024-07-16] MEDS ORDERED: Albumin (Human) 25gm/100ml 100 ML IV ONE (08:00)
[2024-07-16] MEDS ORDERED: Calcium Acetate 667 MG Gel Cap PO SCH (08:00)
[2024-07-16 09:37] LABS: BASOPHILS ABSOLUTE AUTO 0.05 K/mm3 (0.00-0.23); BASOPHILS PERCENT AUTO 1 % (0-2); EOSINOPHILS ABSOLUTE AUTO 0.11 K/mm3 (0.00-0.68); EOSINOPHILS PERCENT AUTO 3 % (0-6); Hematocrit 27.3 % (37.0-53.0); Hemoglobin 8.9 g/dL (13.5-17.5); IMMATURE GRAN ABSOLUTE AUTO 0.01 K/mm3 (0.00-0.10); IMMATURE GRAN PERCENT AUTO 0 % (0-1); LYMPHOCYTES ABSOLUTE AUTO 0.79 K/mm3 (0.84-5.20); LYMPHOCYTES PERCENT AUTO 19 % (21-46); MONOCYTES ABSOLUTE AUTO 1.94 K/mm3 (0.16-1.47); MONOCYTES PERCENT AUTO 47 % (4-13); Mean Corpuscular HGB 34.6 pg (26.0-34.0); Mean Corpuscular HGB Conc 32.6 g/dL (31.5-36.5); Mean Corpuscular Volume 106 fL (80-100); Mean Platelet Volume 11.7 fL (9.1-12.4); NEUTROPHILS ABSOLUTE AUTO 1.21 K/mm3 (1.96-9.15); NEUTROPHILS PERCENT AUTO 30 % (41-73); Platelet Count 95 K/mm3 (150-400); RDW Coefficient Variation 18.6 % (11.7-14.2); RDW Standard Deviation 73.3 fL (35.1-46.3); Red Blood Cell Count 2.57 M/mm3 (4.30-5.90); White Blood Cell Count 4.11 K/mm3 (4.00-11.30)
[2024-07-16 10:01] LABS: Albumin, Blood 2.9 g/dL (3.4-5.0); Anion Gap 15 mmol/L (3-11); Blood Urea Nitrogen 70 mg/dL (8-24); CO2, Blood 30 mmol/L (21-32); Chloride, Blood 92 mmol/L (98-108); Creatinine, Blood 7.01 mg/dL (0.60-1.20); Glomerular Filtration Rate 7 (60-); Glucose, Blood 85 mg/dL (70-99); Phosphorus, Blood 4.8 mg/dL (2.5-4.9); Potassium, Blood 4.9 mmol/L (3.5-5.5); Sodium, Blood 132 mmol/L (136-145)
--- NOTE | 2024-07-16 15:59 | NUR ---
SHIFT SUMMARY: PROVIDER AT BEDSIDE, PD DIALYSIS IS NOT RECOMMENDED IN FACILITY. EDUCATION REGARDING FLUIDS IN LUNGS HAS TO DO WITH KIDNEY FUNCTION. A NEW SCAN WILL BE ORDERED TOMORROW TO DECIDE IF LUNGS NEED DRAINED. PATIENT IS ON CONTINUOUS PULSE OXIMETRY AND TELE WITH AFIB, NO EVENTS PATIENT DOES NOT REQUIRE OXYGEN BUT PREFERS IT FOR COMFORT. PATIENT REQUIRED ZOFRAN DURING DIALYSIS. NORCO FOR PAIN.
--- NOTE | 2024-07-16 18:47 | NUR ---
SHIFT SUMMARY PATIENT A/OX4, IRRITABLE AT TIMES BUT COOPERATIVE WITH CARE. PATIENT HAD DIALYSIS THIS MORNING, BLOOD PRESSURE MEDICATIONS HELD FOR DIALYSIS AND ADMINISTERED ONCE PATIENT RETURNED TO ROOM 363. PATIENT COMPLAINING OF PAIN TO RIBS, NORCO ADMINISTERED PER MAR FOR RIB PX. DURING DIALYSIS PATIENT COMPLAINING OF NAUSEA, ZOFRAN BTOUGHT TO DIALYSIS NURSE TO ADMINISTER. PATIENT WITH CONTINUOUS PULSE OX IN PLACE, SPO2 WNL ON ROOM AIR HOWEVER PATIENT COMPLAINING OF SOB AND PREFERS 1 LPM VIA NASAL CANNULA. PERMACATH TO LEFT CHEST DRESSING WNL. PEROTINEAL DIALYSIS PORT TO ABDOMEN AND DRESSIGN WNL. NO OTHER CONCERNS AT THIS TIME.
[2024-07-17] VITALS (8 sets, daily range): BP systolic 101–150; BP diastolic 71–100
--- NOTE | 2024-07-17 06:03 | NUR ---
SUMMARY: PT A/OX4, ENDORSES NEEDS AND CALLS APPROPRIATELY FOR ASSISTANCE. HE'S AWARE OF LIMITATIONS AND IS INDEPENDENT/SBA PRN. PT IS OLIGURIC ON DIALYSIS W/PD SITE NOT CURRENTLY IN USE AND HD CATH PRESENT TO [facility], DX REMAINS C/D/I. PT WEARS 1L O2 VIA NC FOR COMFORT FOR C/O SOB BUT SPO2 IS WNL ON CONT BIOX AND PT IS ASYMPTOMATIC OF RESP DISTRESS. RESPS ARE SHALLOW THOUGH R/T PAINFUL FRACTURED RIBS. NORCO PROVIDED PER EMAR FOR TOLERABLE EFFECT. HE ALSO HAS A LARGE EDEMATOUS HEMATOMA TO HIS L.FLANK S/P FALL WHILE TAKING ELOQUIS, PERIMETER MARKED. REPEAT IMAGING PLANNED TODAY TO EVALUATE POTENTIAL NEED FOR ADDITIONAL THORACENTESIS OR DRAIN PLACEMENT. NO ACUTE CHANGES, VSS/AFEBRILE. WILL REPORT TO DAY RN.
[2024-07-17 10:19] LABS: Hematocrit 27.6 % (37.0-53.0); Mean Corpuscular HGB 34.5 pg (26.0-34.0); Mean Corpuscular HGB Conc 32.6 g/dL (31.5-36.5); Mean Corpuscular Volume 106 fL (80-100); Mean Platelet Volume 11.2 fL (9.1-12.4); Platelet Count 100 K/mm3 (150-400); RDW Coefficient Variation 18.4 % (11.7-14.2); RDW Standard Deviation 71.7 fL (35.1-46.3); Red Blood Cell Count 2.61 M/mm3 (4.30-5.90); White Blood Cell Count 3.47 K/mm3 (4.00-11.30)
[2024-07-17 10:32] LABS: Albumin, Blood 2.8 g/dL (3.4-5.0); Anion Gap 11 mmol/L (3-11); Blood Urea Nitrogen 51 mg/dL (8-24); CO2, Blood 36 mmol/L (21-32); Calcium, Blood 8.4 mg/dL (8.5-10.1); Chloride, Blood 90 mmol/L (98-108); Creatinine, Blood 5.64 mg/dL (0.60-1.20); Glomerular Filtration Rate 10 (60-); Glucose, Blood 121 mg/dL (70-99); Phosphorus, Blood 4.6 mg/dL (2.5-4.9); Potassium, Blood 4.7 mmol/L (3.5-5.5); Sodium, Blood 132 mmol/L (136-145)
[2024-07-17 15:26] LABS: Automated BF RBC Count 0.238 M/mm3 (0-0); Automated BF WBC Count 1.145 K/mm3 (0-999)
[2024-07-17 15:27] LABS: Body Fluid WBC Count 1145 /mm3 (0-999); RBC Count, Body Fluid 238000 /mm3 (0-0)
[2024-07-17 15:28] LABS: Appearance, Body Fluid Bloody (Clear); Color, Body Fluid Red (None-Yellow)
[2024-07-17 15:47] LABS: Albumin, Body Fluid 1.8 g/dL
[2024-07-17 15:50] LABS: Glucose, Body Fluid 97 mg/dL; Lactate Dehydrogenase, Body Fl 368 U/L; Protein, Body Fluid 2.8 g/dL; Triglycerides, Body Fluid 20 mg/dL
[2024-07-17 16:05] LABS: Total Cell Count, Body Fluid 100
--- NOTE | 2024-07-17 17:36 | NUR ---
SHIFT SUMMARY PT CONT LEVEL OF CARE PT NOTED TO BE A&OX4 AND IND IN ROOM. PT NOTED TO BE ON 1L/NC THIS AM BUT HAS BEEN TITRATED DOWN TO ROOM AIR ITS PT BASELINE WITH O2 MAINTAINGING IN MID TO UPPER 90'S. PT HAD A THORASENTISIS DONE AT BEDSIDE BY LIFE CARE PLANNER THIS SHIFT AND LITTLE OVER A 1.5L WAS REMOVED NOTED TO BE BLOODY FLUID REMOVED. PT TOLERATED WELL. FLUID WAS SENT TO LAB FOR TEST. PT HAS BEEN INSTRUCTED ON USING IS AND HAS NOTED TO USE THROUGHOUT THIS SHIFT. PT NOTED TO TAKE SHALLOW BREATHS.
[2024-07-18] VITALS (19 sets, daily range): BP systolic 110–154; BP diastolic 53–97
--- NOTE | 2024-07-18 06:11 | NUR ---
SHIFT SUMMARY PT SLEPT SHORT PERIODS ONLY THROUGH THE NIGHT. PT STATES HE DOESN'T WANT TO LAY FLAT IN FEAR "MY LUNG WILL COLLAPSE AGAIN". PT STATES HE FEELS INCREASED CONGESTION THIS AM, BUT ABLE TO "BREAK UP THE SECRETIONS WHEN I MAKE THIS COUGH"- PT COUGHING WITH VIBRATING NOISE, SOUNDING LIKE MOANING/GROANING. PT SITTING IN BED OR IN CHAIR DURING THE NIGHT. CONTINUOUS PULSE OX WITH SATS WNL. LARGE HEMATOMA/ BRUISE TO LEFT FLANK, PT STATES NO CHANGES TO THIS. PERMACATH SITE, PD SITE, AND AV FISTULA (LEFT ARM) WNL. PT INDEPENDENT TO BATHROOM WITH STEADY GAIT. BED IN LOWEST POSITION, CALL LIGHT WITHIN REACH, SIDERAILS UP X2.
[2024-07-18] MEDS ORDERED: Albumin (Human) 25gm/100ml 100 ML IV ONE (07:35)
[2024-07-18 08:06] LABS: Anion Gap 15 mmol/L (3-11); Blood Urea Nitrogen 76 mg/dL (8-24); Bun/Creatinine Ratio 10.3 (12.0-20.0); CO2, Blood 31 mmol/L (21-32); Calcium, Blood 8.6 mg/dL (8.5-10.1); Chloride, Blood 89 mmol/L (98-108); Creatinine, Blood 7.39 mg/dL (0.60-1.20); Glomerular Filtration Rate 7 (60-); Glucose, Blood 89 mg/dL (70-99); Phosphorus, Blood 5.3 mg/dL (2.5-4.9); Potassium, Blood 5.5 mmol/L (3.5-5.5); Sodium, Blood 129 mmol/L (136-145)
--- NOTE | 2024-07-18 18:55 | NUR ---
SHIFT SUMMARY PT CONT LEVEL OF CARE WITH NO ACUTE CHANGES NOTED. PT NOTED TO RECEIVE DIALYSIS TODAY. PT HAD REPEAT IMAGINGING. PT TO HAVE IMAGINGING [facility] TOMORROW WELL AND PLAN WILL DEPEND ON WHAT IMAGES SHOW. PT HAS VOICED C/O OF PAIN TO L FLANK AND HAS RECIEVED A NORCO THIS SHIFT. PT NOTED TO TAKE SHALLOW BREATHS AND VOICE C/O SOB. PT O2 NOTED TO BE IN MID TO UPPER 90S ON ROOM AIR. PT HAS A IS IN ROOM AND HAS BEEN ENCOURAGE TO UTILIZE EVERY 2HRS.
[2024-07-19] VITALS (19 sets, daily range): BP systolic 79–168; BP diastolic 56–103
[2024-07-19 05:33] LABS: BASOPHILS ABSOLUTE AUTO 0.04 K/mm3 (0.00-0.23); BASOPHILS PERCENT AUTO 2 % (0-2); EOSINOPHILS PERCENT AUTO 4 % (0-6); Hematocrit 26.6 % (37.0-53.0); Hemoglobin 8.9 g/dL (13.5-17.5); IMMATURE GRAN PERCENT AUTO 0 % (0-1); LYMPHOCYTES ABSOLUTE AUTO 0.53 K/mm3 (0.84-5.20); LYMPHOCYTES PERCENT AUTO 19 % (21-46); MONOCYTES ABSOLUTE AUTO 1.65 K/mm3 (0.16-1.47); MONOCYTES PERCENT AUTO 60 % (4-13); Mean Corpuscular HGB 35.6 pg (26.0-34.0); Mean Corpuscular HGB Conc 33.5 g/dL (31.5-36.5); Mean Corpuscular Volume 106 fL (80-100); Mean Platelet Volume 11.4 fL (9.1-12.4); NEUTROPHILS ABSOLUTE AUTO 0.42 K/mm3 (1.96-9.15); NEUTROPHILS PERCENT AUTO 15 % (41-73); Platelet Count 88 K/mm3 (150-400); RDW Standard Deviation 71.1 fL (35.1-46.3); White Blood Cell Count 2.74 K/mm3 (4.00-11.30)
[2024-07-19 05:52] LABS: Albumin, Blood 2.8 g/dL (3.4-5.0); Anion Gap 11 mmol/L (3-11); Blood Urea Nitrogen 54 mg/dL (8-24); Bun/Creatinine Ratio 9.6 (12.0-20.0); CO2, Blood 34 mmol/L (21-32); Calcium, Blood 8.3 mg/dL (8.5-10.1); Chloride, Blood 92 mmol/L (98-108); Glomerular Filtration Rate 10 (60-); Glucose, Blood 97 mg/dL (70-99); Phosphorus, Blood 4.4 mg/dL (2.5-4.9); Potassium, Blood 4.8 mmol/L (3.5-5.5); Sodium, Blood 132 mmol/L (136-145)
--- NOTE | 2024-07-19 06:04 | NUR ---
Shift Summary No acute changes. Pt on tele running AFIB in the 80s with PVCs. No c/o of dizzyness of chest pain. Awaiting imaging today to determine course of action. AOx4, 1 SBA when up, slept well t/o most of the night.
[2024-07-19] MEDS ORDERED: Albumin (Human) 25gm/100ml 100 ML IV ONE (07:40)
--- NOTE | 2024-07-19 17:35 | NUR ---
SHIFT SUMMARY PT HAD HD TODAY. REPEAT CHEST XR COMPLETED. DR. GONZALEZ WITH PATIENT TO GO OVER THESE RESULTS. PLAN TO DC TOMORROW AFTER ANOTHER DAY OF DIALYSIS. PT MEDICATED FOR PAIN TWICE THIS SHIFT SO FAR. AMBULATING HALLWAYS WITH HIS THIS AFTERNOON. PT DENIES NEED FOR PAIN MEDS AT THIS TIME. PT SATING IN THE 90S ON RA. NO OTHER ACUTE CHANGES IN ASSESSMENT AT THIS TIME. VS REVIEWED. CALL LIGHT IN REACH.
[2024-07-20] VITALS (18 sets, daily range): BP systolic 86–162; BP diastolic 65–106
--- NOTE | 2024-07-20 05:59 | NUR ---
Shift Summary Pt is c/o tightness + pain and difficulty breathing d/t pressure on his L side this AM. He says he can feel his L side is filled with fluid again and is currently sitting upright in the chair. Vital signs stable, respirations even and unlabored but a little shallow. Pt not requesting pain medicine this morning as he prefers to wait until just before dialysis which is scheduled for today. He slept t/o most of the night. AOx4, cooperative with care.
[2024-07-20 06:13] LABS: Albumin, Blood 3.1 g/dL (3.4-5.0); Anion Gap 9 mmol/L (3-11); Blood Urea Nitrogen 47 mg/dL (8-24); Bun/Creatinine Ratio 8.8 (12.0-20.0); CO2, Blood 34 mmol/L (21-32); Calcium, Blood 8.5 mg/dL (8.5-10.1); Chloride, Blood 96 mmol/L (98-108); Creatinine, Blood 5.35 mg/dL (0.60-1.20); Glomerular Filtration Rate 10 (60-); Glucose, Blood 92 mg/dL (70-99); Phosphorus, Blood 4.3 mg/dL (2.5-4.9); Sodium, Blood 134 mmol/L (136-145)
[2024-07-20] MEDS ORDERED: Albumin (Human) 25gm/100ml 100 ML IV SCH (07:45)
--- NOTE | 2024-07-20 11:50 | NUR ---
PATIENT'S PD CATHETER AESEPTICALLY CONNECTED TO PREWARMED 1.5 % ULTRABAG. INITIAL DRAIN OF APPROX. 50 ML OF CLEAR PINK EFFLUENT. 250 ML DIANEAL INSTILLED INTO PERITONEUM AND THEN IMMEDIATELY DRAINED TO DRY. VISUALLY, ALL FLUID INSTILLED WAS DRAINED. EFFLUENT WAS CLEAR/ PINK WITH NO VISIBLE FIBRIN. PT REPORTED NO DISCOMFORT WITH PROCEDURE. CATHETER CAPPED WITH NEW MINI-CAP AND SECURED.
[2024-07-20] MEDS ORDERED: EPOETIN ALFA EPBX 40000 UNIT/ML SC ONE (13:55)
[2024-07-20] MEDS ORDERED: METO50 PO (15:29)
[2024-07-20] MEDS ORDERED: Norco 5-325 Ta1 EACH PO (15:32)
[2024-07-20] MEDS ORDERED: MIRALAX17 GM PO (15:33)
--- NOTE | 2024-07-20 16:18 | NUR ---
SHIFT SUMMARY A&O X4. WENT TO DIALYSIS THIS SHIFT. MEDICATED FOR PAIN PRIOR TO DIALYSIS. DR. MENDEZ REVIEWED D/C PLANNING WITH CLIENT. IV D/C'D. D/C EDUCATION PACKET EXPLAINED AND GIVEN TO CLIENT. HARD COPY RX FOR NORCO GIVEN TO CLIENT. TELE D/C'D. CLIENT ESCORTED VIA WHEELCHAIR BY DOUBLE BACK OPERATOR AND SPOUSE OFFOFTHE UNIT.
== END 2024-07-20 16:09 | disposition home or self-care (01) | DRG 199 ==
LOC: ER 01:38 → ERHOLD 01:39 → PCU 01:39 → MEDS 07-15 00:15
PROVIDERS: Family Medicine; Hospitalist; Internal Medicine; Student in an Organized Health Care Education/Training Program; ADMIT Student in an Organized Health Care Education/Training Program
PROC: 5A1D70Z Performance of Urinary Filtration, Intermittent, Less than 6 Hours Per Day (ICD-10-PCS; 2024-07-11)
PROC: 30233N1 Transfusion of Nonautologous Red Blood Cells into Peripheral Vein, Percutaneous Approach (ICD-10-PCS; 2024-07-11)
PROC: 0W9B3ZZ Drainage of Left Pleural Cavity, Percutaneous Approach (ICD-10-PCS; principal; 2024-07-13)
PROC: 0W9B3ZZ Drainage of Left Pleural Cavity, Percutaneous Approach (ICD-10-PCS; 2024-07-15)
PROC: 0W9B3ZZ Drainage of Left Pleural Cavity, Percutaneous Approach (ICD-10-PCS; 2024-07-17)
DX: S27.1XXA Traumatic hemothorax, initial encounter (principal); J96.01 Acute respiratory failure with hypoxia; N18.6 End stage renal disease; J90 Pleural effusion, not elsewhere classified; S22.42XA Multiple fractures of ribs, left side, initial encounter for closed fracture; T86.0 Complications of bone marrow transplant; I48.20 Chronic atrial fibrillation, unspecified; D61.818 Other pancytopenia; I12.0 Hypertensive chronic kidney disease with stage 5 chronic kidney disease or end stage renal disease; E87.70 Fluid overload, unspecified; D46.9 Myelodysplastic syndrome, unspecified; D63.1 Anemia in chronic kidney disease; W18.2XXA Fall in (into) shower or empty bathtub, initial encounter; Y92.002 Bathroom of unspecified non-institutional (private) residence as the place of occurrence of the external cause; Z99.2 Dependence on renal dialysis; Z79.01 Long term (current) use of anticoagulants; Z79.52 Long term (current) use of systemic steroids; Z98.1 Arthrodesis status
CPT/HCPCS: 32555; 36415; 36430; 71045; 71046; 71250; 74176; 80048; 80053; 80069; 82042; 82607; 82746; 82945; 82947; 83615; 83880; 84157; 84478; 85025; 85027; 85610; 85730; 86850; 86900; 86901; 86923; 87070; 87075; 87205; 88108; 88305; 88342; 89051; 93005; 93010; 94762; 96374; 96375; 96376; 97110; 97112; 97116; 97161; 97165; 97530; 99285-25; A9270; G0378; J0780; J2270; J2405; J7050; P9040; P9047; Q5106

== ENCOUNTER 2024-07-21 01:32 | Day surgery (SDC) | payer MEDICARE, OTHER ==
[~2024-07-21 01:32] MED LIST changes: +DOCU100; +MAGNESIUM OXID500 MG PO; +METO50 PO; +PROBIOTIC1 EA14 PO
[2024-07-21 10:50] VITALS: BP 120/72
[2024-07-21 12:40] LABS: BASOPHILS ABSOLUTE AUTO 0.05 K/mm3 (0.00-0.23); BASOPHILS PERCENT AUTO 2 % (0-2); EOSINOPHILS ABSOLUTE AUTO 0.05 K/mm3 (0.00-0.68); EOSINOPHILS PERCENT AUTO 2 % (0-6); Hematocrit 28.7 % (37.0-53.0); Hemoglobin 9.4 g/dL (13.5-17.5); IMMATURE GRAN ABSOLUTE AUTO 0.02 K/mm3 (0.00-0.10); IMMATURE GRAN PERCENT AUTO 1 % (0-1); LYMPHOCYTES ABSOLUTE AUTO 0.56 K/mm3 (0.84-5.20); LYMPHOCYTES PERCENT AUTO 22 % (21-46); MONOCYTES ABSOLUTE AUTO 1.73 K/mm3 (0.16-1.47); MONOCYTES PERCENT AUTO 66 % (4-13); Mean Corpuscular HGB 34.3 pg (26.0-34.0); Mean Corpuscular HGB Conc 32.8 g/dL (31.5-36.5); Mean Corpuscular Volume 105 fL (80-100); Mean Platelet Volume 11.5 fL (9.1-12.4); NEUTROPHILS PERCENT AUTO 8 % (41-73); Platelet Count 104 K/mm3 (150-400); RDW Coefficient Variation 17.2 % (11.7-14.2); RDW Standard Deviation 66.5 fL (35.1-46.3); Red Blood Cell Count 2.74 M/mm3 (4.30-5.90); White Blood Cell Count 2.61 K/mm3 (4.00-11.30)
[2024-07-21 13:03] LABS: Albumin, Blood 3.4 g/dL (3.4-5.0); Albumin/Globulin Ratio 1.2 (0.8-1.8); Bilirubin, Total 2.1 mg/dL (0.1-1.0); Calcium, Blood 8.6 mg/dL (8.5-10.1); Creatinine, Blood 3.08 mg/dL (0.60-1.20); Globulin, Blood 2.9 g/dL (2.2-4.0); Potassium, Blood 3.5 mmol/L (3.5-5.5); Total Protein, Blood 6.3 g/dL (6.4-8.2)
== END 2024-07-21 11:09 | disposition home or self-care (01) ==
LOC: ATC 01:32
PROVIDERS: Internal Medicine Hematology & Oncology
DX: D64.9 Anemia, unspecified (principal); E11.621 Type 2 diabetes mellitus with foot ulcer; E11.40 Type 2 diabetes mellitus with diabetic neuropathy, unspecified; I10 Essential (primary) hypertension; I48.0 Paroxysmal atrial fibrillation; Z79.899 Other long term (current) drug therapy; Z79.01 Long term (current) use of anticoagulants; Z79.4 Long term (current) use of insulin; Z88.8 Allergy status to other drugs, medicaments and biological substances; Z91.040 Latex allergy status
CPT/HCPCS: 36591; 80053; 85025; J1642

== ENCOUNTER 2024-07-25 05:49 | Day surgery (SDC) | payer MEDICARE, OTHER ==
[2024-07-25 09:16] VITALS: BP 125/99
[2024-07-25 09:51] LABS: BASOPHILS ABSOLUTE AUTO 0.04 K/mm3 (0.00-0.23); BASOPHILS PERCENT AUTO 1 % (0-2); EOSINOPHILS ABSOLUTE AUTO 0.09 K/mm3 (0.00-0.68); EOSINOPHILS PERCENT AUTO 3 % (0-6); Hematocrit 30.1 % (37.0-53.0); IMMATURE GRAN ABSOLUTE AUTO 0.04 K/mm3 (0.00-0.10); IMMATURE GRAN PERCENT AUTO 1 % (0-1); LYMPHOCYTES ABSOLUTE AUTO 0.81 K/mm3 (0.84-5.20); LYMPHOCYTES PERCENT AUTO 22 % (21-46); MONOCYTES PERCENT AUTO 66 % (4-13); Mean Corpuscular HGB 33.8 pg (26.0-34.0); Mean Corpuscular HGB Conc 33.2 g/dL (31.5-36.5); Mean Corpuscular Volume 102 fL (80-100); Mean Platelet Volume 11.4 fL (9.1-12.4); NEUTROPHILS ABSOLUTE AUTO 0.28 K/mm3 (1.96-9.15); NEUTROPHILS PERCENT AUTO 8 % (41-73); Platelet Count 162 K/mm3 (150-400); RDW Standard Deviation 63.5 fL (35.1-46.3); Red Blood Cell Count 2.96 M/mm3 (4.30-5.90); White Blood Cell Count 3.66 K/mm3 (4.00-11.30)
[2024-07-25 10:10] LABS: BASOPHILS PERCENT MAN 3 % (0-2); EOSINOPHILS ABSOLUTE MAN 0.14 K/mm3 (0.00-0.68); EOSINOPHILS PERCENT MAN 4 % (0-6); LYMPHOCYTES ABSOLUTE MAN 1.17 K/mm3 (0.84-5.20); LYMPHOCYTES PERCENT MAN 32 % (21-46); MONOCYTES ABSOLUTE MAN 1.86 K/mm3 (0.16-1.47); MONOCYTES PERCENT MAN 51 % (4-13); NEUTROPHILS ABSOLUTE MAN 0.36 K/mm3 (1.96-9.15); SEG NEUTROPHILS PERCENT MAN 10 % (41-73); TOTAL CELLS COUNTED 100
[2024-07-25 10:16] LABS: Albumin, Blood 3.2 g/dL (3.4-5.0); Albumin/Globulin Ratio 1.1 (0.8-1.8); Bilirubin, Total 0.9 mg/dL (0.1-1.0); Bun/Creatinine Ratio 10.9 (12.0-20.0); Calcium, Blood 8.6 mg/dL (8.5-10.1); Creatinine, Blood 7.5 mg/dL (0.60-1.20); Globulin, Blood 2.9 g/dL (2.2-4.0); Total Protein, Blood 6.1 g/dL (6.4-8.2)
== END 2024-07-25 09:30 | disposition home or self-care (01) ==
LOC: ATC 05:49
PROVIDERS: Internal Medicine Hematology & Oncology
DX: D46.9 Myelodysplastic syndrome, unspecified (principal); I10 Essential (primary) hypertension; E78.5 Hyperlipidemia, unspecified; E11.40 Type 2 diabetes mellitus with diabetic neuropathy, unspecified; I48.0 Paroxysmal atrial fibrillation; Z88.8 Allergy status to other drugs, medicaments and biological substances; Z79.4 Long term (current) use of insulin; Z79.899 Other long term (current) drug therapy
CPT/HCPCS: 36591; 80053; 85025; J1642

== ENCOUNTER 2024-08-15 04:08 | Day surgery (SDC) | payer MEDICARE, OTHER ==
[2024-08-15 09:35] VITALS: BP 118/91
[2024-08-15 09:56] LABS: BASOPHILS ABSOLUTE AUTO 0.08 K/mm3 (0.00-0.23); BASOPHILS PERCENT AUTO 4 % (0-2); EOSINOPHILS ABSOLUTE AUTO 0.06 K/mm3 (0.00-0.68); EOSINOPHILS PERCENT AUTO 3 % (0-6); Hematocrit 32.1 % (37.0-53.0); Hemoglobin 10.1 g/dL (13.5-17.5); IMMATURE GRAN PERCENT AUTO 0 % (0-1); LYMPHOCYTES ABSOLUTE AUTO 0.56 K/mm3 (0.84-5.20); LYMPHOCYTES PERCENT AUTO 31 % (21-46); MONOCYTES ABSOLUTE AUTO 1.03 K/mm3 (0.16-1.47); MONOCYTES PERCENT AUTO 56 % (4-13); Mean Corpuscular HGB 30.1 pg (26.0-34.0); Mean Corpuscular HGB Conc 31.5 g/dL (31.5-36.5); Mean Corpuscular Volume 96 fL (80-100); NEUTROPHILS PERCENT AUTO 5 % (41-73); Platelet Count 267 K/mm3 (150-400); RDW Coefficient Variation 18.5 % (11.7-14.2); RDW Standard Deviation 64.6 fL (35.1-46.3); Red Blood Cell Count 3.35 M/mm3 (4.30-5.90); White Blood Cell Count 1.83 K/mm3 (4.00-11.30)
--- NOTE | 2024-08-15 09:58 | NUR ---
Pt was discharged from [facility] last evening. Pt's to bring in list of medications at next visit, she forgot to bring the list this morning. Pt arrived in the [facility] after his HD appointment this morning at [facility] at 0500.
[2024-08-15 10:25] LABS: Albumin, Blood 2.7 g/dL (3.4-5.0); Albumin/Globulin Ratio 0.9 (0.8-1.8); Bilirubin, Total 0.9 mg/dL (0.1-1.0); Bun/Creatinine Ratio 8.8 (12.0-20.0); Calcium, Blood 8.5 mg/dL (8.5-10.1); Creatinine, Blood 6.01 mg/dL (0.60-1.20); Globulin, Blood 3.1 g/dL (2.2-4.0); Potassium, Blood 5.3 mmol/L (3.5-5.5); Total Protein, Blood 5.8 g/dL (6.4-8.2)
[2024-08-22] MEDS ORDERED: Cipro500 MG PO (12:01)
[2024-08-22] MEDS ORDERED: CRESEMBA186 MG PO (12:03)
[2024-08-22] MEDS ORDERED: GENTAMICIN SULF15 GM TOP (12:05)
[2024-08-22] MEDS ORDERED: METO25ER PO (12:06)
[2024-08-22] MEDS ORDERED: PROC5 PO (12:08)
[2024-08-22] MEDS ORDERED: Dilaudid 2 mg Ta2 MG (12:08)
== END 2024-08-15 09:43 | disposition home or self-care (01) ==
LOC: ATC 04:08
PROVIDERS: Internal Medicine Hematology & Oncology
DX: D46.9 Myelodysplastic syndrome, unspecified (principal); D63.0 Anemia in neoplastic disease; I35.2 Nonrheumatic aortic (valve) stenosis with insufficiency; Q23.81 Bicuspid aortic valve; I10 Essential (primary) hypertension; M81.0 Age-related osteoporosis without current pathological fracture; Z86.718 Personal history of other venous thrombosis and embolism; Z79.01 Long term (current) use of anticoagulants; Z79.83 Long term (current) use of bisphosphonates; Z79.899 Other long term (current) drug therapy
CPT/HCPCS: 36591; 80053; 85025; J1642

== ENCOUNTER 2024-08-25 00:29 | Day surgery (SDC) | payer MEDICARE, OTHER ==
[~2024-08-25 00:29] MED LIST changes: +Cipro500 MG PO; +Dilaudid 2 mg Ta2 MG; +GENTAMICIN SULF15 GM TOP; +PROC5 PO
[2024-08-25 11:06] VITALS: BP 121/86
[2024-08-25 11:49] LABS: BASOPHILS ABSOLUTE AUTO 0.11 K/mm3 (0.00-0.23); BASOPHILS PERCENT AUTO 2 % (0-2); EOSINOPHILS ABSOLUTE AUTO 0.08 K/mm3 (0.00-0.68); EOSINOPHILS PERCENT AUTO 2 % (0-6); Hematocrit 32.9 % (37.0-53.0); Hemoglobin 10.6 g/dL (13.5-17.5); IMMATURE GRAN ABSOLUTE AUTO 0.17 K/mm3 (0.00-0.10); IMMATURE GRAN PERCENT AUTO 4 % (0-1); LYMPHOCYTES ABSOLUTE AUTO 1.06 K/mm3 (0.84-5.20); LYMPHOCYTES PERCENT AUTO 22 % (21-46); MONOCYTES ABSOLUTE AUTO 2.31 K/mm3 (0.16-1.47); MONOCYTES PERCENT AUTO 49 % (4-13); Mean Corpuscular HGB 30.7 pg (26.0-34.0); Mean Corpuscular HGB Conc 32.2 g/dL (31.5-36.5); Mean Corpuscular Volume 95 fL (80-100); Mean Platelet Volume 10.5 fL (9.1-12.4); NEUTROPHILS ABSOLUTE AUTO 1.02 K/mm3 (1.96-9.15); NEUTROPHILS PERCENT AUTO 22 % (41-73); Platelet Count 171 K/mm3 (150-400); RDW Coefficient Variation 20.6 % (11.7-14.2); RDW Standard Deviation 70.3 fL (35.1-46.3); Red Blood Cell Count 3.45 M/mm3 (4.30-5.90); White Blood Cell Count 4.75 K/mm3 (4.00-11.30)
[2024-08-25 12:15] LABS: Albumin, Blood 2.9 g/dL (3.4-5.0); Albumin/Globulin Ratio 0.9 (0.8-1.8); Bilirubin, Total 1.1 mg/dL (0.1-1.0); Bun/Creatinine Ratio 11.3 (12.0-20.0); Calcium, Blood 7.8 mg/dL (8.5-10.1); Creatinine, Blood 2.75 mg/dL (0.60-1.20); Globulin, Blood 3.1 g/dL (2.2-4.0); Potassium, Blood 3.5 mmol/L (3.5-5.5)
== END 2024-08-25 11:15 | disposition home or self-care (01) ==
LOC: ATC 00:29
PROVIDERS: Internal Medicine Hematology & Oncology
DX: D64.9 Anemia, unspecified (principal); I10 Essential (primary) hypertension; Z79.899 Other long term (current) drug therapy
CPT/HCPCS: 36591; 80053; 85025; J1642

== ENCOUNTER 2024-09-08 02:54 | Day surgery (SDC) | payer MEDICARE, OTHER ==
[2024-09-08 11:30] VITALS: BP 97/73
[2024-09-08 12:13] LABS: BASOPHILS ABSOLUTE AUTO 0.04 K/mm3 (0.00-0.23); BASOPHILS PERCENT AUTO 1 % (0-2); EOSINOPHILS ABSOLUTE AUTO 0.05 K/mm3 (0.00-0.68); EOSINOPHILS PERCENT AUTO 1 % (0-6); Hematocrit 25.9 % (37.0-53.0); Hemoglobin 8.5 g/dL (13.5-17.5); IMMATURE GRAN ABSOLUTE AUTO 0.13 K/mm3 (0.00-0.10); IMMATURE GRAN PERCENT AUTO 2 % (0-1); LYMPHOCYTES PERCENT AUTO 12 % (21-46); MONOCYTES ABSOLUTE AUTO 1.87 K/mm3 (0.16-1.47); MONOCYTES PERCENT AUTO 28 % (4-13); Mean Corpuscular HGB 31.7 pg (26.0-34.0); Mean Corpuscular HGB Conc 32.8 g/dL (31.5-36.5); Mean Corpuscular Volume 97 fL (80-100); Mean Platelet Volume 9.9 fL (9.1-12.4); NEUTROPHILS PERCENT AUTO 57 % (41-73); Platelet Count 142 K/mm3 (150-400); RDW Coefficient Variation 21.8 % (11.7-14.2); RDW Standard Deviation 73.7 fL (35.1-46.3); Red Blood Cell Count 2.68 M/mm3 (4.30-5.90); White Blood Cell Count 6.69 K/mm3 (4.00-11.30)
[2024-09-08 12:29] LABS: Albumin, Blood 2.8 g/dL (3.4-5.0); Bun/Creatinine Ratio 10.9 (12.0-20.0); Calcium, Blood 7.7 mg/dL (8.5-10.1); Creatinine, Blood 3.4 mg/dL (0.60-1.20); Globulin, Blood 2.9 g/dL (2.2-4.0); Potassium, Blood 3.7 mmol/L (3.5-5.5); Total Protein, Blood 5.7 g/dL (6.4-8.2)
== END 2024-09-08 11:28 | disposition home or self-care (01) ==
LOC: ATC 02:54
PROVIDERS: Internal Medicine Hematology & Oncology
DX: D64.9 Anemia, unspecified (principal); I10 Essential (primary) hypertension; M06.9 Rheumatoid arthritis, unspecified; R42 Dizziness and giddiness; M81.0 Age-related osteoporosis without current pathological fracture; I44.0 Atrioventricular block, first degree; G43.109 Migraine with aura, not intractable, without status migrainosus; Z86.718 Personal history of other venous thrombosis and embolism; Z79.01 Long term (current) use of anticoagulants; Z79.1 Long term (current) use of non-steroidal anti-inflammatories (NSAID); Z79.621 Long term (current) use of calcineurin inhibitor; Z79.83 Long term (current) use of bisphosphonates; Z79.899 Other long term (current) drug therapy
CPT/HCPCS: 36591; 80053; 85025; J1642

== ENCOUNTER 2024-09-12 01:03 | Day surgery (SDC) | payer MEDICARE, OTHER ==
[2024-09-12 09:27] VITALS: BP 137/122
[2024-09-12 09:48] LABS: BASOPHILS ABSOLUTE AUTO 0.05 K/mm3 (0.00-0.23); BASOPHILS PERCENT AUTO 1 % (0-2); EOSINOPHILS ABSOLUTE AUTO 0.11 K/mm3 (0.00-0.68); EOSINOPHILS PERCENT AUTO 1 % (0-6); Hematocrit 26.4 % (37.0-53.0); Hemoglobin 8.6 g/dL (13.5-17.5); IMMATURE GRAN ABSOLUTE AUTO 0.19 K/mm3 (0.00-0.10); IMMATURE GRAN PERCENT AUTO 2 % (0-1); LYMPHOCYTES ABSOLUTE AUTO 0.85 K/mm3 (0.84-5.20); LYMPHOCYTES PERCENT AUTO 10 % (21-46); MONOCYTES ABSOLUTE AUTO 2.02 K/mm3 (0.16-1.47); MONOCYTES PERCENT AUTO 25 % (4-13); Mean Corpuscular HGB 32.3 pg (26.0-34.0); Mean Corpuscular HGB Conc 32.6 g/dL (31.5-36.5); Mean Corpuscular Volume 99 fL (80-100); Mean Platelet Volume 10.3 fL (9.1-12.4); NEUTROPHILS ABSOLUTE AUTO 4.93 K/mm3 (1.96-9.15); NEUTROPHILS PERCENT AUTO 61 % (41-73); Platelet Count 180 K/mm3 (150-400); RDW Coefficient Variation 22.9 % (11.7-14.2); RDW Standard Deviation 82.7 fL (35.1-46.3); Red Blood Cell Count 2.66 M/mm3 (4.30-5.90); White Blood Cell Count 8.15 K/mm3 (4.00-11.30)
[2024-09-12 10:11] LABS: Albumin, Blood 3.1 g/dL (3.4-5.0); Albumin/Globulin Ratio 1.1 (0.8-1.8); Bilirubin, Total 0.8 mg/dL (0.1-1.0); Bun/Creatinine Ratio 13.7 (12.0-20.0); Calcium, Blood 8.4 mg/dL (8.5-10.1); Creatinine, Blood 6.11 mg/dL (0.60-1.20); Globulin, Blood 2.8 g/dL (2.2-4.0); Potassium, Blood 5.3 mmol/L (3.5-5.5); Total Protein, Blood 5.9 g/dL (6.4-8.2)
== END 2024-09-12 09:38 | disposition home or self-care (01) ==
LOC: ATC 01:03
PROVIDERS: Internal Medicine Hematology & Oncology
DX: D64.9 Anemia, unspecified (principal); I35.2 Nonrheumatic aortic (valve) stenosis with insufficiency; Q23.81 Bicuspid aortic valve; I10 Essential (primary) hypertension; M06.9 Rheumatoid arthritis, unspecified; M81.0 Age-related osteoporosis without current pathological fracture; Z86.718 Personal history of other venous thrombosis and embolism; Z79.01 Long term (current) use of anticoagulants; Z79.1 Long term (current) use of non-steroidal anti-inflammatories (NSAID); Z79.83 Long term (current) use of bisphosphonates; Z79.899 Other long term (current) drug therapy
CPT/HCPCS: 36591; 80053; 85025; J1642

== ENCOUNTER 2024-09-15 03:45 | Day surgery (SDC) | payer MEDICARE, OTHER ==
[2024-09-15 10:27] VITALS: BP 105/76
[2024-09-15 11:07] LABS: BASOPHILS ABSOLUTE AUTO 0.06 K/mm3 (0.00-0.23); BASOPHILS PERCENT AUTO 1 % (0-2); EOSINOPHILS ABSOLUTE AUTO 0.08 K/mm3 (0.00-0.68); EOSINOPHILS PERCENT AUTO 1 % (0-6); Hematocrit 27.6 % (37.0-53.0); Hemoglobin 8.9 g/dL (13.5-17.5); IMMATURE GRAN ABSOLUTE AUTO 0.27 K/mm3 (0.00-0.10); IMMATURE GRAN PERCENT AUTO 3 % (0-1); LYMPHOCYTES ABSOLUTE AUTO 0.84 K/mm3 (0.84-5.20); LYMPHOCYTES PERCENT AUTO 11 % (21-46); MONOCYTES ABSOLUTE AUTO 2.31 K/mm3 (0.16-1.47); MONOCYTES PERCENT AUTO 29 % (4-13); Mean Corpuscular HGB Conc 32.2 g/dL (31.5-36.5); Mean Corpuscular Volume 102 fL (80-100); NEUTROPHILS ABSOLUTE AUTO 4.29 K/mm3 (1.96-9.15); NEUTROPHILS PERCENT AUTO 55 % (41-73); NRBC ABSOLUTE 0.00 K/mm3 (0.00-0.02); NRBC Auto 0.0 /100 WBC (0.0-0.2); Platelet Count 178 K/mm3 (150-400); RDW Coefficient Variation 23.9 % (11.7-14.2); RDW Standard Deviation 89.6 fL (35.1-46.3)
[2024-09-15 11:32] LABS: Alanine Aminotransfer (ALT/SGP 22.0 U/L (12-78); Albumin, Blood 2.8 g/dL (3.4-5.0); Albumin/Globulin Ratio 1.0 (0.8-1.8); Anion Gap 10.0 mmol/L (3-11); Aspartate Aminotrans (AST/SGOT 16.0 U/L (12-37); Bilirubin, Total 0.8 mg/dL (0.1-1.0); Blood Urea Nitrogen 56.0 mg/dL (8-24); CO2, Blood 36.0 mmol/L (21-32); Calcium, Blood 8.1 mg/dL (8.5-10.1); Chloride, Blood 92.0 mmol/L (98-108); Creatinine, Blood 4.23 mg/dL (0.60-1.20); Globulin, Blood 2.9 g/dL (2.2-4.0); Glucose, Blood 103.0 mg/dL (70-99); Potassium, Blood 4.2 mmol/L (3.5-5.5); Sodium, Blood 134.0 mmol/L (136-145); Total Protein, Blood 5.7 g/dL (6.4-8.2)
== END 2024-09-15 10:36 | disposition home or self-care (01) ==
LOC: ATC 03:45
PROVIDERS: Internal Medicine Hematology & Oncology
DX: D46.9 Myelodysplastic syndrome, unspecified (principal); D63.0 Anemia in neoplastic disease; I10 Essential (primary) hypertension; I35.2 Nonrheumatic aortic (valve) stenosis with insufficiency; Q23.81 Bicuspid aortic valve; R00.1 Bradycardia, unspecified; I44.0 Atrioventricular block, first degree; Z86.718 Personal history of other venous thrombosis and embolism; Z79.01 Long term (current) use of anticoagulants; Z79.1 Long term (current) use of non-steroidal anti-inflammatories (NSAID); Z79.83 Long term (current) use of bisphosphonates; Z79.899 Other long term (current) drug therapy
CPT/HCPCS: 36591; 80053; 85025; J1642

== ENCOUNTER 2024-09-19 04:09 | Day surgery (SDC) | payer MEDICARE, OTHER ==
[2024-09-19 11:03] VITALS: BP 121/84
[2024-09-19 11:29] LABS: BASOPHILS ABSOLUTE AUTO 0.06 K/mm3 (0.00-0.23); BASOPHILS PERCENT AUTO 1 % (0-2); EOSINOPHILS ABSOLUTE AUTO 0.08 K/mm3 (0.00-0.68); EOSINOPHILS PERCENT AUTO 1 % (0-6); Hematocrit 26.3 % (37.0-53.0); Hemoglobin 8.7 g/dL (13.5-17.5); IMMATURE GRAN ABSOLUTE AUTO 0.37 K/mm3 (0.00-0.10); IMMATURE GRAN PERCENT AUTO 4 % (0-1); LYMPHOCYTES ABSOLUTE AUTO 0.84 K/mm3 (0.84-5.20); LYMPHOCYTES PERCENT AUTO 9 % (21-46); MONOCYTES ABSOLUTE AUTO 2.64 K/mm3 (0.16-1.47); MONOCYTES PERCENT AUTO 29 % (4-13); Mean Corpuscular HGB Conc 33.1 g/dL (31.5-36.5); Mean Corpuscular Volume 102 fL (80-100); NEUTROPHILS ABSOLUTE AUTO 5.12 K/mm3 (1.96-9.15); NEUTROPHILS PERCENT AUTO 56 % (41-73); NRBC ABSOLUTE 0.06 K/mm3 (0.00-0.02); NRBC Auto 0.7 /100 WBC (0.0-0.2); Platelet Count 210 K/mm3 (150-400); RDW Coefficient Variation 23.9 % (11.7-14.2); RDW Standard Deviation 88.0 fL (35.1-46.3)
[2024-09-19 12:13] LABS: Alanine Aminotransfer (ALT/SGP 20.0 U/L (12-78); Albumin, Blood 3.1 g/dL (3.4-5.0); Albumin/Globulin Ratio 1.0 (0.8-1.8); Anion Gap 12.0 mmol/L (3-11); Aspartate Aminotrans (AST/SGOT 14.0 U/L (12-37); Bilirubin, Total 0.8 mg/dL (0.1-1.0); Blood Urea Nitrogen 89.0 mg/dL (8-24); CO2, Blood 32.0 mmol/L (21-32); Calcium, Blood 8.5 mg/dL (8.5-10.1); Chloride, Blood 92.0 mmol/L (98-108); Creatinine, Blood 6.96 mg/dL (0.60-1.20); Globulin, Blood 3.0 g/dL (2.2-4.0); Glucose, Blood 109.0 mg/dL (70-99); Potassium, Blood 5.0 mmol/L (3.5-5.5); Sodium, Blood 131.0 mmol/L (136-145); Total Protein, Blood 6.1 g/dL (6.4-8.2)
== END 2024-09-19 11:12 | disposition home or self-care (01) ==
LOC: ATC 04:09
PROVIDERS: Internal Medicine Hematology & Oncology
DX: D46.9 Myelodysplastic syndrome, unspecified (principal); D63.0 Anemia in neoplastic disease; I35.2 Nonrheumatic aortic (valve) stenosis with insufficiency; Q23.81 Bicuspid aortic valve; R00.1 Bradycardia, unspecified; I44.0 Atrioventricular block, first degree; I10 Essential (primary) hypertension; M06.9 Rheumatoid arthritis, unspecified; M81.0 Age-related osteoporosis without current pathological fracture; Z86.718 Personal history of other venous thrombosis and embolism; Z79.01 Long term (current) use of anticoagulants; Z79.1 Long term (current) use of non-steroidal anti-inflammatories (NSAID); Z79.83 Long term (current) use of bisphosphonates; Z79.899 Other long term (current) drug therapy
CPT/HCPCS: 36591; 80053; 85025; J1642

== ENCOUNTER 2024-09-22 01:32 | Day surgery (SDC) | payer MEDICARE, OTHER ==
[2024-09-22 11:44] VITALS: BP 101/63
[2024-09-22 12:32] LABS: BASOPHILS ABSOLUTE AUTO 0.04 K/mm3 (0.00-0.23); BASOPHILS PERCENT AUTO 0 % (0-2); EOSINOPHILS ABSOLUTE AUTO 0.04 K/mm3 (0.00-0.68); EOSINOPHILS PERCENT AUTO 0 % (0-6); Hematocrit 24.8 % (37.0-53.0); Hemoglobin 8.1 g/dL (13.5-17.5); IMMATURE GRAN ABSOLUTE AUTO 0.48 K/mm3 (0.00-0.10); IMMATURE GRAN PERCENT AUTO 5 % (0-1); LYMPHOCYTES ABSOLUTE AUTO 0.77 K/mm3 (0.84-5.20); LYMPHOCYTES PERCENT AUTO 7 % (21-46); MONOCYTES ABSOLUTE AUTO 2.67 K/mm3 (0.16-1.47); MONOCYTES PERCENT AUTO 25 % (4-13); Mean Corpuscular HGB Conc 32.7 g/dL (31.5-36.5); Mean Corpuscular Volume 103 fL (80-100); NEUTROPHILS ABSOLUTE AUTO 6.67 K/mm3 (1.96-9.15); NEUTROPHILS PERCENT AUTO 63 % (41-73); NRBC ABSOLUTE 0.00 K/mm3 (0.00-0.02); NRBC Auto 0.0 /100 WBC (0.0-0.2); Platelet Count 183 K/mm3 (150-400); RDW Coefficient Variation 23.9 % (11.7-14.2); RDW Standard Deviation 89.2 fL (35.1-46.3)
[2024-09-22 12:56] LABS: Alanine Aminotransfer (ALT/SGP 19.0 U/L (12-78); Albumin, Blood 2.9 g/dL (3.4-5.0); Albumin/Globulin Ratio 1.0 (0.8-1.8); Anion Gap 8.0 mmol/L (3-11); Aspartate Aminotrans (AST/SGOT 19.0 U/L (12-37); Bilirubin, Total 0.9 mg/dL (0.1-1.0); Blood Urea Nitrogen 41.0 mg/dL (8-24); CO2, Blood 35.0 mmol/L (21-32); Calcium, Blood 8.0 mg/dL (8.5-10.1); Chloride, Blood 92.0 mmol/L (98-108); Creatinine, Blood 3.18 mg/dL (0.60-1.20); Globulin, Blood 3.0 g/dL (2.2-4.0); Glucose, Blood 108.0 mg/dL (70-99); Potassium, Blood 3.7 mmol/L (3.5-5.5); Sodium, Blood 131.0 mmol/L (136-145); Total Protein, Blood 5.9 g/dL (6.4-8.2)
== END 2024-09-22 11:46 | disposition home or self-care (01) ==
LOC: ATC 01:32
PROVIDERS: Internal Medicine Hematology & Oncology
DX: D46.9 Myelodysplastic syndrome, unspecified (principal); D63.0 Anemia in neoplastic disease; I35.2 Nonrheumatic aortic (valve) stenosis with insufficiency; Q23.81 Bicuspid aortic valve; I10 Essential (primary) hypertension; M06.9 Rheumatoid arthritis, unspecified; M81.0 Age-related osteoporosis without current pathological fracture; Z86.718 Personal history of other venous thrombosis and embolism; Z79.01 Long term (current) use of anticoagulants; Z79.1 Long term (current) use of non-steroidal anti-inflammatories (NSAID); Z79.83 Long term (current) use of bisphosphonates; Z79.899 Other long term (current) drug therapy
CPT/HCPCS: 36591; 80053; 85025; J1642

== ENCOUNTER 2024-09-26 00:38 | Day surgery (SDC) | payer MEDICARE, OTHER ==
[2024-09-26 11:13] VITALS: BP 117/82
[2024-09-26 11:51] LABS: BASOPHILS ABSOLUTE AUTO 0.04 K/mm3 (0.00-0.23); BASOPHILS PERCENT AUTO 1 % (0-2); EOSINOPHILS ABSOLUTE AUTO 0.05 K/mm3 (0.00-0.68); EOSINOPHILS PERCENT AUTO 1 % (0-6); Hematocrit 22.9 % (37.0-53.0); Hemoglobin 7.6 g/dL (13.5-17.5); IMMATURE GRAN ABSOLUTE AUTO 0.18 K/mm3 (0.00-0.10); IMMATURE GRAN PERCENT AUTO 3 % (0-1); LYMPHOCYTES ABSOLUTE AUTO 0.54 K/mm3 (0.84-5.20); LYMPHOCYTES PERCENT AUTO 8 % (21-46); MONOCYTES ABSOLUTE AUTO 2.02 K/mm3 (0.16-1.47); MONOCYTES PERCENT AUTO 30 % (4-13); Mean Corpuscular HGB Conc 33.2 g/dL (31.5-36.5); Mean Corpuscular Volume 105 fL (80-100); NEUTROPHILS ABSOLUTE AUTO 3.90 K/mm3 (1.96-9.15); NEUTROPHILS PERCENT AUTO 58 % (41-73); NRBC ABSOLUTE 0.00 K/mm3 (0.00-0.02); NRBC Auto 0.0 /100 WBC (0.0-0.2); Platelet Count 145 K/mm3 (150-400); RDW Coefficient Variation 23.6 % (11.7-14.2); RDW Standard Deviation 91.6 fL (35.1-46.3)
[2024-09-26 12:35] LABS: Alanine Aminotransfer (ALT/SGP 19.0 U/L (12-78); Albumin, Blood 2.7 g/dL (3.4-5.0); Albumin/Globulin Ratio 1.0 (0.8-1.8); Anion Gap 6.0 mmol/L (3-11); Aspartate Aminotrans (AST/SGOT 19.0 U/L (12-37); Bilirubin, Total 0.8 mg/dL (0.1-1.0); Blood Urea Nitrogen 39.0 mg/dL (8-24); CO2, Blood 37.0 mmol/L (21-32); Calcium, Blood 8.0 mg/dL (8.5-10.1); Chloride, Blood 95.0 mmol/L (98-108); Creatinine, Blood 3.53 mg/dL (0.60-1.20); Globulin, Blood 2.8 g/dL (2.2-4.0); Glucose, Blood 103.0 mg/dL (70-99); Potassium, Blood 3.8 mmol/L (3.5-5.5); Sodium, Blood 134.0 mmol/L (136-145); Total Protein, Blood 5.5 g/dL (6.4-8.2)
== END 2024-09-26 11:04 | disposition home or self-care (01) ==
LOC: ATC 00:38
PROVIDERS: Internal Medicine Hematology & Oncology
DX: D46.9 Myelodysplastic syndrome, unspecified (principal); D63.0 Anemia in neoplastic disease
CPT/HCPCS: 36591; 80053; 85025; J1642

== ENCOUNTER 2024-09-30 09:10 | Day surgery (SDC) | payer MEDICARE, OTHER ==
[2024-09-29 11:01] VITALS: BP 91/70
[2024-09-29 11:43] LABS: BASOPHILS ABSOLUTE AUTO 0.05 K/mm3 (0.00-0.23); BASOPHILS PERCENT AUTO 1 % (0-2); EOSINOPHILS ABSOLUTE AUTO 0.02 K/mm3 (0.00-0.68); EOSINOPHILS PERCENT AUTO 0 % (0-6); Hematocrit 23.3 % (37.0-53.0); Hemoglobin 8.0 g/dL (13.5-17.5); IMMATURE GRAN ABSOLUTE AUTO 0.10 K/mm3 (0.00-0.10); IMMATURE GRAN PERCENT AUTO 2 % (0-1); LYMPHOCYTES ABSOLUTE AUTO 0.62 K/mm3 (0.84-5.20); LYMPHOCYTES PERCENT AUTO 10 % (21-46); MONOCYTES ABSOLUTE AUTO 2.40 K/mm3 (0.16-1.47); MONOCYTES PERCENT AUTO 40 % (4-13); Mean Corpuscular HGB Conc 34.3 g/dL (31.5-36.5); Mean Corpuscular Volume 104 fL (80-100); NEUTROPHILS ABSOLUTE AUTO 2.88 K/mm3 (1.96-9.15); NEUTROPHILS PERCENT AUTO 48 % (41-73); NRBC ABSOLUTE 0.00 K/mm3 (0.00-0.02); NRBC Auto 0.0 /100 WBC (0.0-0.2); Platelet Count 126 K/mm3 (150-400); RDW Coefficient Variation 22.5 % (11.7-14.2); RDW Standard Deviation 85.0 fL (35.1-46.3)
[2024-09-29 12:03] LABS: Alanine Aminotransfer (ALT/SGP 18.0 U/L (12-78); Albumin, Blood 2.8 g/dL (3.4-5.0); Albumin/Globulin Ratio 0.9 (0.8-1.8); Anion Gap 8.0 mmol/L (3-11); Aspartate Aminotrans (AST/SGOT 18.0 U/L (12-37); Bilirubin, Total 0.8 mg/dL (0.1-1.0); Blood Urea Nitrogen 34.0 mg/dL (8-24); CO2, Blood 36.0 mmol/L (21-32); Calcium, Blood 7.7 mg/dL (8.5-10.1); Chloride, Blood 92.0 mmol/L (98-108); Creatinine, Blood 2.63 mg/dL (0.60-1.20); Globulin, Blood 3.0 g/dL (2.2-4.0); Glucose, Blood 97.0 mg/dL (70-99); Potassium, Blood 3.4 mmol/L (3.5-5.5); Sodium, Blood 133.0 mmol/L (136-145); Total Protein, Blood 5.8 g/dL (6.4-8.2)
[2024-09-30] MEDS ORDERED: NS 250 ML IV SCH (09:35)
[2024-09-30 13:41] VITALS: BP 109/78
[2024-09-30 14:00] VITALS: BP 97/63
[2024-09-30 14:59] VITALS: BP 118/89
[2024-09-30 15:46] VITALS: BP 132/87
--- NOTE | 2024-09-30 15:52 | NUR ---
PT HAD SLIGHT CRACKLES TO LEFT LUNG BASE PRE AND POST TRANSFUION TODAY. PT STATES HE IS SCHEDULED TO ATTEND DIALYSIS TOMORROW MORNING.
== END 2024-09-30 15:52 | disposition home or self-care (01) ==
LOC: ATC 09:10
PROVIDERS: Internal Medicine Hematology & Oncology
DX: D46.9 Myelodysplastic syndrome, unspecified (principal); Z79.899 Other long term (current) drug therapy
CPT/HCPCS: 36430; 36591; 80053; 85025; 86850; 86900; 86901; 86923; J1642; J7050; P9016

== ENCOUNTER 2024-10-03 01:34 | Day surgery (SDC) | payer MEDICARE, OTHER ==
[2024-10-03 09:27] VITALS: BP 143/100
[2024-10-03 10:06] LABS: BASOPHILS ABSOLUTE AUTO 0.06 K/mm3 (0.00-0.23); BASOPHILS PERCENT AUTO 1 % (0-2); EOSINOPHILS ABSOLUTE AUTO 0.03 K/mm3 (0.00-0.68); EOSINOPHILS PERCENT AUTO 1 % (0-6); Hematocrit 27.1 % (37.0-53.0); Hemoglobin 9.3 g/dL (13.5-17.5); IMMATURE GRAN ABSOLUTE AUTO 0.02 K/mm3 (0.00-0.10); IMMATURE GRAN PERCENT AUTO 0 % (0-1); LYMPHOCYTES ABSOLUTE AUTO 0.69 K/mm3 (0.84-5.20); LYMPHOCYTES PERCENT AUTO 14 % (21-46); MONOCYTES ABSOLUTE AUTO 1.90 K/mm3 (0.16-1.47); MONOCYTES PERCENT AUTO 40 % (4-13); Mean Corpuscular HGB Conc 34.3 g/dL (31.5-36.5); Mean Corpuscular Volume 103 fL (80-100); NEUTROPHILS ABSOLUTE AUTO 2.10 K/mm3 (1.96-9.15); NEUTROPHILS PERCENT AUTO 44 % (41-73); NRBC ABSOLUTE 0.00 K/mm3 (0.00-0.02); NRBC Auto 0.0 /100 WBC (0.0-0.2); Platelet Count 155 K/mm3 (150-400); RDW Coefficient Variation 20.7 % (11.7-14.2); RDW Standard Deviation 76.9 fL (35.1-46.3)
[2024-10-03] MEDS ORDERED: Amiodarone HCl200 MG PO (10:20)
[2024-10-03 10:30] LABS: Alanine Aminotransfer (ALT/SGP 20.0 U/L (12-78); Albumin, Blood 3.0 g/dL (3.4-5.0); Albumin/Globulin Ratio 1.0 (0.8-1.8); Anion Gap 12.0 mmol/L (3-11); Aspartate Aminotrans (AST/SGOT 16.0 U/L (12-37); Bilirubin, Total 0.8 mg/dL (0.1-1.0); Blood Urea Nitrogen 87.0 mg/dL (8-24); CO2, Blood 32.0 mmol/L (21-32); Calcium, Blood 8.1 mg/dL (8.5-10.1); Chloride, Blood 91.0 mmol/L (98-108); Creatinine, Blood 6.39 mg/dL (0.60-1.20); Globulin, Blood 3.0 g/dL (2.2-4.0); Glucose, Blood 98.0 mg/dL (70-99); Potassium, Blood 4.7 mmol/L (3.5-5.5); Sodium, Blood 130.0 mmol/L (136-145); Total Protein, Blood 6.0 g/dL (6.4-8.2)
== END 2024-10-03 09:35 | disposition home or self-care (01) ==
LOC: ATC 01:34
PROVIDERS: Internal Medicine Hematology & Oncology
DX: D46.9 Myelodysplastic syndrome, unspecified (principal); D63.0 Anemia in neoplastic disease; Z79.83 Long term (current) use of bisphosphonates; Z79.899 Other long term (current) drug therapy
CPT/HCPCS: 36591; 80053; 85025; J1642

== ENCOUNTER 2024-10-06 03:08 | Day surgery (SDC) | payer MEDICARE, OTHER ==
[~2024-10-06 03:08] MED LIST changes: +Amiodarone HCl200 MG PO
[2024-10-06 10:34] VITALS: BP 118/90
[2024-10-06 12:34] LABS: BASOPHILS ABSOLUTE AUTO 0.04 K/mm3 (0.00-0.23); BASOPHILS PERCENT AUTO 1 % (0-2); EOSINOPHILS ABSOLUTE AUTO 0.02 K/mm3 (0.00-0.68); EOSINOPHILS PERCENT AUTO 0 % (0-6); Hematocrit 27.2 % (37.0-53.0); Hemoglobin 9.1 g/dL (13.5-17.5); IMMATURE GRAN ABSOLUTE AUTO 0.04 K/mm3 (0.00-0.10); IMMATURE GRAN PERCENT AUTO 1 % (0-1); LYMPHOCYTES ABSOLUTE AUTO 0.67 K/mm3 (0.84-5.20); LYMPHOCYTES PERCENT AUTO 14 % (21-46); MONOCYTES ABSOLUTE AUTO 1.34 K/mm3 (0.16-1.47); MONOCYTES PERCENT AUTO 29 % (4-13); Mean Corpuscular HGB Conc 33.5 g/dL (31.5-36.5); Mean Corpuscular Volume 105 fL (80-100); NEUTROPHILS ABSOLUTE AUTO 2.54 K/mm3 (1.96-9.15); NEUTROPHILS PERCENT AUTO 55 % (41-73); NRBC ABSOLUTE 0.00 K/mm3 (0.00-0.02); NRBC Auto 0.0 /100 WBC (0.0-0.2); Platelet Count 187 K/mm3 (150-400); RDW Coefficient Variation 20.1 % (11.7-14.2); RDW Standard Deviation 78.3 fL (35.1-46.3)
[2024-10-06 12:50] LABS: Alanine Aminotransfer (ALT/SGP 20.0 U/L (12-78); Albumin, Blood 2.9 g/dL (3.4-5.0); Albumin/Globulin Ratio 1.0 (0.8-1.8); Anion Gap 16.0 mmol/L (3-11); Aspartate Aminotrans (AST/SGOT 17.0 U/L (12-37); Bilirubin, Total 0.9 mg/dL (0.1-1.0); Blood Urea Nitrogen 90.0 mg/dL (8-24); CO2, Blood 30.0 mmol/L (21-32); Calcium, Blood 8.5 mg/dL (8.5-10.1); Chloride, Blood 92.0 mmol/L (98-108); Creatinine, Blood 7.39 mg/dL (0.60-1.20); Globulin, Blood 3.0 g/dL (2.2-4.0); Glucose, Blood 127.0 mg/dL (70-99); Potassium, Blood 4.8 mmol/L (3.5-5.5); Sodium, Blood 133.0 mmol/L (136-145); Total Protein, Blood 5.9 g/dL (6.4-8.2)
== END 2024-10-06 10:43 | disposition home or self-care (01) ==
LOC: ATC 03:08
PROVIDERS: Internal Medicine Hematology & Oncology
DX: D46.9 Myelodysplastic syndrome, unspecified (principal); Z79.899 Other long term (current) drug therapy
CPT/HCPCS: 36591; 80053; 85025; J1642

== ENCOUNTER 2024-10-10 00:37 | Day surgery (SDC) | payer MEDICARE, OTHER ==
[2024-10-10 09:38] VITALS: BP 140/98
[2024-10-10 10:08] LABS: BASOPHILS ABSOLUTE AUTO 0.06 K/mm3 (0.00-0.23); BASOPHILS PERCENT AUTO 1 % (0-2); EOSINOPHILS ABSOLUTE AUTO 0.09 K/mm3 (0.00-0.68); EOSINOPHILS PERCENT AUTO 1 % (0-6); Hematocrit 28.5 % (37.0-53.0); Hemoglobin 9.6 g/dL (13.5-17.5); IMMATURE GRAN ABSOLUTE AUTO 0.10 K/mm3 (0.00-0.10); IMMATURE GRAN PERCENT AUTO 1 % (0-1); LYMPHOCYTES ABSOLUTE AUTO 0.74 K/mm3 (0.84-5.20); LYMPHOCYTES PERCENT AUTO 10 % (21-46); MONOCYTES ABSOLUTE AUTO 2.18 K/mm3 (0.16-1.47); MONOCYTES PERCENT AUTO 30 % (4-13); Mean Corpuscular HGB Conc 33.7 g/dL (31.5-36.5); Mean Corpuscular Volume 108 fL (80-100); NEUTROPHILS ABSOLUTE AUTO 4.13 K/mm3 (1.96-9.15); NEUTROPHILS PERCENT AUTO 57 % (41-73); NRBC ABSOLUTE 0.00 K/mm3 (0.00-0.02); NRBC Auto 0.0 /100 WBC (0.0-0.2); Platelet Count 166 K/mm3 (150-400); RDW Coefficient Variation 19.1 % (11.7-14.2); RDW Standard Deviation 76.0 fL (35.1-46.3)
[2024-10-10 10:26] LABS: Alanine Aminotransfer (ALT/SGP 19.0 U/L (12-78); Albumin, Blood 2.9 g/dL (3.4-5.0); Albumin/Globulin Ratio 0.9 (0.8-1.8); Anion Gap 12.0 mmol/L (3-11); Aspartate Aminotrans (AST/SGOT 16.0 U/L (12-37); Bilirubin, Total 0.8 mg/dL (0.1-1.0); Blood Urea Nitrogen 66.0 mg/dL (8-24); CO2, Blood 34.0 mmol/L (21-32); Calcium, Blood 8.4 mg/dL (8.5-10.1); Chloride, Blood 91.0 mmol/L (98-108); Creatinine, Blood 6.26 mg/dL (0.60-1.20); Globulin, Blood 3.1 g/dL (2.2-4.0); Glucose, Blood 103.0 mg/dL (70-99); Potassium, Blood 4.5 mmol/L (3.5-5.5); Sodium, Blood 132.0 mmol/L (136-145); Total Protein, Blood 6.0 g/dL (6.4-8.2)
== END 2024-10-10 09:43 | disposition home or self-care (01) ==
LOC: ATC 00:37
PROVIDERS: Internal Medicine Hematology & Oncology
DX: D46.9 Myelodysplastic syndrome, unspecified (principal); Z79.899 Other long term (current) drug therapy
CPT/HCPCS: 36591; 80053; 85025; J1642

== ENCOUNTER 2024-10-13 04:41 | Day surgery (SDC) | payer MEDICARE, OTHER ==
[2024-10-13 11:10] VITALS: BP 107/81
[2024-10-13 12:35] LABS: BASOPHILS ABSOLUTE AUTO 0.06 K/mm3 (0.00-0.23); BASOPHILS PERCENT AUTO 1 % (0-2); EOSINOPHILS ABSOLUTE AUTO 0.04 K/mm3 (0.00-0.68); EOSINOPHILS PERCENT AUTO 1 % (0-6); Hematocrit 25.4 % (37.0-53.0); Hemoglobin 8.5 g/dL (13.5-17.5); IMMATURE GRAN ABSOLUTE AUTO 0.14 K/mm3 (0.00-0.10); IMMATURE GRAN PERCENT AUTO 2 % (0-1); LYMPHOCYTES ABSOLUTE AUTO 0.77 K/mm3 (0.84-5.20); LYMPHOCYTES PERCENT AUTO 11 % (21-46); MONOCYTES ABSOLUTE AUTO 2.03 K/mm3 (0.16-1.47); MONOCYTES PERCENT AUTO 29 % (4-13); Mean Corpuscular HGB Conc 33.5 g/dL (31.5-36.5); Mean Corpuscular Volume 110 fL (80-100); NEUTROPHILS ABSOLUTE AUTO 4.03 K/mm3 (1.96-9.15); NEUTROPHILS PERCENT AUTO 57 % (41-73); NRBC ABSOLUTE 0.00 K/mm3 (0.00-0.02); NRBC Auto 0.0 /100 WBC (0.0-0.2); Platelet Count 118 K/mm3 (150-400); RDW Coefficient Variation 18.4 % (11.7-14.2); RDW Standard Deviation 75.2 fL (35.1-46.3)
[2024-10-13 12:58] LABS: Alanine Aminotransfer (ALT/SGP 19.0 U/L (12-78); Albumin, Blood 2.7 g/dL (3.4-5.0); Albumin/Globulin Ratio 0.9 (0.8-1.8); Anion Gap 7.0 mmol/L (3-11); Aspartate Aminotrans (AST/SGOT 17.0 U/L (12-37); Bilirubin, Total 1.1 mg/dL (0.1-1.0); Blood Urea Nitrogen 42.0 mg/dL (8-24); CO2, Blood 35.0 mmol/L (21-32); Calcium, Blood 7.9 mg/dL (8.5-10.1); Chloride, Blood 94.0 mmol/L (98-108); Creatinine, Blood 3.24 mg/dL (0.60-1.20); Globulin, Blood 3.0 g/dL (2.2-4.0); Glucose, Blood 99.0 mg/dL (70-99); Potassium, Blood 3.3 mmol/L (3.5-5.5); Sodium, Blood 133.0 mmol/L (136-145); Total Protein, Blood 5.7 g/dL (6.4-8.2)
== END 2024-10-13 11:22 | disposition home or self-care (01) ==
LOC: ATC 04:41
PROVIDERS: Internal Medicine Hematology & Oncology
DX: D46.9 Myelodysplastic syndrome, unspecified (principal); D63.0 Anemia in neoplastic disease; D69.6 Thrombocytopenia, unspecified; Z79.83 Long term (current) use of bisphosphonates; Z79.899 Other long term (current) drug therapy
CPT/HCPCS: 36591; 80053; 85025; J1642

== ENCOUNTER 2024-10-17 00:31 | Day surgery (SDC) | payer MEDICARE, OTHER ==
[2024-10-17 10:18] LABS: BASOPHILS ABSOLUTE AUTO 0.07 K/mm3 (0.00-0.23); BASOPHILS PERCENT AUTO 1 % (0-2); EOSINOPHILS ABSOLUTE AUTO 0.05 K/mm3 (0.00-0.68); EOSINOPHILS PERCENT AUTO 1 % (0-6); Hematocrit 26.8 % (37.0-53.0); Hemoglobin 8.9 g/dL (13.5-17.5); IMMATURE GRAN ABSOLUTE AUTO 0.20 K/mm3 (0.00-0.10); IMMATURE GRAN PERCENT AUTO 3 % (0-1); LYMPHOCYTES ABSOLUTE AUTO 0.72 K/mm3 (0.84-5.20); LYMPHOCYTES PERCENT AUTO 10 % (21-46); MONOCYTES ABSOLUTE AUTO 1.88 K/mm3 (0.16-1.47); MONOCYTES PERCENT AUTO 25 % (4-13); Mean Corpuscular HGB Conc 33.2 g/dL (31.5-36.5); Mean Corpuscular Volume 111 fL (80-100); NEUTROPHILS ABSOLUTE AUTO 4.58 K/mm3 (1.96-9.15); NEUTROPHILS PERCENT AUTO 61 % (41-73); NRBC ABSOLUTE 0.00 K/mm3 (0.00-0.02); NRBC Auto 0.0 /100 WBC (0.0-0.2); Platelet Count 155 K/mm3 (150-400); RDW Coefficient Variation 18.1 % (11.7-14.2); RDW Standard Deviation 70.8 fL (35.1-46.3)
[2024-10-17 10:41] LABS: Alanine Aminotransfer (ALT/SGP 19.0 U/L (12-78); Albumin, Blood 2.8 g/dL (3.4-5.0); Albumin/Globulin Ratio 0.9 (0.8-1.8); Anion Gap 11.0 mmol/L (3-11); Aspartate Aminotrans (AST/SGOT 16.0 U/L (12-37); Bilirubin, Total 0.8 mg/dL (0.1-1.0); Blood Urea Nitrogen 71.0 mg/dL (8-24); CO2, Blood 31.0 mmol/L (21-32); Calcium, Blood 8.1 mg/dL (8.5-10.1); Chloride, Blood 97.0 mmol/L (98-108); Creatinine, Blood 6.32 mg/dL (0.60-1.20); Globulin, Blood 3.1 g/dL (2.2-4.0); Glucose, Blood 103.0 mg/dL (70-99); Potassium, Blood 4.5 mmol/L (3.5-5.5); Sodium, Blood 134.0 mmol/L (136-145); Total Protein, Blood 5.9 g/dL (6.4-8.2)
== END 2024-10-17 09:44 | disposition home or self-care (01) ==
LOC: ATC 00:31
PROVIDERS: Internal Medicine Hematology & Oncology
DX: D46.9 Myelodysplastic syndrome, unspecified (principal); D63.0 Anemia in neoplastic disease; Z79.83 Long term (current) use of bisphosphonates; Z79.899 Other long term (current) drug therapy
CPT/HCPCS: 80053; 85025; 96523; J1642

== ENCOUNTER 2024-10-20 11:03 | Day surgery (SDC) | payer MEDICARE, OTHER ==
[2024-10-20 10:55] VITALS: BP 100/62
[2024-10-20 11:35] LABS: BASOPHILS ABSOLUTE AUTO 0.06 K/mm3 (0.00-0.23); BASOPHILS PERCENT AUTO 1 % (0-2); EOSINOPHILS ABSOLUTE AUTO 0.02 K/mm3 (0.00-0.68); EOSINOPHILS PERCENT AUTO 0 % (0-6); Hematocrit 24.9 % (37.0-53.0); Hemoglobin 8.1 g/dL (13.5-17.5); IMMATURE GRAN ABSOLUTE AUTO 0.11 K/mm3 (0.00-0.10); IMMATURE GRAN PERCENT AUTO 1 % (0-1); LYMPHOCYTES ABSOLUTE AUTO 0.70 K/mm3 (0.84-5.20); LYMPHOCYTES PERCENT AUTO 8 % (21-46); MONOCYTES ABSOLUTE AUTO 2.31 K/mm3 (0.16-1.47); MONOCYTES PERCENT AUTO 26 % (4-13); Mean Corpuscular HGB Conc 32.5 g/dL (31.5-36.5); Mean Corpuscular Volume 113 fL (80-100); NEUTROPHILS ABSOLUTE AUTO 5.58 K/mm3 (1.96-9.15); NEUTROPHILS PERCENT AUTO 64 % (41-73); NRBC ABSOLUTE 0.00 K/mm3 (0.00-0.02); NRBC Auto 0.0 /100 WBC (0.0-0.2); Platelet Count 159 K/mm3 (150-400); RDW Coefficient Variation 18.5 % (11.7-14.2); RDW Standard Deviation 73.7 fL (35.1-46.3)
[2024-10-20 11:47] LABS: Alanine Aminotransfer (ALT/SGP 19.0 U/L (12-78); Albumin, Blood 2.6 g/dL (3.4-5.0); Albumin/Globulin Ratio 0.8 (0.8-1.8); Anion Gap 8.0 mmol/L (3-11); Aspartate Aminotrans (AST/SGOT 19.0 U/L (12-37); Bilirubin, Total 0.9 mg/dL (0.1-1.0); Blood Urea Nitrogen 33.0 mg/dL (8-24); CO2, Blood 35.0 mmol/L (21-32); Calcium, Blood 7.7 mg/dL (8.5-10.1); Chloride, Blood 95.0 mmol/L (98-108); Creatinine, Blood 2.86 mg/dL (0.60-1.20); Globulin, Blood 3.2 g/dL (2.2-4.0); Glucose, Blood 113.0 mg/dL (70-99); Potassium, Blood 3.3 mmol/L (3.5-5.5); Sodium, Blood 135.0 mmol/L (136-145); Total Protein, Blood 5.8 g/dL (6.4-8.2)
== END 2024-10-20 11:04 | disposition home or self-care (01) ==
LOC: ATC 11:03
PROVIDERS: Internal Medicine Hematology & Oncology
DX: D46.9 Myelodysplastic syndrome, unspecified (principal); D63.0 Anemia in neoplastic disease; Z79.899 Other long term (current) drug therapy
CPT/HCPCS: 36591; 80053; 85025; J1642

== ENCOUNTER 2024-10-24 00:17 | Day surgery (SDC) | payer MEDICARE, OTHER ==
[2024-10-24 10:23] VITALS: BP 102/70
[2024-10-24 10:40] LABS: BASOPHILS ABSOLUTE AUTO 0.06 K/mm3 (0.00-0.23); BASOPHILS PERCENT AUTO 1 % (0-2); EOSINOPHILS ABSOLUTE AUTO 0.05 K/mm3 (0.00-0.68); EOSINOPHILS PERCENT AUTO 1 % (0-6); Hematocrit 23.8 % (37.0-53.0); Hemoglobin 8.2 g/dL (13.5-17.5); IMMATURE GRAN ABSOLUTE AUTO 0.09 K/mm3 (0.00-0.10); IMMATURE GRAN PERCENT AUTO 1 % (0-1); LYMPHOCYTES ABSOLUTE AUTO 0.60 K/mm3 (0.84-5.20); LYMPHOCYTES PERCENT AUTO 8 % (21-46); MONOCYTES ABSOLUTE AUTO 1.62 K/mm3 (0.16-1.47); MONOCYTES PERCENT AUTO 22 % (4-13); Mean Corpuscular HGB Conc 34.5 g/dL (31.5-36.5); Mean Corpuscular Volume 110 fL (80-100); NEUTROPHILS ABSOLUTE AUTO 5.10 K/mm3 (1.96-9.15); NEUTROPHILS PERCENT AUTO 68 % (41-73); NRBC ABSOLUTE 0.00 K/mm3 (0.00-0.02); NRBC Auto 0.0 /100 WBC (0.0-0.2); Platelet Count 144 K/mm3 (150-400); RDW Coefficient Variation 18.4 % (11.7-14.2); RDW Standard Deviation 74.3 fL (35.1-46.3)
[2024-10-24 11:33] LABS: Alanine Aminotransfer (ALT/SGP 20.0 U/L (12-78); Albumin, Blood 2.7 g/dL (3.4-5.0); Albumin/Globulin Ratio 0.9 (0.8-1.8); Anion Gap 11.0 mmol/L (3-11); Aspartate Aminotrans (AST/SGOT 22.0 U/L (12-37); Bilirubin, Total 1.0 mg/dL (0.1-1.0); Blood Urea Nitrogen 28.0 mg/dL (8-24); CO2, Blood 33.0 mmol/L (21-32); Calcium, Blood 7.7 mg/dL (8.5-10.1); Chloride, Blood 95.0 mmol/L (98-108); Creatinine, Blood 3.04 mg/dL (0.60-1.20); Globulin, Blood 3.0 g/dL (2.2-4.0); Glucose, Blood 86.0 mg/dL (70-99); Potassium, Blood 3.3 mmol/L (3.5-5.5); Sodium, Blood 136.0 mmol/L (136-145); Total Protein, Blood 5.7 g/dL (6.4-8.2)
== END 2024-10-24 10:30 | disposition home or self-care (01) ==
LOC: ATC 00:17
PROVIDERS: Internal Medicine Hematology & Oncology
DX: D46.9 Myelodysplastic syndrome, unspecified (principal)
CPT/HCPCS: 36591; 80053; 85025; J1642

== ENCOUNTER 2024-10-31 01:49 | Day surgery (SDC) | payer MEDICARE, OTHER ==
[2024-10-31 09:26] VITALS: BP 159/82
[2024-10-31 10:01] LABS: BASOPHILS ABSOLUTE AUTO 0.07 K/mm3 (0.00-0.23); BASOPHILS PERCENT AUTO 1 % (0-2); EOSINOPHILS ABSOLUTE AUTO 0.06 K/mm3 (0.00-0.68); EOSINOPHILS PERCENT AUTO 1 % (0-6); Hematocrit 25.1 % (37.0-53.0); Hemoglobin 8.3 g/dL (13.5-17.5); IMMATURE GRAN ABSOLUTE AUTO 0.11 K/mm3 (0.00-0.10); IMMATURE GRAN PERCENT AUTO 1 % (0-1); LYMPHOCYTES ABSOLUTE AUTO 0.56 K/mm3 (0.84-5.20); LYMPHOCYTES PERCENT AUTO 7 % (21-46); MONOCYTES ABSOLUTE AUTO 1.39 K/mm3 (0.16-1.47); MONOCYTES PERCENT AUTO 18 % (4-13); Mean Corpuscular HGB Conc 33.1 g/dL (31.5-36.5); Mean Corpuscular Volume 112 fL (80-100); NEUTROPHILS ABSOLUTE AUTO 5.44 K/mm3 (1.96-9.15); NEUTROPHILS PERCENT AUTO 71 % (41-73); NRBC ABSOLUTE 0.00 K/mm3 (0.00-0.02); NRBC Auto 0.0 /100 WBC (0.0-0.2); Platelet Count 163 K/mm3 (150-400); RDW Coefficient Variation 18.0 % (11.7-14.2); RDW Standard Deviation 73.8 fL (35.1-46.3)
[2024-10-31 10:18] LABS: Alanine Aminotransfer (ALT/SGP 24.0 U/L (12-78); Albumin, Blood 3.0 g/dL (3.4-5.0); Albumin/Globulin Ratio 1.0 (0.8-1.8); Anion Gap 13.0 mmol/L (3-11); Aspartate Aminotrans (AST/SGOT 24.0 U/L (12-37); Bilirubin, Total 1.2 mg/dL (0.1-1.0); Blood Urea Nitrogen 72.0 mg/dL (8-24); CO2, Blood 30.0 mmol/L (21-32); Calcium, Blood 8.3 mg/dL (8.5-10.1); Chloride, Blood 96.0 mmol/L (98-108); Creatinine, Blood 7.09 mg/dL (0.60-1.20); Globulin, Blood 3.1 g/dL (2.2-4.0); Glucose, Blood 92.0 mg/dL (70-99); Potassium, Blood 3.8 mmol/L (3.5-5.5); Sodium, Blood 135.0 mmol/L (136-145); Total Protein, Blood 6.1 g/dL (6.4-8.2)
== END 2024-10-31 09:40 | disposition home or self-care (01) ==
LOC: ATC 01:49
PROVIDERS: Internal Medicine Hematology & Oncology
DX: D46.9 Myelodysplastic syndrome, unspecified (principal); D63.0 Anemia in neoplastic disease; D70.9 Neutropenia, unspecified; R53.0 Neoplastic (malignant) related fatigue; G43.909 Migraine, unspecified, not intractable, without status migrainosus; D69.6 Thrombocytopenia, unspecified; M19.90 Unspecified osteoarthritis, unspecified site; Z79.1 Long term (current) use of non-steroidal anti-inflammatories (NSAID); Z79.2 Long term (current) use of antibiotics; Z79.52 Long term (current) use of systemic steroids; Z79.83 Long term (current) use of bisphosphonates; Z79.899 Other long term (current) drug therapy
CPT/HCPCS: 36591; 80053; 85025; J1642

== ENCOUNTER 2024-11-03 02:34 | Day surgery (SDC) | payer MEDICARE, OTHER ==
--- NOTE | 2024-11-03 13:46 | NUR ---
NO CALL NO SHOW. PATIENT NOT ANSWERING PHONE. ORDERS CANCELLED FOR TODAY
--- NOTE | 2024-11-03 14:38 | NUR ---
PATIENT SHOWED UP LATE ASKING TO BE SEEN. REORDERED LABS.
[2024-11-03 14:50] VITALS: BP 126/67
[2024-11-03 16:57] LABS: BASOPHILS ABSOLUTE AUTO 0.06 K/mm3 (0.00-0.23); BASOPHILS PERCENT AUTO 1 % (0-2); EOSINOPHILS ABSOLUTE AUTO 0.05 K/mm3 (0.00-0.68); EOSINOPHILS PERCENT AUTO 1 % (0-6); Hematocrit 25.1 % (37.0-53.0); Hemoglobin 8.4 g/dL (13.5-17.5); IMMATURE GRAN ABSOLUTE AUTO 0.08 K/mm3 (0.00-0.10); IMMATURE GRAN PERCENT AUTO 1 % (0-1); LYMPHOCYTES ABSOLUTE AUTO 0.78 K/mm3 (0.84-5.20); LYMPHOCYTES PERCENT AUTO 9 % (21-46); MONOCYTES ABSOLUTE AUTO 1.89 K/mm3 (0.16-1.47); MONOCYTES PERCENT AUTO 21 % (4-13); Mean Corpuscular HGB Conc 33.5 g/dL (31.5-36.5); Mean Corpuscular Volume 114 fL (80-100); NEUTROPHILS ABSOLUTE AUTO 6.16 K/mm3 (1.96-9.15); NEUTROPHILS PERCENT AUTO 68 % (41-73); NRBC ABSOLUTE 0.00 K/mm3 (0.00-0.02); NRBC Auto 0.0 /100 WBC (0.0-0.2); Platelet Count 167 K/mm3 (150-400); RDW Coefficient Variation 17.8 % (11.7-14.2); RDW Standard Deviation 74.7 fL (35.1-46.3)
[2024-11-03 17:50] LABS: Alanine Aminotransfer (ALT/SGP 22.0 U/L (12-78); Albumin, Blood 3.0 g/dL (3.4-5.0); Albumin/Globulin Ratio 1.0 (0.8-1.8); Anion Gap 10.0 mmol/L (3-11); Aspartate Aminotrans (AST/SGOT 21.0 U/L (12-37); Bilirubin, Total 1.1 mg/dL (0.1-1.0); Blood Urea Nitrogen 41.0 mg/dL (8-24); CO2, Blood 35.0 mmol/L (21-32); Calcium, Blood 8.0 mg/dL (8.5-10.1); Chloride, Blood 92.0 mmol/L (98-108); Creatinine, Blood 4.0 mg/dL (0.60-1.20); Globulin, Blood 2.9 g/dL (2.2-4.0); Glucose, Blood 99.0 mg/dL (70-99); Potassium, Blood 3.1 mmol/L (3.5-5.5); Sodium, Blood 134.0 mmol/L (136-145); Total Protein, Blood 5.9 g/dL (6.4-8.2)
== END 2024-11-03 14:50 | disposition home or self-care (01) ==
LOC: ATC 02:34
PROVIDERS: Internal Medicine Hematology & Oncology
DX: D46.9 Myelodysplastic syndrome, unspecified (principal); D63.0 Anemia in neoplastic disease; D70.9 Neutropenia, unspecified; R53.0 Neoplastic (malignant) related fatigue; D69.6 Thrombocytopenia, unspecified; M19.90 Unspecified osteoarthritis, unspecified site; Z79.83 Long term (current) use of bisphosphonates; Z79.899 Other long term (current) drug therapy
CPT/HCPCS: 36591; 80053; 85025; J1642

== ENCOUNTER 2024-11-07 00:41 | Day surgery (SDC) | payer MEDICARE, OTHER ==
[2024-11-07 09:30] VITALS: BP 164/87
[2024-11-07 09:59] LABS: BASOPHILS ABSOLUTE AUTO 0.07 K/mm3 (0.00-0.23); BASOPHILS PERCENT AUTO 1 % (0-2); EOSINOPHILS ABSOLUTE AUTO 0.08 K/mm3 (0.00-0.68); EOSINOPHILS PERCENT AUTO 1 % (0-6); Hematocrit 25.2 % (37.0-53.0); Hemoglobin 8.5 g/dL (13.5-17.5); IMMATURE GRAN ABSOLUTE AUTO 0.10 K/mm3 (0.00-0.10); IMMATURE GRAN PERCENT AUTO 1 % (0-1); LYMPHOCYTES ABSOLUTE AUTO 0.66 K/mm3 (0.84-5.20); LYMPHOCYTES PERCENT AUTO 8 % (21-46); MONOCYTES ABSOLUTE AUTO 1.65 K/mm3 (0.16-1.47); MONOCYTES PERCENT AUTO 20 % (4-13); Mean Corpuscular HGB Conc 33.7 g/dL (31.5-36.5); Mean Corpuscular Volume 112 fL (80-100); NEUTROPHILS ABSOLUTE AUTO 5.53 K/mm3 (1.96-9.15); NEUTROPHILS PERCENT AUTO 68 % (41-73); NRBC ABSOLUTE 0.00 K/mm3 (0.00-0.02); NRBC Auto 0.0 /100 WBC (0.0-0.2); Platelet Count 146 K/mm3 (150-400); RDW Coefficient Variation 17.0 % (11.7-14.2); RDW Standard Deviation 68.5 fL (35.1-46.3)
[2024-11-07 10:18] LABS: Alanine Aminotransfer (ALT/SGP 20.0 U/L (12-78); Albumin, Blood 3.1 g/dL (3.4-5.0); Albumin/Globulin Ratio 1.1 (0.8-1.8); Anion Gap 15.0 mmol/L (3-11); Aspartate Aminotrans (AST/SGOT 25.0 U/L (12-37); Bilirubin, Total 1.1 mg/dL (0.1-1.0); Blood Urea Nitrogen 65.0 mg/dL (8-24); CO2, Blood 32.0 mmol/L (21-32); Calcium, Blood 8.2 mg/dL (8.5-10.1); Chloride, Blood 91.0 mmol/L (98-108); Creatinine, Blood 2.0 mg/dL (0.60-1.20); Globulin, Blood 2.7 g/dL (2.2-4.0); Glucose, Blood 98.0 mg/dL (70-99); Potassium, Blood 4.6 mmol/L (3.5-5.5); Sodium, Blood 133.0 mmol/L (136-145); Total Protein, Blood 5.8 g/dL (6.4-8.2)
== END 2024-11-07 09:39 | disposition home or self-care (01) ==
LOC: ATC 00:41
PROVIDERS: Internal Medicine Hematology & Oncology
DX: D46.9 Myelodysplastic syndrome, unspecified (principal); D63.0 Anemia in neoplastic disease
CPT/HCPCS: 36591; 80053; 85025; J1642

== ENCOUNTER 2024-11-10 03:26 | Day surgery (SDC) | payer MEDICARE, OTHER ==
[2024-11-10 11:20] VITALS: BP 112/55
[2024-11-10 12:44] LABS: Alanine Aminotransfer (ALT/SGP 19.0 U/L (12-78); Albumin, Blood 2.9 g/dL (3.4-5.0); Albumin/Globulin Ratio 0.9 (0.8-1.8); Anion Gap 9.0 mmol/L (3-11); Aspartate Aminotrans (AST/SGOT 24.0 U/L (12-37); Bilirubin, Total 1.5 mg/dL (0.1-1.0); Blood Urea Nitrogen 36.0 mg/dL (8-24); CO2, Blood 32.0 mmol/L (21-32); Calcium, Blood 8.0 mg/dL (8.5-10.1); Chloride, Blood 97.0 mmol/L (98-108); Creatinine, Blood 3.29 mg/dL (0.60-1.20); Globulin, Blood 3.2 g/dL (2.2-4.0); Glucose, Blood 111.0 mg/dL (70-99); Potassium, Blood 3.4 mmol/L (3.5-5.5); Sodium, Blood 135.0 mmol/L (136-145); Total Protein, Blood 6.1 g/dL (6.4-8.2)
[2024-11-10 13:22] LABS: BASOPHILS ABSOLUTE AUTO 0.05 K/mm3 (0.00-0.23); BASOPHILS PERCENT AUTO 1 % (0-2); EOSINOPHILS ABSOLUTE AUTO 0.02 K/mm3 (0.00-0.68); EOSINOPHILS PERCENT AUTO 0 % (0-6); Hematocrit 24.0 % (37.0-53.0); Hemoglobin 7.9 g/dL (13.5-17.5); IMMATURE GRAN ABSOLUTE AUTO 0.15 K/mm3 (0.00-0.10); IMMATURE GRAN PERCENT AUTO 2 % (0-1); LYMPHOCYTES ABSOLUTE AUTO 0.71 K/mm3 (0.84-5.20); LYMPHOCYTES PERCENT AUTO 8 % (21-46); MONOCYTES ABSOLUTE AUTO 2.03 K/mm3 (0.16-1.47); MONOCYTES PERCENT AUTO 23 % (4-13); Mean Corpuscular HGB Conc 32.9 g/dL (31.5-36.5); Mean Corpuscular Volume 113 fL (80-100); NEUTROPHILS ABSOLUTE AUTO 6.01 K/mm3 (1.96-9.15); NEUTROPHILS PERCENT AUTO 67 % (41-73); NRBC ABSOLUTE 0.00 K/mm3 (0.00-0.02); NRBC Auto 0.0 /100 WBC (0.0-0.2); Platelet Count 137 K/mm3 (150-400); RDW Coefficient Variation 16.6 % (11.7-14.2); RDW Standard Deviation 68.3 fL (35.1-46.3)
== END 2024-11-10 11:25 | disposition home or self-care (01) ==
LOC: ATC 03:26
PROVIDERS: Internal Medicine Hematology & Oncology
DX: D46.9 Myelodysplastic syndrome, unspecified (principal)
CPT/HCPCS: 36591; 80053; 85025; J1642

== ENCOUNTER 2024-11-14 08:00 | Day surgery (SDC) | payer MEDICARE, OTHER ==
[2024-11-14 08:54] VITALS: BP 130/70
[2024-11-14 09:23] LABS: BASOPHILS ABSOLUTE AUTO 0.09 K/mm3 (0.00-0.23); BASOPHILS PERCENT AUTO 1 % (0-2); EOSINOPHILS ABSOLUTE AUTO 0.08 K/mm3 (0.00-0.68); EOSINOPHILS PERCENT AUTO 1 % (0-6); Hematocrit 25.3 % (37.0-53.0); Hemoglobin 8.3 g/dL (13.5-17.5); IMMATURE GRAN ABSOLUTE AUTO 0.16 K/mm3 (0.00-0.10); IMMATURE GRAN PERCENT AUTO 2 % (0-1); LYMPHOCYTES ABSOLUTE AUTO 0.81 K/mm3 (0.84-5.20); LYMPHOCYTES PERCENT AUTO 10 % (21-46); MONOCYTES ABSOLUTE AUTO 1.63 K/mm3 (0.16-1.47); MONOCYTES PERCENT AUTO 20 % (4-13); Mean Corpuscular HGB Conc 32.8 g/dL (31.5-36.5); Mean Corpuscular Volume 112 fL (80-100); NEUTROPHILS ABSOLUTE AUTO 5.22 K/mm3 (1.96-9.15); NEUTROPHILS PERCENT AUTO 65 % (41-73); NRBC ABSOLUTE 0.00 K/mm3 (0.00-0.02); NRBC Auto 0.0 /100 WBC (0.0-0.2); Platelet Count 180 K/mm3 (150-400); RDW Coefficient Variation 16.3 % (11.7-14.2); RDW Standard Deviation 66.2 fL (35.1-46.3)
[2024-11-14 09:43] LABS: Alanine Aminotransfer (ALT/SGP 20.0 U/L (12-78); Albumin, Blood 3.2 g/dL (3.4-5.0); Albumin/Globulin Ratio 1.1 (0.8-1.8); Anion Gap 14.0 mmol/L (3-11); Aspartate Aminotrans (AST/SGOT 21.0 U/L (12-37); Bilirubin, Total 1.3 mg/dL (0.1-1.0); Blood Urea Nitrogen 71.0 mg/dL (8-24); CO2, Blood 31.0 mmol/L (21-32); Calcium, Blood 8.4 mg/dL (8.5-10.1); Chloride, Blood 95.0 mmol/L (98-108); Creatinine, Blood 7.66 mg/dL (0.60-1.20); Globulin, Blood 2.9 g/dL (2.2-4.0); Glucose, Blood 107.0 mg/dL (70-99); Potassium, Blood 4.6 mmol/L (3.5-5.5); Sodium, Blood 135.0 mmol/L (136-145); Total Protein, Blood 6.1 g/dL (6.4-8.2)
== END 2024-11-14 23:00 | disposition home or self-care (01) ==
LOC: ATC 08:00
PROVIDERS: Internal Medicine Hematology & Oncology
DX: D46.9 Myelodysplastic syndrome, unspecified (principal)
CPT/HCPCS: 36591; 80053; 85025; J1642

== ENCOUNTER 2024-11-17 00:46 | Day surgery (SDC) | payer MEDICARE, OTHER ==
[2024-11-17 11:06] VITALS: BP 120/63
[2024-11-17 11:29] LABS: BASOPHILS ABSOLUTE AUTO 0.07 K/mm3 (0.00-0.23); BASOPHILS PERCENT AUTO 1 % (0-2); EOSINOPHILS ABSOLUTE AUTO 0.04 K/mm3 (0.00-0.68); EOSINOPHILS PERCENT AUTO 1 % (0-6); Hematocrit 25.1 % (37.0-53.0); Hemoglobin 8.4 g/dL (13.5-17.5); IMMATURE GRAN ABSOLUTE AUTO 0.14 K/mm3 (0.00-0.10); IMMATURE GRAN PERCENT AUTO 2 % (0-1); LYMPHOCYTES ABSOLUTE AUTO 0.70 K/mm3 (0.84-5.20); LYMPHOCYTES PERCENT AUTO 9 % (21-46); MONOCYTES ABSOLUTE AUTO 1.71 K/mm3 (0.16-1.47); MONOCYTES PERCENT AUTO 22 % (4-13); Mean Corpuscular HGB Conc 33.5 g/dL (31.5-36.5); Mean Corpuscular Volume 113 fL (80-100); NEUTROPHILS ABSOLUTE AUTO 5.30 K/mm3 (1.96-9.15); NEUTROPHILS PERCENT AUTO 67 % (41-73); NRBC ABSOLUTE 0.00 K/mm3 (0.00-0.02); NRBC Auto 0.0 /100 WBC (0.0-0.2); Platelet Count 160 K/mm3 (150-400); RDW Coefficient Variation 17.0 % (11.7-14.2); RDW Standard Deviation 67.7 fL (35.1-46.3)
[2024-11-17 11:48] LABS: Alanine Aminotransfer (ALT/SGP 25.0 U/L (12-78); Albumin, Blood 3.0 g/dL (3.4-5.0); Albumin/Globulin Ratio 1.1 (0.8-1.8); Anion Gap 7.0 mmol/L (3-11); Aspartate Aminotrans (AST/SGOT 25.0 U/L (12-37); Bilirubin, Total 1.5 mg/dL (0.1-1.0); Blood Urea Nitrogen 32.0 mg/dL (8-24); CO2, Blood 37.0 mmol/L (21-32); Calcium, Blood 8.0 mg/dL (8.5-10.1); Chloride, Blood 96.0 mmol/L (98-108); Creatinine, Blood 3.11 mg/dL (0.60-1.20); Globulin, Blood 2.7 g/dL (2.2-4.0); Glucose, Blood 90.0 mg/dL (70-99); Potassium, Blood 3.4 mmol/L (3.5-5.5); Sodium, Blood 137.0 mmol/L (136-145); Total Protein, Blood 5.7 g/dL (6.4-8.2)
== END 2024-11-17 11:17 | disposition home or self-care (01) ==
LOC: ATC 00:46
PROVIDERS: Internal Medicine Hematology & Oncology
DX: D46.9 Myelodysplastic syndrome, unspecified (principal); D70.9 Neutropenia, unspecified; D63.0 Anemia in neoplastic disease; L27.0 Generalized skin eruption due to drugs and medicaments taken internally; T50.905A Adverse effect of unspecified drugs, medicaments and biological substances, initial encounter; R13.10 Dysphagia, unspecified; R53.0 Neoplastic (malignant) related fatigue; R51.9 Headache, unspecified; D69.6 Thrombocytopenia, unspecified; M19.90 Unspecified osteoarthritis, unspecified site; Z79.2 Long term (current) use of antibiotics; Z79.52 Long term (current) use of systemic steroids; Z79.83 Long term (current) use of bisphosphonates; Z79.899 Other long term (current) drug therapy
CPT/HCPCS: 36591; 80053; 85025; J1642

== ENCOUNTER 2024-11-21 01:48 | Day surgery (SDC) | payer MEDICARE, OTHER ==
[2024-11-21 09:24] VITALS: BP 167/94
[2024-11-21 10:10] LABS: BASOPHILS ABSOLUTE AUTO 0.07 K/mm3 (0.00-0.23); BASOPHILS PERCENT AUTO 1 % (0-2); EOSINOPHILS ABSOLUTE AUTO 0.09 K/mm3 (0.00-0.68); EOSINOPHILS PERCENT AUTO 1 % (0-6); Hematocrit 25.4 % (37.0-53.0); Hemoglobin 8.4 g/dL (13.5-17.5); IMMATURE GRAN ABSOLUTE AUTO 0.22 K/mm3 (0.00-0.10); IMMATURE GRAN PERCENT AUTO 3 % (0-1); LYMPHOCYTES ABSOLUTE AUTO 0.77 K/mm3 (0.84-5.20); LYMPHOCYTES PERCENT AUTO 9 % (21-46); MONOCYTES ABSOLUTE AUTO 1.76 K/mm3 (0.16-1.47); MONOCYTES PERCENT AUTO 20 % (4-13); Mean Corpuscular HGB Conc 33.1 g/dL (31.5-36.5); Mean Corpuscular Volume 111 fL (80-100); NEUTROPHILS ABSOLUTE AUTO 5.98 K/mm3 (1.96-9.15); NEUTROPHILS PERCENT AUTO 67 % (41-73); NRBC ABSOLUTE 0.00 K/mm3 (0.00-0.02); NRBC Auto 0.0 /100 WBC (0.0-0.2); Platelet Count 156 K/mm3 (150-400); RDW Coefficient Variation 16.7 % (11.7-14.2); RDW Standard Deviation 68.2 fL (35.1-46.3)
[2024-11-21 10:32] LABS: Alanine Aminotransfer (ALT/SGP 28.0 U/L (12-78); Albumin, Blood 3.2 g/dL (3.4-5.0); Albumin/Globulin Ratio 1.1 (0.8-1.8); Anion Gap 13.0 mmol/L (3-11); Aspartate Aminotrans (AST/SGOT 32.0 U/L (12-37); Bilirubin, Total 1.4 mg/dL (0.1-1.0); Blood Urea Nitrogen 72.0 mg/dL (8-24); CO2, Blood 31.0 mmol/L (21-32); Calcium, Blood 8.4 mg/dL (8.5-10.1); Chloride, Blood 93.0 mmol/L (98-108); Creatinine, Blood 7.1 mg/dL (0.60-1.20); Globulin, Blood 3.0 g/dL (2.2-4.0); Glucose, Blood 100.0 mg/dL (70-99); Potassium, Blood 4.8 mmol/L (3.5-5.5); Sodium, Blood 132.0 mmol/L (136-145); Total Protein, Blood 6.2 g/dL (6.4-8.2)
== END 2024-11-21 09:35 | disposition home or self-care (01) ==
LOC: ATC 01:48
PROVIDERS: Internal Medicine Hematology & Oncology
DX: D46.9 Myelodysplastic syndrome, unspecified (principal); D63.0 Anemia in neoplastic disease
CPT/HCPCS: 36591; 80053; 85025; J1642

== ENCOUNTER 2024-11-24 00:11 | Day surgery (SDC) | payer MEDICARE, OTHER ==
[2024-11-24 11:11] VITALS: BP 103/54
[2024-11-24 11:57] LABS: BASOPHILS ABSOLUTE AUTO 0.05 K/mm3 (0.00-0.23); BASOPHILS PERCENT AUTO 1 % (0-2); EOSINOPHILS ABSOLUTE AUTO 0.04 K/mm3 (0.00-0.68); EOSINOPHILS PERCENT AUTO 1 % (0-6); Hematocrit 24.4 % (37.0-53.0); Hemoglobin 8.1 g/dL (13.5-17.5); IMMATURE GRAN ABSOLUTE AUTO 0.16 K/mm3 (0.00-0.10); IMMATURE GRAN PERCENT AUTO 2 % (0-1); LYMPHOCYTES ABSOLUTE AUTO 0.70 K/mm3 (0.84-5.20); LYMPHOCYTES PERCENT AUTO 9 % (21-46); MONOCYTES ABSOLUTE AUTO 1.75 K/mm3 (0.16-1.47); MONOCYTES PERCENT AUTO 21 % (4-13); Mean Corpuscular HGB Conc 33.2 g/dL (31.5-36.5); Mean Corpuscular Volume 111 fL (80-100); NEUTROPHILS ABSOLUTE AUTO 5.46 K/mm3 (1.96-9.15); NEUTROPHILS PERCENT AUTO 67 % (41-73); NRBC ABSOLUTE 0.00 K/mm3 (0.00-0.02); NRBC Auto 0.0 /100 WBC (0.0-0.2); Platelet Count 121 K/mm3 (150-400); RDW Coefficient Variation 16.0 % (11.7-14.2); RDW Standard Deviation 64.9 fL (35.1-46.3)
[2024-11-24 12:30] LABS: Alanine Aminotransfer (ALT/SGP 33.0 U/L (12-78); Albumin, Blood 3.1 g/dL (3.4-5.0); Albumin/Globulin Ratio 1.1 (0.8-1.8); Anion Gap 7.0 mmol/L (3-11); Aspartate Aminotrans (AST/SGOT 30.0 U/L (12-37); Bilirubin, Total 1.6 mg/dL (0.1-1.0); Blood Urea Nitrogen 33.0 mg/dL (8-24); CO2, Blood 37.0 mmol/L (21-32); Calcium, Blood 8.2 mg/dL (8.5-10.1); Chloride, Blood 95.0 mmol/L (98-108); Creatinine, Blood 3.0 mg/dL (0.60-1.20); Globulin, Blood 2.8 g/dL (2.2-4.0); Glucose, Blood 99.0 mg/dL (70-99); Potassium, Blood 3.4 mmol/L (3.5-5.5); Sodium, Blood 136.0 mmol/L (136-145); Total Protein, Blood 5.9 g/dL (6.4-8.2)
== END 2024-11-24 11:19 | disposition home or self-care (01) ==
LOC: ATC 00:11
PROVIDERS: Internal Medicine Hematology & Oncology
DX: D46.9 Myelodysplastic syndrome, unspecified (principal); D63.0 Anemia in neoplastic disease; D70.9 Neutropenia, unspecified; L27.0 Generalized skin eruption due to drugs and medicaments taken internally; T50.905A Adverse effect of unspecified drugs, medicaments and biological substances, initial encounter; R53.0 Neoplastic (malignant) related fatigue; D69.6 Thrombocytopenia, unspecified; G43.909 Migraine, unspecified, not intractable, without status migrainosus; M19.90 Unspecified osteoarthritis, unspecified site; Z79.52 Long term (current) use of systemic steroids; Z79.83 Long term (current) use of bisphosphonates; Z79.899 Other long term (current) drug therapy
CPT/HCPCS: 36591; 80053; 85025; J1642

== ENCOUNTER 2024-11-28 02:26 | Day surgery (SDC) | payer MEDICARE, OTHER ==
[2024-11-28 09:29] VITALS: BP 186/93
[2024-11-28 09:56] LABS: BASOPHILS ABSOLUTE AUTO 0.05 K/mm3 (0.00-0.23); BASOPHILS PERCENT AUTO 1 % (0-2); EOSINOPHILS ABSOLUTE AUTO 0.09 K/mm3 (0.00-0.68); EOSINOPHILS PERCENT AUTO 1 % (0-6); Hematocrit 24.9 % (37.0-53.0); Hemoglobin 8.2 g/dL (13.5-17.5); IMMATURE GRAN ABSOLUTE AUTO 0.32 K/mm3 (0.00-0.10); IMMATURE GRAN PERCENT AUTO 4 % (0-1); LYMPHOCYTES ABSOLUTE AUTO 0.64 K/mm3 (0.84-5.20); LYMPHOCYTES PERCENT AUTO 8 % (21-46); MONOCYTES ABSOLUTE AUTO 1.69 K/mm3 (0.16-1.47); MONOCYTES PERCENT AUTO 22 % (4-13); Mean Corpuscular HGB Conc 32.9 g/dL (31.5-36.5); Mean Corpuscular Volume 111 fL (80-100); NEUTROPHILS ABSOLUTE AUTO 5.04 K/mm3 (1.96-9.15); NEUTROPHILS PERCENT AUTO 64 % (41-73); NRBC ABSOLUTE 0.02 K/mm3 (0.00-0.02); NRBC Auto 0.3 /100 WBC (0.0-0.2); Platelet Count 155 K/mm3 (150-400); RDW Coefficient Variation 16.2 % (11.7-14.2); RDW Standard Deviation 65.1 fL (35.1-46.3)
[2024-11-28 10:29] LABS: Alanine Aminotransfer (ALT/SGP 28.0 U/L (12-78); Albumin, Blood 3.2 g/dL (3.4-5.0); Albumin/Globulin Ratio 1.2 (0.8-1.8); Anion Gap 15.0 mmol/L (3-11); Aspartate Aminotrans (AST/SGOT 26.0 U/L (12-37); Bilirubin, Total 1.8 mg/dL (0.1-1.0); Blood Urea Nitrogen 81.0 mg/dL (8-24); CO2, Blood 31.0 mmol/L (21-32); Calcium, Blood 8.6 mg/dL (8.5-10.1); Chloride, Blood 96.0 mmol/L (98-108); Creatinine, Blood 7.19 mg/dL (0.60-1.20); Globulin, Blood 2.7 g/dL (2.2-4.0); Glucose, Blood 98.0 mg/dL (70-99); Potassium, Blood 4.8 mmol/L (3.5-5.5); Sodium, Blood 137.0 mmol/L (136-145); Total Protein, Blood 5.9 g/dL (6.4-8.2)
== END 2024-11-28 09:40 | disposition home or self-care (01) ==
LOC: ATC 02:26
PROVIDERS: Internal Medicine Hematology & Oncology
DX: D46.9 Myelodysplastic syndrome, unspecified (principal); Z79.899 Other long term (current) drug therapy
CPT/HCPCS: 80053; 85025; J1642

== ENCOUNTER 2024-12-01 00:07 | Day surgery (SDC) | payer MEDICARE, OTHER ==
[2024-12-01] MEDS ORDERED: ZOLOFT50 MG PO (11:12)
[2024-12-01 11:35] VITALS: BP 106/67
[2024-12-01 12:50] LABS: BASOPHILS ABSOLUTE AUTO 0.05 K/mm3 (0.00-0.23); BASOPHILS PERCENT AUTO 1 % (0-2); EOSINOPHILS ABSOLUTE AUTO 0.07 K/mm3 (0.00-0.68); EOSINOPHILS PERCENT AUTO 1 % (0-6); Hematocrit 23.7 % (37.0-53.0); Hemoglobin 7.9 g/dL (13.5-17.5); IMMATURE GRAN ABSOLUTE AUTO 0.17 K/mm3 (0.00-0.10); IMMATURE GRAN PERCENT AUTO 3 % (0-1); LYMPHOCYTES ABSOLUTE AUTO 0.57 K/mm3 (0.84-5.20); LYMPHOCYTES PERCENT AUTO 8 % (21-46); MONOCYTES ABSOLUTE AUTO 1.51 K/mm3 (0.16-1.47); MONOCYTES PERCENT AUTO 22 % (4-13); Mean Corpuscular HGB Conc 33.3 g/dL (31.5-36.5); Mean Corpuscular Volume 112 fL (80-100); NEUTROPHILS ABSOLUTE AUTO 4.52 K/mm3 (1.96-9.15); NEUTROPHILS PERCENT AUTO 66 % (41-73); NRBC ABSOLUTE 0.00 K/mm3 (0.00-0.02); NRBC Auto 0.0 /100 WBC (0.0-0.2); Platelet Count 159 K/mm3 (150-400); RDW Coefficient Variation 17.2 % (11.7-14.2); RDW Standard Deviation 67.9 fL (35.1-46.3)
[2024-12-01 13:04] LABS: Alanine Aminotransfer (ALT/SGP 24.0 U/L (12-78); Albumin, Blood 3.1 g/dL (3.4-5.0); Albumin/Globulin Ratio 1.1 (0.8-1.8); Anion Gap 8.0 mmol/L (3-11); Aspartate Aminotrans (AST/SGOT 25.0 U/L (12-37); Bilirubin, Total 1.7 mg/dL (0.1-1.0); Blood Urea Nitrogen 27.0 mg/dL (8-24); CO2, Blood 35.0 mmol/L (21-32); Calcium, Blood 8.1 mg/dL (8.5-10.1); Chloride, Blood 94.0 mmol/L (98-108); Creatinine, Blood 2.84 mg/dL (0.60-1.20); Globulin, Blood 2.8 g/dL (2.2-4.0); Glucose, Blood 87.0 mg/dL (70-99); Potassium, Blood 3.2 mmol/L (3.5-5.5); Sodium, Blood 134.0 mmol/L (136-145); Total Protein, Blood 5.9 g/dL (6.4-8.2)
== END 2024-12-01 11:28 | disposition home or self-care (01) ==
LOC: ATC 00:07
PROVIDERS: Internal Medicine Hematology & Oncology
DX: D46.9 Myelodysplastic syndrome, unspecified (principal); D70.9 Neutropenia, unspecified; D63.0 Anemia in neoplastic disease; L27.0 Generalized skin eruption due to drugs and medicaments taken internally; T50.905A Adverse effect of unspecified drugs, medicaments and biological substances, initial encounter; R13.10 Dysphagia, unspecified; R53.0 Neoplastic (malignant) related fatigue; R51.9 Headache, unspecified; D69.6 Thrombocytopenia, unspecified; M19.90 Unspecified osteoarthritis, unspecified site; Z79.52 Long term (current) use of systemic steroids; Z79.83 Long term (current) use of bisphosphonates; Z79.899 Other long term (current) drug therapy
CPT/HCPCS: 36591; 80053; 85025; J1642

== ENCOUNTER 2024-12-05 00:49 | Day surgery (SDC) | payer MEDICARE, OTHER ==
[~2024-12-05 00:49] MED LIST changes: +ZOLOFT50 MG PO
[2024-12-05 09:30] VITALS: BP 158/80
[2024-12-05 10:39] LABS: BASOPHILS ABSOLUTE AUTO 0.07 K/mm3 (0.00-0.23); BASOPHILS PERCENT AUTO 1 % (0-2); EOSINOPHILS ABSOLUTE AUTO 0.11 K/mm3 (0.00-0.68); EOSINOPHILS PERCENT AUTO 2 % (0-6); Hematocrit 26.4 % (37.0-53.0); Hemoglobin 8.7 g/dL (13.5-17.5); IMMATURE GRAN ABSOLUTE AUTO 0.21 K/mm3 (0.00-0.10); IMMATURE GRAN PERCENT AUTO 3 % (0-1); LYMPHOCYTES ABSOLUTE AUTO 0.71 K/mm3 (0.84-5.20); LYMPHOCYTES PERCENT AUTO 10 % (21-46); MONOCYTES ABSOLUTE AUTO 1.51 K/mm3 (0.16-1.47); MONOCYTES PERCENT AUTO 20 % (4-13); Mean Corpuscular HGB Conc 33.0 g/dL (31.5-36.5); Mean Corpuscular Volume 111 fL (80-100); NEUTROPHILS ABSOLUTE AUTO 4.88 K/mm3 (1.96-9.15); NEUTROPHILS PERCENT AUTO 65 % (41-73); NRBC ABSOLUTE 0.00 K/mm3 (0.00-0.02); NRBC Auto 0.0 /100 WBC (0.0-0.2); Platelet Count 173 K/mm3 (150-400); RDW Coefficient Variation 17.2 % (11.7-14.2); RDW Standard Deviation 71.4 fL (35.1-46.3)
[2024-12-05 11:06] LABS: Alanine Aminotransfer (ALT/SGP 24.0 U/L (12-78); Albumin, Blood 3.3 g/dL (3.4-5.0); Albumin/Globulin Ratio 1.1 (0.8-1.8); Anion Gap 13.0 mmol/L (3-11); Aspartate Aminotrans (AST/SGOT 22.0 U/L (12-37); Bilirubin, Total 1.8 mg/dL (0.1-1.0); Blood Urea Nitrogen 76.0 mg/dL (8-24); CO2, Blood 32.0 mmol/L (21-32); Calcium, Blood 8.5 mg/dL (8.5-10.1); Chloride, Blood 94.0 mmol/L (98-108); Creatinine, Blood 7.02 mg/dL (0.60-1.20); Globulin, Blood 2.9 g/dL (2.2-4.0); Glucose, Blood 102.0 mg/dL (70-99); Potassium, Blood 4.5 mmol/L (3.5-5.5); Sodium, Blood 134.0 mmol/L (136-145); Total Protein, Blood 6.2 g/dL (6.4-8.2)
== END 2024-12-05 09:35 | disposition home or self-care (01) ==
LOC: ATC 00:49
PROVIDERS: Internal Medicine Hematology & Oncology
DX: D46.9 Myelodysplastic syndrome, unspecified (principal)
CPT/HCPCS: 36591; 80053; 85025; J1642

== ENCOUNTER 2024-12-08 02:06 | Day surgery (SDC) | payer MEDICARE, OTHER ==
[2024-12-08 11:20] VITALS: BP 103/61
[2024-12-08 12:35] LABS: BASOPHILS ABSOLUTE AUTO 0.06 K/mm3 (0.00-0.23); BASOPHILS PERCENT AUTO 1 % (0-2); EOSINOPHILS ABSOLUTE AUTO 0.04 K/mm3 (0.00-0.68); EOSINOPHILS PERCENT AUTO 1 % (0-6); Hematocrit 24.3 % (37.0-53.0); Hemoglobin 7.9 g/dL (13.5-17.5); IMMATURE GRAN ABSOLUTE AUTO 0.07 K/mm3 (0.00-0.10); IMMATURE GRAN PERCENT AUTO 1 % (0-1); LYMPHOCYTES ABSOLUTE AUTO 0.50 K/mm3 (0.84-5.20); LYMPHOCYTES PERCENT AUTO 9 % (21-46); MONOCYTES ABSOLUTE AUTO 1.67 K/mm3 (0.16-1.47); MONOCYTES PERCENT AUTO 31 % (4-13); Mean Corpuscular HGB Conc 32.5 g/dL (31.5-36.5); Mean Corpuscular Volume 113 fL (80-100); NEUTROPHILS ABSOLUTE AUTO 3.14 K/mm3 (1.96-9.15); NEUTROPHILS PERCENT AUTO 57 % (41-73); NRBC ABSOLUTE 0.00 K/mm3 (0.00-0.02); NRBC Auto 0.0 /100 WBC (0.0-0.2); Platelet Count 125 K/mm3 (150-400); RDW Coefficient Variation 16.7 % (11.7-14.2); RDW Standard Deviation 68.9 fL (35.1-46.3)
[2024-12-08 13:06] LABS: Alanine Aminotransfer (ALT/SGP 22.0 U/L (12-78); Albumin, Blood 3.0 g/dL (3.4-5.0); Albumin/Globulin Ratio 1.1 (0.8-1.8); Anion Gap 5.0 mmol/L (3-11); Aspartate Aminotrans (AST/SGOT 23.0 U/L (12-37); Bilirubin, Total 1.4 mg/dL (0.1-1.0); Blood Urea Nitrogen 30.0 mg/dL (8-24); CO2, Blood 39.0 mmol/L (21-32); Calcium, Blood 7.9 mg/dL (8.5-10.1); Chloride, Blood 96.0 mmol/L (98-108); Creatinine, Blood 3.0 mg/dL (0.60-1.20); Globulin, Blood 2.7 g/dL (2.2-4.0); Glucose, Blood 113.0 mg/dL (70-99); Potassium, Blood 3.3 mmol/L (3.5-5.5); Sodium, Blood 137.0 mmol/L (136-145); Total Protein, Blood 5.7 g/dL (6.4-8.2)
== END 2024-12-08 23:00 | disposition home or self-care (01) ==
LOC: ATC 02:06
PROVIDERS: Internal Medicine Hematology & Oncology
DX: D46.9 Myelodysplastic syndrome, unspecified (principal); Z79.899 Other long term (current) drug therapy
CPT/HCPCS: 36591; 80053; 85025; J1642

== ENCOUNTER 2024-12-15 11:06 | Day surgery (SDC) | payer MEDICARE, OTHER ==
[2024-12-15 11:29] VITALS: BP 121/75
[2024-12-15 11:49] LABS: BASOPHILS ABSOLUTE AUTO 0.06 K/mm3 (0.00-0.23); BASOPHILS PERCENT AUTO 1 % (0-2); EOSINOPHILS ABSOLUTE AUTO 0.13 K/mm3 (0.00-0.68); EOSINOPHILS PERCENT AUTO 2 % (0-6); Hematocrit 27.8 % (37.0-53.0); Hemoglobin 8.7 g/dL (13.5-17.5); IMMATURE GRAN ABSOLUTE AUTO 0.16 K/mm3 (0.00-0.10); IMMATURE GRAN PERCENT AUTO 2 % (0-1); LYMPHOCYTES ABSOLUTE AUTO 0.66 K/mm3 (0.84-5.20); LYMPHOCYTES PERCENT AUTO 10 % (21-46); MONOCYTES ABSOLUTE AUTO 1.48 K/mm3 (0.16-1.47); MONOCYTES PERCENT AUTO 22 % (4-13); Mean Corpuscular HGB Conc 31.3 g/dL (31.5-36.5); Mean Corpuscular Volume 117 fL (80-100); NEUTROPHILS ABSOLUTE AUTO 4.35 K/mm3 (1.96-9.15); NEUTROPHILS PERCENT AUTO 64 % (41-73); NRBC ABSOLUTE 0.06 K/mm3 (0.00-0.02); NRBC Auto 0.9 /100 WBC (0.0-0.2); Platelet Count 157 K/mm3 (150-400); RDW Coefficient Variation 18.3 % (11.7-14.2); RDW Standard Deviation 73.0 fL (35.1-46.3)
[2024-12-15 12:14] LABS: Alanine Aminotransfer (ALT/SGP 24.0 U/L (12-78); Albumin, Blood 3.2 g/dL (3.4-5.0); Albumin/Globulin Ratio 1.1 (0.8-1.8); Anion Gap 5.0 mmol/L (3-11); Aspartate Aminotrans (AST/SGOT 27.0 U/L (12-37); Bilirubin, Total 1.9 mg/dL (0.1-1.0); Blood Urea Nitrogen 30.0 mg/dL (8-24); CO2, Blood 37.0 mmol/L (21-32); Calcium, Blood 8.2 mg/dL (8.5-10.1); Chloride, Blood 95.0 mmol/L (98-108); Creatinine, Blood 2.91 mg/dL (0.60-1.20); Globulin, Blood 2.8 g/dL (2.2-4.0); Glucose, Blood 102.0 mg/dL (70-99); Potassium, Blood 3.5 mmol/L (3.5-5.5); Sodium, Blood 133.0 mmol/L (136-145); Total Protein, Blood 6.0 g/dL (6.4-8.2)
== END 2024-12-15 11:39 | disposition home or self-care (01) ==
LOC: ATC 11:06
PROVIDERS: Internal Medicine Hematology & Oncology
DX: D46.9 Myelodysplastic syndrome, unspecified (principal)
CPT/HCPCS: 36591; 80053; 85025; J1642

== ENCOUNTER 2024-12-26 00:11 | Day surgery (SDC) | payer MEDICARE, OTHER ==
[2024-12-26 09:35] VITALS: BP 148/68
[2024-12-26 10:51] LABS: BASOPHILS ABSOLUTE AUTO 0.08 K/mm3 (0.00-0.23); BASOPHILS PERCENT AUTO 1 % (0-2); EOSINOPHILS ABSOLUTE AUTO 0.09 K/mm3 (0.00-0.68); EOSINOPHILS PERCENT AUTO 1 % (0-6); Hematocrit 25.4 % (37.0-53.0); Hemoglobin 8.2 g/dL (13.5-17.5); IMMATURE GRAN ABSOLUTE AUTO 0.11 K/mm3 (0.00-0.10); IMMATURE GRAN PERCENT AUTO 2 % (0-1); LYMPHOCYTES ABSOLUTE AUTO 0.49 K/mm3 (0.84-5.20); LYMPHOCYTES PERCENT AUTO 7 % (21-46); MONOCYTES ABSOLUTE AUTO 1.60 K/mm3 (0.16-1.47); MONOCYTES PERCENT AUTO 24 % (4-13); Mean Corpuscular HGB Conc 32.3 g/dL (31.5-36.5); Mean Corpuscular Volume 114 fL (80-100); NEUTROPHILS ABSOLUTE AUTO 4.42 K/mm3 (1.96-9.15); NEUTROPHILS PERCENT AUTO 65 % (41-73); NRBC ABSOLUTE 0.00 K/mm3 (0.00-0.02); NRBC Auto 0.0 /100 WBC (0.0-0.2); Platelet Count 152 K/mm3 (150-400); RDW Coefficient Variation 17.1 % (11.7-14.2); RDW Standard Deviation 70.0 fL (35.1-46.3)
[2024-12-26 11:12] LABS: Alanine Aminotransfer (ALT/SGP 20.0 U/L (12-78); Albumin, Blood 3.4 g/dL (3.4-5.0); Albumin/Globulin Ratio 1.3 (0.8-1.8); Anion Gap 13.0 mmol/L (3-11); Aspartate Aminotrans (AST/SGOT 20.0 U/L (12-37); Bilirubin, Total 1.8 mg/dL (0.1-1.0); Blood Urea Nitrogen 69.0 mg/dL (8-24); CO2, Blood 29.0 mmol/L (21-32); Calcium, Blood 8.6 mg/dL (8.5-10.1); Chloride, Blood 94.0 mmol/L (98-108); Creatinine, Blood 7.01 mg/dL (0.60-1.20); Globulin, Blood 2.6 g/dL (2.2-4.0); Glucose, Blood 86.0 mg/dL (70-99); Potassium, Blood 4.4 mmol/L (3.5-5.5); Sodium, Blood 132.0 mmol/L (136-145); Total Protein, Blood 6.0 g/dL (6.4-8.2)
== END 2024-12-26 09:41 | disposition home or self-care (01) ==
LOC: ATC 00:11
PROVIDERS: Internal Medicine Hematology & Oncology
DX: D46.1 Refractory anemia with ring sideroblasts (principal)
CPT/HCPCS: 36591; 80053; 85025; J1642

== ENCOUNTER 2024-12-29 03:15 | Day surgery (SDC) | payer MEDICARE, OTHER ==
[2024-12-29 11:18] VITALS: BP 103/69
[2024-12-29 12:45] LABS: BASOPHILS ABSOLUTE AUTO 0.08 K/mm3 (0.00-0.23); BASOPHILS PERCENT AUTO 1 % (0-2); EOSINOPHILS ABSOLUTE AUTO 0.09 K/mm3 (0.00-0.68); EOSINOPHILS PERCENT AUTO 2 % (0-6); Hematocrit 25.6 % (37.0-53.0); Hemoglobin 8.1 g/dL (13.5-17.5); IMMATURE GRAN ABSOLUTE AUTO 0.09 K/mm3 (0.00-0.10); IMMATURE GRAN PERCENT AUTO 2 % (0-1); LYMPHOCYTES ABSOLUTE AUTO 0.62 K/mm3 (0.84-5.20); LYMPHOCYTES PERCENT AUTO 11 % (21-46); MONOCYTES ABSOLUTE AUTO 1.50 K/mm3 (0.16-1.47); MONOCYTES PERCENT AUTO 27 % (4-13); Mean Corpuscular HGB Conc 31.6 g/dL (31.5-36.5); Mean Corpuscular Volume 117 fL (80-100); NEUTROPHILS ABSOLUTE AUTO 3.26 K/mm3 (1.96-9.15); NEUTROPHILS PERCENT AUTO 58 % (41-73); NRBC ABSOLUTE 0.00 K/mm3 (0.00-0.02); NRBC Auto 0.0 /100 WBC (0.0-0.2); Platelet Count 164 K/mm3 (150-400); RDW Coefficient Variation 18.0 % (11.7-14.2); RDW Standard Deviation 77.5 fL (35.1-46.3)
[2024-12-29 13:13] LABS: Alanine Aminotransfer (ALT/SGP 23.0 U/L (12-78); Albumin, Blood 3.2 g/dL (3.4-5.0); Albumin/Globulin Ratio 1.1 (0.8-1.8); Anion Gap 8.0 mmol/L (3-11); Aspartate Aminotrans (AST/SGOT 38.0 U/L (12-37); Bilirubin, Total 1.5 mg/dL (0.1-1.0); Blood Urea Nitrogen 36.0 mg/dL (8-24); CO2, Blood 37.0 mmol/L (21-32); Calcium, Blood 8.3 mg/dL (8.5-10.1); Chloride, Blood 95.0 mmol/L (98-108); Creatinine, Blood 3.57 mg/dL (0.60-1.20); Globulin, Blood 2.8 g/dL (2.2-4.0); Glucose, Blood 110.0 mg/dL (70-99); Potassium, Blood 3.8 mmol/L (3.5-5.5); Sodium, Blood 136.0 mmol/L (136-145); Total Protein, Blood 6.0 g/dL (6.4-8.2)
== END 2024-12-29 11:25 | disposition home or self-care (01) ==
LOC: ATC 03:15
PROVIDERS: Internal Medicine Hematology & Oncology
DX: D46.9 Myelodysplastic syndrome, unspecified (principal); D63.0 Anemia in neoplastic disease; L27.0 Generalized skin eruption due to drugs and medicaments taken internally; T50.905A Adverse effect of unspecified drugs, medicaments and biological substances, initial encounter; R53.0 Neoplastic (malignant) related fatigue; D69.6 Thrombocytopenia, unspecified; Z79.52 Long term (current) use of systemic steroids; Z79.890 Hormone replacement therapy; Z79.899 Other long term (current) drug therapy
CPT/HCPCS: 36591; 80053; 85025; J1642

== ENCOUNTER 2025-01-05 00:13 | Day surgery (SDC) | payer MEDICARE, OTHER ==
[2025-01-02 09:40] VITALS: BP 197/91
[2025-01-02 10:13] LABS: BASOPHILS ABSOLUTE AUTO 0.08 K/mm3 (0.00-0.23); BASOPHILS PERCENT AUTO 1 % (0-2); EOSINOPHILS ABSOLUTE AUTO 0.11 K/mm3 (0.00-0.68); EOSINOPHILS PERCENT AUTO 2 % (0-6); Hematocrit 25.6 % (37.0-53.0); Hemoglobin 8.0 g/dL (13.5-17.5); IMMATURE GRAN ABSOLUTE AUTO 0.08 K/mm3 (0.00-0.10); IMMATURE GRAN PERCENT AUTO 1 % (0-1); LYMPHOCYTES ABSOLUTE AUTO 0.72 K/mm3 (0.84-5.20); LYMPHOCYTES PERCENT AUTO 12 % (21-46); MONOCYTES ABSOLUTE AUTO 1.63 K/mm3 (0.16-1.47); MONOCYTES PERCENT AUTO 27 % (4-13); Mean Corpuscular HGB Conc 31.3 g/dL (31.5-36.5); Mean Corpuscular Volume 117 fL (80-100); NEUTROPHILS ABSOLUTE AUTO 3.48 K/mm3 (1.96-9.15); NEUTROPHILS PERCENT AUTO 57 % (41-73); NRBC ABSOLUTE 0.00 K/mm3 (0.00-0.02); NRBC Auto 0.0 /100 WBC (0.0-0.2); Platelet Count 179 K/mm3 (150-400); RDW Coefficient Variation 16.8 % (11.7-14.2); RDW Standard Deviation 72.7 fL (35.1-46.3)
[2025-01-02 10:34] LABS: Alanine Aminotransfer (ALT/SGP 20.0 U/L (12-78); Albumin, Blood 3.2 g/dL (3.4-5.0); Albumin/Globulin Ratio 1.1 (0.8-1.8); Anion Gap 12.0 mmol/L (3-11); Aspartate Aminotrans (AST/SGOT 20.0 U/L (12-37); Bilirubin, Total 1.8 mg/dL (0.1-1.0); Blood Urea Nitrogen 76.0 mg/dL (8-24); CO2, Blood 32.0 mmol/L (21-32); Calcium, Blood 9.1 mg/dL (8.5-10.1); Chloride, Blood 98.0 mmol/L (98-108); Creatinine, Blood 7.38 mg/dL (0.60-1.20); Globulin, Blood 2.9 g/dL (2.2-4.0); Glucose, Blood 94.0 mg/dL (70-99); Potassium, Blood 5.2 mmol/L (3.5-5.5); Sodium, Blood 137.0 mmol/L (136-145); Total Protein, Blood 6.1 g/dL (6.4-8.2)
[2025-01-05] MEDS ORDERED: NS 250 ML IV SCH (07:00)
[2025-01-05 13:38] VITALS: BP 159/68
[2025-01-05 14:00] VITALS: BP 132/66
[2025-01-05 15:02] VITALS: BP 170/76
[2025-01-05 15:32] VITALS: BP 161/80
[2025-01-05 15:52] VITALS: BP 162/72
[2025-01-05 17:20] VITALS: BP 181/86
--- NOTE | 2025-01-05 17:32 | NUR ---
CALL TO R/T ELEVATED BP AT COMPLETION OF 2 UNITS PRBC'S, PT'S BP IS ELEVATED AT 181/86. PT DENIES HEADACHE, CHEST PAIN, OR SHORTNESS OF BREATH. PT STATES "I WENT TO DIALYSIS THIS MORNING AND WILL GO AGAIN ON THURSDAY". CALLED DR. BUSTOS TO REVIEW CURRENT BLOOD PRESSURE AND DETERMINE WHETHER ANY ADDITIONAL ORDERS WOULD BE NECESSARY PRIOR TO DISCHARGE. DR. BUSTOS STATED "IF HE HAS CLONIDINE AT HOME, HE CAN TAKE ONE. OTHERWISE, IT SHOULD JUST TAKE TIME FOR THE VOLUME TO SETTLE AND HIS BLOOD PRESSURE SHOULD COME DOWN". PT AGREEABLE TO PLAN AND WILL SEEK EMERGENCY CARE FOR ANY URGENT CONCERNS UNTIL NEXT DIALYSIS.
== END 2025-01-05 17:35 ==
LOC: ATC 00:13
PROVIDERS: Internal Medicine Hematology & Oncology
DX: D46.9 Myelodysplastic syndrome, unspecified (principal); D63.0 Anemia in neoplastic disease; D70.9 Neutropenia, unspecified; L27.0 Generalized skin eruption due to drugs and medicaments taken internally; T50.905A Adverse effect of unspecified drugs, medicaments and biological substances, initial encounter; R13.10 Dysphagia, unspecified; R53.0 Neoplastic (malignant) related fatigue; R51.9 Headache, unspecified; D69.6 Thrombocytopenia, unspecified; Z79.52 Long term (current) use of systemic steroids; Z79.83 Long term (current) use of bisphosphonates; Z79.899 Other long term (current) drug therapy
CPT/HCPCS: 36430; 36591; 80053; 85025; 86850; 86900; 86901; 86923; J1642; J7050; P9016

== ENCOUNTER 2025-01-09 04:32 | Emergency (ER) | payer MEDICARE, OTHER ==
[~2025-01-09] VITALS: Ht 182.9 cm; Wt 63.5 kg
[2025-01-09] MEDS ORDERED: Oxymetazoline 0.05% Nasal Relief Spray 15mL BTL ONE (05:35)
[2025-01-09 06:20] LABS: BASOPHILS ABSOLUTE AUTO 0.08 K/mm3 (0.00-0.23); BASOPHILS PERCENT AUTO 1 % (0-2); EOSINOPHILS ABSOLUTE AUTO 0.10 K/mm3 (0.00-0.68); EOSINOPHILS PERCENT AUTO 1 % (0-6); Hematocrit 27.8 % (37.0-53.0); Hemoglobin 9.2 g/dL (13.5-17.5); IMMATURE GRAN ABSOLUTE AUTO 0.08 K/mm3 (0.00-0.10); IMMATURE GRAN PERCENT AUTO 1 % (0-1); LYMPHOCYTES ABSOLUTE AUTO 0.62 K/mm3 (0.84-5.20); LYMPHOCYTES PERCENT AUTO 8 % (21-46); MONOCYTES ABSOLUTE AUTO 1.71 K/mm3 (0.16-1.47); MONOCYTES PERCENT AUTO 21 % (4-13); Mean Corpuscular HGB Conc 33.1 g/dL (31.5-36.5); Mean Corpuscular Volume 106 fL (80-100); NEUTROPHILS ABSOLUTE AUTO 5.68 K/mm3 (1.96-9.15); NEUTROPHILS PERCENT AUTO 69 % (41-73); NRBC ABSOLUTE 0.00 K/mm3 (0.00-0.02); NRBC Auto 0.0 /100 WBC (0.0-0.2); Platelet Count 145 K/mm3 (150-400); RDW Coefficient Variation 17.5 % (11.7-14.2); RDW Standard Deviation 66.5 fL (35.1-46.3)
[2025-01-09 07:38] VITALS: BP 169/104
== END 2025-01-09 07:38 | disposition home or self-care (01) ==
LOC: ER 04:32
PROVIDERS: Student in an Organized Health Care Education/Training Program
DX: R04.0 Epistaxis (principal); I48.91 Unspecified atrial fibrillation; Z79.01 Long term (current) use of anticoagulants; Z79.899 Other long term (current) drug therapy; Z99.2 Dependence on renal dialysis; Z88.5 Allergy status to narcotic agent
CPT/HCPCS: 30903; 85025; 99283-25; A9270

== ENCOUNTER 2025-01-12 02:51 | Day surgery (SDC) | payer MEDICARE, OTHER ==
[2025-01-12 11:42] VITALS: BP 138/76
[2025-01-12 12:02] LABS: BASOPHILS ABSOLUTE AUTO 0.06 K/mm3 (0.00-0.23); BASOPHILS PERCENT AUTO 1 % (0-2); EOSINOPHILS ABSOLUTE AUTO 0.06 K/mm3 (0.00-0.68); EOSINOPHILS PERCENT AUTO 1 % (0-6); Hematocrit 27.1 % (37.0-53.0); Hemoglobin 8.8 g/dL (13.5-17.5); IMMATURE GRAN ABSOLUTE AUTO 0.07 K/mm3 (0.00-0.10); IMMATURE GRAN PERCENT AUTO 1 % (0-1); LYMPHOCYTES ABSOLUTE AUTO 0.59 K/mm3 (0.84-5.20); LYMPHOCYTES PERCENT AUTO 10 % (21-46); MONOCYTES ABSOLUTE AUTO 1.61 K/mm3 (0.16-1.47); MONOCYTES PERCENT AUTO 26 % (4-13); Mean Corpuscular HGB Conc 32.5 g/dL (31.5-36.5); Mean Corpuscular Volume 107 fL (80-100); NEUTROPHILS ABSOLUTE AUTO 3.71 K/mm3 (1.96-9.15); NEUTROPHILS PERCENT AUTO 61 % (41-73); NRBC ABSOLUTE 0.00 K/mm3 (0.00-0.02); NRBC Auto 0.0 /100 WBC (0.0-0.2); Platelet Count 172 K/mm3 (150-400); RDW Coefficient Variation 17.9 % (11.7-14.2); RDW Standard Deviation 68.9 fL (35.1-46.3)
[2025-01-12 12:33] LABS: Alanine Aminotransfer (ALT/SGP 24.0 U/L (12-78); Albumin, Blood 3.3 g/dL (3.4-5.0); Albumin/Globulin Ratio 1.1 (0.8-1.8); Anion Gap 6.0 mmol/L (3-11); Aspartate Aminotrans (AST/SGOT 24.0 U/L (12-37); Bilirubin, Total 1.2 mg/dL (0.1-1.0); Blood Urea Nitrogen 21.0 mg/dL (8-24); CO2, Blood 37.0 mmol/L (21-32); Calcium, Blood 8.2 mg/dL (8.5-10.1); Chloride, Blood 94.0 mmol/L (98-108); Creatinine, Blood 2.77 mg/dL (0.60-1.20); Globulin, Blood 2.9 g/dL (2.2-4.0); Glucose, Blood 90.0 mg/dL (70-99); Potassium, Blood 3.4 mmol/L (3.5-5.5); Sodium, Blood 134.0 mmol/L (136-145); Total Protein, Blood 6.2 g/dL (6.4-8.2)
== END 2025-01-12 11:52 | disposition home or self-care (01) ==
LOC: ATC 02:51
PROVIDERS: Internal Medicine Hematology & Oncology
DX: D46.9 Myelodysplastic syndrome, unspecified (principal); Z46.89 Encounter for fitting and adjustment of other specified devices; Z79.01 Long term (current) use of anticoagulants
CPT/HCPCS: 36591; 80053; 85025; 99211; 99282; J1642

== ENCOUNTER 2025-01-12 12:05 | Emergency (ER) | payer MEDICARE, OTHER ==
[~2025-01-12] VITALS: Ht 177.8 cm; Wt 69.8 kg
[2025-01-12 12:09] VITALS: BP 139/82
== END 2025-01-12 14:38 | disposition home or self-care (01) ==
LOC: ER 12:05
DX: Z46.89 Encounter for fitting and adjustment of other specified devices (principal); R04.0 Epistaxis; Z79.01 Long term (current) use of anticoagulants
CPT/HCPCS: 99282

== ENCOUNTER 2025-01-16 07:28 | Day surgery (SDC) | payer MEDICARE, OTHER ==
[2025-01-16 09:31] VITALS: BP 176/91
[2025-01-16 10:22] LABS: BASOPHILS ABSOLUTE AUTO 0.06 K/mm3 (0.00-0.23); BASOPHILS PERCENT AUTO 1 % (0-2); EOSINOPHILS ABSOLUTE AUTO 0.08 K/mm3 (0.00-0.68); EOSINOPHILS PERCENT AUTO 2 % (0-6); Hematocrit 27.2 % (37.0-53.0); Hemoglobin 8.9 g/dL (13.5-17.5); IMMATURE GRAN ABSOLUTE AUTO 0.09 K/mm3 (0.00-0.10); IMMATURE GRAN PERCENT AUTO 2 % (0-1); LYMPHOCYTES ABSOLUTE AUTO 0.70 K/mm3 (0.84-5.20); LYMPHOCYTES PERCENT AUTO 15 % (21-46); MONOCYTES ABSOLUTE AUTO 1.50 K/mm3 (0.16-1.47); MONOCYTES PERCENT AUTO 31 % (4-13); Mean Corpuscular HGB Conc 32.7 g/dL (31.5-36.5); Mean Corpuscular Volume 105 fL (80-100); NEUTROPHILS ABSOLUTE AUTO 2.37 K/mm3 (1.96-9.15); NEUTROPHILS PERCENT AUTO 49 % (41-73); NRBC ABSOLUTE 0.00 K/mm3 (0.00-0.02); NRBC Auto 0.0 /100 WBC (0.0-0.2); Platelet Count 185 K/mm3 (150-400); RDW Coefficient Variation 17.9 % (11.7-14.2); RDW Standard Deviation 69.0 fL (35.1-46.3)
[2025-01-16 10:44] LABS: Alanine Aminotransfer (ALT/SGP 27.0 U/L (12-78); Albumin, Blood 3.4 g/dL (3.4-5.0); Albumin/Globulin Ratio 1.2 (0.8-1.8); Anion Gap 18.0 mmol/L (3-11); Aspartate Aminotrans (AST/SGOT 24.0 U/L (12-37); Bilirubin, Total 1.0 mg/dL (0.1-1.0); Blood Urea Nitrogen 72.0 mg/dL (8-24); CO2, Blood 27.0 mmol/L (21-32); Calcium, Blood 8.4 mg/dL (8.5-10.1); Chloride, Blood 90.0 mmol/L (98-108); Creatinine, Blood 6.53 mg/dL (0.60-1.20); Globulin, Blood 2.8 g/dL (2.2-4.0); Glucose, Blood 113.0 mg/dL (70-99); Potassium, Blood 4.8 mmol/L (3.5-5.5); Sodium, Blood 130.0 mmol/L (136-145); Total Protein, Blood 6.2 g/dL (6.4-8.2)
== END 2025-01-16 09:45 | disposition home or self-care (01) ==
LOC: ATC 07:28
PROVIDERS: Internal Medicine Hematology & Oncology
DX: D46.1 Refractory anemia with ring sideroblasts (principal)
CPT/HCPCS: 36591; 80053; 85025; 96365; J1642

== ENCOUNTER 2025-01-19 02:00 | Day surgery (SDC) | payer MEDICARE, OTHER ==
[2025-01-19 11:40] VITALS: BP 131/75
[2025-01-19 12:40] LABS: BASOPHILS ABSOLUTE AUTO 0.05 K/mm3 (0.00-0.23); BASOPHILS PERCENT AUTO 1 % (0-2); EOSINOPHILS ABSOLUTE AUTO 0.03 K/mm3 (0.00-0.68); EOSINOPHILS PERCENT AUTO 1 % (0-6); Hematocrit 26.6 % (37.0-53.0); Hemoglobin 8.6 g/dL (13.5-17.5); IMMATURE GRAN ABSOLUTE AUTO 0.06 K/mm3 (0.00-0.10); IMMATURE GRAN PERCENT AUTO 1 % (0-1); LYMPHOCYTES ABSOLUTE AUTO 0.54 K/mm3 (0.84-5.20); LYMPHOCYTES PERCENT AUTO 12 % (21-46); MONOCYTES ABSOLUTE AUTO 1.69 K/mm3 (0.16-1.47); MONOCYTES PERCENT AUTO 39 % (4-13); Mean Corpuscular HGB Conc 32.3 g/dL (31.5-36.5); Mean Corpuscular Volume 106 fL (80-100); NEUTROPHILS ABSOLUTE AUTO 1.98 K/mm3 (1.96-9.15); NEUTROPHILS PERCENT AUTO 46 % (41-73); NRBC ABSOLUTE 0.00 K/mm3 (0.00-0.02); NRBC Auto 0.0 /100 WBC (0.0-0.2); Platelet Count 158 K/mm3 (150-400); RDW Coefficient Variation 17.7 % (11.7-14.2); RDW Standard Deviation 69.7 fL (35.1-46.3)
[2025-01-19 13:40] LABS: Alanine Aminotransfer (ALT/SGP 29.0 U/L (12-78); Albumin, Blood 3.3 g/dL (3.4-5.0); Albumin/Globulin Ratio 1.2 (0.8-1.8); Anion Gap 9.0 mmol/L (3-11); Aspartate Aminotrans (AST/SGOT 31.0 U/L (12-37); Bilirubin, Total 1.4 mg/dL (0.1-1.0); Blood Urea Nitrogen 35.0 mg/dL (8-24); CO2, Blood 36.0 mmol/L (21-32); Calcium, Blood 7.9 mg/dL (8.5-10.1); Chloride, Blood 91.0 mmol/L (98-108); Creatinine, Blood 3.42 mg/dL (0.60-1.20); Globulin, Blood 2.8 g/dL (2.2-4.0); Glucose, Blood 104.0 mg/dL (70-99); Potassium, Blood 3.7 mmol/L (3.5-5.5); Sodium, Blood 132.0 mmol/L (136-145); Total Protein, Blood 6.1 g/dL (6.4-8.2)
== END 2025-01-19 11:56 | disposition home or self-care (01) ==
LOC: ATC 02:00
PROVIDERS: Internal Medicine Hematology & Oncology
DX: D46.1 Refractory anemia with ring sideroblasts (principal)
CPT/HCPCS: 36591; 80053; 85025; J1642

== ENCOUNTER 2025-01-23 00:38 | Day surgery (SDC) | payer MEDICARE, OTHER ==
[2025-01-23 09:35] VITALS: BP 178/90
[2025-01-23 09:53] LABS: BASOPHILS ABSOLUTE AUTO 0.06 K/mm3 (0.00-0.23); BASOPHILS PERCENT AUTO 1 % (0-2); EOSINOPHILS ABSOLUTE AUTO 0.07 K/mm3 (0.00-0.68); EOSINOPHILS PERCENT AUTO 1 % (0-6); Hematocrit 26.1 % (37.0-53.0); Hemoglobin 8.5 g/dL (13.5-17.5); IMMATURE GRAN ABSOLUTE AUTO 0.10 K/mm3 (0.00-0.10); IMMATURE GRAN PERCENT AUTO 2 % (0-1); LYMPHOCYTES ABSOLUTE AUTO 0.63 K/mm3 (0.84-5.20); LYMPHOCYTES PERCENT AUTO 13 % (21-46); MONOCYTES ABSOLUTE AUTO 1.72 K/mm3 (0.16-1.47); MONOCYTES PERCENT AUTO 35 % (4-13); Mean Corpuscular HGB Conc 32.6 g/dL (31.5-36.5); Mean Corpuscular Volume 106 fL (80-100); NEUTROPHILS ABSOLUTE AUTO 2.38 K/mm3 (1.96-9.15); NEUTROPHILS PERCENT AUTO 48 % (41-73); NRBC ABSOLUTE 0.00 K/mm3 (0.00-0.02); NRBC Auto 0.0 /100 WBC (0.0-0.2); Platelet Count 182 K/mm3 (150-400); RDW Coefficient Variation 17.7 % (11.7-14.2); RDW Standard Deviation 68.7 fL (35.1-46.3)
[2025-01-23 10:13] LABS: Alanine Aminotransfer (ALT/SGP 31.0 U/L (12-78); Albumin, Blood 3.4 g/dL (3.4-5.0); Albumin/Globulin Ratio 1.3 (0.8-1.8); Anion Gap 11.0 mmol/L (3-11); Aspartate Aminotrans (AST/SGOT 24.0 U/L (12-37); Bilirubin, Total 1.2 mg/dL (0.1-1.0); Blood Urea Nitrogen 67.0 mg/dL (8-24); CO2, Blood 32.0 mmol/L (21-32); Calcium, Blood 8.7 mg/dL (8.5-10.1); Chloride, Blood 92.0 mmol/L (98-108); Creatinine, Blood 6.84 mg/dL (0.60-1.20); Globulin, Blood 2.7 g/dL (2.2-4.0); Glucose, Blood 105.0 mg/dL (70-99); Potassium, Blood 4.8 mmol/L (3.5-5.5); Sodium, Blood 130.0 mmol/L (136-145); Total Protein, Blood 6.1 g/dL (6.4-8.2)
== END 2025-01-23 09:43 | disposition home or self-care (01) ==
LOC: ATC 00:38
PROVIDERS: Internal Medicine Hematology & Oncology
DX: D46.1 Refractory anemia with ring sideroblasts (principal)
CPT/HCPCS: 36591; 80053; 85025; J1642

== ENCOUNTER 2025-01-26 00:54 | Day surgery (SDC) | payer MEDICARE, OTHER ==
[2025-01-26 11:40] VITALS: BP 124/66
[2025-01-26 12:33] LABS: BASOPHILS ABSOLUTE AUTO 0.04 K/mm3 (0.00-0.23); BASOPHILS PERCENT AUTO 1 % (0-2); EOSINOPHILS ABSOLUTE AUTO 0.03 K/mm3 (0.00-0.68); EOSINOPHILS PERCENT AUTO 1 % (0-6); Hematocrit 24.9 % (37.0-53.0); Hemoglobin 8.3 g/dL (13.5-17.5); IMMATURE GRAN ABSOLUTE AUTO 0.07 K/mm3 (0.00-0.10); IMMATURE GRAN PERCENT AUTO 1 % (0-1); LYMPHOCYTES ABSOLUTE AUTO 0.50 K/mm3 (0.84-5.20); LYMPHOCYTES PERCENT AUTO 9 % (21-46); MONOCYTES ABSOLUTE AUTO 2.22 K/mm3 (0.16-1.47); MONOCYTES PERCENT AUTO 39 % (4-13); Mean Corpuscular HGB Conc 33.3 g/dL (31.5-36.5); Mean Corpuscular Volume 105 fL (80-100); NEUTROPHILS ABSOLUTE AUTO 2.77 K/mm3 (1.96-9.15); NEUTROPHILS PERCENT AUTO 49 % (41-73); NRBC ABSOLUTE 0.00 K/mm3 (0.00-0.02); NRBC Auto 0.0 /100 WBC (0.0-0.2); Platelet Count 180 K/mm3 (150-400); RDW Coefficient Variation 18.5 % (11.7-14.2); RDW Standard Deviation 69.9 fL (35.1-46.3)
[2025-01-26 13:02] LABS: Alanine Aminotransfer (ALT/SGP 26.0 U/L (12-78); Albumin, Blood 3.3 g/dL (3.4-5.0); Albumin/Globulin Ratio 1.2 (0.8-1.8); Anion Gap 10.0 mmol/L (3-11); Aspartate Aminotrans (AST/SGOT 23.0 U/L (12-37); Bilirubin, Total 1.8 mg/dL (0.1-1.0); Blood Urea Nitrogen 21.0 mg/dL (8-24); CO2, Blood 34.0 mmol/L (21-32); Calcium, Blood 8.3 mg/dL (8.5-10.1); Chloride, Blood 91.0 mmol/L (98-108); Creatinine, Blood 2.36 mg/dL (0.60-1.20); Globulin, Blood 2.8 g/dL (2.2-4.0); Glucose, Blood 98.0 mg/dL (70-99); Potassium, Blood 3.1 mmol/L (3.5-5.5); Sodium, Blood 132.0 mmol/L (136-145); Total Protein, Blood 6.1 g/dL (6.4-8.2)
== END 2025-01-26 11:54 | disposition home or self-care (01) ==
LOC: ATC 00:54
PROVIDERS: Internal Medicine Hematology & Oncology
DX: D46.9 Myelodysplastic syndrome, unspecified (principal); D70.9 Neutropenia, unspecified; D63.0 Anemia in neoplastic disease; L27.0 Generalized skin eruption due to drugs and medicaments taken internally; T50.905A Adverse effect of unspecified drugs, medicaments and biological substances, initial encounter; R53.0 Neoplastic (malignant) related fatigue; Z79.83 Long term (current) use of bisphosphonates; Z79.899 Other long term (current) drug therapy
CPT/HCPCS: 36591; 80053; 85025; J1642

== ENCOUNTER 2025-01-30 00:33 | Day surgery (SDC) | payer MEDICARE, OTHER | END 2025-01-30 09:44 | disposition home or self-care (01) | LOC: ATC 00:33 | DX: D46.1 Refractory anemia with ring sideroblasts (principal) ==

== ENCOUNTER 2025-02-02 00:45 | Day surgery (SDC) | payer MEDICARE, OTHER ==
[2025-02-02 11:50] VITALS: BP 125/79
[2025-02-02 12:18] LABS: BASOPHILS ABSOLUTE AUTO 0.05 K/mm3 (0.00-0.23); BASOPHILS PERCENT AUTO 1 % (0-2); EOSINOPHILS ABSOLUTE AUTO 0.04 K/mm3 (0.00-0.68); EOSINOPHILS PERCENT AUTO 1 % (0-6); Hematocrit 24.0 % (37.0-53.0); Hemoglobin 8.0 g/dL (13.5-17.5); IMMATURE GRAN ABSOLUTE AUTO 0.05 K/mm3 (0.00-0.10); IMMATURE GRAN PERCENT AUTO 1 % (0-1); LYMPHOCYTES ABSOLUTE AUTO 0.62 K/mm3 (0.84-5.20); LYMPHOCYTES PERCENT AUTO 12 % (21-46); MONOCYTES ABSOLUTE AUTO 2.00 K/mm3 (0.16-1.47); MONOCYTES PERCENT AUTO 39 % (4-13); Mean Corpuscular HGB Conc 33.3 g/dL (31.5-36.5); Mean Corpuscular Volume 106 fL (80-100); NEUTROPHILS ABSOLUTE AUTO 2.32 K/mm3 (1.96-9.15); NEUTROPHILS PERCENT AUTO 46 % (41-73); NRBC ABSOLUTE 0.00 K/mm3 (0.00-0.02); NRBC Auto 0.0 /100 WBC (0.0-0.2); Platelet Count 157 K/mm3 (150-400); RDW Coefficient Variation 17.6 % (11.7-14.2); RDW Standard Deviation 68.4 fL (35.1-46.3)
[2025-02-02 12:32] LABS: Alanine Aminotransfer (ALT/SGP 23.0 U/L (12-78); Albumin, Blood 3.2 g/dL (3.4-5.0); Albumin/Globulin Ratio 1.1 (0.8-1.8); Anion Gap 10.0 mmol/L (3-11); Aspartate Aminotrans (AST/SGOT 24.0 U/L (12-37); Bilirubin, Total 1.5 mg/dL (0.1-1.0); Blood Urea Nitrogen 26.0 mg/dL (8-24); CO2, Blood 35.0 mmol/L (21-32); Calcium, Blood 8.2 mg/dL (8.5-10.1); Chloride, Blood 92.0 mmol/L (98-108); Creatinine, Blood 2.64 mg/dL (0.60-1.20); Globulin, Blood 2.9 g/dL (2.2-4.0); Glucose, Blood 89.0 mg/dL (70-99); Potassium, Blood 3.5 mmol/L (3.5-5.5); Sodium, Blood 133.0 mmol/L (136-145); Total Protein, Blood 6.1 g/dL (6.4-8.2)
== END 2025-02-02 11:58 | disposition home or self-care (01) ==
LOC: ATC 00:45
PROVIDERS: Internal Medicine Hematology & Oncology
DX: Z45.2 Encounter for adjustment and management of vascular access device (principal); D46.1 Refractory anemia with ring sideroblasts
CPT/HCPCS: 36591; 80053; 85025; J1642

== ENCOUNTER 2025-02-06 00:15 | Day surgery (SDC) | payer MEDICARE, OTHER ==
[2025-02-06 11:39] VITALS: BP 138/74
[2025-02-06 12:24] LABS: BASOPHILS ABSOLUTE AUTO 0.08 K/mm3 (0.00-0.23); BASOPHILS PERCENT AUTO 2 % (0-2); EOSINOPHILS ABSOLUTE AUTO 0.07 K/mm3 (0.00-0.68); EOSINOPHILS PERCENT AUTO 1 % (0-6); Hematocrit 25.0 % (37.0-53.0); Hemoglobin 8.1 g/dL (13.5-17.5); IMMATURE GRAN ABSOLUTE AUTO 0.04 K/mm3 (0.00-0.10); IMMATURE GRAN PERCENT AUTO 1 % (0-1); LYMPHOCYTES ABSOLUTE AUTO 0.71 K/mm3 (0.84-5.20); LYMPHOCYTES PERCENT AUTO 15 % (21-46); MONOCYTES ABSOLUTE AUTO 2.01 K/mm3 (0.16-1.47); MONOCYTES PERCENT AUTO 41 % (4-13); Mean Corpuscular HGB Conc 32.4 g/dL (31.5-36.5); Mean Corpuscular Volume 108 fL (80-100); NEUTROPHILS ABSOLUTE AUTO 2.00 K/mm3 (1.96-9.15); NEUTROPHILS PERCENT AUTO 41 % (41-73); NRBC ABSOLUTE 0.00 K/mm3 (0.00-0.02); NRBC Auto 0.0 /100 WBC (0.0-0.2); Platelet Count 160 K/mm3 (150-400); RDW Coefficient Variation 17.5 % (11.7-14.2); RDW Standard Deviation 67.7 fL (35.1-46.3)
[2025-02-06 12:53] LABS: Alanine Aminotransfer (ALT/SGP 25.0 U/L (12-78); Albumin, Blood 3.3 g/dL (3.4-5.0); Albumin/Globulin Ratio 1.1 (0.8-1.8); Anion Gap 6.0 mmol/L (3-11); Aspartate Aminotrans (AST/SGOT 22.0 U/L (12-37); Bilirubin, Total 1.5 mg/dL (0.1-1.0); Blood Urea Nitrogen 18.0 mg/dL (8-24); CO2, Blood 39.0 mmol/L (21-32); Calcium, Blood 8.2 mg/dL (8.5-10.1); Chloride, Blood 93.0 mmol/L (98-108); Creatinine, Blood 2.07 mg/dL (0.60-1.20); Globulin, Blood 2.9 g/dL (2.2-4.0); Glucose, Blood 87.0 mg/dL (70-99); Potassium, Blood 2.9 mmol/L (3.5-5.5); Sodium, Blood 135.0 mmol/L (136-145); Total Protein, Blood 6.2 g/dL (6.4-8.2)
== END 2025-02-06 11:48 | disposition home or self-care (01) ==
LOC: ATC 00:15
PROVIDERS: Internal Medicine Hematology & Oncology
DX: D46.1 Refractory anemia with ring sideroblasts (principal)
CPT/HCPCS: 36591; 80053; 85025; J1642

== ENCOUNTER 2025-02-13 02:32 | Day surgery (SDC) | payer MEDICARE, OTHER ==
[2025-02-13 09:45] VITALS: BP 182/88
[2025-02-13 10:04] LABS: BASOPHILS ABSOLUTE AUTO 0.08 K/mm3 (0.00-0.23); BASOPHILS PERCENT AUTO 2 % (0-2); EOSINOPHILS ABSOLUTE AUTO 0.04 K/mm3 (0.00-0.68); EOSINOPHILS PERCENT AUTO 1 % (0-6); Hematocrit 26.5 % (37.0-53.0); Hemoglobin 8.7 g/dL (13.5-17.5); IMMATURE GRAN ABSOLUTE AUTO 0.04 K/mm3 (0.00-0.10); IMMATURE GRAN PERCENT AUTO 1 % (0-1); LYMPHOCYTES ABSOLUTE AUTO 0.75 K/mm3 (0.84-5.20); LYMPHOCYTES PERCENT AUTO 16 % (21-46); MONOCYTES ABSOLUTE AUTO 1.99 K/mm3 (0.16-1.47); MONOCYTES PERCENT AUTO 43 % (4-13); Mean Corpuscular HGB Conc 32.8 g/dL (31.5-36.5); Mean Corpuscular Volume 108 fL (80-100); NEUTROPHILS ABSOLUTE AUTO 1.69 K/mm3 (1.96-9.15); NEUTROPHILS PERCENT AUTO 37 % (41-73); NRBC ABSOLUTE 0.00 K/mm3 (0.00-0.02); NRBC Auto 0.0 /100 WBC (0.0-0.2); Platelet Count 181 K/mm3 (150-400); RDW Coefficient Variation 17.7 % (11.7-14.2); RDW Standard Deviation 71.4 fL (35.1-46.3)
[2025-02-13 10:39] LABS: Alanine Aminotransfer (ALT/SGP 25.0 U/L (12-78); Albumin, Blood 3.4 g/dL (3.4-5.0); Albumin/Globulin Ratio 1.2 (0.8-1.8); Anion Gap 17.0 mmol/L (3-11); Aspartate Aminotrans (AST/SGOT 22.0 U/L (12-37); Bilirubin, Total 1.3 mg/dL (0.1-1.0); Blood Urea Nitrogen 78.0 mg/dL (8-24); CO2, Blood 28.0 mmol/L (21-32); Calcium, Blood 8.1 mg/dL (8.5-10.1); Chloride, Blood 94.0 mmol/L (98-108); Creatinine, Blood 7.71 mg/dL (0.60-1.20); Globulin, Blood 2.9 g/dL (2.2-4.0); Glucose, Blood 124.0 mg/dL (70-99); Potassium, Blood 4.8 mmol/L (3.5-5.5); Sodium, Blood 134.0 mmol/L (136-145); Total Protein, Blood 6.3 g/dL (6.4-8.2)
== END 2025-02-13 09:45 | disposition home or self-care (01) ==
LOC: ATC 02:32
PROVIDERS: Internal Medicine Hematology & Oncology
DX: D46.1 Refractory anemia with ring sideroblasts (principal)
CPT/HCPCS: 36591; 80053; 85025; J1642

== ENCOUNTER 2025-02-16 02:19 | Day surgery (SDC) | payer MEDICARE, OTHER ==
[2025-02-16 11:25] VITALS: BP 141/69
[2025-02-16 12:54] LABS: BASOPHILS ABSOLUTE AUTO 0.07 K/mm3 (0.00-0.23); BASOPHILS PERCENT AUTO 1 % (0-2); EOSINOPHILS ABSOLUTE AUTO 0.05 K/mm3 (0.00-0.68); EOSINOPHILS PERCENT AUTO 1 % (0-6); Hematocrit 26.0 % (37.0-53.0); Hemoglobin 8.6 g/dL (13.5-17.5); IMMATURE GRAN ABSOLUTE AUTO 0.09 K/mm3 (0.00-0.10); IMMATURE GRAN PERCENT AUTO 2 % (0-1); LYMPHOCYTES ABSOLUTE AUTO 0.93 K/mm3 (0.84-5.20); LYMPHOCYTES PERCENT AUTO 18 % (21-46); MONOCYTES ABSOLUTE AUTO 1.85 K/mm3 (0.16-1.47); MONOCYTES PERCENT AUTO 36 % (4-13); Mean Corpuscular HGB Conc 33.1 g/dL (31.5-36.5); Mean Corpuscular Volume 108 fL (80-100); NEUTROPHILS ABSOLUTE AUTO 2.15 K/mm3 (1.96-9.15); NEUTROPHILS PERCENT AUTO 42 % (41-73); NRBC ABSOLUTE 0.00 K/mm3 (0.00-0.02); NRBC Auto 0.0 /100 WBC (0.0-0.2); Platelet Count 163 K/mm3 (150-400); RDW Coefficient Variation 16.8 % (11.7-14.2); RDW Standard Deviation 66.8 fL (35.1-46.3)
[2025-02-16 13:16] LABS: Alanine Aminotransfer (ALT/SGP 22.0 U/L (12-78); Albumin, Blood 3.4 g/dL (3.4-5.0); Albumin/Globulin Ratio 1.2 (0.8-1.8); Anion Gap 9.0 mmol/L (3-11); Aspartate Aminotrans (AST/SGOT 16.0 U/L (12-37); Bilirubin, Total 1.5 mg/dL (0.1-1.0); Blood Urea Nitrogen 24.0 mg/dL (8-24); CO2, Blood 32.0 mmol/L (21-32); Calcium, Blood 8.2 mg/dL (8.5-10.1); Chloride, Blood 94.0 mmol/L (98-108); Creatinine, Blood 2.49 mg/dL (0.60-1.20); Globulin, Blood 2.9 g/dL (2.2-4.0); Glucose, Blood 83.0 mg/dL (70-99); Potassium, Blood 3.3 mmol/L (3.5-5.5); Sodium, Blood 132.0 mmol/L (136-145); Total Protein, Blood 6.3 g/dL (6.4-8.2)
== END 2025-02-16 11:37 | disposition home or self-care (01) ==
LOC: ATC 02:19
PROVIDERS: Internal Medicine Hematology & Oncology
DX: D46.1 Refractory anemia with ring sideroblasts (principal)
CPT/HCPCS: 36591; 80053; 85025; J1642

== ENCOUNTER 2025-02-20 04:35 | Day surgery (SDC) | payer MEDICARE, OTHER ==
[2025-02-20 09:22] VITALS: BP 192/91
[2025-02-20 10:02] LABS: BASOPHILS ABSOLUTE AUTO 0.11 K/mm3 (0.00-0.23); BASOPHILS PERCENT AUTO 2 % (0-2); EOSINOPHILS ABSOLUTE AUTO 0.10 K/mm3 (0.00-0.68); EOSINOPHILS PERCENT AUTO 2 % (0-6); Hematocrit 27.9 % (37.0-53.0); Hemoglobin 9.1 g/dL (13.5-17.5); IMMATURE GRAN ABSOLUTE AUTO 0.31 K/mm3 (0.00-0.10); IMMATURE GRAN PERCENT AUTO 5 % (0-1); LYMPHOCYTES ABSOLUTE AUTO 1.07 K/mm3 (0.84-5.20); LYMPHOCYTES PERCENT AUTO 16 % (21-46); MONOCYTES ABSOLUTE AUTO 1.90 K/mm3 (0.16-1.47); MONOCYTES PERCENT AUTO 28 % (4-13); Mean Corpuscular HGB Conc 32.6 g/dL (31.5-36.5); Mean Corpuscular Volume 109 fL (80-100); NEUTROPHILS ABSOLUTE AUTO 3.32 K/mm3 (1.96-9.15); NEUTROPHILS PERCENT AUTO 49 % (41-73); NRBC ABSOLUTE 0.00 K/mm3 (0.00-0.02); NRBC Auto 0.0 /100 WBC (0.0-0.2); Platelet Count 217 K/mm3 (150-400); RDW Coefficient Variation 17.1 % (11.7-14.2); RDW Standard Deviation 67.4 fL (35.1-46.3)
[2025-02-20 10:22] LABS: Alanine Aminotransfer (ALT/SGP 21.0 U/L (12-78); Albumin, Blood 3.2 g/dL (3.4-5.0); Albumin/Globulin Ratio 1.1 (0.8-1.8); Anion Gap 13.0 mmol/L (3-11); Aspartate Aminotrans (AST/SGOT 16.0 U/L (12-37); Bilirubin, Total 1.1 mg/dL (0.1-1.0); Blood Urea Nitrogen 67.0 mg/dL (8-24); CO2, Blood 28.0 mmol/L (21-32); Calcium, Blood 8.4 mg/dL (8.5-10.1); Chloride, Blood 97.0 mmol/L (98-108); Creatinine, Blood 6.99 mg/dL (0.60-1.20); Globulin, Blood 2.9 g/dL (2.2-4.0); Glucose, Blood 120.0 mg/dL (70-99); Potassium, Blood 4.2 mmol/L (3.5-5.5); Sodium, Blood 134.0 mmol/L (136-145); Total Protein, Blood 6.1 g/dL (6.4-8.2)
== END 2025-02-20 09:40 | disposition home or self-care (01) ==
LOC: ATC 04:35
PROVIDERS: Internal Medicine Hematology & Oncology
DX: D46.1 Refractory anemia with ring sideroblasts (principal)
CPT/HCPCS: 36591; 80053; 85025; J1642

== ENCOUNTER 2025-02-23 03:37 | Day surgery (SDC) | payer MEDICARE, OTHER ==
[2025-02-23 11:43] VITALS: BP 135/73
[2025-02-23 12:37] LABS: BASOPHILS ABSOLUTE AUTO 0.09 K/mm3 (0.00-0.23); BASOPHILS PERCENT AUTO 1 % (0-2); EOSINOPHILS ABSOLUTE AUTO 0.11 K/mm3 (0.00-0.68); EOSINOPHILS PERCENT AUTO 1 % (0-6); Hematocrit 26.9 % (37.0-53.0); Hemoglobin 8.8 g/dL (13.5-17.5); IMMATURE GRAN ABSOLUTE AUTO 0.20 K/mm3 (0.00-0.10); IMMATURE GRAN PERCENT AUTO 2 % (0-1); LYMPHOCYTES ABSOLUTE AUTO 0.92 K/mm3 (0.84-5.20); LYMPHOCYTES PERCENT AUTO 9 % (21-46); MONOCYTES ABSOLUTE AUTO 2.71 K/mm3 (0.16-1.47); MONOCYTES PERCENT AUTO 27 % (4-13); Mean Corpuscular HGB Conc 32.7 g/dL (31.5-36.5); Mean Corpuscular Volume 107 fL (80-100); NEUTROPHILS ABSOLUTE AUTO 5.88 K/mm3 (1.96-9.15); NEUTROPHILS PERCENT AUTO 59 % (41-73); NRBC ABSOLUTE 0.00 K/mm3 (0.00-0.02); NRBC Auto 0.0 /100 WBC (0.0-0.2); Platelet Count 205 K/mm3 (150-400); RDW Coefficient Variation 17.7 % (11.7-14.2); RDW Standard Deviation 69.4 fL (35.1-46.3)
[2025-02-23 13:10] LABS: Alanine Aminotransfer (ALT/SGP 18.0 U/L (12-78); Albumin, Blood 3.3 g/dL (3.4-5.0); Albumin/Globulin Ratio 1.1 (0.8-1.8); Anion Gap 9.0 mmol/L (3-11); Aspartate Aminotrans (AST/SGOT 20.0 U/L (12-37); Bilirubin, Total 1.5 mg/dL (0.1-1.0); Blood Urea Nitrogen 24.0 mg/dL (8-24); CO2, Blood 33.0 mmol/L (21-32); Calcium, Blood 8.1 mg/dL (8.5-10.1); Chloride, Blood 92.0 mmol/L (98-108); Creatinine, Blood 2.61 mg/dL (0.60-1.20); Globulin, Blood 2.9 g/dL (2.2-4.0); Glucose, Blood 97.0 mg/dL (70-99); Potassium, Blood 3.2 mmol/L (3.5-5.5); Sodium, Blood 131.0 mmol/L (136-145); Total Protein, Blood 6.2 g/dL (6.4-8.2)
== END 2025-02-23 11:51 | disposition home or self-care (01) ==
LOC: ATC 03:37
PROVIDERS: Internal Medicine Hematology & Oncology
DX: D46.9 Myelodysplastic syndrome, unspecified (principal); D63.0 Anemia in neoplastic disease; L27.0 Generalized skin eruption due to drugs and medicaments taken internally; T50.905A Adverse effect of unspecified drugs, medicaments and biological substances, initial encounter; R53.0 Neoplastic (malignant) related fatigue; G43.909 Migraine, unspecified, not intractable, without status migrainosus; M19.90 Unspecified osteoarthritis, unspecified site; D69.6 Thrombocytopenia, unspecified
CPT/HCPCS: 36591; 80053; 85025; J1642

== ENCOUNTER 2025-02-27 00:35 | Day surgery (SDC) | payer MEDICARE, OTHER ==
[2025-02-27 09:42] VITALS: BP 146/88
[2025-02-27 10:01] LABS: BASOPHILS ABSOLUTE AUTO 0.12 K/mm3 (0.00-0.23); BASOPHILS PERCENT AUTO 1 % (0-2); EOSINOPHILS ABSOLUTE AUTO 0.14 K/mm3 (0.00-0.68); EOSINOPHILS PERCENT AUTO 1 % (0-6); Hematocrit 28.0 % (37.0-53.0); Hemoglobin 9.1 g/dL (13.5-17.5); IMMATURE GRAN ABSOLUTE AUTO 0.22 K/mm3 (0.00-0.10); IMMATURE GRAN PERCENT AUTO 2 % (0-1); LYMPHOCYTES ABSOLUTE AUTO 0.75 K/mm3 (0.84-5.20); LYMPHOCYTES PERCENT AUTO 6 % (21-46); MONOCYTES ABSOLUTE AUTO 2.53 K/mm3 (0.16-1.47); MONOCYTES PERCENT AUTO 21 % (4-13); Mean Corpuscular HGB Conc 32.5 g/dL (31.5-36.5); Mean Corpuscular Volume 109 fL (80-100); NEUTROPHILS ABSOLUTE AUTO 8.20 K/mm3 (1.96-9.15); NEUTROPHILS PERCENT AUTO 69 % (41-73); NRBC ABSOLUTE 0.00 K/mm3 (0.00-0.02); NRBC Auto 0.0 /100 WBC (0.0-0.2); Platelet Count 187 K/mm3 (150-400); RDW Coefficient Variation 17.4 % (11.7-14.2); RDW Standard Deviation 70.3 fL (35.1-46.3)
[2025-02-27 10:28] LABS: Alanine Aminotransfer (ALT/SGP 19.0 U/L (12-78); Albumin, Blood 3.4 g/dL (3.4-5.0); Albumin/Globulin Ratio 1.2 (0.8-1.8); Anion Gap 11.0 mmol/L (3-11); Aspartate Aminotrans (AST/SGOT 17.0 U/L (12-37); Bilirubin, Total 1.0 mg/dL (0.1-1.0); Blood Urea Nitrogen 63.0 mg/dL (8-24); CO2, Blood 31.0 mmol/L (21-32); Calcium, Blood 8.6 mg/dL (8.5-10.1); Chloride, Blood 100.0 mmol/L (98-108); Creatinine, Blood 7.01 mg/dL (0.60-1.20); Globulin, Blood 2.9 g/dL (2.2-4.0); Glucose, Blood 111.0 mg/dL (70-99); Potassium, Blood 4.1 mmol/L (3.5-5.5); Sodium, Blood 138.0 mmol/L (136-145); Total Protein, Blood 6.3 g/dL (6.4-8.2)
== END 2025-02-27 09:49 | disposition home or self-care (01) ==
LOC: ATC 00:35
PROVIDERS: Internal Medicine Hematology & Oncology
DX: D46.9 Myelodysplastic syndrome, unspecified (principal)
CPT/HCPCS: 36591; 80053; 85025; 99211; J1642

== ENCOUNTER 2025-03-13 02:34 | Day surgery (SDC) | payer MEDICARE, OTHER ==
[2025-03-13 09:25] VITALS: BP 155/83
[2025-03-13 09:55] LABS: BASOPHILS ABSOLUTE AUTO 0.05 K/mm3 (0.00-0.23); BASOPHILS PERCENT AUTO 1 % (0-2); EOSINOPHILS ABSOLUTE AUTO 0.15 K/mm3 (0.00-0.68); EOSINOPHILS PERCENT AUTO 2 % (0-6); Hematocrit 26.6 % (37.0-53.0); Hemoglobin 8.8 g/dL (13.5-17.5); IMMATURE GRAN ABSOLUTE AUTO 0.06 K/mm3 (0.00-0.10); IMMATURE GRAN PERCENT AUTO 1 % (0-1); LYMPHOCYTES ABSOLUTE AUTO 0.69 K/mm3 (0.84-5.20); LYMPHOCYTES PERCENT AUTO 11 % (21-46); MONOCYTES ABSOLUTE AUTO 1.50 K/mm3 (0.16-1.47); MONOCYTES PERCENT AUTO 24 % (4-13); Mean Corpuscular HGB Conc 33.1 g/dL (31.5-36.5); Mean Corpuscular Volume 106 fL (80-100); NEUTROPHILS ABSOLUTE AUTO 3.73 K/mm3 (1.96-9.15); NEUTROPHILS PERCENT AUTO 60 % (41-73); NRBC ABSOLUTE 0.00 K/mm3 (0.00-0.02); NRBC Auto 0.0 /100 WBC (0.0-0.2); Platelet Count 165 K/mm3 (150-400); RDW Coefficient Variation 16.8 % (11.7-14.2); RDW Standard Deviation 65.0 fL (35.1-46.3)
[2025-03-13 10:21] LABS: Alanine Aminotransfer (ALT/SGP 24.0 U/L (12-78); Albumin, Blood 3.2 g/dL (3.4-5.0); Albumin/Globulin Ratio 1.0 (0.8-1.8); Anion Gap 12.0 mmol/L (3-11); Aspartate Aminotrans (AST/SGOT 23.0 U/L (12-37); Bilirubin, Total 1.2 mg/dL (0.1-1.0); Blood Urea Nitrogen 73.0 mg/dL (8-24); CO2, Blood 32.0 mmol/L (21-32); Calcium, Blood 8.7 mg/dL (8.5-10.1); Chloride, Blood 96.0 mmol/L (98-108); Creatinine, Blood 7.42 mg/dL (0.60-1.20); Globulin, Blood 3.1 g/dL (2.2-4.0); Glucose, Blood 114.0 mg/dL (70-99); Potassium, Blood 4.6 mmol/L (3.5-5.5); Sodium, Blood 135.0 mmol/L (136-145); Total Protein, Blood 6.3 g/dL (6.4-8.2)
== END 2025-03-13 09:36 | disposition home or self-care (01) ==
LOC: ATC 02:34
PROVIDERS: Internal Medicine Hematology & Oncology
DX: Z45.2 Encounter for adjustment and management of vascular access device (principal); D46.1 Refractory anemia with ring sideroblasts
CPT/HCPCS: 36591; 80053; 85025; J1642